=== PATIENT | female | born 1995 | race Caucasian/White ===

== ENCOUNTER 2020-03-09 14:59 | Emergency (ER) | payer OTHER, SELFPAY ==
--- NOTE | 2020-03-09 | XR_ITS ---
EXAMINATION: XR CHEST CLINICAL INFORMATION: Cough with shortness of breath COMPARISON: 12/12/2019 TECHNIQUE: 2 views of the chest were obtained. FINDINGS: No significant abnormality is noted involving the heart, lungs, mediastinum, bony thorax or soft tissues. XR/XR chest 2V IMPRESSION: Unremarkable examination.
[2020-03-09 15:58] VITALS: BP 122/64; PULSE 75; RESP 16; TEMP 37.1; O2SAT 100; BMI 57.2
--- NOTE | 2020-03-09 16:33 | ED_ITS ---
HPI - General Adult General Chief complaint: Upper Respiratory Symptoms Stated complaint: BACK PPAIN,COUGH Time Seen by Provider: 03/09/20 16:30 Source: patient Mode of arrival: ambulatory Limitations: no limitations History of Present Illness HPI narrative: Patient here with left upper back pain, cough, sore throat x2-3 days. No fevers, chills, body aches, CP or SOB. Onset (ago): day(s) Location: back Radiation: non-radiation Severity: mild Pain Consistency: intermittent Relieving factors: immobilization Exacerbating factors: movement Associated symptoms: denies other symptoms Treatments prior to arrival: none Related Data Previous Rx's Medication Instructions Recorded ferrous sulfate 325 mg (65 mg 325 mg PO DAILY #30 tab 03/01/20 iron) tablet cyclobenzaprine 10 mg PO TID PRN #10 tab 03/09/20 ibuprofen 600 mg PO TID PRN #20 tab 03/09/20 Allergies Allergy/AdvReac Type Severity Reaction Status Date / Time cat dander [CAT] Allergy Unknown UNKNOWN Unverified 02/01/20 17:28 tree and shrub pollen [TREE] Allergy Unknown UNKNOWN Unverified 02/01/20 17:28 BLUE CHEESE Allergy Unknown UNKNOWN Uncoded 02/01/20 17:28 Blue Cheese Allergy Unknown nausea and Uncoded 01/09/20 00:00 vomiting Cats Allergy Unknown shortness Uncoded 01/09/20 00:00 of breath GRASS Allergy Unknown UNKNOWN Uncoded 02/01/20 17:28 Maple Trees Allergy Unknown Excessive Uncoded 01/09/20 00:00 Sneezing Review of Systems Review of Systems: Yes all other systems are reviewed and are negative Constitutional: Constitutional: Reports no additional constitutional complaints, Denies body ache(s), Denies chills, Denies fever(s), Denies headache(s) and Denies weakness Eyes: Eyes: Reports no additional eye complaints and Denies change in vision ENT: Reports system reviewed and no additional complaints, except as documented, Denies dizziness, Denies headache(s), Denies nasal congestion, Denies nasal discharge, Denies neck pain and Reports sore throat Cardiovascular: Cardiovascular: Reports no additional cardiovascular complaints, Denies chest pain, Denies leg edema and Denies dyspnea Respiratory: Respiratory: Reports no additional respiratory complaints, Reports cough and Denies dyspnea Gastrointestinal: Gastrointestinal: Reports no additional gastrointestinal complaints, Denies abdominal pain, Denies diarrhea, Denies nausea and Denies vomiting Genitourinary: Genitourinary: Reports no additional female genitourinary complaints and Denies urinary incontinence Musculoskeletal: Musculoskeletal: Reports no additional musculoskeletal complaints, Reports back pain, Denies arthralgias, Denies joint swelling, Denies neck pain, Denies numbness and Denies tingling Integumentary/Breasts: Skin/Breast: Reports system reviewed and no additional complaints, except as docu and Denies rash Neurologic: Reports system reviewed and no additional complaints, except as documented, Denies Abnormal speech present, Denies dizziness, Denies headache(s), Denies numbness, Denies tingling and Denies weakness PMFSH Past Medical History Attestation statement: The following information was validated with the patient. Source: old records reviewed, obtained from family and nursing notes reviewed Medical History No known health problems Social History Social History Alcohol intake: never Smoked in Last 30 Days: No Use of substances other than those prescribed or required for medical reasons: No Advance Directives: No Advance Directives Information Provided: No Physical Exam Vital Signs: Vital Signs: Vital Signs Temp Pulse Resp BP Pulse Ox 03/09/20 15:58 98.7 F 75 16 122/64 100 Body Mass Index 57.2 Const: General: cooperative, healthy appearing, comfortable and no acute dist ress Orientation/consciousness: patient oriented x3 Limitations: no limitations HENMT: Head: Yes normal to inspection Ears: hearing grossly normal bilaterally General nose exam: Normal external nose present Face and sinus: Yes normal facial exam Mouth: Normal oral and palatal mucosa present Throat: Yes posterior oropharynx normal Eyes: General: appearance normal, both eyes and all related structures Pupils: Equal, round and reactive pupils present Neck: Neck: Yes normal visual inspection Chest: Chest palpation & inspection: normal inspection of the chest Resp: Effort & Inspection: normal respiratory effort Auscultation: clear to auscultation bilaterally Cardio: Rate: regular rate Rhythm: regular rhythm Peripheral pulses: Peripheral pulses 2+ throughout GI: Inspection: Yes normal to inspection Palpation (GI): Soft to palpation and nontender Auscultation: normal bowel sounds : General: Yes no CVA tenderness Back/Spine/Pelvis: Other: L upper posterior mid back pain. No midline tenderness, step-offs or deformities. Mainly soft tissue tenderness. Back: no CVA tenderness Thoracic/Lumbar Spine: thoracic and lumbar spine normal to inspection Skin: General skin exam: no rashes or lesions noted Neuro: General: patient oriented x3, no focal motor deficits and normal sensation to monofilament Cranial nerves: Yes Equal, round and reactive pupils present Cognition (Neuro): normal cognition Speech: No Abnormal speech present Gait exam (Neuro): Normal gait present Motor exam (neuro): 5/5 motor strength present throughout Extrem: General: Yes normal to inspection Course Course Course Narrative: Patient here with sore throat, cough and left upper back pain the last few days. Pain is worsened with deep breathing and movement. Perc score 0. chest x-ray negative for underlying bronchitis or pneumonia. Feels more muscular on exam. COVID testing was sent. Reviewed worrisome signs and symptoms and when to return to the emergency department. Comfortable discharge home. Medical Decision Making Imaging Data Chest x-ray: Attestation: I personally reviewed and interpreted this imaging study as follows: Radiologist's impression: EXAMINATION: XR CHEST CLINICAL INFORMATION: Cough with shortness of breath COMPARISON: 12/12/2019 TECHNIQUE: 2 views of the chest were obtained. FINDINGS: No significant abnormality is noted involving the heart, lungs, mediastinum, bony thorax or soft tissues. XR/XR chest 2V IMPRESSION: Unremarkable examination. Discharge Plan Discharge Clinical Impression: Chest wall muscle strain Qualifiers: Encounter type: initial encounter Qualified Code(s): S29.011A - Strain of muscle and tendon of front wall of thorax, initial encounter Patient Disposition: Home, Self-Care Instructions: Muscle Strain (ED) Additional Instructions: We have tested you today for COVID 19. Test results take 1-2 days and we will call you with the results negative or positive. Take tylenol or motrin if able as needed for pain or fever. Stay well hydrated with fluids like water, gatorade and/or powerade. Wash hands at home. If living with others try to self isolate if possible. If unable wear a mask around others in your home and wash hands frequently. If COVID test is positive you will need to self isolate for a total of 14 days from when your symptoms started. You may return to work sooner if testing is negative and all symptoms resolved >72 hours. You should return to the emergency department for severe shortness of breath, chest pain or fever which does not respond to both tylenol and motrin at home. Prescriptions: New ibuprofen 600 mg tablet 600 mg PO TID PRN (Reason: fever or pain) Qty: 20 RF: 0 cyclobenzaprine 10 mg tablet 10 mg PO TID PRN (Reason: muscle spasm) Qty: 10 RF: 0 No Action ferrous sulfate 325 mg (65 mg iron) tablet 325 mg PO DAILY Qty: 30 RF: 3 Stand Alone Forms: Work/School Release Interventions: ED Discharge Assessment Last Done: 03/09/20 17:25 Discharge Date/Time: 03/09/20 17:28
== END 2020-03-09 17:28 | disposition home or self-care (01) ==
PROVIDERS: Nurse Practitioner Family; Emergency Provider Emergency Medicine; PCP Family Medicine
DX: S29.012A Strain of muscle and tendon of back wall of thorax, initial encounter (principal); S21.109A Unspecified open wound of unspecified front wall of thorax without penetration into thoracic cavity, initial encounter; M54.5 Low back pain; R05 Cough; X58.XXXA Exposure to other specified factors, initial encounter; Y93.9 Activity, unspecified; Y92.9 Unspecified place or not applicable; Y99.9 Unspecified external cause status; Z20.828 Contact with and (suspected) exposure to other viral communicable diseases; Z79.899 Other long term (current) drug therapy
CPT/HCPCS: 71046; 87635; 99283; 99284

== ENCOUNTER → 2020-03-12 09:30 | Outpatient (BNVA) | payer OTHER, SELFPAY | PROVIDERS: Visit Provider Surgery | DX: E66.01 Morbid (severe) obesity due to excess calories (principal); Z68.43 Body mass index [BMI] 50.0-59.9, adult; Z71.3 Dietary counseling and surveillance | CPT/HCPCS: 99214 ==

== ENCOUNTER 2020-03-25 12:58 | Emergency (ER) | payer OTHER, SELFPAY ==
[2020-03-25 14:21] VITALS: BP 145/70; PULSE 89; RESP 18; TEMP 36.9; O2SAT 98; BMI 55.9
[2020-03-25 14:30] LABS: UPreg QC Valid YES; Urine Pregnancy NEGATIVE (NEGATIVE)
[2020-03-25 14:59] LABS: Amphetamine Screen Urine Not Detected (Not Detect); Barbiturates, Urine Not Detected (Not Detect); Benzodiazepines Screen Urine Not Detected (Not Detect); Cannabinoid Screen Urine Not Detected (Not Detect); Cocaine Screen Urine Not Detected (Not Detect); Opiate Screen Urine Not Detected (Not Detect); Phencyclidine Screen Urine Not Detected (Not Detect)
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
--- NOTE | 2020-03-25 15:46 | PC.NURSE ---
care team at bedside for eval.
[2020-03-25 15:54] VITALS: BP 115/67; PULSE 86; RESP 16; TEMP 36.8; O2SAT 99
== END 2020-03-25 16:43 | disposition home or self-care (01) ==
PROVIDERS: Nurse Practitioner Primary Care; Emergency Provider Emergency Medicine; PCP Family Medicine
DX: F33.1 Major depressive disorder, recurrent, moderate (principal); R45.851 Suicidal ideations; Z79.899 Other long term (current) drug therapy; F17.200 Nicotine dependence, unspecified, uncomplicated; Z71.6 Tobacco abuse counseling
CPT/HCPCS: 80307; 81025; 99284

== ENCOUNTER 2020-04-16 07:33 | Outpatient (REF) | payer OTHER, SELFPAY | END 2020-04-16 07:34 | disposition home or self-care (01) | LOC: HO.LAB 07:33 | PROVIDERS: PCP Family Medicine; Visit Provider Internal Medicine | DX: Z20.828 Contact with and (suspected) exposure to other viral communicable diseases (principal) | CPT/HCPCS: C9803; U0003 ==

== ENCOUNTER 2020-04-16 21:59 | Emergency (ER) | payer OTHER, SELFPAY ==
--- NOTE | 2020-04-16 | XR_ITS ---
EXAMINATION: XR CHEST CLINICAL INFORMATION: Cough, shortness of breath COMPARISON: Chest x-ray 03/09/2020 TECHNIQUE: Frontal portable view of the chest was obtained. 10:15 PM FINDINGS: No significant abnormality is noted involving the heart, lungs, mediastinum, bony thorax or soft tissues. XR/XR chest 1V IMPRESSION: Unremarkable examination.
[2020-04-16 22:10] VITALS: BP 145/89; PULSE 68; RESP 24; TEMP 36.8; O2SAT 98; BMI 55.9
--- NOTE | 2020-04-16 23:49 | ED.GENADULT ---
HPI - General Adult General Chief complaint: General Medical Stated complaint: Flu like Time Seen by Provider: 04/16/20 23:34 History of Present Illness HPI narrative: 24-year-old female who presents to the emergency department for evaluation of viral like symptoms. The patient states that she has been sick for approximately 3-4 days. She states that she feels short of breath. She has body aches, shaking chills, dizziness, diarrhea 5-6 episodes a day and loss of sense of taste and smell. She states that she is feeling very fatigued as well. The patient has an occasional cough which is nonproductive. Patient is concerned that she may have the flu or COVID-19 therefore she came to the emergency department for evaluation. She does not have any known COVID-19 exposures. Related Data Home Medications Medication Instructions Recorded Confirmed citalopram 20 mg tablet 30 mg PO DAILY 03/12/20 03/25/20 trazodone 50 mg tablet 50 mg PO BEDTIME 03/12/20 03/25/20 Allergies Allergy/AdvReac Type Severity Reaction Status Date / Time cat dander [CAT] Allergy Unknown UNKNOWN Verified 04/16/20 22:08 tree and shrub pollen [TREE] Allergy Unknown UNKNOWN Verified 04/16/20 22:08 BLUE CHEESE Allergy Unknown UNKNOWN Uncoded 04/16/20 22:08 Blue Cheese Allergy Unknown nausea and Uncoded 04/16/20 22:08 vomiting Cats Allergy Unknown shortness Uncoded 04/16/20 22:08 of breath GRASS Allergy Unknown UNKNOWN Uncoded 04/16/20 22:08 Maple Trees Allergy Unknown Excessive Uncoded 04/16/20 22:08 Sneezing Review of Systems Review of Systems: Yes all other systems are reviewed and are negative Constitutional: Constitutional: Reports as per HPI Eyes: Eyes: Reports as per HPI ENT: Reports as per HPI Cardiovascular: Cardiovascular: Reports as per HPI Respiratory: Respiratory: Reports as per HPI Gastrointestinal: Gastrointestinal: Reports as per HPI Genitourinary: Genitourinary: Reports as per HPI Musculoskeletal: Musculoskeletal: Reports as per HPI Integumentary/Breasts: Skin/Breast: Reports as per HPI Neurologic: Reports as per HPI and Reports Abnormal speech present Psychiatric: Psychiatric: Reports as per HPI Allergic/Immunologic: Allergic/Immunologic: Reports as per HPI PMF Past Medical History Medical History ADHD Anemia Anxiety Depression Migraines Morbid obesity with BMI of 50.0-59.9, adult No known health problems Prediabetes Pseudotumor cerebri Vitamin D deficiency Surgical History History of myringotomy History of tonsillectomy Hx of cholecystectomy Family History Family History Mother Fibromyalgia Depression Arthritis Father Diabetes Hypertension Brother No problems noted. Sister No problems noted. Maternal Grandmother Hypertension Social History Social History Alcohol intake: unknown Smoking Status: Current every day smoker Advance Directives: No Advance Directives Information Provided: Yes Physical Exam Vital Signs: Vital Signs: Last Vital Signs Temp 98.3 F 04/16/20 22:10 Pulse 68 04/16/20 22:10 Resp 24 H 04/16/20 22:10 BP 145/89 H 04/16/20 22:10 Pulse Ox 98 04/16/20 22:10 Body Mass Index 55.9 Const: General: cooperative, no acute distress, alert and awake Orientation/consciousness: oriented to person and oriented to place Limitations: no limitations HENMT: Head: Yes normal to inspection, Yes normocephalic and Yes atraumatic Ears: external ears normal Eyes: General: appearance normal, both eyes and all related structures Periorbital: periorbital findings normal Eyelids: Yes eyelids normal Conjunctivae: conjunctivae normal Sclerae: sclerae normal Corneas: corneas normal Pupils: Equal, round and reactive pupils present Direct Ophthalmoscopy: normal light reflex Neck: Neck: Yes normal visual inspection and Yes supple Lymphatic: no lymphadenopathy noted Chest: Chest palpation & inspection: normal inspection of the chest and normal palpation of entire chest wall Resp: Effort & Inspection: normal respiratory effort, abnormal respiratory pattern, no audible wheezes and no respiratory distress Auscultation: clear to auscultation bilaterally, no crackles, no rales, no rhonchi and no wheezes Cardio: Rate: regular rate Rhythm: regular rhythm Heart sounds: S1 normal heart sound present, S2 normal heart sound present and Murmur heart sound present GI: Inspection: No distended Palpation (GI): Soft to palpation, nontender, no guarding and No hepatosplenomegaly present Auscultation: normal bowel sounds : General: Yes no CVA tenderness Back/Spine/Pelvis: Back: no CVA tenderness Skin: General skin exam: no rashes or lesions noted Lesions: no lesions Rashes: no rashes Wounds: no wounds Neuro: General: oriented to person and oriented to place Cranial nerves: Yes CN's II-XII intact bilaterally and Yes Equal, round and reactive pupils present Cognition (Neuro): normal cognition Speech: Abnormal speech present Motor exam (neuro): 5/5 motor strength present throughout Extrem: General: Yes normal to inspection, Yes full ROM, Yes no pedal edema and Yes no calf tenderness Psych: Appearance: grossly normal Mental Status: mental status grossly normal Speech and movement: Clear speech present Affect: normal affect Thought process: Normal thought process present Course Course Course Narrative: 25-year-old female with history depression and anxiety who presents emergency department for evaluation flu-like illness times several days. The patient was afebrile with a temperature 98.3?, O2 saturation was normal at 90% on room air, the patient did have a slight elevation her blood pressure of 145/89 and elevated respiratory rate of 24. The patient does not appear septic or toxic. The patient was tested for COVID-19. The patient will be discharged to home. She was advised to quarantine at home until she gets her COVID-19 with his old in the next 2-4 days. Discharge Plan Discharge Clinical Impression: Suspected COVID-19 virus infection Instructions: COVID-19 (Coronavirus Disease 2019) (ED) Additional Instructions: Your COVID-19 test should come back in 2-4 days. You need to quarantine/stay at home until you know this result. Make sure that you wear a mask at all times and make sure that everyone around he wears a mask as well. Take ibuprofen 200 mg pills, 3 pills every 6 hours as needed for pain. Take extra-strength Tylenol 500 mg pills, 2 pills every 4-6 hours as needed for pain. Please return to the emergency department if her symptoms get worse or if you develop any new symptoms that are concerning to you. Prescriptions: No Action citalopram 20 mg tablet 30 mg PO DAILY RF: 0 trazodone 50 mg tablet 50 mg PO BEDTIME RF: 0 Referrals: Marina Hairston [Emergency Nurse] - 2 days
--- NOTE | 2020-04-17 00:08 | PC.NURSE ---
PATIENT AMBULATING WITH STEADY GAIT. PREPARING TO DISCHARGE HOME, PER PROVIDER.
== END 2020-04-17 00:15 | disposition home or self-care (01) ==
PROVIDERS: Emergency Provider Emergency Medicine Emergency Medical Services; PCP Internal Medicine
DX: R06.02 Shortness of breath (principal); Z20.828 Contact with and (suspected) exposure to other viral communicable diseases; Z79.899 Other long term (current) drug therapy; F17.200 Nicotine dependence, unspecified, uncomplicated; Z71.6 Tobacco abuse counseling
CPT/HCPCS: 71045; 99283; U0003

== ENCOUNTER → 2020-04-18 07:46 | Outpatient (BNVA) | payer OTHER, SELFPAY | PROVIDERS: PCP Family Medicine; Referring Provider Family Medicine; Visit Provider Physician Assistant | DX: Z76.89 Persons encountering health services in other specified circumstances (principal) ==

== ENCOUNTER → 2020-04-25 08:07 | Outpatient (BNVA) | payer OTHER, SELFPAY | PROVIDERS: PCP Family Medicine; Visit Provider Dietitian, Registered | DX: Z76.89 Persons encountering health services in other specified circumstances (principal) ==

== ENCOUNTER 2020-04-29 21:24 | Emergency (ER) | payer OTHER, SELFPAY ==
[2020-04-29 21:32] VITALS: PULSE 99; RESP 22; TEMP 36.7; O2SAT 100
[2020-04-29 21:35] VITALS: BP 120/88; BP 139/92; PULSE 107; PULSE 99; RESP 40; TEMP 36.7; O2SAT 100; BMI 54.8
--- NOTE | 2020-04-29 21:43 | PC.NURSE ---
at bedside for primary eval.
--- NOTE | 2020-04-29 21:46 | ECG_ITS ---
Test Reason : CHEST PAIN Blood Pressure : / mmHG Vent. Rate : 081 BPM Atrial Rate : 081 BPM P-R Int : 134 ms QRS Dur : 084 ms QT Int : 380 ms P-R-T Axes : 041 011 032 degrees QTc Int : 441 ms Normal sinus rhythm Normal ECG When compared with ECG of 12-DEC-2019 09:55, No significant change was found Referred By: Sami Ferreira Electronically Signed By:Obinna Burt
[2020-04-29] MEDS: LORazepam 2 MG/ML VIAL IM (21:55)
--- NOTE | 2020-04-29 21:56 | PC.NURSE ---
Pt medicated per JUL. altitude chamber technician and this RN at bedside for changeover.
--- NOTE | 2020-04-29 22:30 | ED.ANXIETY ---
HPI - Anxiety General Chief Complaint: Anxiety Stated Complaint: anxiety Time Seen by Provider: 04/29/20 21:46 Source: patient Mode of arrival: EMS Limitations: no limitations History of Present Illness HPI narrative: Patient has history of anxiety and panic attacks had a fight with his her fiance over talking to somebody else came here hyperventilating having weak suicidal thoughts nothing at this time also complaining of chest pain which usually happens to her when she gets panic attacks complaint: anxiety Onset (ago): minute(s) Symptoms: chest pain Severity: moderate Quality: constant Place: home History of similar episodes: Yes Related Data Home Medications Medication Instructions Recorded Confirmed citalopram 20 mg tablet 30 mg PO DAILY 03/12/20 04/18/20 trazodone 50 mg tablet 50 mg PO BEDTIME 03/12/20 04/18/20 Allergies Allergy/AdvReac Type Severity Reaction Status Date / Time cat dander [CAT] Allergy Unknown UNKNOWN Verified 04/29/20 21:35 tree and shrub pollen [TREE] Allergy Unknown UNKNOWN Verified 04/29/20 21:35 BLUE CHEESE Allergy Unknown UNKNOWN Uncoded 04/16/20 22:08 Blue Cheese Allergy Unknown nausea and Uncoded 04/16/20 22:08 vomiting Cats Allergy Unknown shortness Uncoded 04/16/20 22:08 of breath GRASS Allergy Unknown UNKNOWN Uncoded 04/16/20 22:08 Maple Trees Allergy Unknown Excessive Uncoded 04/16/20 22:08 Sneezing Review of Systems Review of Systems: Yes all other systems are reviewed and are negative PMFSH Past Medical History Medical History ADHD Anemia Anxiety Depression Migraines Morbid obesity with BMI of 50.0-59.9, adult No known health problems Prediabetes Pseudotumor cerebri Vitamin D deficiency Surgical History History of myringotomy History of tonsillectomy Hx of cholecystectomy Family History Family History Mother Fibromyalgia Depression Arthritis Father Diabetes Hypertension Brother No problems noted. Sister No problems noted. Maternal Grandmother Hypertension Social History Social History Alcohol intake: unknown Smoking Status: Current every day smoker Advance Directives: No Advance Directives Information Provided: No Physical Exam Vital Signs: Vital Signs: Last Vital Signs Temp 98.1 F 04/29/20 21:35 Pulse 99 04/29/20 21:35 Resp 40 H 04/29/20 21:35 BP 120/88 04/29/20 21:35 Pulse Ox 100 04/29/20 21:35 Body Mass Index 54.8 Const: Other: Panicked hyperventilating General: healthy appearing and anxious Nutritional Appearance: obese Orientation/consciousness: oriented to person, oriented to place, oriented to time and patient oriented x3 Limitations: no limitations HENMT: Head: Yes normal to inspection Ears: hearing grossly normal bilaterally General nose exam: Normal external nose present Eyes: Eyelids: Yes eyelids normal Conjunctivae: conjunctivae normal Sclerae: sclerae normal Neck: Neck: Yes normal visual inspection and Yes full ROM Resp: Effort & Inspection: tachypneic Auscultation: clear to auscultation bilaterally, no crackles and no rales Cardio: Rate: regular rate Rhythm: regular rhythm Heart sounds: S1 normal heart sound present and S2 normal heart sound present GI: Inspection: Yes normal to inspection Palpation (GI): Soft to palpation and nontender Neuro: General: oriented to person, oriented to place, oriented to time, patient oriented x3 and moves all extremities Psych: Appearance: grossly normal Mental Status: mental status grossly normal Speech and movement: Normal speech and movement present Affect: Anxious affect present Attitude: cooperative Thought content: Normal thought content present Insight: Good insight present (Psych) Judgement: Good judgement present (Psych) MDM - Anxiety MDM Narrative Medical decision making narrative: Came with panic attacks with similar history in the past responded to Ativan 2 mg IM at this time patient relax denied any suicidal ideation or significant depression would like to go home patient feels safe to go home ECG Data Attestation: I personally reviewed and interpreted this ECG as follows: Interpretation: Normal sinus rhythm heart rate 81 normal intervals normal axis impression normal EKG Discharge Plan Discharge Prescriptions: No Action citalopram 20 mg tablet 30 mg PO DAILY RF: 0 trazodone 50 mg tablet 50 mg PO BEDTIME RF: 0
== END 2020-04-29 23:01 | disposition home or self-care (01) ==
PROVIDERS: Emergency Provider Internal Medicine
DX: F43.0 Acute stress reaction (principal); F32.9 Major depressive disorder, single episode, unspecified
CPT/HCPCS: 93005; 96372; 99283; 99284; J2060

== ENCOUNTER 2020-05-30 | Outpatient (REF) | payer OTHER, SELFPAY | END 2020-05-30 00:01 | disposition home or self-care (01) | LOC: HO.WFDLNP | PROVIDERS: Visit Provider Family Medicine | DX: Z20.822 Contact with and (suspected) exposure to COVID-19 (principal) | CPT/HCPCS: U0003 ==

== ENCOUNTER 2020-06-04 11:50 | Outpatient (REF) | payer OTHER, SELFPAY ==
[2020-06-04 14:45] LABS: SARS COV2 IgG Positive (Negative)
== END 2020-06-04 11:51 | disposition home or self-care (01) ==
LOC: HO.WFDLDS 11:50
PROVIDERS: Visit Provider Family Medicine
DX: U07.1 COVID-19 (principal)
CPT/HCPCS: 36415; 86769

== ENCOUNTER 2020-07-04 09:54 | Outpatient (REF) | payer OTHER, SELFPAY ==
[2020-07-04 11:43] LABS: Anion Gap 14 (12-20); Blood Urea Nitrogen 10 mg/dL (9-16); Calcium 8.8 mg/dL (8.4-10.2); Carbon Dioxide 21 mmol/L (22-29); Chloride 107 mmol/L (96-108); Estimated Glomerular Filt Rate > 60; Glucose Fasting 100 mg/dL (60-99); Potassium 4.4 mmol/L (3.3-5.1); Sodium 138 mmol/L (135-145); TSH reflex Free T4 0.89 uIU/mL (0.32-4.0)
== END 2020-07-04 09:55 | disposition home or self-care (01) ==
LOC: HO.LAB 09:54
PROVIDERS: PCP Family Medicine; Visit Provider Family Medicine
DX: Z00.00 Encounter for general adult medical examination without abnormal findings (principal); R73.03 Prediabetes; R53.83 Other fatigue
CPT/HCPCS: 36415; 80048; 84443

== ENCOUNTER → 2020-07-11 09:18 | Outpatient (BNVA) | payer OTHER, SELFPAY | PROVIDERS: PCP Family Medicine; Visit Provider Surgery | DX: E66.01 Morbid (severe) obesity due to excess calories (principal); Z68.43 Body mass index [BMI] 50.0-59.9, adult | CPT/HCPCS: 99212 ==

== ENCOUNTER 2020-07-18 12:09 | Emergency (ER) | payer OTHER, SELFPAY ==
--- NOTE | ~2020-07-18 | CT_ITS ---
EXAMINATION: CT ANGIOGRAM OF THE CHEST WITH AND WITHOUT CONTRAST (CT PULMONARY ANGIOGRAM FOR PE) CLINICAL INFORMATION: Reason for Exam SOB, + COVID COMPARISON: Chest radiographs 07/18/2020, 04/16/2020 TECHNIQUE: Prior to contrast administration, noncontrast localization images were obtained. Subsequently, multidetector volumetric imaging was performed from the thoracic inlet to below the diaphragms following the administration of 71 mL Omnipaque 350 intravenous contrast. Sagittal, coronal, and MIP oblique sagittal reformatted images were obtained on the CT workstation, uploaded to PACS, and reviewed. This CT examination was performed using dose optimization techniques as appropriate, variously including the following: *Automated exposure control *Adjustment of mA and/or kV according to patient size (this includes techniques or standardized protocols for targeted exams where dose is matched to indication/reason for exam; i.e. extremities or head) *Use of iterative reconstruction technique Total exam dose-length product 590 mGy-cm FINDINGS: QUALITY OF STUDY/CONTRAST BOLUS: Satisfactory. PULMONARY ARTERIES: No central or segmental pulmonary emboli. THORACIC AORTA: No aneurysm or dissection. LUNG: The central airways are clear. There is no endobronchial lesion or bronchiectasis. No airspace consolidation or groundglass opacities. No pneumothorax. PLEURA: No pleural thickening or effusion. MEDIASTINUM: Normal heart size. No pericardial effusion. No hilar or mediastinal lymphadenopathy. No evidence of septal bowing or right heart strain. No pneumomediastinum. CHEST WALL/AXILLA: No axillary or internal mammary lymphadenopathy. OSSEOUS STRUCTURES: No acute or suspicious osseous abnormality. UPPER ABDOMEN: Unremarkable. No reflux of contrast into the hepatic veins to suggest elevated right heart pressures. CT/CT angio chest PE protocol IMPRESSION: 1. No pulmonary embolism. No thoracic aortic enlargement or dissection. 2. Lungs clear. No airspace consolidation, groundglass opacity, or effusion. VTE: negative
--- NOTE | ~2020-07-18 | XR_ITS ---
EXAMINATION: XR CHEST CLINICAL INFORMATION: Cough. COMPARISON: None TECHNIQUE: Frontal view of the chest was obtained. FINDINGS: No significant abnormality is noted involving the heart, lungs, mediastinum, bony thorax or soft tissues. XR/XR chest 1V IMPRESSION: Unremarkable chest examination.
[2020-07-18 12:12] VITALS: BP 139/76; PULSE 77; RESP 16; TEMP 36.8; O2SAT 98; BMI 54.1
--- NOTE | 2020-07-18 12:45 | ECG_ITS ---
Test Reason : DYSPNEA Blood Pressure : / mmHG Vent. Rate : 078 BPM Atrial Rate : 078 BPM P-R Int : 130 ms QRS Dur : 086 ms QT Int : 416 ms P-R-T Axes : 032 006 027 degrees QTc Int : 474 ms Normal sinus rhythm with sinus arrhythmia Nonspecific T wave abnormality Prolonged QT Abnormal ECG When compared with ECG of 29-APR-2020 21:49, No significant change was found Referred By: Kulwant De Electronically Signed By:WHIT PRESCOTT
[2020-07-18 13:27] LABS: MANUAL DIFF FLAG NO
[2020-07-18 13:28] LABS: Basophils Percent Auto 0.4 % (0-2); Eosinophils Absolute Auto 0.7 X10*3/uL (0.0-0.4); Eosinophils Percent Auto 6.4 % (0-4); Hemoglobin 11.9 g/dl (12.0-16.0); Imm Gran Abs Auto 0.03 X10*3/uL (0.00-0.03); Imm Gran Pct Auto 0.3 % (0.0-0.4); Lymphocytes Percent Auto 27.6 % (20-40); Mean Corpuscular HGB Conc 31.3 g/dl (31.0-35.0); Mean Corpuscular Hemoglobin 24.9 pg (27.0-33.0); Mean Corpuscular Volume 79.5 fL (80-98); Mean Platelet Volume 8.9 fL (9.4-12.3); Monocytes Absolute Auto 0.4 X10*3/uL (0.1-1.2); Monocytes Percent Auto 3.8 % (2-11); Neutrophils Absolute Auto 6.7 X10*3/uL (2.0-8.3); Neutrophils Percent Auto 61.5 % (45-73); Platelet Count 428 X10*3/uL (160-400); Red Blood Count 4.78 X10*6/uL (4.20-5.50); Red Cell Distribution Width 16.3 % (11.0-16.0)
[2020-07-18 13:33] LABS: Glucose Urine UA NEG (NEG); Leukocyte Esterase Urine NEG (NEG); Nitrite Urine NEG (NEG); Specific Gravity - Urine 1.025 (1.005-1.025); Urine Blood NEG (NEG); Urine Ketones NEG (NEG); Urine Protein NEG (NEG-TRACE)
[2020-07-18 13:34] LABS: Appearance Urine CLEAR; Color Urine YELLOW
[2020-07-18 13:37] LABS: UPreg QC Valid YES; Urine Pregnancy NEGATIVE (NEGATIVE)
--- NOTE | 2020-07-18 13:46 | ED_ITS ---
HPI - URI/Sore Throat General Chief Complaint: Upper Respiratory Symptoms Stated Complaint: cough Time Seen by Provider: 07/18/20 12:42 Source: patient Mode of arrival: ambulatory Limitations: no limitations History of Present Illness HPI Narrative: This is a 24-year-old female with below noted past medical history including history of morbid obesity, depression, anxiety who presents ambulatory via triage she states that she had COVID back in April she had mild symptoms for couple of weeks that resolve subsequently had a test that was negative and about 3-4 weeks ago she started having a cough and with some wheezing thus she saw her primary care doctor started on course of prednisone and Z-Maximiliano and symptoms continued a week and half or 2 later she had another course about a month ago and has not made much of a difference. She does report she feels some vague shortness of breath on exertion however this is not altogether unusual given her obesity. States most bothersome symptom is the cough that persists and during the onset was productive but now is mostly dry. There is no fever, abdominal pain, back pain, nausea. MD elicited complaint: cough Pertinent past history: other (Bronchitis) Onset (ago): month(s) Consistency: intermittent Severity: moderate Description of mucous: clear Able to tolerate fluids by mouth: Yes Exacerbating factors: nothing Relieving factors: nothing Associated symptoms: denies other symptoms Treatments prior to arrival: none Related Data Home Medications Medication Instructions Recorded Confirmed ferrous sulfate 325 mg (65 mg 325 mg PO DAILY 05/06/20 07/11/20 iron) tablet Previous Rx's Medication Instructions Recorded cholecalciferol (vitamin D3) 50 50 mcg PO DAILY 90 Days #90 cap 05/06/20 mcg (2,000 unit) capsule albuterol sulfate 90 mcg/actuation 2 puff INHALATION Q6H PRN 30 Days 06/19/20 aerosol inhaler #18 g trazodone 50 mg tablet 50 mg PO BEDTIME #30 tab 06/24/20 citalopram 20 mg tablet 30 mg PO DAILY 30 Days #45 tab 07/01/20 clonazepam 0.5 mg tablet 0.5 mg PO DAILY PRN 30 Days #30 tab 07/01/20 omeprazole magnesium [Prilosec OTC] 20 mg PO DAILY 14 Days #14 tab 07/18/20 prednisone 40 mg PO DAILY 5 Days #10 tab 07/18/20 Allergies Allergy/AdvReac Type Severity Reaction Status Date / Time house dust mite Allergy Mild allergy Verified 07/11/20 10:20 insect venom Allergy Mild allergy Verified 07/11/20 10:20 cat dander [CAT] Allergy Unknown UNKNOWN Verified 07/11/20 10:20 tree and shrub pollen [TREE] Allergy Unknown UNKNOWN Verified 07/11/20 10:20 Blue Cheese Allergy Unknown nausea and Uncoded 07/11/20 10:20 vomiting GRASS Allergy Unknown UNKNOWN Uncoded 07/11/20 10:20 Maple Trees Allergy Unknown Excessive Uncoded 07/11/20 10:20 Sneezing Review of Systems Review of Systems: Constitutional: No Weight loss, No Fever, No Chills, No Night Sweats, No Fatigue, No Malaise ENT/Mouth: No Hearing loss, No Ear Pain, No Nasal Congestion, No Sinus Pain, No Hoarseness, No sore throat, No Rhinorrhea, No Swallowing Difficulty Eyes: No Eye Pain, No Swelling, No Redness, No Foreign Body, No Discharge, No Vision Changes Cardiovascular: No Chest Pain, No Orthopnea, No Edema, No Palpitations Respiratory: + Cough, No Sputum, No Wheezing, + Dyspnea with cough Gastrointestinal: No Nausea, No Vomiting, No Diarrhea, No Constipation, No abdominal Pain, No Hematochezia, No Melena Genitourinary: No Dysuria, No Urinary Frequency, No Hematuria, No Urinary Incontinence, No Urgency, No Flank Pain, No Urinary Flow Changes, No Hesitancy Musculoskeletal: No joint pain, No Myalgias, No Joint Swelling Skin: No Skin Lesions, No rash Neuro: No Weakness, No Numbness, No Paresthesias, No Loss of Consciousness, No Dizziness, No Headache Psych: No Social Issues Heme/Lymph: No Bruising, No Bleeding,No Lymphadenopathy Endocrine: No Polyuria, No Polydipsia, No Temperature Intolerance Yes all other systems are reviewed and are negative [facility] Past Medical History Medical History ADHD Anemia Anxiety Depression Migraines Morbid obesity with BMI of 50.0-59.9, adult No known health problems Prediabetes Pseudotumor cerebri Vitamin D deficiency Surgical History History of myringotomy History of tonsillectomy Hx of cholecystectomy Family History Family History Mother Fibromyalgia Depression Arthritis Father Diabetes Hypertension Brother No problems noted. Sister No problems noted. Maternal Grandmother Hypertension Social History Social History (Updated 07/11/20 @ 10:01 by Bhumi Alvarado MD) Alcohol intake: unknown Smoking Status: Current every day smoker Packs Per Day: 0.5 Cigarettes Per Day: 10 Advance Directives: No Advance Directives Information Provided: No Physical Exam Vital Signs: Vital Signs: Last Vital Signs Temp 98.2 F 07/18/20 15:58 Pulse 72 07/18/20 15:58 Resp 22 H 07/18/20 15:58 BP 116/71 07/18/20 15:58 Pulse Ox 98 07/18/20 15:58 Body Mass Index 54.1 Reviewed Const: General: cooperative and healthy appearing; No acute distress or intoxicated appearing Nutritional Appearance: obese Orientation/consciousness: patient oriented x3 HENMT: Head: Yes normal to inspection Ears: hearing grossly normal bilaterally Eyes: General: appearance normal, both eyes and all related structures Visual López: normal visual lópez by confrontation Neck: Neck: Yes normal visual inspection, No positive Brudzinski's sign, No positive Kernig's sign and No tender Thyroid: Thyroid normal Chest: Chest palpation & inspection: normal inspection of the chest Resp: Effort & Inspection: normal respiratory effort Auscultation: clear to auscultation bilaterally Cardio: Jugular venous distension: no JVD Rhythm: regular rhythm Heart sounds: S1 normal heart sound present and S2 normal heart sound present GI: Inspection: Yes normal to inspection Palpation (GI): Soft to palpation Percussion: Yes normal to percussion Auscultation: normal bowel sounds : General: Yes no CVA tenderness Back/Spine/Pelvis: Back: no CVA tenderness Skin: General skin exam: no rashes or lesions noted Neuro: General: patient oriented x3 Extrem: General: Yes normal to inspection MDM - URI/Sore Throat MDM Narrative Medical decision making narrative: Interview 24-year-old female with above history presenting with ongoing upper respiratory symptoms mostly cough and some vague shortness of breath which she contributes partially to the fact that she has obesity and sedentary lifestyle however seems maybe more pronounced now. She is hemodynamically stable, her labs or overall reassuring though her COVID test is positive. I suspect that given that she had COVID and and subsequently had antibodies following that and there was a negative test this could be likely false negative and today is the continuation of the virus stranding face which could last for extended period time given that she is symptomatic will treat her as such. CTA of the chest done given her shortness of breath and COVID diagnosis and high risk for PE this was unremarkable for acute pulmonary embolism and no acute focal consolidation or ground-glass opacities. I do suspect given her significant obesity that there is underlying reflux that could be cause of her pain. Will start her on short course of PPI, prednisone for cough she has a inhaler at home. No indication for any anti biotics at this time. Her vitals have been stable duration of the ED stay. Ambulatory pulse ox of 100%. I will advise her to quarantine, follow up with her primary care doctor and dietary/lifestyle modifications. Differential Diagnosis Differential diagnosis: Likely upper respiratory infection (GERD induced cough), viral infection and bronchitis; Unlikely croup, otitis media, sinusitis, influenza and pharyngitis Medical Records Attestation: I reviewed the patient's medical records. Lab Data Attestation: I reviewed the patient's lab results. Result diagrams: 07/18/20 13:16 07/18/20 13:16 Labs: Lab Results 07/18/20 07/18/20 07/18/20 Range/Units 13:10 13:10 13:16 WBC 11.0 H (4.8-10.8) X10*3/uL RBC 4.78 (4.20-5.50) X10*6/uL Hgb 11.9 L (12.0-16.0) g/dl Hct 38.0 (37-47) % MCV 79.5 L (80-98) fL MCH 24.9 L (27.0-33.0) pg MCHC 31.3 (31.0-35.0) g/dl RDW 16.3 H (11.0-16.0) % Plt Count 428 H (160-400) X10*3/uL MPV 8.9 L (9.4-12.3) fL Immature Gran % (Auto) 0.3 (0.0-0.4) % Neut % (Auto) 61.5 (45-73) % Lymph % (Auto) 27.6 (20-40) % [place] % (Auto) 3.8 (2-11) % Eos % (Auto) 6.4 H (0-4) % Baso % (Auto) 0.4 (0-2) % Lymph # (Auto) 3.0 (1.2-4.9) X10*3/uL [place] # (Auto) 0.4 (0.1-1.2) X10*3/uL Eos # (Auto) 0.7 H (0.0-0.4) X10*3/uL Baso # (Auto) 0.0 (0.0-0.2) X10*3/uL Abs Immat Gran (auto) 0.03 (0.00-0.03) X10*3/uL Absolute Neuts (auto) 6.7 (2.0-8.3) X10*3/uL Absolute Nucleated RBC 0.000 (0.0-0.012) X10*3/uL Nucleated RBC % (auto) 0.0 (0.0-0.2) /100WBC Sodium (135-145) mmol/L Potassium (3.3-5.1) mmol/L Chloride (96-108) mmol/L Carbon Dioxide (22-29) mmol/L Anion Gap (12-20) BUN (9-16) mg/dL Creatinine (0.5-1.4) mg/dL Estim Creat Clear Calc Estimated GFR Random Glucose (60-115) mg/dL Calcium (8.4-10.2) mg/dL Total Bilirubin (0.0-1.0) mg/dL AST (5-31) U/L ALT (0-31) U/L Alkaline Phosphatase (39-117) U/L Troponin I High Sens (<3.5-17.0) ng/L Total Protein (6.5-8.0) g/dL Albumin (3.5-5.0) g/dL Urine Color YELLOW Urine Appearance CLEAR Urine pH 6.0 (5.0-8.0) Ur Specific [place] 1.025 (1.005-1.025) Urine Protein NEG (NEG-TRACE) MG/DL Urine Glucose (UA) NEG (NEG) MG/DL Urine Ketones NEG (NEG) MG/DL Urine Blood NEG (NEG) Urine Nitrite NEG (NEG) Ur Leukocyte Esterase NEG (NEG) Urine RBC 0-2 (0) /HPF Urine WBC 0-2 (0-4) /HPF Ur Squamous Epith Cells 1+ /LPF Urine Bacteria TRACE /LPF Urine Mucus 1+ /LPF Urine Test NEGATIVE (NEGATIVE) Coronavirus (PCR) (Negative) Influenza Type A (PCR) (Negative) Influenza Type B (PCR) (Negative) RSV RNA Qual (PCR) (Negative) 07/18/20 07/18/20 07/18/20 Range/Units 13:16 13:16 13:17 WBC (4.8-10.8) X10*3/uL RBC (4.20-5.50) X10*6/uL Hgb (12.0-16.0) g/dl Hct (37-47) % MCV (80-98) fL MCH (27.0-33.0) pg MCHC (31.0-35.0) g/dl RDW (11.0-16.0) % Plt Count (160-400) X10*3/uL MPV (9.4-12.3) fL Immature Gran % (Auto) (0.0-0.4) % Neut % (Auto) (45-73) % Lymph % (Auto) (20-40) % [place] % (Auto) (2-11) % Eos % (Auto) (0-4) % Baso % (Auto) (0-2) % Lymph # (Auto) (1.2-4.9) X10*3/uL [place] # (Auto) (0.1-1.2) X10*3/uL Eos # (Auto) (0.0-0.4) X10*3/uL Baso # (Auto) (0.0-0.2) X10*3/uL Abs Immat Gran (auto) (0.00-0.03) X10*3/uL Absolute Neuts (auto) (2.0-8.3) X10*3/uL Absolute Nucleated RBC (0.0-0.012) X10*3/uL Nucleated RBC % (auto) (0.0-0.2) /100WBC Sodium 140 (135-145) mmol/L Potassium 4.0 (3.3-5.1) mmol/L Chloride 108 (96-108) mmol/L Carbon Dioxide 23 (22-29) mmol/L Anion Gap 13 (12-20) BUN 11 (9-16) mg/dL Creatinine 0.72 (0.5-1.4) mg/dL Estim Creat Clear Calc 174.0 Estimated GFR > 60 Random Glucose 106 (60-115) mg/dL Calcium 8.6 (8.4-10.2) mg/dL Total Bilirubin 0.4 (0.0-1.0) mg/dL AST 15 (5-31) U/L ALT 15 (0-31) U/L Alkaline Phosphatase 63 (39-117) U/L Troponin I High Sens < 3.5 (<3.5-17.0) ng/L Total Protein 6.9 (6.5-8.0) g/dL Albumin 3.8 (3.5-5.0) g/dL Urine Color Urine Appearance Urine pH (5.0-8.0) Ur Specific [place] (1.005-1.025) Urine Protein (NEG-TRACE) MG/DL Urine Glucose (UA) (NEG) MG/DL Urine Ketones (NEG) MG/DL Urine Blood (NEG) Urine Nitrite (NEG) Ur Leukocyte Esterase (NEG) Urine RBC (0) /HPF Urine WBC (0-4) /HPF Ur Squamous Epith Cells /LPF Urine Bacteria /LPF Urine Mucus /LPF Urine Test (NEGATIVE) Coronavirus (PCR) POSITIVE A (Negative) Influenza Type A (PCR) NEGATIVE (Negative) Influenza Type B (PCR) NEGATIVE (Negative) RSV RNA Qual (PCR) NEGATIVE (Negative) Imaging Data Chest x-ray: Radiologist's impression: Piotr Matta 24 F [address] [id number] ReportSigned Patient: Amena MattaR#: [id number]: [id number]:[id number]/Sex: 24 / FADM Date: 07/18/20Loc: [address] Dr: Ordering Physician: Kulwant De NP Date of Service: 07/18/20 Procedure(s): XR chest 1V Accession Number(s): [id number] cc: Kulwant De LEASING SALES CONSULTANT~ EXAMINATION: XR CHEST CLINICAL INFORMATION: Cough. COMPARISON: None TECHNIQUE: Frontal view of the chest was obtained. FINDINGS: No significant abnormality is noted involving the heart, lungs, mediastinum, bony thorax or soft tissues. XR/XR chest 1V IMPRESSION: Unremarkable chest examination. Dictated By:MARCEL VALLES MDSigned By:<Electronically signed by MARCEL VALLES MD in [place]>07/18/20 1318 DD/ 1242TD/TT: Staff Forester: JAMAL CTA Chest PE : Radiologist's impression: [address] [id number] Scan ReportSigned Patient: Anand Matta#: [id number]: [id number]:[id number]/Sex: 24 / FADM Date: 07/18/20Loc: EDAttending Dr: Ordering Physician: Kulwant De NP Date of Service: 07/18/20 Procedure(s): CT angio chest PE protocol Accession Number(s): [id number] cc: Kulwant De LEASING SALES CONSULTANT~ EXAMINATION: CT ANGIOGRAM OF THE CHEST WITH AND WITHOUT CONTRAST (CT PULMONARY ANGIOGRAM FOR PE) CLINICAL INFORMATION: Reason for Exam SOB, + COVID COMPARISON: Chest radiographs 07/18/2020, 04/16/2020 TECHNIQUE: Prior to contrast administration, noncontrast localization images were obtained. Subsequently, multidetector volumetric imaging was performed from the thoracic inlet to below the diaphragms following the administration of 71 mL Omnipaque 350 intravenous contrast. Sagittal, coronal, and MIP oblique sagittal reformatted images were obtained on the CT workstation, uploaded to PACS, and reviewed. This CT examination was performed using dose optimization techniques as appropriate, variously including the following: *Automated exposure control *Adjustment of mA and/or kV according to patient size (this includes techniques or standardized protocols for targeted exams where dose is matched to indication/reason for exam; i.e. extremities or head) *Use of iterative reconstruction technique Total exam dose-length product 590 mGy-cm FINDINGS: QUALITY OF STUDY/CONTRAST BOLUS: Satisfactory. PULMONARY ARTERIES: No central or segmental pulmonary emboli. THORACIC AORTA: No aneurysm or dissection. LUNG: The central airways are clear. There is no endobronchial lesion or bronchiectasis. No airspace consolidation or groundglass opacities. No pneumothorax. PLEURA: No pleural thickening or effusion. MEDIASTINUM: Normal heart size. No pericardial effusion. No hilar or mediastinal lymphadenopathy. No evidence of septal bowing or right heart strain. No pneumomediastinum. CHEST WALL/AXILLA: No axillary or internal mammary lymphadenopathy. OSSEOUS STRUCTURES: No acute or suspicious osseous abnormality. UPPER ABDOMEN: Unremarkable. No reflux of contrast into the hepatic veins to suggest elevated right heart pressures. CT/CT angio chest PE protocol IMPRESSION: 1. No pulmonary embolism. No thoracic aortic enlargement or dissection. 2. Lungs clear. No airspace consolidation, groundglass opacity, or effusion. VTE: negative Dictated By:NEIL TYLERigned By:<Electronically signed by NEIL TYLER MD in [place]>07/18/20 1600 DD/ 1442TD/TT: Staff Forester: LILLIE ECG Data Interpretation: Normal sinus rhythm with sinus arrhythmia Rate 78 beats per minute Nonspecific T wave abnormality Prolonged QT Abnormal ECG When compared with ECG of 29-APR-2020 21:49, No significant change was found Discharge Plan Discharge Clinical Impression: COVID-19, Cough Upper respiratory infection Qualifiers: URI type: unspecified viral URI Qualified Code(s): J06.9 - Acute upper respiratory infection, unspecified Patient Disposition: Home, Self-Care Instructions: Acute Cough (ED), COVID-19 (Coronavirus Disease 2019) (ED) Additional Instructions: Today your COVID test was positive, the likely probability is that you have had COVID all along and the tests that you had in between was a false negative and you are still having some COVID symptoms. Otherwise her blood work is overall stable The x-ray and CT scan of your chest did not show any evidence of infection I do suspect that your upper respiratory symptoms can also be due to possible gastroesophageal reflux disease For this reason I will start you on a short course of a anti acid medication (Prilosec) Please follow dietary regimen as discussed Small frequent meals No eating 2 hours prior to sleep Avoiding caffeinated drinks and caffeine and fatty greasy foods Continue to use your inhaler as prescribed by her primary care doctor You do not need any further antibiotics I will give you a short course of prednisone Quarantine for at least 14 days and minimum of 3 days symptom free. Follow-up with her primary care doctor as discussed Thank you Prescriptions: New omeprazole magnesium [Prilosec OTC] 20 mg tablet,delayed release (DR/EC) 20 mg PO DAILY 14 Days Qty: 14 RF: 0 prednisone 20 mg tablet 40 mg PO DAILY 5 Days Qty: 10 RF: 0 No Action trazodone 50 mg tablet 50 mg PO BEDTIME Qty: 30 RF: 0 citalopram 20 mg tablet 30 mg PO DAILY 30 Days Qty: 45 RF: 3 clonazepam 0.5 mg tablet 0.5 mg PO DAILY PRN (Reason: anxiety) 30 Days Qty: 30 RF: 0 ferrous sulfate 325 mg (65 mg iron) tablet 325 mg PO DAILY RF: 0 cholecalciferol (vitamin D3) 50 mcg (2,000 unit) capsule 50 mcg PO DAILY 90 Days Qty: 90 RF: 1 albuterol sulfate [ProAir HFA] 90 mcg/actuation HFA aerosol inhaler 2 puff inhalation Q6H PRN (Reason: shortness of breath or wheezing) 30 Days Qty: 18 RF: 3 Referrals: Jasvir Payton MD [Primary Care Provider] - 1 week (Phone visit) Discharge Date/Time: 07/18/20 16:34
[2020-07-18 13:48] LABS: WBC Urine 0-2 /HPF (0-4)
[2020-07-18 13:49] LABS: Bacteria Urine TRACE /LPF; Mucus Urine 1+ /LPF; RBC Urine 0-2 /HPF (0); Squamous Epithelial Cell Urine 1+ /LPF
[2020-07-18 13:56] LABS: Alanine Aminotransferase 15 U/L (0-31); Albumin Level 3.8 g/dL (3.5-5.0); Alkaline Phosphatase 63 U/L (39-117); Anion Gap 13 (12-20); Aspartate Amino Transferase 15 U/L (5-31); Bilirubin Total 0.4 mg/dL (0.0-1.0); Blood Urea Nitrogen 11 mg/dL (9-16); Calcium 8.6 mg/dL (8.4-10.2); Carbon Dioxide 23 mmol/L (22-29); Chloride 108 mmol/L (96-108); Estimated Glomerular Filt Rate > 60; Glucose Random 106 mg/dL (60-115); Sodium 140 mmol/L (135-145); Total Protein 6.9 g/dL (6.5-8.0)
[2020-07-18 14:02] LABS: Troponin-I High Sensitivity < 3.5 ng/L (<3.5-17.0)
[2020-07-18 14:13] LABS: Influenza A PCR NEGATIVE (Negative); Influenza B PCR NEGATIVE (Negative); Resp Syncy Virus RNA Qual PCR NEGATIVE (Negative)
[2020-07-18 14:15] LABS: SARS COV2 PCR INHOUSE POSITIVE (Negative)
[2020-07-18 14:51] VITALS: BP 123/71; PULSE 72; RESP 20; TEMP 36.9; O2SAT 98
[2020-07-18 15:58] VITALS: BP 116/71; PULSE 72; RESP 22; TEMP 36.8; O2SAT 98
== END 2020-07-18 16:34 | disposition home or self-care (01) ==
PROVIDERS: Nurse Practitioner Primary Care; Emergency Provider Emergency Medicine; PCP Family Medicine
DX: U07.1 COVID-19 (principal); J06.9 Acute upper respiratory infection, unspecified; R73.03 Prediabetes; F17.210 Nicotine dependence, cigarettes, uncomplicated
CPT/HCPCS: 0241U; 36415; 71045; 71275; 80053; 81001; 81025; 84484; 85025; 93005; 99284

== ENCOUNTER 2020-08-28 15:09 | Emergency (ER) | payer OTHER, SELFPAY ==
--- NOTE | 2020-08-28 | ECG_ITS ---
Test Reason : OD Blood Pressure : / mmHG Vent. Rate : 095 BPM Atrial Rate : 095 BPM P-R Int : 130 ms QRS Dur : 092 ms QT Int : 368 ms P-R-T Axes : 049 011 033 degrees QTc Int : 462 ms * Pediatric ECG Analysis * Normal sinus rhythm Normal ECG When compared to the previous EKG of No significant changes seen Referred By: Kulwant De Electronically Signed By:Obinna Burt
[2020-08-28 15:21] VITALS: PULSE 90; RESP 16; TEMP 36.8; O2SAT 98; BMI 60.4
[2020-08-28 15:26] VITALS: BP 114/67
--- NOTE | 2020-08-28 15:32 | PC.NURSE ---
call placed to poison control at this time
--- NOTE | 2020-08-28 15:37 | PC.NURSE ---
nena from poison control states to complete labs and ekg and supportive measures unless becoming symptomatic
--- NOTE | 2020-08-28 16:18 | ED.OVERDOSE ---
HPI - Overdose General Chief Complaint: Psychiatric Symptoms Stated Complaint: INTENTIONAL OD ON CITALOPRAM,SI Time Seen by Provider: 08/28/20 16:17 Source: EMS Mode of arrival: EMS Limitations: no limitations History of Present Illness HPI Narrative: With history of anxiety disorder, depression, migraine headaches, morbid obesity, and anemia, ADHD, pseudotumor cerebri and surgical history of tonsillectomy, cholecystectomy who presents via EMS after she called ambulance for suicidal ideation/overdose at. States she took 4 tablets of 20 mg citalopram and she has been drinking alcohol today. States today she was upset that she got into fight with her family and her girlfriend's family and this triggered her symptoms. MD complaint: intentional overdose Intent: suicide attempt Associated symptoms: depression Treatments Prior to Arrival: none Related Data Home Medications Medication Instructions Recorded Confirmed ferrous sulfate 325 mg (65 mg 325 mg PO DAILY 05/06/20 08/28/20 iron) tablet cetirizine 10 mg PO DAILY PRN MDD 8 puffs 08/28/20 08/28/20 cyanocobalamin (vitamin B-12) 1,000 mcg PO DAILY 08/28/20 08/28/20 [Vitamin B-12] Previous Rx's Medication Instructions Recorded cholecalciferol (vitamin D3) 50 50 mcg PO DAILY 90 Days #90 cap 05/06/20 mcg (2,000 unit) capsule albuterol sulfate 90 mcg/actuation 2 puff INHALATION Q6H PRN 30 Days 06/19/20 aerosol inhaler #18 g citalopram 20 mg tablet 30 mg PO DAILY 30 Days #45 tab 07/01/20 clonazepam 0.5 mg tablet 0.5 mg PO DAILY PRN 30 Days #30 tab 07/01/20 omeprazole magnesium [Prilosec OTC] 20 mg PO DAILY 14 Days #14 tab 07/18/20 trazodone 50 mg tablet 50 mg PO BEDTIME #30 tab 07/24/20 aripiprazole 2 mg tablet 2 mg PO BEDTIME 30 Days #30 tab 08/21/20 Allergies Allergy/AdvReac Type Severity Reaction Status Date / Time house dust mite Allergy Mild allergy Verified 08/21/20 15:15 insect venom Allergy Mild allergy Verified 08/21/20 15:15 cat dander [CAT] Allergy Unknown UNKNOWN Verified 08/21/20 15:15 tree and shrub pollen [TREE] Allergy Unknown UNKNOWN Verified 08/21/20 15:15 Blue Cheese Allergy Unknown nausea and Uncoded 08/21/20 15:15 vomiting GRASS Allergy Unknown UNKNOWN Uncoded 08/21/20 15:15 Maple Trees Allergy Unknown Excessive Uncoded 08/21/20 15:15 Sneezing Review of Systems Review of Systems: Constitutional: No Weight loss, No Fever, No Chills, No Night Sweats, No Fatigue, No Malaise ENT/Mouth: No Hearing loss, No Ear Pain, No Nasal Congestion, No Sinus Pain, No Hoarseness, No sore throat, No Rhinorrhea, No Swallowing Difficulty Eyes: No Eye Pain, No Swelling, No Redness, No Foreign Body, No Discharge, No Vision Changes Cardiovascular: No Chest Pain, No SOB, No Dyspnea on Exertion, No Orthopnea, No Edema, No Palpitations Respiratory: No Cough, No Sputum, No Wheezing, No Smoke Exposure, No Dyspnea Gastrointestinal: No Nausea, No Vomiting, No Diarrhea, No Constipation, No abdominal Pain, No Hematochezia, No Melena Genitourinary: no irregular bleeding, No Dysuria, No Urinary Frequency, No Hematuria, No Urinary Incontinence, No Urgency, No Flank Pain, No Urinary Flow Changes, No Hesitancy Musculoskeletal: No joint pain, No Myalgias, No Joint Swelling Skin: No Skin Lesions, No rash Neuro: No Weakness, No Numbness, No Paresthesias, No Loss of Consciousness, No Dizziness, No Headache Psych: As noted per HPI Heme/Lymph: No Bruising, No Bleeding,No Lymphadenopathy Endocrine: No Polyuria, No Polydipsia, No Temperature Intolerance PMFSH Past Medical History Medical History ADHD Anemia Anxiety Depression Migraines Morbid obesity with BMI of 50.0-59.9, adult No known health problems Prediabetes Pseudotumor cerebri Vitamin D deficiency Surgical History History of myringotomy History of tonsillectomy Hx of cholecystectomy Family History Family History Mother Fibromyalgia Depression Arthritis Father Diabetes Hypertension Brother No problems noted. Sister No problems noted. Maternal Grandmother Hypertension Social History Social History (Updated 08/21/20 @ 15:15 by TAYLOR James Alcohol intake: current Smoking Status: Current every day smoker Packs Per Day: 0.5 Cigarettes Per Day: 10 Use of substances other than those prescribed or required for medical reasons: Yes Substance Use Type: Marijuana Advance Directives: No Advance Directives Information Provided: No Physical Exam Vital Signs: Vital Signs: Last Vital Signs Temp 98.2 F 08/28/20 15:21 Pulse 90 08/28/20 15:21 Resp 16 08/28/20 15:21 BP 114/67 08/28/20 15:26 Pulse Ox 98 08/28/20 15:21 Body Mass Index 60.4 Reviewed Const: General: cooperative; No acute distress or intoxicated appearing Nutritional Appearance: obese Orientation/consciousness: patient oriented x3 HENMT: Head: Yes normal to inspection Ears: hearing grossly normal bilaterally Eyes: General: appearance normal, both eyes and all related structures Visual López: normal visual lópez by confrontation Neck: Neck: Yes normal visual inspection, No positive Brudzinski's sign, No positive Kernig's sign and No tender Thyroid: Thyroid normal Chest: Chest palpation & inspection: normal inspection of the chest Resp: Effort & Inspection: normal respiratory effort Auscultation: clear to auscultation bilaterally Cardio: Jugular venous distension: no JVD Rhythm: regular rhythm Heart sounds: S1 normal heart sound present and S2 normal heart sound present GI: Inspection: Yes normal to inspection Palpation (GI): Soft to palpation Percussion: Yes normal to percussion Auscultation: normal bowel sounds : General: Yes no CVA tenderness Back/Spine/Pelvis: Back: no CVA tenderness Skin: General skin exam: no rashes or lesions noted Neuro: General: patient oriented x3 Extrem: General: Yes normal to inspection Course Reevaluation(s) Reevaluation #1: 1613 Patient took 4 tablets of 20 mg of citalopram in combination with alcohol she denies any other drug use or medication ingestion. Upon arrival she is nontoxic appearing does not appear to be sedated or under the influence. She is actually quite pleasant. She denies any medical complaints at this time. Her vitals are stable. Labs include chest x-ray studies ordered, EKG given the SSRI overdose will get serial EKG to monitor for prolonged QTC and torsades but given the very low overdose this is very unlikely. Patient will be medically cleared afterwards for psychiatric evaluation. Reevaluation #2: 2100 Patient repeat labs stable no evidence sec systole. EKG without significant changes. She has been calm cooperative no acute distress. At this time medically cleared Patient placed in position of the patient as she requires more time to be evaluated crisis team. Patient signed out to night team pending crisis evaluation and disposition. MDM - Overdose Medical Records Attestation: I reviewed the patient's medical records. Lab Data Attestation: I reviewed the patient's lab results. Result diagrams: 08/28/20 16:34 08/28/20 19:35 Labs: Lab Results 08/28/20 08/28/20 08/28/20 Range/Units 16:34 16:34 16:34 WBC 15.7 H (4.8-10.8) X10*3/uL RBC 4.78 (4.20-5.50) X10*6/uL Hgb 11.9 L (12.0-16.0) g/dl Hct 38.4 (37-47) % MCV 80.3 (80-98) fL MCH 24.9 L (27.0-33.0) pg MCHC 31.0 (31.0-35.0) g/dl RDW 16.1 H (11.0-16.0) % Plt Count 460 H (160-400) X10*3/uL MPV 8.8 L (9.4-12.3) fL Immature Gran % (Auto) 0.4 (0.0-0.4) % Neut % (Auto) 71.5 (45-73) % Lymph % (Auto) 22.3 (20-40) % [place] % (Auto) 4.0 (2-11) % Eos % (Auto) 1.5 (0-4) % Baso % (Auto) 0.3 (0-2) % Lymph # (Auto) 3.5 (1.2-4.9) X10*3/uL [place] # (Auto) 0.6 (0.1-1.2) X10*3/uL Eos # (Auto) 0.2 (0.0-0.4) X10*3/uL Baso # (Auto) 0.1 (0.0-0.2) X10*3/uL Abs Immat Gran (auto) 0.06 H (0.00-0.03) X10*3/uL Absolute Neuts (auto) 11.2 H (2.0-8.3) X10*3/uL Absolute Nucleated RBC 0.000 (0.0-0.012) X10*3/uL Nucleated RBC % (auto) 0.0 (0.0-0.2) /100WBC PT 14.0 H (10.8-13.0) SEC INR 1.2 H (0.9-1.1) APTT 40.3 H (24.1-38.0) SEC Sodium 140 (135-145) mmol/L Potassium 4.0 (3.3-5.1) mmol/L Chloride 107 (96-108) mmol/L Carbon Dioxide 25 (22-29) mmol/L Anion Gap 12 (12-20) BUN 10 (9-16) mg/dL Creatinine 0.66 (0.5-1.4) mg/dL Estim Creat Clear Calc 181.5 Estimated GFR > 60 Random Glucose 80 (60-115) mg/dL Calcium 9.1 (8.4-10.2) mg/dL Total Bilirubin 0.4 (0.0-1.0) mg/dL AST 14 (5-31) U/L ALT 13 (0-31) U/L Alkaline Phosphatase 70 (39-117) U/L Total Protein 7.3 (6.5-8.0) g/dL Albumin 4.0 (3.5-5.0) g/dL Urine Color Urine Appearance Urine pH (5.0-8.0) Ur Specific [place] (1.005-1.025) Urine Protein (NEG-TRACE) MG/DL Urine Glucose (UA) (NEG) MG/DL Urine Ketones (NEG) MG/DL Urine Blood (NEG) Urine Nitrite (NEG) Ur Leukocyte Esterase (NEG) Urine RBC (0) /HPF Urine WBC (0-4) /HPF Ur Squamous Epith Cells /LPF Urine Bacteria /LPF Urine Mucus /LPF Urine Test (NEGATIVE) Salicylates < 5.0 L (15-30) mg/dL Urine Opiates Screen (Not Detect) Acetaminophen < 1 (<30) mcg/mL Ur Barbiturates Screen (Not Detect) Ur Phencyclidine Scrn (Not Detect) Ur Amphetamines Screen (Not Detect) U Benzodiazepines Scrn (Not Detect) Urine Cocaine Screen (Not Detect) U Marijuana (THC) Screen (Not Detect) Ethyl Alcohol mg/dL COVID-19 ([facility]) (Negative) COVID-19 Clin Com 08/28/20 08/28/20 08/28/20 Range/Units 16:34 17:43 18:54 WBC (4.8-10.8) X10*3/uL RBC (4.20-5.50) X10*6/uL Hgb (12.0-16.0) g/dl Hct (37-47) % MCV (80-98) fL MCH (27.0-33.0) pg MCHC (31.0-35.0) g/dl RDW (11.0-16.0) % Plt Count (160-400) X10*3/uL MPV (9.4-12.3) fL Immature Gran % (Auto) (0.0-0.4) % Neut % (Auto) (45-73) % Lymph % (Auto) (20-40) % [place] % (Auto) (2-11) % Eos % (Auto) (0-4) % Baso % (Auto) (0-2) % Lymph # (Auto) (1.2-4.9) X10*3/uL [place] # (Auto) (0.1-1.2) X10*3/uL Eos # (Auto) (0.0-0.4) X10*3/uL Baso # (Auto) (0.0-0.2) X10*3/uL Abs Immat Gran (auto) (0.00-0.03) X10*3/uL Absolute Neuts (auto) (2.0-8.3) X10*3/uL Absolute Nucleated RBC (0.0-0.012) X10*3/uL Nucleated RBC % (auto) (0.0-0.2) /100WBC PT (10.8-13.0) SEC INR (0.9-1.1) APTT (24.1-38.0) SEC Sodium (135-145) mmol/L Potassium (3.3-5.1) mmol/L Chloride (96-108) mmol/L Carbon Dioxide (22-29) mmol/L Anion Gap (12-20) BUN (9-16) mg/dL Creatinine (0.5-1.4) mg/dL Estim Creat Clear Calc Estimated GFR Random Glucose (60-115) mg/dL Calcium (8.4-10.2) mg/dL Total Bilirubin (0.0-1.0) mg/dL AST (5-31) U/L ALT (0-31) U/L Alkaline Phosphatase (39-117) U/L Total Protein (6.5-8.0) g/dL Albumin (3.5-5.0) g/dL Urine Color YELLOW Urine Appearance CLEAR Urine pH 5.5 (5.0-8.0) Ur Specific [place] >= 1.030 H (1.005-1.025) Urine Protein NEG (NEG-TRACE) MG/DL Urine Glucose (UA) NEG (NEG) MG/DL Urine Ketones NEG (NEG) MG/DL Urine Blood NEG (NEG) Urine Nitrite NEG (NEG) Ur Leukocyte Esterase NEG (NEG) Urine RBC 5-9 H (0) /HPF Urine WBC 0-2 (0-4) /HPF Ur Squamous Epith Cells 1+ /LPF Urine Bacteria 1+ /LPF Urine Mucus 2+ /LPF Urine Test (NEGATIVE) Salicylates (15-30) mg/dL Urine Opiates Screen (Not Detect) Acetaminophen (<30) mcg/mL Ur Barbiturates Screen (Not Detect) Ur Phencyclidine Scrn (Not Detect) Ur Amphetamines Screen (Not Detect) U Benzodiazepines Scrn (Not Detect) Urine Cocaine Screen (Not Detect) U Marijuana (THC) Screen (Not Detect) Ethyl Alcohol < 10 mg/dL COVID-19 ([facility]) Negative (Negative) COVID-19 Clin Com See Note 08/28/20 08/28/20 08/28/20 Range/Units 18:54 18:54 19:35 WBC (4.8-10.8) X10*3/uL RBC (4.20-5.50) X10*6/uL Hgb (12.0-16.0) g/dl Hct (37-47) % MCV (80-98) fL MCH (27.0-33.0) pg MCHC (31.0-35.0) g/dl RDW (11.0-16.0) % Plt Count (160-400) X10*3/uL MPV (9.4-12.3) fL Immature Gran % (Auto) (0.0-0.4) % Neut % (Auto) (45-73) % Lymph % (Auto) (20-40) % [place] % (Auto) (2-11) % Eos % (Auto) (0-4) % Baso % (Auto) (0-2) % Lymph # (Auto) (1.2-4.9) X10*3/uL [place] # (Auto) (0.1-1.2) X10*3/uL Eos # (Auto) (0.0-0.4) X10*3/uL Baso # (Auto) (0.0-0.2) X10*3/uL Abs Immat Gran (auto) (0.00-0.03) X10*3/uL Absolute Neuts (auto) (2.0-8.3) X10*3/uL Absolute Nucleated RBC (0.0-0.012) X10*3/uL Nucleated RBC % (auto) (0.0-0.2) /100WBC PT (10.8-13.0) SEC INR (0.9-1.1) APTT (24.1-38.0) SEC Sodium 140 (135-145) mmol/L Potassium 3.9 (3.3-5.1) mmol/L Chloride 106 (96-108) mmol/L Carbon Dioxide 25 (22-29) mmol/L Anion Gap 13 (12-20) BUN 9 (9-16) mg/dL Creatinine 0.69 (0.5-1.4) mg/dL Estim Creat Clear Calc 173.6 Estimated GFR > 60 Random Glucose 96 (60-115) mg/dL Calcium 9.5 (8.4-10.2) mg/dL Total Bilirubin 0.4 (0.0-1.0) mg/dL AST 14 (5-31) U/L ALT 16 (0-31) U/L Alkaline Phosphatase 76 (39-117) U/L Total Protein 7.7 (6.5-8.0) g/dL Albumin 4.2 (3.5-5.0) g/dL Urine Color Urine Appearance Urine pH (5.0-8.0) Ur Specific [place] (1.005-1.025) Urine Protein (NEG-TRACE) MG/DL Urine Glucose (UA) (NEG) MG/DL Urine Ketones (NEG) MG/DL Urine Blood (NEG) Urine Nitrite (NEG) Ur Leukocyte Esterase (NEG) Urine RBC (0) /HPF Urine WBC (0-4) /HPF Ur Squamous Epith Cells /LPF Urine Bacteria /LPF Urine Mucus /LPF Urine Test NEGATIVE (NEGATIVE) Salicylates < 5.0 L (15-30) mg/dL Urine Opiates Screen Not Detected (Not Detect) Acetaminophen < 1 (<30) mcg/mL Ur Barbiturates Screen Not Detected (Not Detect) Ur Phencyclidine Scrn Not Detected (Not Detect) Ur Amphetamines Screen Not Detected (Not Detect) U Benzodiazepines Scrn Not Detected (Not Detect) Urine Cocaine Screen POSITIVE H (Not Detect) U Marijuana (THC) Screen POSITIVE H (Not Detect) Ethyl Alcohol mg/dL COVID-19 ([facility]) (Negative) COVID-19 Clin Com ECG Data Interpretation: Normal sinus rhythm Rate 87 IL interval 138 QRS 92 QT/QTC [address] or [address] segment changes Discharge Plan Discharge Clinical Impression: Depression, Acute anxiety, Intentional overdose of selective serotonin reuptake inhibitor (SSRI) Prescriptions: No Action citalopram 20 mg tablet 30 mg PO DAILY 30 Days Qty: 45 RF: 3 clonazepam 0.5 mg tablet 0.5 mg PO DAILY PRN (Reason: anxiety) 30 Days Qty: 30 RF: 0 trazodone 50 mg tablet 50 mg PO BEDTIME Qty: 30 RF: 0 omeprazole magnesium [Prilosec OTC] 20 mg tablet,delayed release (DR/EC) 20 mg PO DAILY 14 Days Qty: 14 RF: 0 cetirizine 10 mg Tablet 10 mg PO DAILY MDD 8 puffs PRN (Reason: Shortness Of Breath) RF: 0 cyanocobalamin (vitamin B-12) [Vitamin B-12] 1,000 mcg Tablet 1,000 mcg PO DAILY RF: 0 ferrous sulfate 325 mg (65 mg iron) tablet 325 mg PO DAILY RF: 0 cholecalciferol (vitamin D3) 50 mcg (2,000 unit) capsule 50 mcg PO DAILY 90 Days Qty: 90 RF: 1 albuterol sulfate [ProAir HFA] 90 mcg/actuation HFA aerosol inhaler 2 puff inhalation Q6H PRN (Reason: shortness of breath or wheezing) 30 Days Qty: 18 RF: 3 aripiprazole [Abilify] 2 mg tablet 2 mg PO BEDTIME 30 Days Qty: 30 RF: 0
[2020-08-28 16:39] LABS: MANUAL DIFF FLAG NO
[2020-08-28 16:43] LABS: Basophils Absolute Auto 0.1 X10*3/uL (0.0-0.2); Basophils Percent Auto 0.3 % (0-2); Eosinophils Absolute Auto 0.2 X10*3/uL (0.0-0.4); Eosinophils Percent Auto 1.5 % (0-4); Hematocrit 38.4 % (37-47); Hemoglobin 11.9 g/dl (12.0-16.0); Imm Gran Abs Auto 0.06 X10*3/uL (0.00-0.03); Imm Gran Pct Auto 0.4 % (0.0-0.4); Lymphocytes Absolute Auto 3.5 X10*3/uL (1.2-4.9); Lymphocytes Percent Auto 22.3 % (20-40); Mean Corpuscular Hemoglobin 24.9 pg (27.0-33.0); Mean Corpuscular Volume 80.3 fL (80-98); Mean Platelet Volume 8.8 fL (9.4-12.3); Monocytes Absolute Auto 0.6 X10*3/uL (0.1-1.2); Neutrophils Absolute Auto 11.2 X10*3/uL (2.0-8.3); Neutrophils Percent Auto 71.5 % (45-73); Platelet Count 460 X10*3/uL (160-400); Red Blood Count 4.78 X10*6/uL (4.20-5.50); Red Cell Distribution Width 16.1 % (11.0-16.0); White Blood Count 15.7 X10*3/uL (4.8-10.8)
[2020-08-28 16:48] LABS: INTERNATIONAL NORM RATIO 1.2 (0.9-1.1)
[2020-08-28 16:58] LABS: Partial Thromboplastin Time 40.3 SEC (24.1-38.0)
[2020-08-28 17:02] LABS: Ethanol < 10 mg/dL
[2020-08-28 17:11] LABS: Alanine Aminotransferase 13 U/L (0-31); Alkaline Phosphatase 70 U/L (39-117); Anion Gap 12 (12-20); Aspartate Amino Transferase 14 U/L (5-31); Bilirubin Total 0.4 mg/dL (0.0-1.0); Blood Urea Nitrogen 10 mg/dL (9-16); Calcium 9.1 mg/dL (8.4-10.2); Carbon Dioxide 25 mmol/L (22-29); Chloride 107 mmol/L (96-108); Creatinine Clr Calc Pharmacy 181.5; Estimated Glomerular Filt Rate > 60; Glucose Random 80 mg/dL (60-115); Sodium 140 mmol/L (135-145); Total Protein 7.3 g/dL (6.5-8.0)
[2020-08-28 17:21] LABS: Acetaminophen LAB < 1 mcg/mL (<30); Salicylate < 5.0 mg/dL (15-30)
--- NOTE | 2020-08-28 18:03 | ECG_ITS ---
Test Reason : REPEAT Blood Pressure : / mmHG Vent. Rate : 087 BPM Atrial Rate : 087 BPM P-R Int : 138 ms QRS Dur : 092 ms QT Int : 380 ms P-R-T Axes : 044 018 029 degrees QTc Int : 457 ms Normal sinus rhythm with sinus arrhythmia Normal ECG When compared with ECG of 18-JUL-2020 13:06, No significant change was found Referred By: Kulwant De Electronically Signed By:WHIT PRESCOTT
[2020-08-28 18:16] LABS: COVID-19 Test Negative (Negative); IDNOW Serial# 9DD0AD1C
--- NOTE | 2020-08-28 18:34 | PC.NURSE ---
Late entry: 08/28/20 - spoke with oDn at poison control, notified that LFTs, tylenol, and aspirin will be redrawn at 1900, EKG pending. Will call back to recheck labs. CAROL ANN Blum notified.
--- NOTE | 2020-08-28 18:37 | PC.NURSE ---
Pt providing urine sample at current. No complaints at this time.
[2020-08-28 19:09] LABS: Glucose Urine UA NEG (NEG); Leukocyte Esterase Urine NEG (NEG); Nitrite Urine NEG (NEG); PH 5.5 (5.0-8.0); Specific Gravity - Urine >= 1.030 (1.005-1.025); Urine Blood NEG (NEG); Urine Ketones NEG (NEG); Urine Protein NEG (NEG-TRACE)
[2020-08-28 19:13] LABS: Appearance Urine CLEAR; Color Urine YELLOW
[2020-08-28 19:19] LABS: UPreg QC Valid YES; Urine Pregnancy NEGATIVE (NEGATIVE)
[2020-08-28 19:35] LABS: Amphetamine Screen Urine Not Detected (Not Detect); Barbiturates, Urine Not Detected (Not Detect); Benzodiazepines Screen Urine Not Detected (Not Detect); Cannabinoid Screen Urine POSITIVE (Not Detect); Cocaine Screen Urine POSITIVE (Not Detect); Opiate Screen Urine Not Detected (Not Detect); Phencyclidine Screen Urine Not Detected (Not Detect)
[2020-08-28 19:36] LABS: Bacteria Urine 1+ /LPF; Mucus Urine 2+ /LPF; Squamous Epithelial Cell Urine 1+ /LPF; WBC Urine 0-2 /HPF (0-4)
[2020-08-28 20:36] LABS: Acetaminophen LAB < 1 mcg/mL (<30); Alanine Aminotransferase 16 U/L (0-31); Albumin Level 4.2 g/dL (3.5-5.0); Alkaline Phosphatase 76 U/L (39-117); Anion Gap 13 (12-20); Aspartate Amino Transferase 14 U/L (5-31); Bilirubin Total 0.4 mg/dL (0.0-1.0); Blood Urea Nitrogen 9 mg/dL (9-16); Calcium 9.5 mg/dL (8.4-10.2); Carbon Dioxide 25 mmol/L (22-29); Chloride 106 mmol/L (96-108); Creatinine Clr Calc Pharmacy 173.6; Estimated Glomerular Filt Rate > 60; Glucose Random 96 mg/dL (60-115); Potassium 3.9 mmol/L (3.3-5.1); Salicylate < 5.0 mg/dL (15-30); Sodium 140 mmol/L (135-145); Total Protein 7.7 g/dL (6.5-8.0)
[2020-08-28] MEDS: traZODone HCL 50 MG TABLET PO (21:26)
[2020-08-28] MEDS: ARIPiprazole 2 MG TABLET PO ×2 (21:26)
--- NOTE | 2020-08-28 21:28 | PC.NURSE ---
Patient compliant with HS PO medication. [facility] called, spoke with Lucita confirmed receipt of referral, no ETA at this time, patient on phone in milieu, no distress observed/reported, will continue to monitor.
--- NOTE | 2020-08-28 21:28 | PC.NURSE ---
Medication reconciliation was done using current pharmacy information. Nurse then spoke with patient to discuss when the last time she took each medication. EMAR was updated and PA notified.
--- NOTE | 2020-08-28 22:08 | PC.NURSE ---
Don from poison control called to check on patient, updated the labs and EKG, notified us that no further information, will continue to monitor.
[2020-08-29 06:00] VITALS: BP 120/77; PULSE 88; RESP 17; TEMP 36.8; O2SAT 96
[2020-08-29] MEDS: Omeprazole 20 MG CAPSULE.DR PO (06:21)
--- NOTE | 2020-08-29 07:32 | PC.NURSE ---
Report received from HAYLIE Bazzi. Pt resting, resp unlabored.
[2020-08-29] MEDS: Cyanocobalamin (Vitamin B-12) 1,000 MCG TABLET 1000 MCG PO (09:35)
[2020-08-29] MEDS: Cholecalciferol (Vitamin D3) 25 MCG TABLET 50 MCG PO (09:35)
[2020-08-29] MEDS: Ferrous Sulfate 324 MG TABLET.DR PO (09:35)
[2020-08-29 10:58] VITALS: BP 153/72; PULSE 89; RESP 17; TEMP 37.2
--- NOTE | 2020-08-29 11:36 | PC.NURSE ---
Late entry: pt assessed, states that she would like to be discharged, denies SI, denies any plan or thoughts to harm herself. Pt currently being evaluated by MARLINE.
[2020-08-29 14:00] VITALS: RESP 18
--- NOTE | 2020-08-29 14:20 | PC.NURSE ---
Pt resting in room, denies any concerns at this time, seen by MARLINE.
--- NOTE | 2020-08-29 16:04 | PC.NURSE ---
Pt awake, alert. Reporting some anxiety after receiving news that she will be remaining in ED awaiting inpatient bed. Pt requesting medication for anxiety and nicotine cravings. Provider aware- pt offered medication but requesting to shower first.
[2020-08-29] MEDS: LORazepam 1 MG TABLET PO (16:14)
[2020-08-29 16:44] VITALS: BP 134/77; PULSE 93; RESP 17; TEMP 36.6; O2SAT 98
--- NOTE | 2020-08-29 16:49 | PC.NURSE ---
Mother in to visit w/ pt. Pt reports good effect from medication given.
--- NOTE | 2020-08-29 18:33 | PC.NURSE ---
Pt in common area, conversing w/ other patients, affect even.
[2020-08-29] MEDS: traZODone HCL 50 MG TABLET PO (20:19)
[2020-08-29] MEDS: ARIPiprazole 2 MG TABLET PO (20:19)
--- NOTE | 2020-08-29 20:30 | PC.NURSE ---
Patient calm and quiet, no distress reported, watching TV in milieu, compliant with HS PO medication, will continue to monitor
[2020-08-30 01:08] VITALS: BP 106/50; PULSE 85; RESP 17; TEMP 36.8; O2SAT 97
[2020-08-30] MEDS: Omeprazole 20 MG CAPSULE.DR PO (05:42)
--- NOTE | 2020-08-30 07:17 | PC.NURSE ---
Report received from HAYLIE Bazzi. Pt awake, affect even, no concerns reported.
[2020-08-30] MEDS: Cyanocobalamin (Vitamin B-12) 1,000 MCG TABLET 1000 MCG PO (09:05)
[2020-08-30] MEDS: Ferrous Sulfate 324 MG TABLET.DR PO (09:05)
[2020-08-30] MEDS: Cholecalciferol (Vitamin D3) 25 MCG TABLET 50 MCG PO (09:06)
--- NOTE | 2020-08-30 10:30 | PC.NURSE ---
Pt awakened for medications- cooperative w/ care, denies SI at this time, states she was able to sleep. Pt expressing desire to go home, but is aware that she is awaiting inpatient bed. Pt aware that she may be transferred to this morning.
[2020-08-30] MEDS: Nicotine 7 MG PATCH.TD24 TRANSDERMA (11:29)
[2020-08-30] MEDS: LORazepam 1 MG TABLET 2 MG PO ×2 (11:29→19:30)
--- NOTE | 2020-08-30 11:31 | PC.NURSE ---
Pt reporting anxiety, wishing she coulod be discharged- requesting medication to help her relax, prn given as ordered.
--- NOTE | 2020-08-30 12:00 | PC.NURSE ---
Pt watching television in room.
[2020-08-30 14:00] VITALS: RESP 20
--- NOTE | 2020-08-30 14:48 | PC.NURSE ---
Mother in to visit. Pt continues to be unhappy that she is still in ED, requesting to go home. Explained crisis process to patient.
[2020-08-30 15:38] VITALS: BP 131/91; PULSE 93; RESP 20; TEMP 36.3; O2SAT 99
--- NOTE | 2020-08-30 18:42 | PC.NURSE ---
Pt conversing w/ fiancee, coloring at table in common area. Affect brighter, no concerns reported.
--- NOTE | 2020-08-30 19:36 | PC.NURSE ---
Report received. PT is using the bathroom. PT complained of anxiety, received PRN meds. Calm and cooperative. PT is inpatient bed search.
[2020-08-30] MEDS: ARIPiprazole 2 MG TABLET PO (21:43)
[2020-08-30] MEDS: traZODone HCL 50 MG TABLET PO (21:43)
[2020-08-30 23:50] VITALS: BP 135/82; PULSE 90; RESP 18; TEMP 37; O2SAT 100
--- NOTE | 2020-08-31 07:14 | PC.NURSE ---
Report recieved. PT currently resting, calm and cooperative. PT is inpatient bedsearch.
[2020-08-31 09:07] VITALS: BP 125/82; PULSE 95; RESP 16; TEMP 37; O2SAT 96
[2020-08-31] MEDS: Cyanocobalamin (Vitamin B-12) 1,000 MCG TABLET 1000 MCG PO (09:21)
[2020-08-31] MEDS: Cholecalciferol (Vitamin D3) 25 MCG TABLET 50 MCG PO (09:21)
[2020-08-31] MEDS: Ferrous Sulfate 324 MG TABLET.DR PO (09:21)
[2020-08-31] MEDS: Omeprazole 20 MG CAPSULE.DR PO (09:21)
[2020-08-31] MEDS: LORazepam 1 MG TABLET 2 MG PO (11:55)
[2020-08-31] MEDS: Nicotine 7 MG PATCH.TD24 TRANSDERMA (11:55)
--- NOTE | 2020-08-31 12:02 | PC.NURSE ---
[facility] at bedside for [facility]
--- NOTE | 2020-09-01 09:26 | MHC.CM.ED ---
Patient is involved with [facility] crisis team who will determine patient's discharge needs.
== END 2020-08-31 13:41 | disposition home or self-care (01) ==
PROVIDERS: Nurse Practitioner Primary Care; Emergency Provider Emergency Medicine; PCP Family Medicine
DX: T43.222A Poisoning by selective serotonin reuptake inhibitors, intentional self-harm, initial encounter (principal); Y92.019 Unspecified place in single-family (private) house as the place of occurrence of the external cause; F32.9 Major depressive disorder, single episode, unspecified; F41.9 Anxiety disorder, unspecified; Z20.822 Contact with and (suspected) exposure to COVID-19; E66.01 Morbid (severe) obesity due to excess calories; D64.9 Anemia, unspecified; F17.210 Nicotine dependence, cigarettes, uncomplicated; F12.90 Cannabis use, unspecified, uncomplicated; F14.90 Cocaine use, unspecified, uncomplicated
CPT/HCPCS: 36415; 80053; 80143; 80179; 80307; 80320; 81001; 81025; 85025; 85610; 85730; 87635; 93005; 99285

== ENCOUNTER → 2020-09-10 08:27 | Outpatient (BNVA) | payer OTHER, SELFPAY | PROVIDERS: PCP Family Medicine; Visit Provider Physician Assistant | DX: E66.01 Morbid (severe) obesity due to excess calories (principal); Z68.43 Body mass index [BMI] 50.0-59.9, adult; Z79.899 Other long term (current) drug therapy | CPT/HCPCS: 99212 ==

== ENCOUNTER → 2020-10-01 08:51 | Outpatient (BNVA) | payer OTHER, SELFPAY | PROVIDERS: PCP Family Medicine; Referring Provider Family Medicine; Visit Provider Nurse Practitioner Family | DX: G47.9 Sleep disorder, unspecified (principal) | CPT/HCPCS: 99202 ==

== ENCOUNTER → 2020-12-11 19:56 | Outpatient (REF) | payer OTHER, SELFPAY | LOC: HO.SL 19:56 | PROVIDERS: PCP Family Medicine; Visit Provider Nurse Practitioner Family | DX: R40.0 Somnolence (principal); R53.83 Other fatigue | CPT/HCPCS: 95810 ==

== ENCOUNTER 2021-01-16 11:11 | Outpatient (REF) | payer OTHER, SELFPAY ==
[2021-01-16 11:48] LABS: MANUAL DIFF FLAG NO
[2021-01-16 11:52] LABS: Basophils Percent Auto 0.3 % (0-2); Eosinophils Absolute Auto 0.3 X10*3/uL (0.0-0.4); Eosinophils Percent Auto 2.9 % (0-4); Hematocrit 36.9 % (37-47); Hemoglobin 11.5 g/dl (12.0-16.0); Imm Gran Abs Auto 0.04 X10*3/uL (0.00-0.03); Imm Gran Pct Auto 0.3 % (0.0-0.4); Lymphocytes Absolute Auto 3.1 X10*3/uL (1.2-4.9); Lymphocytes Percent Auto 25.9 % (20-40); Mean Corpuscular HGB Conc 31.2 g/dl (31.0-35.0); Mean Corpuscular Hemoglobin 24.6 pg (27.0-33.0); Mean Corpuscular Volume 78.8 fL (80-98); Mean Platelet Volume 8.8 fL (9.4-12.3); Monocytes Absolute Auto 0.4 X10*3/uL (0.1-1.2); Monocytes Percent Auto 3.7 % (2-11); Neutrophils Absolute Auto 7.9 X10*3/uL (2.0-8.3); Neutrophils Percent Auto 66.9 % (45-73); Platelet Count 487 X10*3/uL (160-400); Red Blood Count 4.68 X10*6/uL (4.20-5.50); Red Cell Distribution Width 15.9 % (11.0-16.0); White Blood Count 11.9 X10*3/uL (4.8-10.8)
[2021-01-16 12:19] LABS: Alanine Aminotransferase 10 U/L (0-31); Albumin Level 3.9 g/dL (3.5-5.0); Alkaline Phosphatase 62 U/L (39-117); Anion Gap 11 (12-20); Aspartate Amino Transferase 10 U/L (5-31); Bilirubin Direct < 0.2 mg/dL (0.0-0.5); Bilirubin Total 0.2 mg/dL (0.0-1.0); Blood Urea Nitrogen 9 mg/dL (9-16); Calcium 8.9 mg/dL (8.4-10.2); Carbon Dioxide 23 mmol/L (22-29); Chloride 108 mmol/L (96-108); Cholesterol 121 mg/dL; Estimated Glomerular Filt Rate > 60; Glucose Random 98 mg/dL (60-115); HDL Cholesterol 28 mg/dL; LDL Cholesterol Calculated 66 mg/dl; Potassium 4.2 mmol/L (3.3-5.1); Sodium 138 mmol/L (135-145); Total Protein 7.2 g/dL (6.5-8.0); Triglycerides 137 mg/dL
[2021-01-17 08:55] LABS: Hepatitis B Core Antibody Nonreactive (Nonreactive); Hepatitis B Surface Antigen Negative (Negative); ~HepC Num1 0.15 S/CO (0.00-0.79); ~Hepatitis C Antibody Nonreactive (Nonreactive)
[2021-01-17 09:14] LABS: HBS Num1 1.39 mIU/mL (0-7.99); ~Hepatitis B Surface Antibody NONREACTIVE (Nonreactive)
[2021-01-18 23:21] LABS: TS Negative Control Passed; TS Panel A 1; TS Panel B 0; TS Positive Control Passed; TSpotTB Negative (SeeBelow)
== END 2021-01-16 11:12 | disposition home or self-care (01) ==
LOC: HO.LAB 11:11
PROVIDERS: PCP Family Medicine; Visit Provider Physician Assistant Medical
DX: L73.2 Hidradenitis suppurativa (principal); Z79.899 Other long term (current) drug therapy
CPT/HCPCS: 36415; 80053; 80061; 82248; 85025; 86481; 86704; 86706; 86803; 87340

== ENCOUNTER 2021-02-23 20:09 | Emergency (ER) | payer OTHER, SELFPAY ==
--- NOTE | ~2021-02-23 | XR_ITS ---
EXAMINATION: XR CHEST CLINICAL INFORMATION: Shortness of breath COMPARISON: 07/18/2020 TECHNIQUE: Frontal view of the chest was obtained. FINDINGS: No significant abnormality is noted involving the heart, lungs, mediastinum, bony thorax or soft tissues. XR/XR chest 1V IMPRESSION: No acute cardiopulmonary process.
[2021-02-23 20:12] VITALS: BP 136/84; PULSE 109; RESP 22; TEMP 37.2; O2SAT 98; BMI 59.6
[2021-02-23 21:17] LABS: COVID-19 Test Negative (Negative)
--- NOTE | 2021-02-23 21:34 | ED.URI ---
HPI - URI/Sore Throat General Chief Complaint: Upper Respiratory Symptoms Stated Complaint: Cough Time Seen by Provider: 02/23/21 21:26 Source: patient Mode of arrival: ambulatory Limitations: no limitations History of Present Illness HPI Narrative: Patient comes emergency room complaining of dry cough for 3-4 months. Patient states that sometimes she feels short of breath especially when she is lying down, patient has intermittent low back pain. Patient denies chest pain, no palpitations. No history of asthma. No wheezing. Patient denies fever or chills, no urinary symptoms, no abdominal pain Related Data Home Medications Medication Instructions Recorded Confirmed cetirizine 10 mg tablet 10 mg PO DAILY PRN MDD 8 puffs 08/28/20 10/01/20 Previous Rx's Medication Instructions Recorded citalopram 20 mg tablet 30 mg PO DAILY 30 Days #45 tab 09/18/20 cyanocobalamin (vitamin B-12) 1,000 mcg PO DAILY 90 Days #90 tab 10/17/20 1,000 mcg tablet (Vitamin B-12) sulfamethoxazole 800 1 tab PO Q12H 10 Days #20 tab 11/14/20 mg-trimethoprim 160 mg tablet (Bactrim DS) albuterol sulfate 90 mcg/actuation 2 puff PO Q6H PRN #8.5 g 12/01/20 aerosol inhaler (ProAir HFA) nicotine 7 mg/24 hr daily 1 patch TRANSDERMAL Q24H 30 Days 12/14/20 transdermal patch (Nicoderm CQ) #30 ea cholecalciferol (vitamin D3) 50 50 mcg PO DAILY #30 cap 12/29/20 mcg (2,000 unit) capsule aripiprazole 5 mg tablet 5 mg PO BEDTIME #30 tab 01/27/21 ferrous sulfate 325 mg (65 mg 325 mg PO DAILY #30 tab 01/27/21 iron) tablet clonazepam 0.5 mg tablet 0.5 mg PO DAILY PRN 30 Days #30 tab 02/13/21 benzonatate 100 mg capsule 100 mg PO TID PRN #14 cap 02/23/21 (Anurag Bhandari) Allergies Allergy/AdvReac Type Severity Reaction Status Date / Time house dust mite Allergy Mild allergy Verified 02/11/21 14:43 insect venom Allergy Mild allergy Verified 02/11/21 14:43 cat dander [CAT] Allergy Unknown UNKNOWN Verified 02/11/21 14:43 tree and shrub pollen [TREE] Allergy Unknown UNKNOWN Verified 02/11/21 14:43 Blue Cheese Allergy Unknown nausea and Uncoded 09/10/20 08:38 vomiting GRASS Allergy Unknown UNKNOWN Uncoded 09/10/20 08:38 Maple Trees Allergy Unknown Excessive Uncoded 09/10/20 08:38 Sneezing Review of Systems Review of Systems: Constitutional : No Weight loss, No Fever, No Chills, No Night Sweats, No Fatigue, No Malaise ENT/Mouth : No Hearing loss, No Ear Pain, No Nasal Congestion, No Sinus Pain, No Hoarseness, No sore throat, No Rhinorrhea, No Swallowing Difficulty Eyes: No Eye Pain, No Swelling, No Redness, No Foreign Body, No Discharge, No Vision Changes Cardiovascular : No Chest Pain, No SOB, No Dyspnea on Exertion, No Orthopnea, No Edema, No Palpitations Respiratory : Complaining of chronic Cough, No Sputum, No Wheezing, No Smoke Exposure, No Dyspnea Gastrointestinal : No Nausea, No Vomiting, No Diarrhea, No Constipation, No abdominal Pain, No Hematochezia, No Melena Genitourinary : no irregular bleeding, No Dysuria, No Urinary Frequency, No Hematuria, No Urinary Incontinence, No Urgency, No Flank Pain, No Urinary Flow Changes, No Hesitancy Musculoskeletal : Complaining of lower back pain chronically, No joint pain, No Myalgias, No Joint Swelling Skin : No Skin Lesions, No rash Neuro : No Weakness, No Numbness, No Paresthesias, No Loss of Consciousness, No Dizziness, No Headache Psych : No Anxiety/Panic, No Depression, No SI/HI/AH/VH, No Social Issues, Heme/Lymph: No Bruising, No Bleeding,No Lymphadenopathy Endocrine : No Polyuria, No Polydipsia, No Temperature Intolerance PMF Past Medical History Medical History ADHD Anemia Anxiety Depression Migraines Morbid obesity with BMI of 50.0-59.9, adult No known health problems Prediabetes Pseudotumor cerebri Vitamin D deficiency Surgical History History of myringotomy History of tonsillectomy Hx of cholecystectomy Family History Family History Mother Fibromyalgia Depression Arthritis Father Diabetes Hypertension Brother No problems noted. Sister No problems noted. Maternal Grandmother Hypertension Social History Social History Housing: Other (jumping around different places, family and friends) Alcohol intake: current Patient Tobacco Use Status: Current everyday Tobacco user Cigarette Packs Per Day: 0.5 Cigarettes Per Day: 7 Substance Use Type: Marijuana Advance Directives: No Advance Directives Information Provided: No Current occupational status: unemployed Physical Exam Vital Signs: Vital Signs: Last Vital Signs Temp 99.0 F 02/23/21 20:12 Pulse 109 H 02/23/21 20:12 Resp 22 H 02/23/21 20:12 BP 136/84 02/23/21 20:12 Pulse Ox 98 02/23/21 20:12 Body Mass Index 59.6 Const: Other: Appearance: Alert. Oriented X3. No acute distress. Morbid obesity Eyes: Pupils equal, round and reactive to light. ENT: Pharynx normal. Neck: Normal inspection. Neck supple. No lymph nodes noted. No crepitus CVS: Normal heart rate and rhythm. Pulses normal. Normal S1 and S2 Respiratory: No respiratory distress. Breath sounds normal. No Wheezing. No rales Abdomen: Soft and nontender. No rigidity. No distention. good BS x4 Skin: Skin warm and dry. Normal skin color. Normal skin turgor. Extremities: No lower extremity edema. No Lacerations. No Rash Neuro: Oriented X 3. No motor deficit. No sensory deficit. Moving all extermities. No slurred speech. Course Course Course Narrative: Patient's vitals within normal limits, pulse on physical exam was 80. I discussed with the patient that he has been 3-4 months since she has had her symptoms. Patient instructed to follow-up with primary care physician. If needed, she could be referred to pulmonology. At this time, on physical exam, labs and x-rays there was no acute process. MDM - URI/Sore Throat Lab Data Labs: Lab Results 02/23/21 Range/Units 20:53 COVID-19 ([facility]) Negative (Negative) COVID-19 Clin Com See Note Imaging Data Chest x-ray: Radiologist's impression: No significant abnormality is noted involving the heart, lungs, mediastinum, bony thorax or soft tissues. XR/XR chest 1V IMPRESSION: No acute cardiopulmonary process. ? Discharge Plan Discharge Clinical Impression: Chronic cough Patient Disposition: Home, Self-Care Instructions: Chronic Cough (ED) Additional Instructions: Please follow-up with your primary care physician tomorrow. If you have any worsening or new symptoms, please return to the emergency room or call 911 Prescriptions: New benzonatate [Tessalon Perles] 100 mg capsule 100 mg PO TID PRN (Reason: cough) Qty: 14 RF: 0 No Action cyanocobalamin (vitamin B-12) [Vitamin B-12] 1,000 mcg tablet 1,000 mcg PO DAILY 90 Days Qty: 90 RF: 3 albuterol sulfate [ProAir HFA] 90 mcg/actuation HFA aerosol inhaler 2 puff PO Q6H PRN (Reason: for wheezing) Qty: 8.5 RF: 3 nicotine [Nicoderm CQ] 7 mg/24 hr patch 24 hour 1 patch transdermal Q24H 30 Days Qty: 30 RF: 1 cholecalciferol (vitamin D3) 50 mcg (2,000 unit) capsule 50 mcg PO DAILY Qty: 30 RF: 5 aripiprazole 5 mg tablet 5 mg PO BEDTIME Qty: 30 RF: 1 ferrous sulfate 325 mg (65 mg iron) tablet 325 mg PO DAILY Qty: 30 RF: 3 clonazepam 0.5 mg tablet 0.5 mg PO DAILY PRN (Reason: anxiety) 30 Days Qty: 30 RF: 0 cetirizine 10 mg Tablet 10 mg PO DAILY MDD 8 puffs PRN (Reason: Shortness Of Breath) RF: 0 citalopram 20 mg tablet 30 mg PO DAILY 30 Days Qty: 45 RF: 3 sulfamethoxazole-trimethoprim [Bactrim DS] 800-160 mg tablet 1 tab PO Q12H 10 Days Qty: 20 RF: 0
== END 2021-02-23 21:54 | disposition home or self-care (01) ==
PROVIDERS: Emergency Provider Emergency Medicine; PCP Family Medicine
DX: R05.3 Chronic cough (principal); Z20.822 Contact with and (suspected) exposure to COVID-19
CPT/HCPCS: 36415; 71045; 87635; 99283

== ENCOUNTER → 2021-02-25 08:38 | Outpatient (BNVA) | payer OTHER, SELFPAY | PROVIDERS: PCP Family Medicine; Referring Provider Family Medicine; Visit Provider Nurse Practitioner Family ==

== ENCOUNTER 2021-04-07 20:07 | Emergency (ER) | payer OTHER, SELFPAY ==
[2021-04-07 20:27] VITALS: BP 132/82; BP 137/84; PULSE 110; PULSE 118; RESP 17; TEMP 37.1; O2SAT 98; BMI 57.6
[2021-04-07 20:31] VITALS: BP 132/82; PULSE 110; RESP 17; TEMP 37.1; O2SAT 98
--- NOTE | 2021-04-07 20:31 | ECG_ITS ---
Test Reason : OD Blood Pressure : / mmHG Vent. Rate : 106 BPM Atrial Rate : 106 BPM P-R Int : 128 ms QRS Dur : 080 ms QT Int : 344 ms P-R-T Axes : 048 020 037 degrees QTc Int : 456 ms Sinus tachycardia Nonspecific T wave abnormality Abnormal ECG When compared with ECG of 28-AUG-2020 20:42, T wave amplitude has decreased in Lateral leads Referred By: Angelina Colunga Electronically Signed By:IVAN MARCUS MD
--- NOTE | 2021-04-07 20:34 | ED.OVERDOSE ---
HPI - Overdose General Chief Complaint: Overdose <Angelina Colunga NP - Last Filed: 04/07/21 23:47> Stated Complaint: od <Angelina Colunga NP - Last Filed: 04/07/21 23:47> Time Seen by Provider: 04/07/21 20:15 <Angelina Colunga NP - Last Filed: 04/07/21 23:47> Source: patient and EMS <Angelina Colunga NP - Last Filed: 04/07/21 23:47> Mode of arrival: EMS <Angelina Colunga NP - Last Filed: 04/07/21 23:47> Limitations: no limitations <Angelina Colunga NP - Last Filed: 04/07/21 23:47> History of Present Illness HPI Narrative: 25-year-old female with a history of anxiety, depression, prediabetes here with complaints of overdose. Patient tells me that at 19:00 she took 4 mg of clonazepam. she is here on a Section 12 as this was thought to be intentional suicide attempt. patient tells me she has been increasingly stressed, anxious, multiple stressors at home and she took the medication and attempt to sleep. she denies suicidal thoughts.. She denies any other ingestion. no substance use. no physical complaints <Angelina Colunga NP - Last Filed: 04/07/21 23:47> Related Data Home Medications: Home Medications Medication Instructions Recorded Confirmed cetirizine 10 mg tablet 10 mg PO DAILY PRN MDD 8 puffs 08/28/20 10/01/20 adalimumab 40 mg/0.4 mL 40 mg SUBCUT QWEEK 02/25/21 subcutaneous pen kit (Humira(CF) Pen) Previous Rx's Medication Instructions Recorded citalopram 20 mg tablet 30 mg PO DAILY 30 Days #45 tab 09/18/20 cyanocobalamin (vitamin B-12) 1,000 mcg PO DAILY 90 Days #90 tab 10/17/20 1,000 mcg tablet (Vitamin B-12) sulfamethoxazole 800 1 tab PO Q12H 10 Days #20 tab 11/14/20 mg-trimethoprim 160 mg tablet (Bactrim DS) albuterol sulfate 90 mcg/actuation 2 puff PO Q6H PRN #8.5 g 12/01/20 aerosol inhaler (ProAir HFA) nicotine 7 mg/24 hr daily 1 patch TRANSDERMAL Q24H 30 Days 12/14/20 transdermal patch (Nicoderm CQ) #30 ea cholecalciferol (vitamin D3) 50 50 mcg PO DAILY #30 cap 12/29/20 mcg (2,000 unit) capsule aripiprazole 5 mg tablet 5 mg PO BEDTIME #30 tab 01/27/21 ferrous sulfate 325 mg (65 mg 325 mg PO DAILY #30 tab 01/27/21 iron) tablet clonazepam 0.5 mg tablet 0.5 mg PO DAILY PRN 30 Days #30 tab 02/13/21 benzonatate 100 mg capsule 100 mg PO TID PRN #14 cap 02/23/21 (Anurag Bhandari) <Angelina Colunga NP - Last Filed: 04/07/21 23:47> Allergies/Adverse Reactions: Allergies Allergy/AdvReac Type Severity Reaction Status Date / Time house dust mite Allergy Mild allergy Verified 02/25/21 08:39 insect venom Allergy Mild allergy Verified 02/25/21 08:39 cat dander [CAT] Allergy Unknown UNKNOWN Verified 02/25/21 08:39 tree and shrub pollen [TREE] Allergy Unknown UNKNOWN Verified 02/25/21 08:39 Blue Cheese Allergy Unknown nausea and Uncoded 09/10/20 08:38 vomiting GRASS Allergy Unknown UNKNOWN Uncoded 09/10/20 08:38 Maple Trees Allergy Unknown Excessive Uncoded 09/10/20 08:38 Sneezing <Angelina Colunga NP - Last Filed: 04/07/21 23:47> Review of Systems Review of Systems: Yes all other systems are reviewed and are negative <Angelina Colunga NP - Last Filed: 04/07/21 23:47> Constitutional: Constitutional: Reports no additional constitutional complaints, Denies body ache(s), Denies chills, Denies fever(s), Denies headache(s) and Denies weakness <Angelina Colunga NP - Last Filed: 04/07/21 23:47> Eyes: Eyes: Reports no additional eye complaints and Denies change in vision <CAROL ANN Hernandes Last Filed: 04/07/21 23:47> ENT: Reports system reviewed and no additional complaints, except as documented, Denies dizziness, Denies headache(s), Denies nasal congestion, Denies nasal discharge and Denies neck pain <Angelina Colunga HYDRAULIC PRESS IN OPERATOR - Last Filed: 04/07/21 23:47> Cardiovascular: Cardiovascular: Reports no additional cardiovascular complaints, Denies chest pain, Denies leg edema and Denies dyspnea <Angelina Colunga HYDRAULIC PRESS IN OPERATOR - Last Filed: 04/07/21 23:47> Respiratory: Respiratory: Reports no additional respiratory complaints, Denies cough and Denies dyspnea <Angelina Colunga HYDRAULIC PRESS IN OPERATOR - Last Filed: 04/07/21 23:47> Gastrointestinal: Gastrointestinal: Reports no additional gastrointestinal complaints, Denies abdominal pain, Denies diarrhea, Denies nausea and Denies vomiting <Angelina Colunga HYDRAULIC PRESS IN OPERATOR - Last Filed: 04/07/21 23:47> Genitourinary: Genitourinary: Reports no additional female genitourinary complaints and Denies urinary incontinence <Angelina Colunga HYDRAULIC PRESS IN OPERATOR - Last Filed: 04/07/21 23:47> Musculoskeletal: Musculoskeletal: Reports no additional musculoskeletal complaints, Denies back pain, Denies arthralgias, Denies joint swelling, Denies neck pain, Denies numbness and Denies tingling <Angelina Colunga HYDRAULIC PRESS IN OPERATOR - Last Filed: 04/07/21 23:47> Integumentary/Breasts: Skin/Breast: Reports system reviewed and no additional complaints, except as docu and Denies rash <Angelina Colunga HYDRAULIC PRESS IN OPERATOR - Last Filed: 04/07/21 23:47> Neurologic: Reports system reviewed and no additional complaints, except as documented, Denies Abnormal speech present, Denies dizziness, Denies headache(s), Denies numbness, Denies tingling and Denies weakness <Angelina Colunga HYDRAULIC PRESS IN OPERATOR - Last Filed: 04/07/21 23:47> Psychiatric: Psychiatric: Reports anxiety, Reports depression, Denies homicidal ideation and Denies suicidal ideation <Angelina Colunga HYDRAULIC PRESS IN OPERATOR - Last Filed: 04/07/21 23:47> PMFSH Past Medical History Attestation statement: The following information was validated with the patient. <Angelina Colunga NP - Last Filed: 04/07/21 23:47> Source: old records reviewed and nursing notes reviewed <Angelina Colunga NP - Last Filed: 04/07/21 23:47> Medical History: Medical History ADHD Anemia Anxiety Depression Migraines Morbid obesity with BMI of 50.0-59.9, adult No known health problems Prediabetes Pseudotumor cerebri Vitamin D deficiency <Angelina Colunga NP - Last Filed: 04/07/21 23:47> Surgical History: Surgical History History of myringotomy History of tonsillectomy Hx of cholecystectomy <Angelina Colunga NP - Last Filed: 04/07/21 23:47> Family History Family History: Family History Mother Fibromyalgia Depression Arthritis Father Diabetes Hypertension Brother No problems noted. Sister No problems noted. Maternal Grandmother Hypertension <Angelina Colunga NP - Last Filed: 04/07/21 23:47> Social History Social History: Social History Housing: Other Alcohol intake: current Patient Tobacco Use Status: Current everyday Tobacco user Cigarette Packs Per Day: 0.5 Cigarettes Per Day: 7 Substance Use Type: Marijuana Advance Directives: No Current occupational status: unemployed <Angelina Colunga NP - Last Filed: 04/07/21 23:47> Physical Exam Vital Signs: Vital Signs: Last Vital Signs Temp 98.8 F 04/07/21 20:31 Pulse 99 04/07/21 22:35 Resp 20 04/07/21 22:35 BP 133/79 04/07/21 22:35 Pulse Ox 97 04/07/21 22:35 Body Mass Index 57.6 <Angelina Colunga NP - Last Filed: 04/07/21 23:47> Vital Signs: Last Vital Signs Temp 98.8 F 04/07/21 20:31 Pulse 99 04/07/21 22:35 Resp 20 04/07/21 22:35 BP 133/79 04/07/21 22:35 Pulse Ox 97 04/07/21 22:35 Body Mass Index 57.6 <HELEN Elizabeth - Last Filed: 04/08/21 01:42> Const: General: cooperative, healthy appearing, comfortable and no acute distress <Angelina Colunga NP - Last Filed: 04/07/21 23:47> Orientation/consciousness: patient oriented x3 <Angelina Colunga NP - Last Filed: 04/07/21 23:47> Limitations: no limitations <Angelina Colunga NP - Last Filed: 04/07/21 23:47> HENMT: Head: Yes normal to inspection <Angelina Colunga NP - Last Filed: 04/07/21 23:47> Ears: hearing grossly normal bilaterally <Angelina Colunga NP - Last Filed: 04/07/21 23:47> General nose exam: Normal external nose present <Angelina Colunga NP - Last Filed: 04/07/21 23:47> Face and sinus: Yes normal facial exam <Angelina Colunga NP - Last Filed: 04/07/21 23:47> Mouth: Normal oral and palatal mucosa present <Angelina Coulnga NP - Last Filed: 04/07/21 23:47> Throat: Yes posterior oropharynx normal <Angelina Colunga NP - Last Filed: 04/07/21 23:47> Eyes: General: appearance normal, both eyes and all related structures <Angelina Colunga NP - Last Filed: 04/07/21 23:47> Pupils: Equal, round and reactive pupils present <Angelina Colunga NP - Last Filed: 04/07/21 23:47> Neck: Neck: Yes normal visual inspection <Angelina Colunga NP - Last Filed: 04/07/21 23:47> Chest: Chest palpation & inspection: normal inspection of the chest <Angelina Colunga NP - Last Filed: 04/07/21 23:47> Resp: Effort & Inspection: normal respiratory effort <Angelina Colunga NP - Last Filed: 04/07/21 23:47> Auscultation: clear to auscultation bilaterally <Angelina Colunga NP - Last Filed: 04/07/21 23:47> Cardio: Rate: regular rate <Angelina Colunga NP - Last Filed: 04/07/21 23:47> Rhythm: regular rhythm <Angelina Colunga NP - Last Filed: 04/07/21 23:47> Peripheral pulses: Peripheral pulses 2+ throughout <Angelina Colunga HYDRAULIC PRESS IN OPERATOR - Last Filed: 04/07/21 23:47> GI: Inspection: Yes normal to inspection <Angelina Colunga NP - Last Filed: 04/07/21 23:47> Palpation (GI): Soft to palpation and nontender <Angelina Colunga NP - Last Filed: 04/07/21 23:47> Auscultation: normal bowel sounds <Angelina Colunga NP - Last Filed: 04/07/21 23:47> Back/Spine/Pelvis: Thoracic/Lumbar Spine: thoracic and lumbar spine normal to inspection <Angelina Colunga NP - Last Filed: 04/07/21 23:47> Skin: General skin exam: no rashes or lesions noted <Angelina Colunga NP - Last Filed: 04/07/21 23:47> Neuro: Other: eyes closed but rouses to verbal answers all questions appropriately <Angelina Colunga NP - Last Filed: 04/07/21 23:47> General: patient oriented x3, no focal motor deficits and normal sensation to monofilament <Angelina Colunga NP - Last Filed: 04/07/21 23:47> Cranial nerves: Yes CN's II-XII intact bilaterally, Yes Equal, round and reactive pupils present, Yes Bilaterally intact EOM present, Yes Nystagmus not present, Yes Normal facial strength present and Yes Midline tongue present <Angelina Colunga NP - Last Filed: 04/07/21 23:47> Cognition (Neuro): normal cognition <Angelina Colunga NP - Last Filed: 04/07/21 23:47> Speech: No Abnormal speech present <Angelina Colunga NP - Last Filed: 04/07/21 23:47> Gait exam (Neuro): Normal gait present <Angelina Colunga NP - Last Filed: 04/07/21 23:47> Motor exam (neuro): 5/5 motor strength present throughout <Angelina Colunga NP - Last Filed: 04/07/21 23:47> Sensory Exam: Normal double simultaneous stimulation for sensation <Angelina Colunga NP - Last Filed: 04/07/21 23:47> Extrem: General: Yes normal to inspection <Angelina Colunga NP - Last Filed: 04/07/21 23:47> Course Course Course Narrative: 25-year-old female on Section 12 after taking 4 mg of clonazepam at home. there is concern from the Section 12 and the patient intentionally took clonazepam to end her life. patient denies this. she denies any suicidal thoughts. She tells me she has been increasingly stressed and anxious. will check labs, EKG, drug screen. Patient will need cardiac monitoring and a care team evaluation once she is more awake 0100-Sign out to night team pending disposition. Placed in physician observation pending disposition. <Angelina Colunga NP - Last Filed: 04/07/21 23:47> MDM - Overdose Medical Records Attestation: I reviewed the patient's medical records. <Angelina Colunga NP - Last Filed: 04/07/21 23:47> Lab Data Attestation: I reviewed the patient's lab results. <Angelina Colunga NP - Last Filed: 04/07/21 23:47> Result diagrams: : 04/07/21 20:49 04/07/21 20:49 <Angelina Colunga NP - Last Filed: 04/07/21 23:47> Labs: Lab Results 04/07/21 04/07/21 04/07/21 Range/Units 20:49 20:49 20:50 WBC 14.3 H (4.8-10.8) X10*3/uL RBC 4.81 (4.20-5.50) X10*6/uL Hgb 12.2 (12.0-16.0) g/dl Hct 38.3 (37.0-47.0) % MCV 79.6 L (80.0-98.0) fL MCH 25.4 L (27.0-33.0) pg MCHC 31.9 (31.0-35.0) g/dl RDW 15.9 (11.0-16.0) % Plt Count 486 H (160-400) X10*3/uL MPV 8.7 L (9.4-12.3) fL Immature Gran % (Auto) 0.3 (0.0-0.4) % Neut % (Auto) 63.7 (45-73) % Lymph % (Auto) 29.7 (20-40) % Irwin % (Auto) 4.4 (2-11) % Eos % (Auto) 1.7 (0-4) % Baso % (Auto) 0.2 (0-2) % Lymph # (Auto) 4.3 (1.2-4.9) X10*3/uL Irwin # (Auto) 0.6 (0.1-1.2) X10*3/uL Eos # (Auto) 0.2 (0.0-0.4) X10*3/uL Baso # (Auto) 0.0 (0.0-0.2) X10*3/uL Abs Immat Gran (auto) 0.04 H (0.00-0.03) X10*3/uL Absolute Neuts (auto) 9.1 H (2.0-8.3) x10*3/uL Absolute Nucleated RBC 0.000 (0.0-0.012) X10*3/uL Nucleated RBC % (auto) 0.0 (0.0-0.2) /100WBC Smear Tech's Comments VERIFIED Sodium 140 (135-145) mmol/L Potassium 4.1 (3.3-5.1) mmol/L Chloride 110 H (96-108) mmol/L Carbon Dioxide 22 (22-29) mmol/L Anion Gap 12 (12-20) BUN 9 (9-16) mg/dL Creatinine 0.69 (0.5-1.4) mg/dL Estim Creat Clear Calc 174.5 Estimated GFR > 60 Random Glucose 92 (60-115) mg/dL Calcium 8.4 (8.4-10.2) mg/dL Total Bilirubin < 0.2 (0.0-1.0) mg/dL Direct Bilirubin < 0.2 (0.0-0.5) mg/dL AST 9 (5-31) U/L ALT 13 (0-31) U/L Alkaline Phosphatase 65 (39-117) U/L Total Protein 6.9 (6.5-8.0) g/dL Albumin 3.7 (3.5-5.0) g/dL Salicylates < 5.0 L (15-30) mg/dL Acetaminophen < 1 (<30) mcg/mL Ethyl Alcohol < 10 mg/dL COVID-19 ([facility]) (Negative) COVID-19 Clin Com 04/07/21 Range/Units 20:50 WBC (4.8-10.8) X10*3/uL RBC (4.20-5.50) X10*6/uL Hgb (12.0-16.0) g/dl Hct (37.0-47.0) % MCV (80.0-98.0) fL MCH (27.0-33.0) pg MCHC (31.0-35.0) g/dl RDW (11.0-16.0) % Plt Count (160-400) X10*3/uL MPV (9.4-12.3) fL Immature Gran % (Auto) (0.0-0.4) % Neut % (Auto) (45-73) % Lymph % (Auto) (20-40) % Irwin % (Auto) (2-11) % Eos % (Auto) (0-4) % Baso % (Auto) (0-2) % Lymph # (Auto) (1.2-4.9) X10*3/uL Irwin # (Auto) (0.1-1.2) X10*3/uL Eos # (Auto) (0.0-0.4) X10*3/uL Baso # (Auto) (0.0-0.2) X10*3/uL Abs Immat Gran (auto) (0.00-0.03) X10*3/uL Absolute Neuts (auto) (2.0-8.3) x10*3/uL Absolute Nucleated RBC (0.0-0.012) X10*3/uL Nucleated RBC % (auto) (0.0-0.2) /100WBC Smear Tech's Comments Sodium (135-145) mmol/L Potassium (3.3-5.1) mmol/L Chloride (96-108) mmol/L Carbon Dioxide (22-29) mmol/L Anion Gap (12-20) BUN (9-16) mg/dL Creatinine (0.5-1.4) mg/dL Estim Creat Clear Calc Estimated GFR Random Glucose (60-115) mg/dL Calcium (8.4-10.2) mg/dL Total Bilirubin (0.0-1.0) mg/dL Direct Bilirubin (0.0-0.5) mg/dL AST (5-31) U/L ALT (0-31) U/L Alkaline Phosphatase (39-117) U/L Total Protein (6.5-8.0) g/dL Albumin (3.5-5.0) g/dL Salicylates (15-30) mg/dL Acetaminophen (<30) mcg/mL Ethyl Alcohol mg/dL COVID-19 ([facility]) Negative (Negative) COVID-19 Clin Com See Note <Angelina Colunga, HYDRAULIC PRESS IN OPERATOR - Last Filed: 04/07/21 23:47> Lab Results 04/07/21 04/07/21 04/07/21 Range/Units 20:49 20:49 20:50 WBC 14.3 H (4.8-10.8) X10*3/uL RBC 4.81 (4.20-5.50) X10*6/uL Hgb 12.2 (12.0-16.0) g/dl Hct 38.3 (37.0-47.0) % MCV 79.6 L (80.0-98.0) fL MCH 25.4 L (27.0-33.0) pg MCHC 31.9 (31.0-35.0) g/dl RDW 15.9 (11.0-16.0) % Plt Count 486 H (160-400) X10*3/uL MPV 8.7 L (9.4-12.3) fL Immature Gran % (Auto) 0.3 (0.0-0.4) % Neut % (Auto) 63.7 (45-73) % Lymph % (Auto) 29.7 (20-40) % Irwin % (Auto) 4.4 (2-11) % Eos % (Auto) 1.7 (0-4) % Baso % (Auto) 0.2 (0-2) % Lymph # (Auto) 4.3 (1.2-4.9) X10*3/uL Irwin # (Auto) 0.6 (0.1-1.2) X10*3/uL Eos # (Auto) 0.2 (0.0-0.4) X10*3/uL Baso # (Auto) 0.0 (0.0-0.2) X10*3/uL Abs Immat Gran (auto) 0.04 H (0.00-0.03) X10*3/uL Absolute Neuts (auto) 9.1 H (2.0-8.3) x10*3/uL Absolute Nucleated RBC 0.000 (0.0-0.012) X10*3/uL Nucleated RBC % (auto) 0.0 (0.0-0.2) /100WBC Smear Tech's Comments VERIFIED Sodium 140 (135-145) mmol/L Potassium 4.1 (3.3-5.1) mmol/L Chloride 110 H (96-108) mmol/L Carbon Dioxide 22 (22-29) mmol/L Anion Gap 12 (12-20) BUN 9 (9-16) mg/dL Creatinine 0.69 (0.5-1.4) mg/dL Estim Creat Clear Calc 174.5 Estimated GFR > 60 Random Glucose 92 (60-115) mg/dL Calcium 8.4 (8.4-10.2) mg/dL Total Bilirubin < 0.2 (0.0-1.0) mg/dL Direct Bilirubin < 0.2 (0.0-0.5) mg/dL AST 9 (5-31) U/L ALT 13 (0-31) U/L Alkaline Phosphatase 65 (39-117) U/L Total Protein 6.9 (6.5-8.0) g/dL Albumin 3.7 (3.5-5.0) g/dL Salicylates < 5.0 L (15-30) mg/dL Acetaminophen < 1 (<30) mcg/mL Ethyl Alcohol < 10 mg/dL COVID-19 ([facility]) (Negative) COVID-19 Clin Com 04/07/21 Range/Units 20:50 WBC (4.8-10.8) X10*3/uL RBC (4.20-5.50) X10*6/uL Hgb (12.0-16.0) g/dl Hct (37.0-47.0) % MCV (80.0-98.0) fL MCH (27.0-33.0) pg MCHC (31.0-35.0) g/dl RDW (11.0-16.0) % Plt Count (160-400) X10*3/uL MPV (9.4-12.3) fL Immature Gran % (Auto) (0.0-0.4) % Neut % (Auto) (45-73) % Lymph % (Auto) (20-40) % Irwin % (Auto) (2-11) % Eos % (Auto) (0-4) % Baso % (Auto) (0-2) % Lymph # (Auto) (1.2-4.9) X10*3/uL Irwin # (Auto) (0.1-1.2) X10*3/uL Eos # (Auto) (0.0-0.4) X10*3/uL Baso # (Auto) (0.0-0.2) X10*3/uL Abs Immat Gran (auto) (0.00-0.03) X10*3/uL Absolute Neuts (auto) (2.0-8.3) x10*3/uL Absolute Nucleated RBC (0.0-0.012) X10*3/uL Nucleated RBC % (auto) (0.0-0.2) /100WBC Smear Tech's Comments Sodium (135-145) mmol/L Potassium (3.3-5.1) mmol/L Chloride (96-108) mmol/L Carbon Dioxide (22-29) mmol/L Anion Gap (12-20) BUN (9-16) mg/dL Creatinine (0.5-1.4) mg/dL Estim Creat Clear Calc Estimated GFR Random Glucose (60-115) mg/dL Calcium (8.4-10.2) mg/dL Total Bilirubin (0.0-1.0) mg/dL Direct Bilirubin (0.0-0.5) mg/dL AST (5-31) U/L ALT (0-31) U/L Alkaline Phosphatase (39-117) U/L Total Protein (6.5-8.0) g/dL Albumin (3.5-5.0) g/dL Salicylates (15-30) mg/dL Acetaminophen (<30) mcg/mL Ethyl Alcohol mg/dL COVID-19 ([facility]) Negative (Negative) COVID-19 Clin Com See Note <HELEN Elizabeth - Last Filed: 04/08/21 01:42> ECG Data Attestation: I personally reviewed and interpreted this ECG as follows: <Angelina Colunga NP - Last Filed: 04/07/21 23:47> ECG interpretation date: 04/07/21 <Angelina Colunga NP - Last Filed: 04/07/21 23:47> ECG interpretation time: 08:37 <Angelina Colunga NP - Last Filed: 04/07/21 23:47> Interpretation: Sinus tachycardia with a rate of 106, normal NM, normal QRS, normal QT <Angelina Colunga NP - Last Filed: 04/07/21 23:47> Discharge Plan Discharge Clinical Impression: Drug overdose <Angelina Colunga NP - Last Filed: 04/07/21 23:47> Prescriptions: No [facility] cyanocobalamin (vitamin B-12) [Vitamin B-12] 1,000 mcg tablet 1,000 mcg PO DAILY 90 Days Qty: 90 RF: 3 albuterol sulfate [ProAir HFA] 90 mcg/actuation HFA aerosol inhaler 2 puff PO Q6H PRN (Reason: for wheezing) Qty: 8.5 RF: 3 nicotine [Nicoderm CQ] 7 mg/24 hr patch 24 hour 1 patch transdermal Q24H 30 Days Qty: 30 RF: 1 cholecalciferol (vitamin D3) 50 mcg (2,000 unit) capsule 50 mcg PO DAILY Qty: 30 RF: 5 aripiprazole 5 mg tablet 5 mg PO BEDTIME Qty: 30 RF: 1 ferrous sulfate 325 mg (65 mg iron) tablet 325 mg PO DAILY Qty: 30 RF: 3 clonazepam 0.5 mg tablet 0.5 mg PO DAILY PRN (Reason: anxiety) 30 Days Qty: 30 RF: 0 cetirizine 10 mg Tablet 10 mg PO DAILY MDD 8 puffs PRN (Reason: Shortness Of Breath) RF: 0 benzonatate [Tessalon Perles] 100 mg capsule 100 mg PO TID PRN (Reason: cough) Qty: 14 RF: 0 citalopram 20 mg tablet 30 mg PO DAILY 30 Days Qty: 45 RF: 3 sulfamethoxazole-trimethoprim [Bactrim DS] 800-160 mg tablet 1 tab PO Q12H 10 Days Qty: 20 RF: 0 <Angelina Colunga HYDRAULIC PRESS IN OPERATOR - Last Filed: 04/07/21 23:47>
[2021-04-07 20:56] LABS: Basophils Percent Auto 0.2 % (0-2); Eosinophils Absolute Auto 0.2 X10*3/uL (0.0-0.4); Eosinophils Percent Auto 1.7 % (0-4); Imm Gran Pct Auto 0.3 % (0.0-0.4); MANUAL DIFF FLAG SCAN; Red Cell Distribution Width 15.9 % (11.0-16.0); SCAN SMEAR FLAG 1
[2021-04-07 21:09] LABS: Ethanol < 10 mg/dL
[2021-04-07 21:11] LABS: Hematocrit 38.3 % (37.0-47.0); Hemoglobin 12.2 g/dl (12.0-16.0); Imm Gran Abs Auto 0.04 X10*3/uL (0.00-0.03); Lymphocytes Absolute Auto 4.3 X10*3/uL (1.2-4.9); Lymphocytes Percent Auto 29.7 % (20-40); Mean Corpuscular HGB Conc 31.9 g/dl (31.0-35.0); Mean Corpuscular Hemoglobin 25.4 pg (27.0-33.0); Mean Corpuscular Volume 79.6 fL (80.0-98.0); Mean Platelet Volume 8.7 fL (9.4-12.3); Monocytes Absolute Auto 0.6 X10*3/uL (0.1-1.2); Monocytes Percent Auto 4.4 % (2-11); Neutrophils Absolute Auto 9.1 x10*3/uL (2.0-8.3); Neutrophils Percent Auto 63.7 % (45-73); Platelet Count 486 X10*3/uL (160-400); Red Blood Count 4.81 X10*6/uL (4.20-5.50); White Blood Count 14.3 X10*3/uL (4.8-10.8)
[2021-04-07 21:13] LABS: COVID-19 Test Negative (Negative)
[2021-04-07 21:14] LABS: SLIDE REVIEW VERIFIED
[2021-04-07 21:18] LABS: Alanine Aminotransferase 13 U/L (0-31); Albumin Level 3.7 g/dL (3.5-5.0); Alkaline Phosphatase 65 U/L (39-117); Anion Gap 12 (12-20); Aspartate Amino Transferase 9 U/L (5-31); Bilirubin Direct < 0.2 mg/dL (0.0-0.5); Bilirubin Total < 0.2 mg/dL (0.0-1.0); Blood Urea Nitrogen 9 mg/dL (9-16); Calcium 8.4 mg/dL (8.4-10.2); Carbon Dioxide 22 mmol/L (22-29); Chloride 110 mmol/L (96-108); Creatinine Clr Calc Pharmacy 174.5; Estimated Glomerular Filt Rate > 60; Glucose Random 92 mg/dL (60-115); Potassium 4.1 mmol/L (3.3-5.1); Salicylate < 5.0 mg/dL (15-30); Sodium 140 mmol/L (135-145); Total Protein 6.9 g/dL (6.5-8.0)
[2021-04-07 21:20] LABS: Acetaminophen LAB < 1 mcg/mL (<30)
--- NOTE | 2021-04-07 21:40 | PC.NURSE ---
Pt mother and girlfriend arrived to ER waiting asking for patient update. Per patient she stated she did not want anyone to receive updates or have visitors at this time. Pt mother noted to be upset and agitated at having to wait 30 minutes per mother for an update and was mad that security could not tell her how the patient was doing. Pt mother educated on roles of staff and HIPPA. RN apologized for the wait. RN stated to mother the patient is stable, that is all I can say . Pt mother took HAYLIE bauman down and said she will be calling in the AM to make a complaint then left ER waiting room with pt girlfriend.
[2021-04-07 22:35] VITALS: BP 133/79; PULSE 99; RESP 20; O2SAT 97
--- NOTE | 2021-04-08 02:33 | PC.NURSE ---
Pt denies suicidal ideation when asked. Pt slept while in ER with vitals WNL, O2 sat remained at 95% on room air. IV removed by ray shortly after patient arrived due to it being mal-positioned and not in use. Pt denied chest pain, lethargy, SOB, N/V. Pt did not appear in acute distress. HAYLIE Dickens and Ray Davies in the room with patient upon arrival with CAROL ANN Alfaro while CAROL ANN Alfaro conducted her assessment. Pt denies suicidal ideation to CAROL ANN Alfaro with RN and Ray present as well. Carol Ann Alfaro verbalized plan to patient, RN, and Tech stating let's keep her here overnight to monitor her oxygen level and reassess in the morning . CAROL ANN Alfaro never stated or communicated 1 to 1 sitter is needed, CAROL ANN Alfaro did not verbalize need for 1:1 sitter for patient to RN, Ray, or division chief. Multiple checks were conducted while patient was here to assess safety. RN went to break at 2350, RN returned at 0020, RN noticed patient was no longer in the room at 0115. division chief made aware, no other staff seen patient leave. Pt eloped not telling anyone, no IV was in place due to being taken out earlier when she arrived. CAROL ANN Alfaro shift ended and was no longer in ER when patient eloped, no other provider received sign out per the other providers when RN's asked about patient status. There is nothing written in the note from CAROL ANN Alfaro regarding 1:1 status. Pt was not sectioned by [facility] providers. lime slaker and Application Support Developer aware of patient status elopement. Pt called by division chief Kelly to check in on patient, pt sounded calm and cooperative on the phone and continued to deny suicidal ideation stating she felt safe at the moment. [place] [facility] called to bring patient back. Pt arrived back to facility with [facility] and [place] [facility] without issues.
== END 2021-04-08 01:15 | disposition left against medical advice (07) ==
LOC: HO.ED 20:48
PROVIDERS: Nurse Practitioner Family; Emergency Provider Emergency Medicine
DX: T42.4X1A Poisoning by benzodiazepines, accidental (unintentional), initial encounter (principal); R53.83 Other fatigue; R00.0 Tachycardia, unspecified; Y92.013 Bedroom of single-family (private) house as the place of occurrence of the external cause; Z20.822 Contact with and (suspected) exposure to COVID-19; F41.9 Anxiety disorder, unspecified; F32.A Depression, unspecified; F90.9 Attention-deficit hyperactivity disorder, unspecified type; Z79.899 Other long term (current) drug therapy
CPT/HCPCS: 36415; 80048; 80076; 80143; 80179; 82077; 85025; 87635; 93005; 99284

== ENCOUNTER 2021-04-08 02:51 | Emergency (ER) | payer OTHER, SELFPAY ==
[2021-04-08 03:03] VITALS: BP 127/79; PULSE 99; RESP 17; TEMP 36.7; O2SAT 98; BMI 60.4
[2021-04-08 03:33] LABS: Appearance Urine CLEAR; Color Urine YELLOW; Glucose Urine UA NEG (NEG); Leukocyte Esterase Urine NEG (NEG); Nitrite Urine NEG (NEG); Specific Gravity - Urine >= 1.030 (1.005-1.025); Urine Blood NEG (NEG); Urine Ketones NEG (NEG); Urine Protein NEG (NEG-TRACE)
[2021-04-08 03:37] LABS: UPreg QC Valid YES; Urine Pregnancy NEGATIVE (NEGATIVE)
[2021-04-08 03:44] LABS: Bacteria Urine 2+ /LPF; Mucus Urine 2+ /LPF; Squamous Epithelial Cell Urine 2+ /LPF
[2021-04-08 03:49] LABS: COVID-19 Test Negative (Negative); IDNOW Serial# 9DD0AD1C
[2021-04-08 04:23] LABS: Amphetamine Screen Urine Not Detected (Not Detect); Barbiturates, Urine Not Detected (Not Detect); Benzodiazepines Screen Urine Not Detected (Not Detect); Cannabinoid Screen Urine Not Detected (Not Detect); Cocaine Screen Urine Not Detected (Not Detect); Fentanyl, urine Not Detected (Not Detect); Opiate Screen Urine Not Detected (Not Detect); Phencyclidine Screen Urine Not Detected (Not Detect)
--- NOTE | 2021-04-08 04:27 | ED_ITS ---
HPI - Psych General Chief Complaint: Psychiatric Symptoms Stated Complaint: OD Time Seen by Provider: 04/08/21 04:27 Source: patient, EMS and police Mode of arrival: EMS Limitations: no limitations History of Present Illness HPI Narrative: 25-year-old female with history of anxiety, depression, borderline diabetes earlier was seen in the emergency department for overdose on clonazepam, patient took him not to hurt herself but because increases stress and anxiety and patient was trying to sleep. Patient managed to walk out of the hospital, the ED called the police to bring the patient back patient return, hemalatha william is cooperative, willing to stay in the ED for full assessment. Related Data Home Medications Medication Instructions Recorded Confirmed adalimumab 40 mg/0.4 mL 40 mg SUBCUT QWEEK 04/08/21 04/08/21 subcutaneous pen kit (Humira(CF) Pen) aripiprazole 5 mg tablet 1 tab PO DAILY 04/08/21 04/08/21 betamethasone dipropionate 0.05 % 1 applic TOPICAL BID 04/08/21 04/08/21 topical ointment citalopram 20 mg tablet 30 mg PO QAM 04/08/21 04/08/21 clonazepam 0.5 mg tablet 1 tab PO DAILY PRN 04/08/21 04/08/21 Allergies Allergy/AdvReac Type Severity Reaction Status Date / Time house dust mite Allergy Mild allergy Verified 02/25/21 08:39 insect venom Allergy Mild allergy Verified 02/25/21 08:39 cat dander [CAT] Allergy Unknown UNKNOWN Verified 02/25/21 08:39 tree and shrub pollen [TREE] Allergy Unknown UNKNOWN Verified 02/25/21 08:39 Blue Cheese Allergy Unknown nausea and Uncoded 09/10/20 08:38 vomiting GRASS Allergy Unknown UNKNOWN Uncoded 09/10/20 08:38 Maple Trees Allergy Unknown Excessive Uncoded 09/10/20 08:38 Sneezing Review of Systems Review of Systems: All other systems are reviewed and are negative Constitutional: Reports as per HPI and Reports no additional constitutional complaints Eyes: Reports as per HPI and Reports no additional eye complaints Reports system reviewed and no additional complaints, except as documented Cardiovascular: Reports as per HPI and Reports no additional cardiovascular complaints Respiratory: Reports as per HPI and Reports no additional respiratory complaints Gastrointestinal: Reports as per HPI and Reports no additional gastrointestinal complaints Genitourinary: Reports no additional female genitourinary complaints Musculoskeletal: Reports no additional musculoskeletal complaints Skin/Breast: Reports system reviewed and no additional complaints, except as docu Psychiatric: Reports no additional psychiatric complaints Endocrine: Reports no additional endocrine complaints Hematologic/Lymphatic: Reports no additional hematologic/lymphatic complaints Allergic/Immunologic: Reports no additional allergic/immunologic complaints Reports system reviewed and no additional complaints, except as documented and Reports Abnormal speech present [facility] Past Medical History Medical History ADHD Anemia Anxiety Depression Migraines Morbid obesity with BMI of 50.0-59.9, adult No known health problems Prediabetes Pseudotumor cerebri Vitamin D deficiency Surgical History History of myringotomy History of tonsillectomy Hx of cholecystectomy Family History Family History Mother Fibromyalgia Depression Arthritis Father Diabetes Hypertension Brother No problems noted. Sister No problems noted. Maternal Grandmother Hypertension Social History Social History Housing: Other Alcohol intake: current Patient Tobacco Use Status: Current everyday Tobacco user Cigarette Packs Per Day: 0.5 Cigarettes Per Day: 7 Substance Use Type: Marijuana Advance Directives: No Patient : No Current occupational status: unemployed Physical Exam Vital Signs: Vital Signs: Last Vital Signs Temp 98.1 F 04/08/21 03:03 Pulse 99 04/08/21 03:03 Resp 17 04/08/21 03:03 BP 127/79 04/08/21 03:03 Pulse Ox 98 04/08/21 03:03 Body Mass Index 60.4 vital signs have been reviewed as appeared to be correct. Blood pressure normal. Heart rate normal. Respiration rate normal. Temperature normal. Oxygen saturation normal. Appearance: Alert. Oriented X3. No acute distress. Head: Normal external exam. Normocephalic. Atraumatic. No Maria signs noted. No raccoon eyes noted Eyes: PERRLA. EOMI. Conjunctiva and sclera normal. Eyelids normal. ENT: TM's Normal. Pharynx normal. Uvula midline. Moist mucous membranes. No trismus noted. No drooling noted. No muffled voice noted. Neck: Normal inspection. Neck supple. FROM. No adenopathy. Thyroid Normal. No meningeal signs. No neck mass noted. CVS: Normal heart rate and rhythm. Heart sound normal. No murmurs noted. Pulses normal throughout. Respiratory: No respiratory distress. Painless inspiration. Breath sounds normal. No wheezes/rales/rhonchi noted. Chest nontender. No accessory muscle usage noted or decreased air movement noted. Abdomen: Soft and nontender. Bowel sounds normal in all 4 quadrants. No distention noted. No organomegaly noted. No visible injury noted. Back: No CVA tenderness. Full range of motion noted. Skin: Skin warm and dry. Normal skin color. Normal skin turgor. No rashes/lesions/lacerations noted. Extremities: No lower extremity edema. Extremities exhibit normal range of motion. Extremities nontender. Neuro: Oriented X 3. Cranial nerve exam: II-XII are grossly intact No motor deficit. No sensory deficit. Reflexes normal. Patient Appearance: Appropriate Patient Orientation: Person, Place, Time and Situation Level of Consciousness: Awake, Appropriate and Alert Patient Behavior: Talkative, Cooperative. Mood Description: Depressed. Affect Description: Flat. Patient Cognition Impaired: No Ability to Follow Directions: Good Speech Pattern: Spontaneous Speech Memory Description: Intact Hallucinations: Not present. Delusions: Not Present Thought Process: Logical. Thought Content: Unremarkable Depressive Symptoms: Increased anxiety. Judgement: Fair Course Reevaluation(s) Reevaluation #1: Physician observation started at 4:30 am . Patient placed in physician observation because the patient Needed BHN evaluation and the need for placement patient's vital sign were stable, patient is alert and oriented , neuro exam unchanged, unremarkable rest of physical exam. Time: 04:33 [facility] - Psych Lab Data Labs: Lab Results 04/08/21 04/08/21 04/08/21 Range/Units 03:22 03:24 03:24 Urine Color YELLOW Urine Appearance CLEAR Urine pH 6.0 (5.0-8.0) Ur Specific [place] >= 1.030 H (1.005-1.025) Urine Protein NEG (NEG-TRACE) MG/DL Urine Glucose (UA) NEG (NEG) MG/DL Urine Ketones NEG (NEG) MG/DL Urine Blood NEG (NEG) Urine Nitrite NEG (NEG) Ur Leukocyte Esterase NEG (NEG) Urine RBC 1-4 (0) /HPF Urine WBC 1-4 (0-4) /HPF Ur Squamous Epith Cells 2+ /LPF Urine Bacteria 2+ /LPF Urine Mucus 2+ /LPF Urine Test NEGATIVE (NEGATIVE) Urine Opiates Screen (Not Detect) Urine Fentanyl Screen (Not Detect) Ur Barbiturates Screen (Not Detect) Ur Phencyclidine Scrn (Not Detect) Ur Amphetamines Screen (Not Detect) U Benzodiazepines Scrn (Not Detect) Urine Cocaine Screen (Not Detect) U Marijuana (THC) Screen (Not Detect) COVID-19 ([facility]) Negative (Negative) COVID-19 Clin Com See Note 04/08/21 Range/Units 03:24 Urine Color Urine Appearance Urine pH (5.0-8.0) Ur Specific [place] (1.005-1.025) Urine Protein (NEG-TRACE) MG/DL Urine Glucose (UA) (NEG) MG/DL Urine Ketones (NEG) MG/DL Urine Blood (NEG) Urine Nitrite (NEG) Ur Leukocyte Esterase (NEG) Urine RBC (0) /HPF Urine WBC (0-4) /HPF Ur Squamous Epith Cells /LPF Urine Bacteria /LPF Urine Mucus /LPF Urine Test (NEGATIVE) Urine Opiates Screen Not Detected (Not Detect) Urine Fentanyl Screen Not Detected (Not Detect) Ur Barbiturates Screen Not Detected (Not Detect) Ur Phencyclidine Scrn Not Detected (Not Detect) Ur Amphetamines Screen Not Detected (Not Detect) U Benzodiazepines Scrn Not Detected (Not Detect) Urine Cocaine Screen Not Detected (Not Detect) U Marijuana (THC) Screen Not Detected (Not Detect) COVID-19 ([facility]) (Negative) COVID-19 Clin Com Discharge Plan Discharge Clinical Impression: Drug overdose Prescriptions: No Action clonazepam 0.5 mg tablet 1 tab PO DAILY PRN (Reason: Anxiety) RF: 0 citalopram 20 mg tablet 30 mg PO QAM RF: 0 betamethasone dipropionate 0.05 % ointment 1 applic topical BID RF: 0 aripiprazole 5 mg tablet 1 tab PO DAILY RF: 0 Humira(CF) Pen 40 mg/0.4 mL pen injector kit 40 mg subcut QWEEK RF: 0
--- NOTE | 2021-04-08 05:51 | PC.NURSE ---
Patient slept through the night, no distress observed/reported, BHN referral completed and confirmed, will be evaluated by BHN in the morning, patient mood is depressed and sad, VSS, Denied SI/HI/AVH, will continue to monitor.
--- NOTE | 2021-04-08 07:15 | PC.NURSE ---
patient appears ot remain at rest at present respirations are even and unlabored, patient appears in no distress.
--- NOTE | 2021-04-08 07:16 | PC.NURSE ---
patient appears at rest at present repisrations are even and unlabored, patient appears in no distress
[2021-04-08 07:55] VITALS: BP 111/64; PULSE 88; RESP 12; TEMP 36.9; O2SAT 96
--- NOTE | 2021-04-08 10:51 | PHA.MEDREC ---
Pharmacy Consult ? Medication Reconciliation Pharmacy has reviewed the medication reconciliation complete by Jluis. Patient refused to talk to me about her medications. She refused to take any of the medications her. Many medications were filled on 02/13/2021 therefore she may be not adherent. Meena Pizano, PharmD
== END 2021-04-08 14:20 | disposition home or self-care (01) ==
PROVIDERS: Emergency Provider Emergency Medicine
DX: T42.4X1A Poisoning by benzodiazepines, accidental (unintentional), initial encounter (principal); Y92.9 Unspecified place or not applicable; F12.90 Cannabis use, unspecified, uncomplicated; F33.1 Major depressive disorder, recurrent, moderate; F17.210 Nicotine dependence, cigarettes, uncomplicated; Z71.6 Tobacco abuse counseling; Z79.899 Other long term (current) drug therapy
CPT/HCPCS: 36415; 80307; 81001; 81025; 87635; 99283; 99284

== ENCOUNTER 2021-04-16 10:44 | Outpatient (REF) | payer OTHER, SELFPAY ==
[2021-04-16 11:09] LABS: Hematocrit 39.2 % (37.0-47.0); Hemoglobin 12.1 g/dl (12.0-16.0); Mean Corpuscular HGB Conc 30.9 g/dl (31.0-35.0); Mean Corpuscular Hemoglobin 24.5 pg (27.0-33.0); Mean Corpuscular Volume 79.5 fL (80.0-98.0); Mean Platelet Volume 8.9 fL (9.4-12.3); Platelet Count 511 X10*3/uL (160-400); Red Blood Count 4.93 X10*6/uL (4.20-5.50); Red Cell Distribution Width 15.9 % (11.0-16.0); White Blood Count 13.7 X10*3/uL (4.8-10.8)
[2021-04-16 12:01] LABS: SLIDE REVIEW MANUAL DIFF
[2021-04-16 12:05] LABS: Alanine Aminotransferase 15 U/L (0-31); Albumin Level 4.1 g/dL (3.5-5.0); Alkaline Phosphatase 66 U/L (39-117); Anion Gap 14 (12-20); Aspartate Amino Transferase 13 U/L (5-31); Bilirubin Total 0.3 mg/dL (0.0-1.0); Blood Urea Nitrogen 10 mg/dL (9-16); Calcium 9.5 mg/dL (8.4-10.2); Carbon Dioxide 22 mmol/L (22-29); Chloride 106 mmol/L (96-108); Estimated Glomerular Filt Rate > 60; Glucose Random 99 mg/dL (60-115); Potassium 4.3 mmol/L (3.3-5.1); Sodium 138 mmol/L (135-145); Total Protein 7.6 g/dL (6.5-8.0)
[2021-04-16 13:43] LABS: Atypical Lymphs Percent Manual 7 % (0-6); Eosinophils Absolute Manual 0.1 X10*3/uL (0.0-0.4); Eosinophils Percent Manual 1 % (0-4); Lymphocytes Absolute Manual 3.4 X10*3/uL (1.2-4.9); Lymphocytes Percent Manual 25 % (20-40); Monocytes Absolute Manual 0.4 X10*3/uL (0.1-1.2); Monocytes Percent Manual 3 % (2-11); Neutrophils Percent Manual 64 % (45-73)
[2021-04-16 13:44] LABS: Microcytosis 1+ (5-14) /OIF; Platelet Estimate INCREASED (NORMAL); Platelet Morphology Comment NORMAL; RBC Morphology NOTED
[2021-04-16 14:29] LABS: Band Neutrophils Percent 0 % (3-5); Neutrophils Absolute Manual 8.8 X10*3/uL (2.0-8.3)
== END 2021-04-16 10:45 | disposition home or self-care (01) ==
LOC: HO.LAB 10:44
PROVIDERS: PCP Family Medicine; Visit Provider Physician Assistant Medical
DX: L73.2 Hidradenitis suppurativa (principal); Z79.899 Other long term (current) drug therapy
CPT/HCPCS: 36415; 80053; 85007; 85025; 85027

== ENCOUNTER 2021-07-17 20:24 | Emergency (ER) | payer OTHER, SELFPAY ==
[2021-07-17 20:33] VITALS: BP 119/64; PULSE 104; O2SAT 100
[2021-07-17 21:05] VITALS: BP 150/78; PULSE 108; RESP 20; TEMP 37.2; O2SAT 97; BMI 58.3
[2021-07-17] MEDS: Acetaminophen 325 MG TABLET 650 MG PO (21:14)
[2021-07-17 21:24] LABS: Strep A Nucleic Acid Negative (Negative)
[2021-07-17 21:53] LABS: Influenza A PCR POSITIVE (Negative); Influenza B PCR NEGATIVE (Negative); Resp Syncy Virus RNA Qual PCR NEGATIVE (Negative); SARS COV2 PCR INHOUSE NEGATIVE (Negative)
[2021-07-17 22:39] VITALS: BP 134/79; PULSE 99; RESP 18; TEMP 37.4; O2SAT 96
--- NOTE | 2021-07-17 23:23 | ED_ITS ---
HPI - General Adult General Chief complaint: General Medical Stated complaint: SORE THROAT SINCE THIS AM PER EMS Time Seen by Provider: 07/17/21 23:19 Source: patient Mode of arrival: ambulatory History of Present Illness HPI narrative: 25-year-old female presents with onset of symptoms with sore throat, cough, headache and describes body chills and weakness, fatigue. She denies receiving flu vaccine this year. Related Data Home Medications Medication Instructions Recorded Confirmed adalimumab 40 mg/0.4 mL 40 mg SUBCUT QWEEK 04/08/21 04/08/21 subcutaneous pen kit (Humira(CF) Pen) benzonatate 100 mg capsule 100 mg PO TID PRN 04/08/21 04/08/21 betamethasone dipropionate 0.05 % 1 applic TOPICAL BID 04/08/21 04/08/21 topical ointment citalopram 20 mg tablet 30 mg PO QAM 04/08/21 04/08/21 Previous Rx's Medication Instructions Recorded clonazepam 0.5 mg tablet 0.5 mg PO DAILY PRN 30 Days #30 tab 04/22/21 aripiprazole 5 mg tablet 5 mg PO DAILY 30 Days #30 tab 05/22/21 ondansetron 4 mg disintegrating 4 mg PO Q8H PRN #10 tab 07/17/21 tablet oseltamivir 75 mg capsule (Tamiflu) 75 mg PO Q12H 5 Days #10 cap 07/17/21 Allergies Allergy/AdvReac Type Severity Reaction Status Date / Time house dust mite Allergy Mild allergy Verified 02/25/21 08:39 insect venom Allergy Mild allergy Verified 02/25/21 08:39 cat dander [CAT] Allergy Unknown UNKNOWN Verified 02/25/21 08:39 tree and shrub pollen [TREE] Allergy Unknown UNKNOWN Verified 02/25/21 08:39 Blue Cheese Allergy Unknown nausea and Uncoded 09/10/20 08:38 vomiting GRASS Allergy Unknown UNKNOWN Uncoded 09/10/20 08:38 Maple Trees Allergy Unknown Excessive Uncoded 09/10/20 08:38 Sneezing Review of Systems Review of Systems: Pertinent positives and negatives as stated in HPI 10 point review of systems is otherwise negative. PMFSH Past Medical History Source: nursing notes reviewed Medical History ADHD Anemia Anxiety Depression Fungal infection of foot History of ingrown hair Migraines Morbid obesity with BMI of 50.0-59.9, adult No known health problems Prediabetes Pseudotumor cerebri Vitamin D deficiency Surgical History History of myringotomy History of tonsillectomy Hx of cholecystectomy Family History Family History Mother Fibromyalgia Depression Arthritis Father Diabetes Hypertension Brother No problems noted. Sister No problems noted. Maternal Grandmother Hypertension Social History Social History Housing: Other Alcohol intake: current Patient Tobacco Use Status: Current everyday Tobacco user Cigarette Packs Per Day: 0.5 Cigarettes Per Day: 7 Substance Use Type: Marijuana Advance Directives: No Advance Directives Information Provided: Yes Current occupational status: unemployed Physical Exam ED Vital Signs: Vital Signs - 24 hr 07/17/21 21:05 07/17/21 22:39 Temperature 99.0 F 99.4 F Pulse Rate 108 H 99 Respiratory Rate 20 18 Blood Pressure 150/78 H 134/79 Pulse Oximetry 97 96 BMI result Body Mass Index 58.3 VITAL SIGNS: Reviewed. GENERAL: Elevated BMI, well nourished, in no acute distress. HEAD: Normocephalic/atraumatic EYES: PERRLA, EOMI EARS: Ext canals without abnormality, TMs non-bulging and non-erythematous NOSE: Nares patent bilateral OROPHARYNX: no oral lesions noted, posterior pharynx clear and non-erythematous without noted tonsillar enlargement/erythema/exudates NECK: Supple, no adenopathy LUNGS: Normal breath sounds. No adventitious sounds or accessory muscle use. SpO2<97> CARDIOVASCULAR: Regular rate and rhythm without noted murmurs ABDOMEN: Soft, non-tender, non-distended with bowel sounds. SKIN: Inspection of the skin reveals no rashes NEUROLOGIC: Alert and oriented x 4. Strength and sensation to light touch were grossly intact x 4. Course Course Course Narrative: 25-year-old female with history and clinical presentation most consistent with viral syndrome and on review of respiratory panel testing is noted be influenza positive. Patient received combination analgesics and will received initial dose of Tamiflu here in the emergency room after discussion with patient regarding risks and benefits. On re-evaluation patient is feeling much better and is otherwise stable for discharge to home. Medical Decision Making Lab Data Labs: Lab Results 07/17/21 07/17/21 Range/Units 21:07 21:07 Influenza Type A (PCR) POSITIVE A (Negative) Influenza Type B (PCR) NEGATIVE (Negative) RSV RNA Qual (PCR) NEGATIVE (Negative) SARS-CoV-2 RNA (RT-PCR) NEGATIVE (Negative) S. pyogenes GrpA WU Negative (Negative) Discharge Plan Discharge Clinical Impression: Influenza A, Viral syndrome Patient Disposition: Home, Self-Care Instructions: Influenza (ED), Viral Syndrome (ED) Additional Instructions: Recommend [id number] Tylenol/ibuprofen as needed for viral symptoms. Complete the entire course of Tamiflu as prescribed. Follow-up with your primary care provider in the next 1-2 days for re- evaluation. Return to the ER for worsening symptoms. Prescriptions: New oseltamivir [Tamiflu] 75 mg capsule 75 mg PO Q12H 5 Days Qty: 10 0RF ondansetron 4 mg tablet,disintegrating 4 mg PO Q8H PRN (Reason: nausea and vomiting) Qty: 10 0RF No Action clonazepam 0.5 mg tablet 0.5 mg PO DAILY PRN (Reason: Anxiety) 30 Days Qty: 30 0RF aripiprazole 5 mg tablet 5 mg PO DAILY 30 Days Qty: 30 2RF citalopram 20 mg tablet 30 mg PO QAM 0RF betamethasone dipropionate 0.05 % ointment 1 applic topical BID 0RF Humira(CF) Pen 40 mg/0.4 mL pen injector kit 40 mg subcut QWEEK 0RF benzonatate 100 mg capsule 100 mg PO TID PRN (Reason: Cough) 0RF
[2021-07-18] MEDS: Ibuprofen 400 MG TABLET PO (00:01)
[2021-07-18] MEDS: Oseltamivir Phosphate 75 MG CAPSULE PO (00:02)
--- NOTE | 2021-07-18 00:22 | PC.NURSE ---
Reviewed discharge instructions. Pt verbalized understanding.
== END 2021-07-18 00:23 | disposition home or self-care (01) ==
PROVIDERS: Emergency Provider Student in an Organized Health Care Education/Training Program
DX: J11.1 Influenza due to unidentified influenza virus with other respiratory manifestations (principal); B34.9 Viral infection, unspecified; Z20.822 Contact with and (suspected) exposure to COVID-19; F17.200 Nicotine dependence, unspecified, uncomplicated; F12.90 Cannabis use, unspecified, uncomplicated
CPT/HCPCS: 0241U; 87651; 99283; 99284

== ENCOUNTER 2021-09-11 08:44 | Outpatient (REF) | payer OTHER, SELFPAY ==
[2021-09-11 15:06] LABS: CT PCR NOT DETECTED (Not Detect.); NG PCR NOT DETECTED (Not Detect.)
== END 2021-09-11 08:45 | disposition home or self-care (01) ==
LOC: HO.LAB 08:44
PROVIDERS: PCP Family Medicine; Visit Provider Advanced Practice Midwife
DX: Z01.419 Encounter for gynecological examination (general) (routine) without abnormal findings (principal)
CPT/HCPCS: 87491; 87591

== ENCOUNTER 2021-10-09 12:18 | Emergency (ER) | payer OTHER, SELFPAY ==
--- NOTE | ~2021-10-09 | XR_ITS ---
EXAMINATION: XR CHEST CLINICAL INFORMATION: Shortness of breath, cough, chest pain. COMPARISON: 07/18/2020 chest radiograph. TECHNIQUE: 2 views of the chest were obtained. FINDINGS: No significant abnormality is noted involving the heart, lungs, mediastinum, bony thorax or soft tissues. XR/XR chest 2V IMPRESSION: No acute cardiopulmonary process.
[2021-10-09 14:04] VITALS: BP 123/69; PULSE 97; RESP 18; TEMP 37.1; O2SAT 100; BMI 60.3
--- NOTE | 2021-10-09 14:35 | ED.URI ---
HPI - URI/Sore Throat General Chief Complaint: Upper Respiratory Symptoms Stated Complaint: cough, dizzy, vomitting Time Seen by Provider: 10/09/21 14:27 Source: patient Mode of arrival: ambulatory Limitations: no limitations History of Present Illness HPI Narrative: 26-year-old female with a history of anxiety, depression, insomnia, morbid obesity, VIKY who presents to the ER with worsening coughing fits and pain in her lungs. Her girlfriend had a cold about a week ago and the patient's symptoms have been worsening since then. She also endorses generalized weakness, nausea, body aches and dizziness. She states the last 3 days the cough has been worsening and keeping her up at night. She has had chills but denies fevers. She denies sputum production or hemoptysis. She has back pain and right sided chest wall pain when she coughs as well. MD elicited complaint: cough Onset (ago): day(s) (3) Consistency: intermittent and progressively worsening Severity: moderate Able to tolerate fluids by mouth: Yes Exacerbating factors: supine positioning Relieving factors: nothing Context: sick contacts Associated symptoms: chills, sore throat, cough, shortness of breath and nausea Treatments prior to arrival: none Related Data Home Medications Medication Instructions Recorded Confirmed adalimumab 40 mg/0.4 mL 40 mg SUBCUT QWEEK 04/08/21 04/08/21 subcutaneous pen kit (Humira(CF) Pen) Previous Rx's Medication Instructions Recorded benzonatate 100 mg capsule 100 mg PO TID PRN #20 cap 10/09/21 hydrocodone-homatropine 5 mg-1.5 5 ml PO Q6H PRN #60 ml 10/09/21 mg/5 mL (5 mL) oral syrup (Hycodan) Allergies Allergy/AdvReac Type Severity Reaction Status Date / Time house dust mite Allergy Mild allergy Verified 10/09/21 14:04 insect venom Allergy Mild allergy Verified 10/09/21 14:04 cat dander [CAT] Allergy Unknown UNKNOWN Verified 10/09/21 14:04 tree and shrub pollen [TREE] Allergy Unknown UNKNOWN Verified 10/09/21 14:04 Blue Cheese Allergy Unknown nausea and Uncoded 09/11/21 09:18 vomiting GRASS Allergy Unknown UNKNOWN Uncoded 09/11/21 09:18 Maple Trees Allergy Unknown Excessive Uncoded 09/11/21 09:18 Sneezing Review of Systems Review of Systems: Constitutional: No Fever, + Chills ENT/Mouth: No sore throat, No Rhinorrhea, No Swallowing Difficulty Cardiovascular: + Chest Pain, No SOB, No Orthopnea, No Edema Respiratory:+Cough, No Sputum, No Wheezing, No dyspnea Gastrointestinal: + Nausea, No Vomiting, No Diarrhea, No abdominal Pain Musculoskeletal: No joint pain, No Myalgias Skin: No Skin Lesions, No rash Neuro: No Weakness, No Numbness, No Dizziness, + Headache Psych: No Anxiety/Panic, No Depression Heme/Lymph: No Lymphadenopathy [facility] Past Medical History Medical History (Updated 10/09/21 @ 15:44 by HELEN Nava) ADHD Anemia Anxiety Depression Fungal infection of foot History of ingrown hair Migraines Morbid obesity with BMI of 50.0-59.9, adult No known health problems Prediabetes Pseudotumor cerebri Vitamin D deficiency Surgical History History of myringotomy History of tonsillectomy Hx of cholecystectomy Family History Family History (Updated 09/11/21 @ 09:30 by Radha Ji) Mother Fibromyalgia Depression Arthritis Father Diabetes Hypertension Brother No problems noted. Sister No problems noted. Maternal Grandmother Hypertension Maternal Grandfather Colon cancer Family/Other Breast cancer Social History Social History (Updated 09/11/21 @ 09:36 by Radha Ji) Housing: Other Alcohol intake: current Patient Tobacco Use Status: Current everyday Tobacco user Cigarette Packs Per Day: 0.5 Cigarettes Per Day: 7 Substance Use Type: Marijuana Advance Directives: No Advance Directives Information Provided: No Current occupational status: unemployed Current occupation: seeking employment Gender identity: Female Physical Exam Vital Signs: Vital Signs: Last Vital Signs Temp 98.8 F 10/09/21 14:04 Pulse 97 10/09/21 14:04 Resp 18 10/09/21 14:04 BP 123/69 10/09/21 14:04 Pulse Ox 100 10/09/21 14:04 BMI result Body Mass Index 60.3 Appearance: Alert. Oriented X3. No acute distress. Morbidly obese. Eyes: Pupils equal, round and reactive to light. ENT: Pharynx normal. Neck: Normal inspection. Neck supple. CVS: Normal heart rate and rhythm. Pulses normal. Respiratory: No respiratory distress. Breath sounds normal. Skin: Skin warm and dry. Normal skin color. Normal skin turgor. No rashes. Extremities: No lower extremity edema. No calf tenderness. Neuro: Oriented X 3. Grossly normal, nonfocal. Steady gait. MDM - URI/Sore Throat Lab Data Result diagrams: 10/09/21 14:41 10/09/21 14:41 Labs: Lab Results 10/09/21 10/09/21 10/09/21 Range/Units 14:41 14:41 14:41 WBC 8.9 (4.8-10.8) X10*3/uL RBC 4.75 (4.20-5.50) X10*6/uL Hgb 12.1 (12.0-16.0) g/dl Hct 38.5 (37.0-47.0) % MCV 81.1 (80.0-98.0) fL MCH 25.5 L (27.0-33.0) pg MCHC 31.4 (31.0-35.0) g/dl RDW 15.5 (11.0-16.0) % Plt Count 375 D (160-400) X10*3/uL MPV 8.9 L (9.4-12.3) fL Immature Gran % (Auto) 0.6 H (0.0-0.4) % Neut % (Auto) 64.6 (45-73) % Lymph % (Auto) 25.0 (20-40) % [place] % (Auto) 9.1 (2-11) % Eos % (Auto) 0.3 (0-4) % Baso % (Auto) 0.4 (0-2) % Lymph # (Auto) 2.2 (1.2-4.9) X10*3/uL [place] # (Auto) 0.8 (0.1-1.2) X10*3/uL Eos # (Auto) 0.0 (0.0-0.4) X10*3/uL Baso # (Auto) 0.0 (0.0-0.2) X10*3/uL Abs Immat Gran (auto) 0.05 H (0.00-0.03) X10*3/uL Absolute Neuts (auto) 5.8 (2.0-8.3) x10*3/uL Absolute Nucleated RBC 0.000 (0.0-0.012) X10*3/uL Nucleated RBC % (auto) 0.0 (0.0-0.2) /100WBC Sodium 138 (135-145) mmol/L Potassium 4.1 (3.3-5.1) mmol/L Chloride 107 (96-108) mmol/L Carbon Dioxide 23 (22-29) mmol/L Anion Gap 12 (12-20) BUN 8 L (9-16) mg/dL Creatinine 0.75 (0.5-1.4) mg/dL Estim Creat Clear Calc 164.1 Estimated GFR > 60 Random Glucose 94 (60-115) mg/dL Calcium 8.7 D (8.4-10.2) mg/dL Total Bilirubin 0.3 (0.0-1.0) mg/dL AST 72 H (5-31) U/L ALT 63 H (0-31) U/L Alkaline Phosphatase 63 (39-117) U/L Total Protein 7.8 (6.5-8.0) g/dL Albumin 4.0 (3.5-5.0) g/dL COVID-19 ([facility]) (Negative) COVID-19 Clin Com Influenza Type A (WU) Negative (Negative) Influenza Type B (WU) Negative (Negative) Influenza A & B Note See Note 10/09/21 Range/Units 14:41 WBC (4.8-10.8) X10*3/uL RBC (4.20-5.50) X10*6/uL Hgb (12.0-16.0) g/dl Hct (37.0-47.0) % MCV (80.0-98.0) fL MCH (27.0-33.0) pg MCHC (31.0-35.0) g/dl RDW (11.0-16.0) % Plt Count (160-400) X10*3/uL MPV (9.4-12.3) fL Immature Gran % (Auto) (0.0-0.4) % Neut % (Auto) (45-73) % Lymph % (Auto) (20-40) % [place] % (Auto) (2-11) % Eos % (Auto) (0-4) % Baso % (Auto) (0-2) % Lymph # (Auto) (1.2-4.9) X10*3/uL [place] # (Auto) (0.1-1.2) X10*3/uL Eos # (Auto) (0.0-0.4) X10*3/uL Baso # (Auto) (0.0-0.2) X10*3/uL Abs Immat Gran (auto) (0.00-0.03) X10*3/uL Absolute Neuts (auto) (2.0-8.3) x10*3/uL Absolute Nucleated RBC (0.0-0.012) X10*3/uL Nucleated RBC % (auto) (0.0-0.2) /100WBC Sodium (135-145) mmol/L Potassium (3.3-5.1) mmol/L Chloride (96-108) mmol/L Carbon Dioxide (22-29) mmol/L Anion Gap (12-20) BUN (9-16) mg/dL Creatinine (0.5-1.4) mg/dL Estim Creat Clear Calc Estimated GFR Random Glucose (60-115) mg/dL Calcium (8.4-10.2) mg/dL Total Bilirubin (0.0-1.0) mg/dL AST (5-31) U/L ALT (0-31) U/L Alkaline Phosphatase (39-117) U/L Total Protein (6.5-8.0) g/dL Albumin (3.5-5.0) g/dL COVID-19 (CONNOR) Negative (Negative) COVID-19 Clin Com See Note Influenza Type A (WU) (Negative) Influenza Type B (WU) (Negative) Influenza A & B Note Critical Care Time Critical Care Time Critical Care Time: No Discharge Plan Discharge Clinical Impression: Viral infection Patient Disposition: Home, Self-Care Instructions: Viral Syndrome (ED), Acute Cough (ED) Additional Instructions: You are negative for COVID-19 and Influenza A & B. Your chest x-ray was normal. Your blood work was unremarkable. Take the prescribed medications as directed for cough. Recommend over the counter DayQuil and NyQuil for your symptoms. Take Motrin and/or Tylenol for muscle pains. Do your best to stop or cut back on smoking. Follow up with your doctor next week. If you develop new or worsening symptoms call 911 or come back to the ER for further evaluation. Prescriptions: New benzonatate 100 mg capsule 100 mg PO TID PRN (Reason: cough) Qty: 20 0RF hydrocodone-homatropine [Hycodan] 5-1.5 mg/5 mL (5 mL) syrup 5 ml PO Q6H PRN (Reason: cough) Qty: 60 0RF No Action Humira(CF) Pen 40 mg/0.4 mL pen injector kit 40 mg subcut QWEEK 0RF Referrals: Jasvir Payton MD [Primary Care Provider] - (cough) Stand Alone Forms: Work/School Release
[2021-10-09 14:50] LABS: Basophils Percent Auto 0.4 % (0-2); Eosinophils Percent Auto 0.3 % (0-4); Hematocrit 38.5 % (37.0-47.0); Hemoglobin 12.1 g/dl (12.0-16.0); Imm Gran Abs Auto 0.05 X10*3/uL (0.00-0.03); Imm Gran Pct Auto 0.6 % (0.0-0.4); Lymphocytes Absolute Auto 2.2 X10*3/uL (1.2-4.9); MANUAL DIFF FLAG NO; Mean Corpuscular HGB Conc 31.4 g/dl (31.0-35.0); Mean Corpuscular Hemoglobin 25.5 pg (27.0-33.0); Mean Corpuscular Volume 81.1 fL (80.0-98.0); Mean Platelet Volume 8.9 fL (9.4-12.3); Monocytes Absolute Auto 0.8 X10*3/uL (0.1-1.2); Monocytes Percent Auto 9.1 % (2-11); Neutrophils Absolute Auto 5.8 x10*3/uL (2.0-8.3); Neutrophils Percent Auto 64.6 % (45-73); Platelet Count 375 X10*3/uL (160-400); Red Blood Count 4.75 X10*6/uL (4.20-5.50); Red Cell Distribution Width 15.5 % (11.0-16.0); White Blood Count 8.9 X10*3/uL (4.8-10.8)
[2021-10-09 15:07] LABS: Alanine Aminotransferase 63 U/L (0-31); Alkaline Phosphatase 63 U/L (39-117); Anion Gap 12 (12-20); Aspartate Amino Transferase 72 U/L (5-31); Bilirubin Total 0.3 mg/dL (0.0-1.0); Blood Urea Nitrogen 8 mg/dL (9-16); Calcium 8.7 mg/dL (8.4-10.2); Carbon Dioxide 23 mmol/L (22-29); Chloride 107 mmol/L (96-108); Creatinine Clr Calc Pharmacy 164.1; Estimated Glomerular Filt Rate > 60; Glucose Random 94 mg/dL (60-115); Potassium 4.1 mmol/L (3.3-5.1); Sodium 138 mmol/L (135-145); Total Protein 7.8 g/dL (6.5-8.0)
[2021-10-09 15:08] LABS: COVID-19 Test Negative (Negative); IDNOW Serial# 55D5AD1C
[2021-10-09 15:09] LABS: Influenza A Negative (Negative); Influenza B2 Negative (Negative)
== END 2021-10-09 16:01 | disposition home or self-care (01) ==
PROVIDERS: Emergency Provider Emergency Medicine; PCP Family Medicine
DX: B34.9 Viral infection, unspecified (principal); Z20.822 Contact with and (suspected) exposure to COVID-19; R68.83 Chills (without fever); F17.200 Nicotine dependence, unspecified, uncomplicated
CPT/HCPCS: 36415; 71046; 80053; 85025; 87502; 87635; 99283

== ENCOUNTER 2021-10-14 11:15 | Outpatient (REF) | payer OTHER, SELFPAY ==
--- NOTE | ~2021-10-14 | XR_ITS ---
EXAMINATION: XR CHEST CLINICAL INFORMATION: Cough. COMPARISON: None TECHNIQUE: 2 views of the chest were obtained. FINDINGS: The lungs are well-expanded and clear of acute process. The heart size and pulmonary vascularity is within normal limits. No gross bony abnormality seen. XR/XR chest 2V IMPRESSION: Unremarkable chest exam.
[2021-10-14 15:02] LABS: Influenza A PCR NEGATIVE (Negative); Influenza B PCR NEGATIVE (Negative); Resp Syncy Virus RNA Qual PCR NEGATIVE (Negative); SARS COV2 PCR INHOUSE NEGATIVE (Negative)
== END 2021-10-14 11:16 | disposition home or self-care (01) ==
LOC: HO.XRAY 11:15
PROVIDERS: PCP Family Medicine; Visit Provider Family Medicine
DX: R05.9 Cough, unspecified (principal); Z20.822 Contact with and (suspected) exposure to COVID-19
CPT/HCPCS: 0241U; 71046

== ENCOUNTER 2022-02-04 09:45 | Emergency (ER) | payer OTHER, SELFPAY ==
--- NOTE | ~2022-02-04 | XR_ITS ---
EXAMINATION: XR CHEST CLINICAL INFORMATION: Cough. COMPARISON: Chest radiograph 10/14/2021. TECHNIQUE: Frontal view of the chest was obtained. FINDINGS: No significant abnormality is noted involving the heart, lungs, mediastinum, bony thorax or soft tissues. XR/XR chest 1V IMPRESSION: Unremarkable examination.
--- NOTE | 2022-02-04 09:51 | ECG_ITS ---
Test Reason : chest pain Blood Pressure : / mmHG Vent. Rate : 084 BPM Atrial Rate : 084 BPM P-R Int : 122 ms QRS Dur : 094 ms QT Int : 398 ms P-R-T Axes : 046 010 024 degrees QTc Int : 470 ms Normal sinus rhythm with sinus arrhythmia Normal ECG When compared with ECG of 07-APR-2021 20:37, No significant change was found Referred By: Generic ED Physician Electronically Signed By:ALVERTO LEONARD
[2022-02-04 10:04] VITALS: BP 134/74; PULSE 83; RESP 16; TEMP 36.3; O2SAT 96; BMI 58.5
[2022-02-04 10:23] LABS: COVID-19 Test Positive (Negative)
--- NOTE | 2022-02-04 11:36 | ED_ITS ---
HPI - URI/Sore Throat General Chief Complaint: Upper Respiratory Symptoms Stated Complaint: chest hurts Time Seen by Provider: 02/04/22 09:55 Source: patient Mode of arrival: ambulatory Limitations: no limitations History of Present Illness HPI Narrative: 26-year-old female with PMH of anxiety, depression, asthma, VIKY, prediabetes, morbid obesity presenting with nasal congestion, rhinorrhea, cough, and shortness of breath. Patient reports symptoms started 2-3 days ago, have been getting worse. Patient has history of asthma, and has had to use her albuterol more frequently in the past few days. Patient also reports feeling very hot at night despite using air conditioner and fan, however never took her temperature. Reported coughing to the point where she vomits, with associated rib and chest pain. Reports nausea and decreased appetite, reports diarrhea however this is her baseline. Denies any sick contacts. MD elicited complaint: cough, rhinorrhea and nasal congestion Pertinent past history: asthma and seasonal allergies Onset (ago): day(s) Consistency: progressively worsening Description of mucous: green Able to tolerate fluids by mouth: Yes Relieving factors: nothing Associated symptoms: headache, rhinorrhea, nasal congestion, cough, chest pain, shortness of breath, nausea and vomiting Treatments prior to arrival: acetaminophen Related Data Home Medications Medication Instructions Recorded Confirmed adalimumab 40 mg/0.4 mL 40 mg subcut QWEEK 04/08/21 04/08/21 subcutaneous pen kit (Humira(CF) Pen) cyanocobalamin (vitamin B-12) 1,000 mcg PO DAILY 10/14/21 1,000 mcg tablet doxycycline hyclate 100 mg tablet 100 mg PO BID 10/14/21 ibuprofen 800 mg tablet 800 mg PO TID 10/14/21 spironolactone 50 mg tablet 50 mg PO BID 10/14/21 Previous Rx's Medication Instructions Recorded benzonatate 100 mg capsule 100 mg PO TID PRN cough #20 caps 10/09/21 albuterol sulfate 90 mcg/actuation 2 puff inhalation Q4-6H PRN 10/14/21 aerosol inhaler (ProAir HFA) shortness of breath or wheezing 30 days #8.5 grams azithromycin 250 mg tablet See Rx Instructions PO .COMPLEX 5 10/14/21 (Zithromax Z-Maximiliano) days #6 tabs hydrocodone-homatropine 5 mg-1.5 5 ml PO Q6H PRN cough #60 mL 10/14/21 mg/5 mL (5 mL) oral syrup (Hycodan) cholecalciferol (vitamin D3) 50 50 mcg PO DAILY #30 caps 01/26/22 mcg (2,000 unit) capsule albuterol sulfate 0.63 mg/3 mL 0.63 mg (3 mL) inhalation QID PRN 02/04/22 solution for nebulization shortness of breath or wheezing #75 mL albuterol sulfate 90 mcg/actuation 1 inh inhalation QID PRN shortness 02/04/22 aerosol inhaler of breath or wheezing #8.5 grams codeine 10 mg-guaifenesin 100 mg/5 5 ml PO Q6H PRN cold symptoms #120 02/04/22 mL oral liquid (Guaifenesin AC) mL nebulizers (AeroEclipse II #1 ea 02/04/22 Nebulizer) prednisone 20 mg tablet 40 mg PO DAILY rash 5 days #10 tabs 02/04/22 Allergies Allergy/AdvReac Type Severity Reaction Status Date / Time house dust mite Allergy Mild allergy Verified 10/14/21 10:32 insect venom Allergy Mild allergy Verified 10/14/21 10:32 cat dander [CAT] Allergy Unknown UNKNOWN Verified 10/14/21 10:32 tree and shrub pollen [TREE] Allergy Unknown UNKNOWN Verified 10/14/21 10:32 Blue Cheese Allergy Unknown nausea and Uncoded 10/14/21 10:32 vomiting GRASS Allergy Unknown UNKNOWN Uncoded 10/14/21 10:32 Maple Trees Allergy Unknown Excessive Uncoded 10/14/21 10:32 Sneezing Review of Systems Review of Systems: Constitutional : Reports subjective fevers, chills. ENT/Mouth : No Hoarseness, + sore throat, + Rhinorrhea, + Nasal congestion, + Sinus Pressure, No Ear Pain, No stridor, Eyes: No Redness, No Discharge, No Vision Changes Cardiovascular : No Chest Pain, + SOB, + Dyspnea on Exertion, No Edema, + pleurisy, Respiratory : + Cough, + wheezing, + Sputum, no stridor, no hemoptysis, Gastrointestinal : + Nausea, + Vomiting, + Diarrhea, No abdominal Pain Genitourinary : No Dysuria, No Hematuria Musculoskeletal : No joint pain/swelling, No Myalgias Extremities: no extremity swelling /pain Skin : No rash, no itching, no swelling Neuro : No Weakness, No Numbness, No Headache, No Dizziness, No Paresthesias Yes all other systems are reviewed and are negative [facility] Past Medical History Attestation statement: The following information was validated with the patient. Source: old records reviewed and nursing notes reviewed Medical History ADHD Anemia Anxiety Depression Fungal infection of foot History of ingrown hair Migraines Morbid obesity with BMI of 50.0-59.9, adult No known health problems Prediabetes Pseudotumor cerebri Vitamin D deficiency Surgical History History of myringotomy History of tonsillectomy Hx of cholecystectomy Family History Family History Mother Fibromyalgia Depression Arthritis Father Diabetes Hypertension Brother No problems noted. Sister No problems noted. Maternal Grandmother Hypertension Maternal Grandfather Colon cancer Family/Other Breast cancer Social History Social History Housing: Other Alcohol intake: current Patient Tobacco Use Status: Current everyday Tobacco user Tobacco use type: Cigarette Cigarette Packs Per Day: 0.5 Cigarettes Per Day: 2 Substance Use Type: Marijuana Advance Directives: No Advance Directives Information Provided: No Current occupational status: unemployed Current occupation: seeking employment Gender identity: Female Cognitive needs: No Hearing needs: No Vision needs: Yes Physical Exam Vital Signs: Vital Signs: Last Vital Signs Temp 97.3 F 02/04/22 10:04 Pulse 91 02/04/22 11:46 Resp 18 02/04/22 11:46 BP 134/74 02/04/22 10:04 Pulse Ox 96 02/04/22 10:04 O2 Del Method 02/04/22 10:04 BMI result Body Mass Index 58.5 vital signs have been reviewed as normal and appeared to be correct. Blood pressure normal Heart rate normal. Respiration rate normal. Temperature normal. Oxygen saturation normal. Appearance: Alert. Oriented X3. No acute distress. Head: Normal external exam. Normocephalic. Atraumatic. Eyes: PERRLA. EOMI. Conjunctiva and sclera normal. Eyelids normal. ENT: Bilateral serous effusions of TM, no bulging or erythema. Pharynx normal, no tonsillar exudate or enlargement. Uvula midline. Moist mucous membranes. Neck: Normal inspection. Neck supple. FROM. CVS: Normal heart rate and rhythm. Respiratory: No respiratory distress. Expiratory wheezes throughout all lung fam, no rales or rhonchi noted, sating 96% on room air Skin: Skin warm and dry. Normal skin color. Normal skin turgor. No rashes/lesions/lacerations noted. Extremities: No lower extremity edema. Extremities exhibit normal range of motion. Extremities nontender. Neuro: Oriented X 3. No motor deficit. No sensory deficit. Reflexes normal. Normal steady gait. No focal neuro deficits noted. Course Course Course Narrative: 26-year-old female with PMH of anxiety, depression, asthma, VIYK, prediabetes, morbid obesity presenting with nasal congestion, rhinorrhea, cough, and shortness of breath. On exam, patient afebrile, VSS, no respiratory distress. Good air movement through of lung fam, expiratory wheezes noted throughout all lung fam, no rales or rhonchi noted. Patient positive for COVID. Given asthma history and current presentation, DuoNeb administered. Given patient's presentation and comorbidities, referred to monoclonal antibody clinic at [facility]. Nebulizer treatments and prednisone ordered for home. Patient is stable for discharge at this time. MDM - URI/Sore Throat Medical Records Attestation: I reviewed the patient's medical records. Lab Data Labs: Lab Results 02/04/22 Range/Units 10:02 COVID-19 ([facility]) Positive A (Negative) COVID-19 Clin Com See Note Imaging Data Chest x-ray: Attestation: I personally reviewed and interpreted this imaging study as follows: Radiologist's impression: FINDINGS: No significant abnormality is noted involving the heart, lungs, mediastinum, bony thorax or soft tissues. XR/XR chest 1V IMPRESSION: Unremarkable examination. Discharge Plan Discharge Clinical Impression: COVID-19, Asthma with acute exacerbation Patient Disposition: Home, Self-Care Instructions: Asthma (ED), How to Use a Nebulizer (ED) Additional Instructions: [facility] provides infusion therapy for COVID-19 including monoclonal antibody treatment (Bebtelovimab) and antiviral therapy (Remdesivir). We also offer Evusheld, a prevention therapy for certain high-risk individuals that can protect them from COVID-19 before they are exposed to the virus. If you have questions or are seeking assistance with outpatient COVID-19 treatments, please call [phone] tel:[phone] . Eligibility Requirements Eligibility requirements for antiviral and monoclonal antibody IV therapy: * A diagnosis of COVID-19 with a positive COVID-19 test (antigen or PCR) * At least one risk factor for severe COVID-19 * Presence of symptom/s consistent with COVID-19 * Within 7 days of start of COVID-19 symptoms * Do not meet criteria for hospitalization Treatment Locations Ev[facility]: Medical Office Building Infusion Suite, [facility]? [address] [place] [address] Map & Directions [email or web address] eld,+[place]+[address] Bebtelovimab and Remdesivir: [facility] Infection Control Treatment Unit [address] [place] [address] Map & Directions [email or web address],+[place]+[address]/[email or web address]![id number] [id number] [phone] tel:[phone] When You Arrive for Treatment?? Follow the signs for the Main Entrance. You will see a large metal canopy at the front of the building. Pull all the way up to the left of the metal canopy. Park in one of the spots marked with the [facility] signs. After you park, please remain in your care and call the treatment unit at? [phone] tel:[phone] . We will escort you inside. Do not enter the building or lobby without a [facility] food court team member, and do not use the hospital lobby bathroom facilities. Check-In When you arrive, we will give you a new ask and ask you to wash your hands. our team will review the medication infusion details with you.?The?FDA requires all patients to read the fact sheet about your treatment before we begin. Please read the fact sheet before your scheduled appointment if you can. Before your treatment begins, you will also need to agree to the procedure by providing Informed Consent. During Infusion To start the treatment, a provider will place an intravenous catheter (IV) for medication infusion. During and immediately after the infusion, we will monitor your blood pressure and vital signs. During the 1.5?2?hour period, you will need to stay in the infusion suite and will not have access to walk around the hospital. Every patient is escorted in, undergoes treatment, and is escorted out in order to prevent the spread of COVID-19. There will be a total of 4 patients per infusion suite. Call us at [phone] tel:[phone] if you have any questions or concerns. Prescriptions: New (DME) nebulizers [AeroEclipse II Nebulizer] Misc See Rx Instructions .ROUTE .MEDSUPPLY Qty: 1 0RF Rx Instructions: As directed albuterol sulfate 0.63 mg/3 mL solution for nebulization 0.63 mg inhalation QID PRN (Reason: shortness of breath or wheezing) Qty: 75 0RF codeine-guaifenesin [Guaifenesin AC] 10-100 mg/5 mL liquid 5 ml PO Q6H PRN (Reason: cold symptoms) Qty: 120 0RF albuterol sulfate 90 mcg/actuation HFA aerosol inhaler 1 inh inhalation QID PRN (Reason: shortness of breath or wheezing) Qty: 8.5 0RF prednisone 20 mg tablet 40 mg PO DAILY 5 Days Qty: 10 0RF No Action cholecalciferol (vitamin D3) 50 mcg (2,000 unit) capsule 50 mcg PO DAILY Qty: 30 0RF Humira(CF) Pen 40 mg/0.4 mL pen injector kit 40 mg subcut QWEEK benzonatate 100 mg capsule 100 mg PO TID PRN (Reason: cough) Qty: 20 0RF cyanocobalamin (vitamin B-12) 1,000 mcg tablet 1,000 mcg PO DAILY doxycycline hyclate 100 mg tablet 100 mg PO BID spironolactone 50 mg tablet 50 mg PO BID ibuprofen 800 mg tablet 800 mg PO TID albuterol sulfate [ProAir HFA] 90 mcg/actuation HFA aerosol inhaler 2 puff inhalation Q4-6H PRN (Reason: shortness of breath or wheezing) 30 Days Qty: 8.5 0RF azithromycin [Zithromax Z-Maximiliano] 250 mg tablet See Rx Instructions PO .COMPLEX 5 Days Qty: 6 0RF Rx Instructions: take 500 mg today (day 1), then 250 mg for 4 days (days 2-5) PO hydrocodone-homatropine [Hycodan] 5-1.5 mg/5 mL (5 mL) syrup 5 ml PO Q6H PRN (Reason: cough) Qty: 60 0RF Referrals: Jasvir Payton MD [Primary Care Provider] - 1 week Stand Alone Forms: Work/School Release Interventions: ED Discharge Assessment Last Done: 02/04/22 12:20 Discharge Date/Time: 02/04/22 12:22 Print Language: Marshallese
[2022-02-04] MEDS: predniSONE 20 MG TABLET 60 MG PO (11:42)
[2022-02-04] MEDS: Albuterol Sulfate 2.5 MG, Albuterol Sulfate (0.083%) 2.5 MG 5 MG INHALE (11:45)
[2022-02-04 11:46] VITALS: PULSE 91; RESP 18; O2SAT 96
== END 2022-02-04 12:22 | disposition home or self-care (01) ==
PROVIDERS: Emergency Provider Emergency Medicine; PCP Family Medicine
DX: U07.1 COVID-19 (principal); J45.901 Unspecified asthma with (acute) exacerbation; F17.210 Nicotine dependence, cigarettes, uncomplicated; F12.90 Cannabis use, unspecified, uncomplicated; E66.9 Obesity, unspecified; Z68.43 Body mass index [BMI] 50.0-59.9, adult; Z79.899 Other long term (current) drug therapy
CPT/HCPCS: 71045; 87635; 93005; 94640; 99284

== ENCOUNTER 2022-03-12 11:10 | Outpatient (REF) | payer OTHER, SELFPAY ==
[2022-03-12 11:33] LABS: MANUAL DIFF FLAG NO
[2022-03-12 12:39] LABS: Basophils Percent Auto 0.3 % (0-2); Eosinophils Absolute Auto 0.3 X10*3/uL (0.0-0.4); Eosinophils Percent Auto 2.3 % (0-4); Hematocrit 38.4 % (37.0-47.0); Imm Gran Abs Auto 0.06 X10*3/uL (0.00-0.03); Imm Gran Pct Auto 0.4 % (0.0-0.4); Lymphocytes Absolute Auto 3.4 X10*3/uL (1.2-4.9); Mean Corpuscular HGB Conc 31.3 g/dl (31.0-35.0); Mean Corpuscular Hemoglobin 25.5 pg (27.0-33.0); Mean Corpuscular Volume 81.5 fL (80.0-98.0); Monocytes Absolute Auto 0.6 X10*3/uL (0.1-1.2); Monocytes Percent Auto 4.3 % (2-11); Neutrophils Absolute Auto 9.2 x10*3/uL (2.0-8.3); Neutrophils Percent Auto 67.7 % (45-73); Platelet Count 555 X10*3/uL (160-400); Red Blood Count 4.71 X10*6/uL (4.20-5.50); Red Cell Distribution Width 15.4 % (11.0-16.0); White Blood Count 13.6 X10*3/uL (4.8-10.8)
[2022-03-12 13:14] LABS: Alanine Aminotransferase 13 U/L (0-31); Albumin Level 4.2 g/dL (3.5-5.0); Alkaline Phosphatase 62 U/L (39-117); Anion Gap 15 (12-20); Aspartate Amino Transferase 15 U/L (5-31); Bilirubin Direct 0.2 mg/dL (0.0-0.5); Bilirubin Total 0.3 mg/dL (0.0-1.0); Blood Urea Nitrogen 9 mg/dL (9-16); Calcium 9.2 mg/dL (8.4-10.2); Carbon Dioxide 26 mmol/L (22-29); Chloride 102 mmol/L (96-108); Cholesterol 144 mg/dL; Estimated Glomerular Filt Rate > 60; Glucose Random 84 mg/dL (60-115); HDL Cholesterol 27 mg/dL; LDL Cholesterol Calculated 81 mg/dl; Potassium 4.8 mmol/L (3.3-5.1); Sodium 138 mmol/L (135-145); Total Protein 7.8 g/dL (6.5-8.0); Triglycerides 180 mg/dL
[2022-03-15 01:27] LABS: TS Negative Control Passed; TS Panel A 0; TS Panel B 0; TS Positive Control Passed; TSpotTB Negative (Negative)
== END 2022-03-12 11:11 | disposition home or self-care (01) ==
LOC: HO.LAB 11:10
PROVIDERS: Visit Provider Physician Assistant Medical
DX: L73.2 Hidradenitis suppurativa (principal); B35.1 Tinea unguium; Z79.899 Other long term (current) drug therapy
CPT/HCPCS: 36415; 80048; 80061; 80076; 85025; 86481

== ENCOUNTER 2022-03-23 15:05 | Outpatient (REF) | payer OTHER, SELFPAY ==
--- NOTE | ~2022-03-23 | XR_ITS ---
EXAMINATION: XR CHEST CLINICAL INFORMATION: Cough COMPARISON: None TECHNIQUE: 2 views of the chest were obtained. FINDINGS: Lungs clear. No pleural effusions. Heart and pulmonary vessels normal. XR/XR chest 2V IMPRESSION: No active disease.
== END 2022-03-23 15:06 | disposition home or self-care (01) ==
LOC: HO.HMGCX 15:05
PROVIDERS: PCP Internal Medicine; Visit Provider Internal Medicine
DX: R05.9 Cough, unspecified (principal)
CPT/HCPCS: 71046

== ENCOUNTER 2022-05-04 17:26 | Emergency (ER) | payer OTHER, SELFPAY ==
--- NOTE | ~2022-05-04 | XR_ITS ---
EXAMINATION: XR HAND, RIGHT CLINICAL INFORMATION: Dog bite, pain. COMPARISON: None TECHNIQUE: PA, lateral, and oblique views of the right hand. FINDINGS: The bones and soft tissues are normal. No fracture. Alignment is anatomic. Joint spaces are maintained. No erosions or soft tissue calcifications. XR/XR hand RT 2V IMPRESSION: Unremarkable right hand exam
[2022-05-04 19:06] VITALS: BP 128/61; PULSE 78; RESP 18; TEMP 35.9; O2SAT 99; BMI 57.0
--- NOTE | 2022-05-04 19:06 | ED_ITS ---
HPI - Animal Bite General Chief Complaint: Animal Bite <Lita Johnson CNP - Last Filed: 05/04/22 19:09> Stated Complaint: bit by dog on R thumb <Lita Johnson CNP - Last Filed: 05/04/22 19:09> Time Seen by Provider: 05/04/22 19:20 <Lita Johnson CNP - Last Filed: 05/04/22 19:09> Source: patient <Noni Wiggins MD - Last Filed: 05/04/22 20:22> Mode of arrival: ambulatory <Noni Wiggins MD - Last Filed: 05/04/22 20:22> Limitations: no limitations <Noni Wiggins MD - Last Filed: 05/04/22 20:22> History of Present Illness HPI narrative: Patient comes to the emergency room complaining of a bite to the right hand. Patient states that it was her dog, it is fully immunized. Patient states that he has 2 dogs, they were fighting, while she was trying to separate them, 1 of the dogs accidentally bit her. States that she does not remember when she had her last tetanus shot. <Noni Wiggins MD - Last Filed: 05/04/22 20:22> Related Data Home Medications: Home Medications Medication Instructions Recorded Confirmed adalimumab 40 mg/0.4 mL 40 mg subcut QWEEK 04/08/21 04/08/21 subcutaneous pen kit (Humira(CF) Pen) doxycycline hyclate 100 mg tablet 100 mg PO BID 10/14/21 ibuprofen 800 mg tablet 800 mg PO TID 10/14/21 spironolactone 50 mg tablet 50 mg PO BID 10/14/21 Previous Rx's Medication Instructions Recorded benzonatate 100 mg capsule 100 mg PO TID PRN cough #20 caps 10/09/21 hydrocodone-homatropine 5 mg-1.5 5 ml PO Q6H PRN cough #60 mL 10/14/21 mg/5 mL (5 mL) oral syrup (Hycodan) cholecalciferol (vitamin D3) 50 50 mcg PO DAILY #30 caps 01/26/22 mcg (2,000 unit) capsule albuterol sulfate 0.63 mg/3 mL 0.63 mg (3 mL) inhalation QID PRN 02/04/22 solution for nebulization shortness of breath or wheezing #75 mL albuterol sulfate 90 mcg/actuation 1 inh inhalation QID PRN shortness 02/04/22 aerosol inhaler of breath or wheezing #8.5 grams codeine 10 mg-guaifenesin 100 mg/5 5 ml PO Q6H PRN cold symptoms #120 02/04/22 mL oral liquid (Guaifenesin AC) mL nebulizers (AeroEclipse II #1 ea 02/04/22 Nebulizer) prednisone 20 mg tablet 40 mg PO DAILY rash 5 days #10 tabs 02/04/22 albuterol sulfate 90 mcg/actuation 2 puff PO Q4-6H PRN shortness of 03/23/22 aerosol inhaler (ProAir HFA) breath or wheezing #8.5 ea azithromycin 250 mg tablet See Rx Instructions PO .COMPLEX 5 03/23/22 (Zithromax Z-Maximiliano) days #6 tabs cyanocobalamin (vitamin B-12) 1,000 mcg PO DAILY #30 tabs 03/23/22 1,000 mcg tablet amoxicillin 500 mg-potassium 1 tab PO BID #14 tabs 05/04/22 clavulanate 125 mg tablet (Augmentin) ibuprofen 600 mg tablet 600 mg PO Q8H PRN fever or pain 05/04/22 #20 tabs <Lita Johnson CNP - Last Filed: 05/04/22 19:09> Allergies/Adverse Reactions: Allergies Allergy/AdvReac Type Severity Reaction Status Date / Time house dust mite Allergy Mild allergy Verified 10/14/21 10:32 insect venom Allergy Mild allergy Verified 10/14/21 10:32 cat dander [CAT] Allergy Unknown UNKNOWN Verified 10/14/21 10:32 tree and shrub pollen [TREE] Allergy Unknown UNKNOWN Verified 10/14/21 10:32 Blue Cheese Allergy Unknown nausea and Uncoded 10/14/21 10:32 vomiting GRASS Allergy Unknown UNKNOWN Uncoded 10/14/21 10:32 Maple Trees Allergy Unknown Excessive Uncoded 10/14/21 10:32 Sneezing <Lita Johnson CNP - Last Filed: 05/04/22 19:09> Review of Systems Review of Systems: Constitutional : No Weight loss, No Fever, No Chills, No Night Sweats, No Fatigue, No Malaise ENT/Mouth : No Hearing loss, No Ear Pain, No Nasal Congestion, No Sinus Pain, No Hoarseness, No sore throat, No Rhinorrhea, No Swallowing Difficulty Eyes: No Eye Pain, No Swelling, No Redness, No Foreign Body, No Discharge, No Vision Changes Cardiovascular : No Chest Pain, No SOB, No Dyspnea on Exertion, No Orthopnea, No Edema, No Palpitations Respiratory : No Cough, No Sputum, No Wheezing, No Smoke Exposure, No Dyspnea Gastrointestinal : No Nausea, No Vomiting, No Diarrhea, No Constipation, No abdominal Pain, No Hematochezia, No Melena Genitourinary : no irregular bleeding, No Dysuria, No Urinary Frequency, No Hematuria, No Urinary Incontinence, No Urgency, No Flank Pain, No Urinary Flow Changes, No Hesitancy Musculoskeletal : No joint pain, No Myalgias, No Joint Swelling Skin : Puncture/bite wound to the palm of the right Neuro : No Weakness, No Numbness, No Paresthesias, No Loss of Consciousness, No Dizziness, No Headache Psych : No Anxiety/Panic, No Depression, No SI/HI/AH/VH, No Social Issues, Heme/Lymph: No Bruising, No Bleeding,No Lymphadenopathy Endocrine : No Polyuria, No Polydipsia, No Temperature Intolerance <Noni Wiggins MD - Last Filed: 05/04/22 20:22> [facility] Past Medical History Medical History: Medical History ADHD Anemia Anxiety Depression Fungal infection of foot History of ingrown hair Migraines Morbid obesity with BMI of 50.0-59.9, adult No known health problems Prediabetes Pseudotumor cerebri Vitamin D deficiency <Lita Johnson CNP - Last Filed: 05/04/22 19:09> Surgical History: Surgical History History of myringotomy History of tonsillectomy Hx of cholecystectomy <Lita Johnson CNP - Last Filed: 05/04/22 19:09> Family History Family History: Family History Mother Fibromyalgia Depression Arthritis Father Diabetes Hypertension Brother No problems noted. Sister No problems noted. Maternal Grandmother Hypertension Maternal Grandfather Colon cancer Family/Other Breast cancer <Lita Johnson CNP - Last Filed: 05/04/22 19:09> Social History Social History: Social History Housing: Other Alcohol intake: current Patient Tobacco Use Status: Current everyday Tobacco user Tobacco use type: Cigarette Cigarette Packs Per Day: 0.5 Cigarettes Per Day: 2 Substance Use Type: Marijuana Advance Directives: No Advance Directives Information Provided: No Current occupational status: unemployed Current occupation: seeking employment Gender identity: Female Cognitive needs: No Hearing needs: No Vision needs: Yes <Lita Johnson CNP - Last Filed: 05/04/22 19:09> Physical Exam ED Vital Signs: Vital Signs - 24 hr 05/04/22 19:06 Temperature 96.7 F L Pulse Rate 78 Respiratory Rate 18 Blood Pressure 128/61 Pulse Oximetry 99 Oxygen Delivery Method Room Air BMI result Body Mass Index 57.0 <Lita Johnson CNP - Last Filed: 05/04/22 19:09> Vital Signs - 24 hr 05/04/22 19:06 Temperature 96.7 F L Pulse Rate 78 Respiratory Rate 18 Blood Pressure 128/61 Pulse Oximetry 99 Oxygen Delivery Method Room Air BMI result Body Mass Index 57.0 <Noni Wiggins MD - Last Filed: 05/04/22 20:22> Const Other: Appearance: Alert. Oriented X3. No acute distress. Eyes: Pupils equal, round and reactive to light. ENT: Pharynx normal. Neck: Normal inspection. Neck supple. No lymph nodes noted. No crepitus CVS: Normal heart rate and rhythm. Pulses normal. Normal S1 and S2 Respiratory: No respiratory distress. Breath sounds normal. No Wheezing. No rales Abdomen: Soft and nontender. No rigidity. No distention. Skin: Skin warm and dry. Normal skin color. Normal skin turgor. Patient has a puncture wound to the palm of the right hand, bleeding controlled Extremities: No lower extremity edema. No Lacerations. No Rash Neuro: Oriented X 3. No motor deficit. No sensory deficit. Moving all extremities. No slurred speech. CN 2 through 12 grossly intact Psych: calm, cooperative, normal affect <Noni Wiggins MD - Last Filed: 05/04/22 20:22> Course Course Course Narrative: RME: Patient is a 26 old female who presents to the emergency department for evaluation of a dog bite. reports dog bite just prior to arrival to left hand. This is her personal dog, who is vaccinated. The hand is very painful, and radiating to fingers. She is able to range the fingers, but it is decreased due to pain. Laceration to the palmar aspect of the hand, bleeding controlled. Last tetanus vaccine on known. Plan: XR to exclude foreign body/fracture, Tdap, oral antibiotics <Lita Johnson CNP - Last Filed: 05/04/22 19:09> RME: Patient is a 26 old female who presents to the emergency department for evaluation of a dog bite. reports dog bite just prior to arrival to left hand. This is her personal dog, who is vaccinated. The hand is very painful, and radiating to fingers. She is able to range the fingers, but it is decreased due to pain. Laceration to the palmar aspect of the hand, bleeding controlled. Last tetanus vaccine on known. Plan: XR to exclude foreign body/fracture, Tdap, oral antibiotics Patient's hand was soaked in normal saline with Betadine. Patient given Augmentin and Tdap. Hand x-ray reviewed by me: No foreign body <Noni Wiggins MD - Last Filed: 05/04/22 20:22> Medications Administered Discontinued Medications Generic Name Dose Route Start Last Admin Trade Name Freq PRN Reason Stop Dose Admin Amoxicillin/Clavulanate Potassium 875 mg 05/04/22 19:38 05/04/22 19:52 Amoxicillin/Potassium Clav 875 Mg Tablet PO 05/04/22 19:39 875 mg ONCE ONE Administration Diphtheria/Tetanus/Acell Pertussis 0.5 ml 05/04/22 19:09 05/04/22 19:52 Diphth,Pertus(Acell),Tet Adult 0.5 Ml Syringe IM 05/04/22 19:10 0.5 ml .ONCE ONE Administration <Lita Johnson CNP - Last Filed: 05/04/22 19:09> Medications Administered Discontinued Medications Generic Name Dose Route Start Last Admin Trade Name Freq PRN Reason Stop Dose Admin Amoxicillin/Clavulanate Potassium 875 mg 05/04/22 19:38 05/04/22 19:52 Amoxicillin/Potassium Clav 875 Mg Tablet PO 05/04/22 19:39 875 mg ONCE ONE Administration Diphtheria/Tetanus/Acell Pertussis 0.5 ml 05/04/22 19:09 05/04/22 19:52 Diphth,Pertus(Acell),Tet Adult 0.5 Ml Syringe IM 05/04/22 19:10 0.5 ml .ONCE ONE Administration <Noni Wiggins MD - Last Filed: 05/04/22 20:22> Medical Decision Making Independent Interpretation I performed an independent interpretation of an: Plain X-Ray (Hand x-ray: Interpretation is no foreign body) <Noni Wiggins MD - Last Filed: 05/04/22 20:22> Radiology Impression Discussion of test interpretation with radiology: I have reviewed the radiologist's reading. <Noni Wiggins MD - Last Filed: 05/04/22 20:22> Radiologist Impression: The bones and soft tissues are normal. No fracture. Alignment is anatomic. Joint spaces are maintained. No erosions or soft tissue calcifications.? XR/XR hand RT 2V IMPRESSION: Unremarkable right hand exam <Noni Wiggins MD - Last Filed: 05/04/22 20:22> Discharge Plan Discharge Clinical Impression: Dog bite of hand <Lita Johnson CNP - Last Filed: 05/04/22 19:09> Patient Disposition: Home, Self-Care <Lita Johnson CNP - Last Filed: 05/04/22 19:09> Instructions: Animal Bite (ED) <Lita Johnson CNP - Last Filed: 05/04/22 19:09> Additional Instructions: Please follow-up with your primary care physician tomorrow. If you have any worsening or new symptoms, please return to the emergency room or call 911 <Lita Johnson CNP - Last Filed: 05/04/22 19:09> Prescriptions: New amoxicillin-pot clavulanate [Augmentin] 500-125 mg tablet 1 tab PO BID Qty: 14 0RF ibuprofen 600 mg tablet 600 mg PO Q8H PRN (Reason: fever or pain) Qty: 20 0RF No Action cholecalciferol (vitamin D3) 50 mcg (2,000 unit) capsule 50 mcg PO DAILY Qty: 30 0RF albuterol sulfate [ProAir HFA] 90 mcg/actuation HFA aerosol inhaler 2 puff PO Q4-6H PRN (Reason: shortness of breath or wheezing) Qty: 8.5 0RF cyanocobalamin (vitamin B-12) 1,000 mcg tablet 1,000 mcg PO DAILY Qty: 30 11RF azithromycin [Zithromax Z-Maximiliano] 250 mg tablet See Rx Instructions PO .COMPLEX 5 Days Qty: 6 0RF Rx Instructions: take 500 mg today (day 1), then 250 mg for 4 days (days 2-5) PO Humira(CF) Pen 40 mg/0.4 mL pen injector kit 40 mg subcut QWEEK (DME) nebulizers [AeroEclipse II Nebulizer] [facility] [place] [place] See Rx Instructions .ROUTE .MEDSUPPLY Qty: 1 0RF Rx Instructions: As directed albuterol sulfate 0.63 mg/3 mL solution for nebulization 0.63 mg inhalation QID PRN (Reason: shortness of breath or wheezing) Qty: 75 0RF codeine-guaifenesin [Guaifenesin AC] 10-100 mg/5 mL liquid 5 ml PO Q6H PRN (Reason: cold symptoms) Qty: 120 0RF albuterol sulfate 90 mcg/actuation HFA aerosol inhaler 1 inh inhalation QID PRN (Reason: shortness of breath or wheezing) Qty: 8.5 0RF prednisone 20 mg tablet 40 mg PO DAILY 5 Days Qty: 10 0RF benzonatate 100 mg capsule 100 mg PO TID PRN (Reason: cough) Qty: 20 0RF doxycycline hyclate 100 mg tablet 100 mg PO BID spironolactone 50 mg tablet 50 mg PO BID ibuprofen 800 mg tablet 800 mg PO TID hydrocodone-homatropine [Hycodan] 5-1.5 mg/5 mL (5 mL) syrup 5 ml PO Q6H PRN (Reason: cough) Qty: 60 0RF <Lita Johnson CNP - Last Filed: 05/04/22 19:09>
--- OUTSIDE RECORDS SUMMARY | 2022-05-04 19:31 | XMS_ITS | Continuity of Care Document ---
:1995 Author Organization [facility] Address [address] [place] [id number]- Care Team Providers Name Role Phone Fito OLSON, Jasvir Lerma Primary Care Physician [place] [facility] [place]/15/21 - 11/14/[address] [address] Attending Physician: Lisa Esparza Admitting Physician: Lisa Esparza Referring Physician: AdmtrLisa Allergies, Adverse Reactions, Alerts No Known Medication Allergies Substance Reaction Severity Status Cats Active Grass1 Active Other Food Allergy2 Active 1maple [id number] cheese Medications ergocalciferol 22710 iu oral capsule 50,000 International_Units, 1, capsule, By Mouth, Every week, # 12 capsule, Refills 0, Tot. Refills 0, Maintenance, 10/28/21 12:50:00 EDT, Route to Pharmacy Electronically, [facility]/pharmacy #[id number], Partial fill upon patient request if the prescription is f... Start Date: 10/28/21 Stop Date: 01/20/22 Status: OrderedGlucophage XR 500 mg oral tablet, extended release 2 tablet = 1,000 mg, By Mouth, Daily, Take 1 tab with dinner on week 1. Increase to 2 tabs with dinner on week 2., # 60 tablet, 11 Refills, Maintenance, 01/30/16 12:37:55, ER Tablet Start Date: 01/30/16 Status: OrderedHumira 10 mg/0.1 mL subcutaneous kit 0 Refills, Maintenance, 06/24/21 11:27:00 EST, Partial fill upon patient request if the prescriptionis for a schedule II opioid drug. Start Date: 06/24/21 Status: OrderedVitamin D3 2000 intl units oral capsule 1 capsule = 2,000 International_Units, By Mouth, Daily, # 30 capsule, 2 Refills, Maintenance, 01/30/16 12:37:09 Start Date: 01/30/16 Status: Ordered Problem List Condition Effective Dates Status Health Status Informant Morbid obesity with BMI of 60.0-69.9, Active adult(Confirmed) Cataplexy(Confirmed) Active Heartburn(Confirmed) Active Anxiety and depression(Confirmed) Active Obstructive sleep apnea (adult) Active (pediatric)(Confirmed) PCOS (polycystic ovarian Active syndrome)(Confirmed) RLS (restless legs Active syndrome)(Confirmed) Severe obesity(Confirmed) Active Premature ventricular contractions Active (PVCs) (VPCs)(Confirmed) Social History Social History Type Response Smoking Status 10 or more cigarettes (1/2 p ack or more)/day in last 30 days; Interested in cessation: Yes entered on: 06/24/21 Sex
--- OUTSIDE RECORDS SUMMARY | 2022-05-04 19:31 | XMS_ITS | Continuity of Care Document ---
:1995 Author Organization [facility] Address [address] [place] [address] [address] [place] [address]- Care Team Providers Name Role Phone Megan OLSON, Christian Lerma Primary Care Physician Encounter [facility] [place] [facility] R [id number] Date(s): 02/20/22 - 05/03/[address] [place] [address]- Attending Physician: Knee RD, Audrey Allergies, Adverse Reactions, Alerts No Known Medication Allergies Substance Reaction Severity Status Cats Active Grass1 Active Other Food Allergy2 Active 1maple [id number] cheese Medications armodafinil 150 mg oral tablet 1 tablet = 150 mg, By Mouth, Daily in AM, # 30 tablet, 0 Refills, Maintenance, 03/23/22 17:25:00 EST, Tablet, [facility]/pharmacy #[id number], Partial fill upon patient request if the prescription is for a scheduleII opioid drug., 158.1, cm, 02/10/22 12:13:00 EDT... Start Date: 03/23/22 Status: Orderedergocalciferol 85206 iu oral capsule 50,000 International_Units, 1, capsule, By Mouth, Every week, # 12 capsule, Refills 0, Tot. Refills 0, Maintenance, 10/28/21 12:50:00 EDT, Route to Pharmacy Electronically, [facility]/pharmacy #[id number], Partial fill upon patient request if the prescription is f... Start Date: 10/28/21 Stop Date: 01/20/22 Status: OrderedHumira 10 mg/0.1 mL subcutaneous kit 0 Refills, Maintenance, 06/24/21 11:27:00 EST, Partial fill upon patient request if the prescriptionis for a schedule II opioid drug. Start Date: 06/24/21 Status: Orderedsertraline 25 mg oral tablet 1 tablet = 25 mg, By Mouth, Daily, 0 Refills, Maintenance, 12/15/21 13:03:00 EDT, Partial fill upon patient request if the prescription is for a schedule II opioid drug. Start Date: 12/15/21 Status: OrderedVitamin D3 2000 intl units oral capsule 1 capsule = 2,000 International_Units, By Mouth, Daily, # 30 capsule, 2 Refills, Maintenance, 01/30/16 12:37:09 Start Date: 01/30/16 Status: Ordered Problem List Condition Confirmation Course Effective Dates Status Health Stat us Informant Morbid obesity with Confirmed Active BMI of 60.0-69.9, adult Cataplexy Confirmed Active Heartburn Confirmed Active Anxiety and Confirmed Active depression Obstructive sleep Confirmed Active apnea (adult) (pediatric) PCOS (polycystic Confirmed Active ovarian syndrome) RLS (restless legs Confirmed Active syndrome) Severe obesity Confirmed Active Premature Confirmed Active ventricular contractions (PVCs) (VPCs) Social History Social History Type Response Tobacco Use: 4 or less cigarettes(le ss than 1/4 pack)/day in last 30 days. Other: smoking for 2-3 yrs. Patient is trying to quit on her own.. Sex Patient Care team information Care Team PersonnelName: Zofia STALLINGS, Narcisa Position: S RN Member Role: Primary Care Nurse Name: Christian Guzman MD Position: Reference Physician Member Role: PCP Address: Address: [address] [place] [id number]- Care Team Related PersonsName: LUCIA YOUSIFEDO Address: home [address] [place] [address] Name: VIVEK HERNANDEZ Address: home [address] [address] Name: ELIER MURPHY Address: home [address] [place] [address]
--- OUTSIDE RECORDS SUMMARY | 2022-05-04 19:31 | XMS_ITS | Continuity of Care Document ---
:1995 Author Organization [facility] Address Unavailable , Care Team Providers Name Role Phone Jasvir Payton MD Primary Care Physician Encounter [facility] [place] Date(s): 01/30/21 - 03/01/21 [facility] Attending Physician: Lisa Esparza Admitting Physician: Lisa Esparza Referring Physician: Lisa Esparza Allergies, Adverse Reactions, Alerts No Known Medication Allergies Substance Reaction Severity Status Cats Active Grass1 Active Other Food Allergy2 Active 1maple [id number] cheese Medications Glucophage XR 500 mg oral tablet, extended release 2 tablet = 1,000 mg, By Mouth, Daily, Take 1 tab with dinner on week 1. Increase to 2 tabs with dinner on week 2., # 60 tablet, 11 Refills, Maintenance, 01/30/16 12:37:55, ER Tablet Start Date: 01/30/16 Status: OrderedVitamin D3 2000 intl units oral capsule 1 capsule = 2,000 International_Units, By Mouth, Daily, # 30 capsule, 2 Refills, Maintenance, 01/30/16 12:37:09 Start Date: 01/30/16 Status: Ordered Problem List Condition Effective Dates Status Health Status Informant Morbid obesity(Confirmed) Active Obstructive sleep apnea (adult) Active (pediatric)(Confirmed) Premature ventricular contractions Active (PVCs) (VPCs)(Confirmed) Social History Social History Type Response Smoking Status Never smoker; Tobacco user i n household: No entered on: 10/02/14 Sex
--- OUTSIDE RECORDS SUMMARY | 2022-05-04 19:31 | XMS_ITS | Continuity of Care Document ---
:1995 Author Organization [facility] Address Unavailable , Care Team Providers Name Role Phone Fito OLSON, Jasvir Lerma Primary Care Physician [place] [facility] [place] 08[place]12[place] - 10/15/21 [facility] Attending Physician: Tani Irizarry MD Referring Physician: Jasvir Payton MD Allergies, Adverse Reactions, Alerts No Known Medication Allergies Substance Reaction Severity Status Cats Active Grass1 Active Other Food Allergy2 Active 1maple [id number] cheese Medications Glucophage XR 500 mg oral [...]
--- OUTSIDE RECORDS SUMMARY | 2022-05-04 19:31 | XMS_ITS | Continuity of Care Document ---
:1995 Author Organization [facility] Address [address] [place] [address]- Care Team Providers Name Role Phone Jasvir Payton MD Primary Care Physician Encounter [facility] [place] Date(s): 09/08/21 - 01/03/22 [facility] [address] [address]- Attending Physician: Annika Reyes MD Admitting Physician: Annika Reyes MD Referring Physician: Jasvir Payton MD Allergies, Adverse Reactions, Alerts No Known Medication Allergies Substance Reaction Severity Status Cats Active Grass1 Active Other Food Allergy2 Active 1maple onywj6mxqv cheese Medications ergocalciferol 97140 iu oral capsule 50,000 International_Units, 1, capsule, By Mouth, Every week, # 12 capsule, Refills 0, Tot. Refills 0, Maintenance, 10/28/21 12:50:00 EDT, Route to Pharmacy Electronically, [facility]/pharmacy #[id number], Partial fill upon patient request if the [...] II opioid drug. Start Date: 06/24/21 Status: OrderedHydrOXYzine 0 Refills, Maintenance, 12/15/21 13:02:00 EDT, Partial fill upon patient request if the prescriptionis for a schedule II opioid drug. Start Date: 12/15/21 Status: Orderedsertraline 25 mg oral tablet 1 [...] History Social History Type Response Smoking Status Use: 4 or less cigarettes(le ss than 1/4 pack)/day in last 30 days; 5-9 cigarettes (between 1/4 to 1/2 pack)/day in last 30 days; Other: about 4-5/day, pt is in the process of quitting 12/2021; entered on: 12/15/21 Sex
--- OUTSIDE RECORDS SUMMARY | 2022-05-04 19:31 | XMS_ITS | Continuity of Care Document ---
:1995 Author Organization [facility] Address Unavailable , Care Team Providers Name Role Phone Fito OLSON, Jasvir Lerma Primary Care Physician Encounter [facility] Date(s): 08/12/21 - 08/19/21 [facility] Attending Physician: Griselda PALMA,RD,LDN, Hafsa Laura Allergies, Adverse Reactions, Alerts No Known Medication Allergies Substance Reaction Severity Status Cats Active Grass1 Active Other Food Allergy2 Active 1maple jetzh4zfsm cheese Medications Glucophage XR 500 mg oral [...] obesity with BMI of 60.0-69.9, Active adult(Confirmed) Heartburn(Confirmed) Active Anxiety and depression(Confirmed) Active Obstructive sleep apnea (adult) Active (pediatric)(Confirmed) PCOS (polycystic ovarian Active syndrome)(Confirmed) Severe obesity(Confirmed) Active Premature ventricular contractions Active (PVCs) (VPCs)(Confirmed) Social History Social History Type Response Smoking Status 10 or more cigarettes (1/2 p ack or more)/day in last 30 days; Interested in cessation: Yes entered on: 06/24/21 Sex
--- OUTSIDE RECORDS SUMMARY | 2022-05-04 19:31 | XMS_ITS | Continuity of Care Document ---
:1995 Author Organization [facility] Address Unavailable , Care Team Providers Name Role Phone Jasvir Payton MD Primary Care Physician [place] [facility] [place] Date(s): 11/11/21 - 12/11/21 [facility] Attending Physician: Lisa Esparza Admitting Physician: Lisa Esparza Referring Physician: Lisa Esparza Allergies, Adverse Reactions, Alerts No Known Medication Allergies Substance Reaction Severity Status Cats Active Grass1 Active Other Food Allergy2 Active 1maple [id number] cheese Medications ergocalciferol 74223 iu oral capsule 50,000 International_Units, 1, capsule, By Mouth, Every week, # 12 capsule, Refills 0, Tot. Refills 0, Maintenance, 10/28/21 12:50:00 EDT, Route to Pharmacy Electronically, [facility]/pharmacy #[id number], Partial fill upon patient request if the [...]
--- OUTSIDE RECORDS SUMMARY | 2022-05-04 19:31 | XMS_ITS | Continuity of Care Document ---
:1995 Author Organization [facility] Address Unavailable , Care Team Providers Name Role Phone Jasvir Payton MD Primary Care Physician [facility] Date(s): 12/10/21 - 12/17/21 [facility] Attending Physician: Griselda PALMA,RD,LDN, Hafsa Laura Referring Physician: Jasvir Payton MD Allergies, Adverse Reactions, Alerts No Known Medication Allergies Substance Reaction Severity Status Cats Active Grass1 Active Other Food Allergy2 Active 1maple byibf9vucs cheese Medications ergocalciferol 70059 iu oral capsule 50,000 International_Units, 1, capsule, By Mouth, Every week, # 12 capsule, Refills 0, Tot. Refills 0, Maintenance, 10/28/21 12:50:00 EDT, Route to Pharmacy Electronically, [facility]/pharmacy #[id number], Partial fill upon patient request if the [...]
--- OUTSIDE RECORDS SUMMARY | 2022-05-04 19:31 | XMS_ITS | Continuity of Care Document ---
:1995 Author Organization [facility] Address [address] [place] [address]- Care Team Providers Name Role Phone Jasvir Payton MD Primary Care Physician [place] [facility] [place] 08[place]13/21 - 10/08/21 [facility] [address] [address]- Attending Physician: Annika Reyes MD Admitting Physician: Annika Reyes MD Referring Physician: Jasvir Payton MD Allergies, Adverse Reactions, Alerts No Known Medication Allergies Substance Reaction Severity Status Cats Active Grass1 Active Other Food Allergy2 Active 1maple rxdcx6rzvk cheese Medications Glucophage XR 500 mg oral [...]
--- OUTSIDE RECORDS SUMMARY | 2022-05-04 19:31 | XMS_ITS | Continuity of Care Document ---
:1995 Author Organization [facility] Address Unavailable , Care Team Providers Name Role Phone Fito OLSON, Jasvir Lerma Primary Care Physician Encounter [facility] Date(s): 09/24/21 - 10/01/21 [facility] Attending Physician: Griselda PALMA,RD,LDN, Hafsa Laura Allergies, Adverse Reactions, Alerts No Known Medication Allergies Substance Reaction Severity Status Cats Active Grass1 Active Other Food Allergy2 Active 1maple gqoua0ogvx cheese Medications Glucophage XR 500 mg oral [...]
--- OUTSIDE RECORDS SUMMARY | 2022-05-04 19:31 | XMS_ITS | Continuity of Care Document ---
:1995 Author Organization [facility] Address Unavailable , Care Team Providers Name Role Phone Jasvir Payton MD Primary Care Physician [place] [facility] [place](s): 06/24/21 - 07/01/21 [facility] Encounter Diagnosis Morbid obesity with BMI of 60.0-69.9, adult (Discharge Diagnosis) - 06/24/21 Attending Physician: Ramesh Pham Referring Physician: Jasvir Payton MD Allergies, Adverse Reactions, Alerts No Known Medication Allergies Substance Reaction Severity Status Cats Active Grass1 Active Other Food Allergy2 Active 1maple yrtwx2phbc cheese Medications Glucophage XR 500 mg oral [...] Active Premature ventricular contractions Active (PVCs) (VPCs)(Confirmed) Diagnosis Diagnosis Type Effective Dates Health Status Clinical In formant Service Morbid obesity Discharge 06/24/21 with BMI of Diagnosis 60.0-69.9, adult Procedures Procedure Date Related Diagnosis Body Site Status Laparoscopic cholecystectomy 2016 Completed Vital Signs Most recent to oldest [Reference Range]: 1 Height 158.2 cm (06/24/21 11:23 AM) Weight 152.7 kg (06/24/21 11:23 AM) Pulse Rate [55-90 bpm] 89 bpm (06/24/21 11:23 AM) Body Mass Index [18.5-24.99] 61.01 *>HHI* (06/24/21 11:23 AM) Blood Pressure [90-138/55-84 mm Hg] 159/91 mm Hg *H* (06/24/21 11:23 AM) Temperature [96.8-100.4 DegF] 97.3 DegF (06/24/21 11:23 AM) Blood pressure sites Arm, left (06/24/21 11:23 AM) Temperature Route Temporal (06/24/21 11:23 AM) Weight Obtained Via Standing scale (06/24/21 11:23 AM) Social History Social History Type Response Smoking Status 10 or more cigarettes (1/2 p ack or more)/day in last 30 days; Interested in cessation: Yes entered on: 06/24/21 Sex
--- OUTSIDE RECORDS SUMMARY | 2022-05-04 19:31 | XMS_ITS | Continuity of Care Document ---
:1995 Author Organization [facility] Address [address] [place] [address]- Care Team Providers Name Role Phone Fito OLSON, Jasvir Lerma Primary Care Physician Encounter [facility] Date(s): 02/10/22 - 03/12/22 [facility] [address] [place] [address] Attending Physician: Lisa Esparza Admitting Physician: AdmtrLisa Referring Physician: Admtr, Ar8 Allergies, Adverse Reactions, Alerts No Known Medication Allergies Substance Reaction Severity Status Cats Active Grass1 Active Other Food Allergy2 Active 1maple ehaqw0xitf cheese Medications armodafinil 150 mg oral tablet 1 tablet = 150 mg, By Mouth, Daily in AM, # 30 tablet, 0 Refills, Maintenance, 01/21/22 16:17:00 EDT, Tablet, [facility]/pharmacy #[id number], Partial fill upon patient request if the prescription is for a scheduleII opioid drug., 158.2, cm, 12/15/21 12:59:00 EDT... Start Date: 01/21/22 Status: Orderedergocalciferol 30126 iu oral capsule 50,000 International_Units, 1, capsule, By Mouth, Every week, # 12 capsule, Refills 0, Tot. Refills 0, Maintenance, 10/28/21 12:50:00 EDT, Route to Pharmacy Electronically, [facility]/pharmacy #[id number], Partial fill upon patient request if the [...] her own.. Sex Patient Care team information PersonnelName: Fito OLSON , Jasvir Lerma Address: Address: [address] [place] [address]-
--- OUTSIDE RECORDS SUMMARY | 2022-05-04 19:31 | XMS_ITS | Continuity of Care Document ---
:1995 Author Organization [facility] Address Unavailable , Care Team Providers Name Role Phone Jasvir Payton MD Primary Care Physician Encounter [facility] Date(s): 06/27/21 - 07/04/21 [facility] Attending Physician: Griselda PALMA,RD,LDN, Hafsa Laura Referring Physician: Jasvir Payton MD Allergies, Adverse Reactions, Alerts No Known Medication Allergies Substance Reaction Severity Status Cats Active Grass1 Active Other Food Allergy2 Active 1maple olndy3xzlk cheese Medications Glucophage XR 500 mg oral [...]
--- OUTSIDE RECORDS SUMMARY | 2022-05-04 19:31 | XMS_ITS | Continuity of Care Document ---
:1995 Author Organization [facility] Address Unavailable , Care Team Providers Name Role Phone Fito OLSON, Jasvir Lerma Primary Care Physician [place] [facility] [place] Date(s): 09/24/21 - 12/05/21 [facility] Attending Physician: Griselda MS,RD,LDN, Hafsa Laura Allergies, Adverse Reactions, Alerts No Known Medication Allergies Substance Reaction Severity Status Cats Active Grass1 Active Other Food Allergy2 Active 1maple laszy0wbyc cheese Medications ergocalciferol 45390 iu oral capsule 50,000 International_Units, 1, capsule, By Mouth, Every week, # 12 capsule, Refills 0, Tot. Refills 0, Maintenance, 10/28/21 12:50:00 EDT, Route to Pharmacy Electronically, [facility]/pharmacy #[id number], Partial fill upon patient request if the [...]
--- OUTSIDE RECORDS SUMMARY | 2022-05-04 19:31 | XMS_ITS | Continuity of Care Document ---
:1995 Author Organization [facility] Address Unavailable , Care Team Providers Name Role Phone Fito OLSON, Jasvir Lerma Primary Care Physician Encounter [facility] Date(s): 09/24/21 - 10/24/21 [facility] Allergies, Adverse Reactions, Alerts No Known Medication Allergies Substance Reaction Severity Status Cats Active Grass1 Active Other Food Allergy2 Active 1maple ibbdy2sjxz cheese Medications Glucophage XR 500 mg oral [...]
--- OUTSIDE RECORDS SUMMARY | 2022-05-04 19:31 | XMS_ITS | Continuity of Care Document ---
:1995 Author Organization [facility] Address Unavailable , Care Team Providers Name Role Phone Fito OLSON, Jasvir Lerma Primary Care Physician Encounter [facility] Date(s): 11/11/21 - 12/11/21 [facility] Allergies, Adverse Reactions, Alerts No Known Medication Allergies Substance Reaction Severity Status Cats Active Grass1 Active Other Food Allergy2 Active 1maple vaslm7odvi cheese Medications ergocalciferol 60352 iu oral capsule 50,000 International_Units, 1, capsule, By Mouth, Every week, # 12 capsule, Refills 0, Tot. Refills 0, Maintenance, 10/28/21 12:50:00 EDT, Route to Pharmacy Electronically, [facility]/pharmacy #[id number], Partial fill upon patient request if the [...]
--- OUTSIDE RECORDS SUMMARY | 2022-05-04 19:31 | XMS_ITS | Continuity of Care Document ---
:1995 Author Organization [facility] Address [address] [place] [address]- Care Team Providers Name Role Phone Megan OLSON, Christian Lerma Primary Care Physician [place] [facility] [place] - 04/19/22 [facility] [address] [address]- Allergies, Adverse Reactions, Alerts No Known Medication Allergies Substance Reaction Severity Status Cats Active Grass1 Active Other Food Allergy2 Active 1maple qkjsx7frhm cheese Medications armodafinil 150 mg oral tablet 1 tablet = 150 mg, By Mouth, Daily in AM, # 30 tablet, 0 Refills, Maintenance, 03/23/22 17:25:00 EST, Tablet, [facility]/pharmacy #[id number], Partial fill upon patient request if the prescription is for a scheduleII opioid drug., 158.1, cm, 02/10/22 12:13:00 EDT... Start Date: 03/23/22 Status: Orderedergocalciferol 42246 iu oral capsule 50,000 International_Units, 1, capsule, By Mouth, Every week, # 12 capsule, Refills 0, Tot. Refills 0, Maintenance, 10/28/21 12:50:00 EDT, Route to Pharmacy Electronically, [facility]/pharmacy #[id number], Partial fill upon patient request if the [...] RN Member Role: Primary Care Nurse Name: Megan OLSON, Christian Lerma Position: Reference Physician Member Role: PCP Address: Address: [address] [place] [address]- Care Team Related PersonsName: BENJA COLLETTE Address: home [address] [place] [address] Name: VIVEK HERNANDEZ Address: home [address] [address] Name: ELIER MURPHY Address: home [address] [place] [address]
--- OUTSIDE RECORDS SUMMARY | 2022-05-04 19:31 | XMS_ITS | Continuity of Care Document ---
:1995 Author Organization [facility] Address [address] [place] [address] Drive [address] [place] [address]- Care Team Providers Name Role Phone Fito OLSON, Jasvir Lerma Primary Care Physician [place] [facility] [place]/10[place] - 02/21/[address] [place] [address]- Attending Physician: Griselda MS,RD,LDN, Hafsa Laura Allergies, Adverse Reactions, Alerts No Known Medication Allergies Substance Reaction Severity Status Cats Active Grass1 Active Other Food Allergy2 Active 1maple xtcai0bspk cheese Medications armodafinil 150 mg oral tablet 1 tablet = 150 mg, By Mouth, Daily in AM, # 30 tablet, 0 Refills, Maintenance, 01/21/22 16:17:00 EDT, Tablet, [facility]/pharmacy #[id number], Partial fill upon patient request if the prescription is for a scheduleII opioid drug., 158.2, cm, 12/15/21 12:59:00 EDT... Start Date: 01/21/22 Status: Orderedergocalciferol 41370 iu oral capsule 50,000 International_Units, 1, capsule, By Mouth, Every week, # 12 capsule, Refills 0, Tot. Refills 0, Maintenance, 10/28/21 12:50:00 EDT, Route to Pharmacy Electronically, [facility]/pharmacy #[id number], Partial fill upon patient request if the [...] OLSON , Jasvir Lerma Address: Address: [address] [place] [address]-
--- OUTSIDE RECORDS SUMMARY | 2022-05-04 19:31 | XMS_ITS | Continuity of Care Document ---
:1995 Author Organization [facility] Address [address] [place] [address]- Care Team Providers Name Role Phone Megan OLSON, Christian Lerma Primary Care Physician [place] [facility] [id number] Date(s): 04/28/22 - 04/28/[address] [address] Discharge Disposition: A-D/C Home Attending Physician: Pop Lantigua MD Admitting Physician: Pop Lantigua MD Referring Physician: Neris George NP Allergies, Adverse Reactions, Alerts No Known Medication Allergies Substance Reaction Severity Status Cats Active Grass1 Active Other Food Allergy2 Active 1maple opcnv9gebk cheese Medications armodafinil 150 mg oral tablet 1 tablet = 150 mg, By Mouth, Daily in AM, # 30 tablet, 0 Refills, Maintenance, 03/23/22 17:25:00 EST, Tablet, [facility]/pharmacy #[id number], Partial fill upon patient request if the prescription is for a scheduleII opioid drug., 158.1, cm, 02/10/22 12:13:00 EDT... Start Date: 03/23/22 Status: Orderedergocalciferol 25469 iu oral capsule 50,000 International_Units, 1, capsule, By Mouth, Every week, # 12 capsule, Refills 0, Tot. 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 A timeout was performed prior to the procedure according to protocol. Sterile technique used used throughout the procedure. 1% lidocaine was used for skin analgesia. A 22 gauge, 6 inch needle was advanced towards the centralspinal canal in the lower lumbar spine directed at the L2-L3 level using a posterior approach. Clearspinal fluid returned. Approximately 5 cc fluid was drained. Specimens were sent for requested laboratory studies. The stylet was replaced and the needle was removed. There were no immediate complications. Impression: Fluoroscopic guided lumbar puncture performed without complication. The attending radiologist was present for the procedure and supervised the resident during this portion of the procedure. I have personally reviewed the images and I agree with this report. WSN: [id number] Ordering Physician: Neris George Dictated By: Belle Gonsalez MD Dictated Date/Time: 04/28/22 7:44 pm Reviewed By: Gwen Dominguez MD Signed By: Gwen Dominguez MD Signed Date/Time: 04/28/22 7:49 pm Transcribed By: NICOLE Transcribed Date/Time: 04/28/22 5:41 pm Vital Signs Most recent to oldest [Reference Range]: 1 Height 158.1 cm (04/28/22 11:48 AM) Weight 145 kg (04/28/22 11:48 AM) Oxygen Saturation [94-100 %] 98 % (04/28/22 11:48 AM) Pulse Rate [55-90 bpm] 84 bpm (04/28/22 11:48 AM) Blood Pressure [90-138/55-84 mm Hg] 140/53 mm Hg *H* (04/28/22 11:48 AM) Respiratory Rate [16-30 br/min] 18 br/min (04/28/22 11:48 AM) Temperature [96.8-100.4 DegF] 98.1 DegF (04/28/22 11:48 AM) Mode of Delivery (Oxygen) Room air (04/28/22 11:48 AM) Temperature Route Oral (04/28/22 11:48 AM) Dry Weight 145 kg (04/28/22 11:48 AM) Social History Social History Type Response Tobacco Use: 4 or less cigarettes(le ss than 1/4 pack)/day in last 30 days. Other: smoking for 2-3 yrs. Patient is trying to quit on her own.. Sex Hospital Progress note Franko Rausch RN: PERFORM, SIGN, VERIFY, SIGN, MODIFY Event Display: Progress Note Hospital Authored Date: [id number] Patient: VIVEK HERNANDEZ Age: 26 years Sex: Female : 1995 Associated Diagnoses: None Author: Franko Rausch RN Findings Evaluation Returned from procedure. VSS. Bandaid to lower back CDI. No signs or symptoms of bleeding or hematoma. Will continue to monitor. .Franko Rausch RN: PERFORM Event Display: Progress Note Hospital Authored Date: No change to bandaid, still CDI. No signs or symptoms of bleeding or hematoma. VSS. Discharge instructions reviewed and signed. Questions asked and answered. Discharged from unit via wheelchair.Joselyn Dobbs RN: PERFORM, SIGN, VERIFY Event Display: Progress Note Hospital Authored Date: Patient: VIVEK HERNANDEZ Age: 26 years Sex: Female : 1995 Associated Diagnoses: None Author: Joselyn Dobbs RN Findings Narrative/Incidental pt here for LP, ambulatory, alert and oriented, denied pain at admission time, VSS. pt comfortable in bed waiting for procedure. Call mendenhall within reach. Note Franko Rausch RN: PERFORM Event Display: Discharge/Transfer Note Hospital Authored Date: Nursing Discharge Note Entered On: 04/28/2022 16:34 EST Performed On: 04/28/2022 16:34 EST by Franko Rausch RN Nursing Discharge Note 2 Discharge Time : 04/28/2022 16:34 EST Discharge Level of Care at Discharge : Home/[facility] Patient Left Unit Via : Wheelchair Patient Accompanied Off Unit with : Responsible adult DC Instructions Provided & Signed by Pt : Yes Patient Understands D/C Instructions : Yes Patient Instructions Discharge Signed : Yes Did Pt have Specialty Bed or Wound Vac : No Franko Rausch RN - 04/28/2022 16:34 ESTBHSPowerscribe , CIS S: TRANSCGwen Corcoran MD M: Belle Desai MD: SIGN Event Display: Result: Authored Date: Procedure: XR Lumbar Puncture Diagnostic Indication: Reason: Spinal Fluid; 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 A timeout was performed prior to the procedure according to protocol. Sterile technique used used throughout the procedure. 1% lidocaine was used for skin analgesia. A 22 gauge, 6 inch needle was advanced towards the centralspinal canal in the lower lumbar spine directed at the L2-L3 level using a posterior approach. Clearspinal fluid returned. Approximately 5 cc fluid was drained. Specimens were sent for requested laboratory studies. The stylet was replaced and the needle was removed. There were no immediate complications. Impression: Fluoroscopic guided lumbar puncture performed without complication. The attending radiologist was present for the procedure and supervised the resident during this portion of the procedure. I have personally reviewed the images and I agree with this report. WSN: [id number] Ordering Physician: Neris George Dictated By: Belle Gonsalez MD Dictated Date/Time: 04/28/22 7:44 pm Reviewed By: Gwen Dominguez MD Signed By: Gwen Dominguez MD Signed Date/Time: 04/28/22 7:49 pm Transcribed By: NICOLE Transcribed Date/Time: 04/28/22 5:41 pm Patient Care team information Care Team PersonnelName: Zofia STALLINGS, Narcisa Position: S RN Member Role: Primary Care Nurse Name: Christian Guzman MD Position: Reference Physician Member Role: PCP Address: Address: [address] [place] [address]- Care Team Related PersonsName: COLLETTE YOUSIF Address: home [address] [place] [address] Name: VIVEK HERNANDEZ Address: home [address] [address] Name: ELIER MURPHY Address: [address] [place] [address]
--- OUTSIDE RECORDS SUMMARY | 2022-05-04 19:32 | XMS_ITS | Continuity of Care Document ---
:1995 Author Organization [facility] Address [address] [place] [address] Drive [address] [place] [address]- Care Team Providers Name Role Phone Fito OLSON, Jasvir Lerma Primary Care Physician En[place] [facility] [place] [id number] Date(s): 02/20/22 - 02/27/[address] [place] [address]- Attending Physician: Griselda MS,RD,LDN, Hafsa Laura Allergies, Adverse Reactions, Alerts No Known Medication Allergies Substance Reaction Severity Status Cats Active Grass1 Active Other Food Allergy2 Active 1maple hikab4dgvh cheese Medications armodafinil 150 mg oral tablet 1 tablet = 150 mg, By Mouth, Daily in AM, # 30 tablet, 0 Refills, Maintenance, 01/21/22 16:17:00 EDT, Tablet, [facility]/pharmacy #[id number], Partial fill upon patient request if the prescription is for a scheduleII opioid drug., 158.2, cm, 12/15/21 12:59:00 EDT... Start Date: 01/21/22 Status: Orderedergocalciferol 83076 iu oral capsule 50,000 International_Units, 1, capsule, By Mouth, Every week, # 12 capsule, Refills 0, Tot. Refills 0, Maintenance, 10/28/21 12:50:00 EDT, Route to Pharmacy Electronically, [facility]/pharmacy #[id number], Partial fill upon patient request if the [...] Fito OLSON , Jasvir Lerma Address: Address: [address] [place] [address]-
--- OUTSIDE RECORDS SUMMARY | 2022-05-04 19:32 | XMS_ITS | Continuity of Care Document ---
:1995 Author Organization [facility] Address [address] [place] [address]- Care Team Providers Name Role Phone Fito OLSON, Jasvir Lerma Primary Care Physician En[place] [facility] [place] [place] [id number] Date(s): 10/16/21 - 11/21/[address] [address] Attending Physician: Neris George NP Admitting Physician: Neris George NP Referring Physician: Neris George NP Allergies, Adverse Reactions, Alerts No Known Medication Allergies Substance Reaction Severity Status Cats Active Grass1 Active Other Food Allergy2 Active 1maple rlwzs7jeqv cheese Medications ergocalciferol 53216 iu oral capsule 50,000 International_Units, 1, capsule, By Mouth, Every week, # 12 capsule, Refills 0, Tot. Refills 0, Maintenance, 10/28/21 12:50:00 EDT, Route to Pharmacy Electronically, [facility]/pharmacy #[id number], Partial fill upon patient request if the [...]
--- OUTSIDE RECORDS SUMMARY | 2022-05-04 19:32 | XMS_ITS | Continuity of Care Document ---
:1995 Author Organization [address] [place] [address]- Care Team Providers Name Role Phone Megan OLSON, Christian Lerma Primary Care Physician En[place] [facility] [place]s): 03/25/22 - 04/01/[address] [place], [place] [address] Attending Physician: Griselda MS,RD,LDN, Hafsa Laura Referring Physician: Christian Guzman MD Allergies, Adverse Reactions, Alerts No Known Medication Allergies Substance Reaction Severity Status Cats Active Grass1 Active Other Food Allergy2 Active 1maple ohaec7lico cheese Medications armodafinil 150 mg oral tablet 1 tablet = 150 mg, By Mouth, Daily in AM, # 30 tablet, 0 Refills, Maintenance, 03/23/22 17:25:00 EST, Tablet, [facility]/pharmacy #[id number], Partial fill upon patient request if the prescription is for a scheduleII opioid drug., 158.1, cm, 02/10/22 12:13:00 EDT... Start Date: 03/23/22 Status: Orderedergocalciferol 11963 iu oral capsule 50,000 International_Units, 1, capsule, By Mouth, Every week, # 12 capsule, Refills 0, Tot. Refills 0, Maintenance, 10/28/21 12:50:00 EDT, Route to Pharmacy Electronically, [facility]/pharmacy #[id number], Partial fill upon patient request if the [...] Patient Care team information Care Team PersonnelName: Narcisa Armijo RN Position: Colin RN Member Role: Primary Care Nurse Name: Christian Guzman MD Position: Reference Physician Member Role: PCP Address: Address: [address] [place] [address]- Care Team Related PersonsName: COLLETTE YOUSIF Address: [address] [place] [address] Name: VIVEK HERNANDEZ Address: [address] [address] Name: ELIER MURPHY Address: [address] [place] [address]
--- OUTSIDE RECORDS SUMMARY | 2022-05-04 19:32 | XMS_ITS | Continuity of Care Document ---
:1995 Author Organization [facility] Address Unavailable , Care Team Providers Name Role Phone Jasvir Payton MD Primary Care Physician Encounter [facility] [place] Date(s): 12/15/21 - 12/22/21 [facility] Encounter Diagnosis Morbid obesity (Discharge Diagnosis) - 12/15/21 Hidradenitis (Discharge Diagnosis) - 12/15/21 Smoking (Discharge Diagnosis) - 12/15/21 Attending Physician: Tani Irizarry MD Referring Physician: Jasvir Payton MD Allergies, Adverse Reactions, Alerts No Known Medication Allergies Substance Reaction Severity Status Cats Active Grass1 Active Other Food Allergy2 Active 1maple [id number] cheese Medications ergocalciferol 22867 iu oral capsule 50,000 International_Units, 1, capsule, By Mouth, Every week, # 12 capsule, Refills 0, Tot. Refills 0, Maintenance, 10/28/21 12:50:00 EDT, Route to Pharmacy Electronically, [facility]/pharmacy #[id number], Partial fill upon patient request if the [...] Clinical In formant Service Morbid obesity Discharge 12/15/21 Diagnosis Hidradenitis Discharge 12/15/21 Diagnosis Smoking Discharge 12/15/21 Diagnosis Vital Signs Most recent to oldest [Reference Range]: 1 Height 158.2 cm (12/15/21 12:59 PM) Weight 146.7 kg (12/15/21 12:59 PM) Pulse Rate [55-90 bpm] 90 bpm (12/15/21 12:59 PM) Body Mass Index [18.5-24.99] 58.62 *>HHI* (12/15/21 12:59 PM) Blood Pressure [90-138/55-84 mm Hg] 141/85 mm Hg *H* (12/15/21 12:59 PM) Respiratory Rate [16-30 br/min] 16 br/min (12/15/21 12:59 PM) Temperature [96.8-100.4 DegF] 97.0 DegF (12/15/21 12:59 PM) Blood pressure sites Arm, right (12/15/21 12:59 PM) Temperature Route Temporal (12/15/21 12:59 PM) Weight Obtained Via Standing scale (12/15/21 12:59 PM) Social History Social History Type Response Smoking Status Use: 4 or less cigarettes(le ss than 1/4 pack)/day in last 30 days; 5-9 cigarettes (between 1/4 to 1/2 pack)/day in last 30 days; Other: about 4-5/day, pt is in the process of quitting 12/2021; entered on: 12/15/21 Sex
--- OUTSIDE RECORDS SUMMARY | 2022-05-04 19:32 | XMS_ITS | Continuity of Care Document ---
:1995 Author Organization [facility] Address Unavailable , Care Team Providers Name Role Phone Fito OLSON, Jasvir Lerma Primary Care Physician Encounter [facility] [place] Date(s): 11/01/20 - 03/01/21 [facility] Attending Physician: Dony Hayward Admitting Physician: Dony Hayward Referring Physician: iMcha Mcneill MD Allergies, Adverse Reactions, Alerts No Known Medication Allergies Substance Reaction Severity Status Cats Active Grass1 Active Other Food Allergy2 Active 1maple [id number] cheese Medications Glucophage XR 500 mg oral [...]
[2022-05-04] MEDS: Diphth,Pertus(ACell),Tet Adult 0.5 ML SYRINGE IM (19:52)
[2022-05-04] MEDS: Amoxicillin/Potassium Clav 875 MG TABLET PO (19:52)
== END 2022-05-04 20:46 | disposition home or self-care (01) ==
PROVIDERS: Emergency Provider Emergency Medicine; PCP Internal Medicine
DX: S61.051A Open bite of right thumb without damage to nail, initial encounter (principal); S60.512A Abrasion of left hand, initial encounter; S60.511A Abrasion of right hand, initial encounter; W54.0XXA Bitten by dog, initial encounter; Y93.9 Activity, unspecified; Y92.9 Unspecified place or not applicable; Y99.9 Unspecified external cause status; F17.210 Nicotine dependence, cigarettes, uncomplicated; Z71.6 Tobacco abuse counseling; Z79.899 Other long term (current) drug therapy; Z23 Encounter for immunization
CPT/HCPCS: 73120; 90471; 90715; 99282; 99284

== ENCOUNTER 2022-09-27 12:10 | Emergency (ER) | payer OTHER, SELFPAY ==
--- NOTE | ~2022-09-27 | XR_ITS ---
EXAMINATION: XR SHOULDER, RIGHT CLINICAL INFORMATION: Pain. Fall. COMPARISON: None available. TECHNIQUE: AP external rotation, Grashey, scapular Y, and axillary views of the right shoulder. FINDINGS: The bones and soft tissues are normal. No fracture. Glenohumeral and acromioclavicular alignment is anatomic with normal joint space. No abnormal soft tissue calcifications. XR/XR shoulder RT min 2V IMPRESSION: Normal right shoulder.
--- NOTE | 2022-09-27 12:12 | ED_ITS ---
HPI - General Adult General Chief complaint: Extremity Injury, Upper Stated complaint: R shoulder/ arm pain Time Seen by Provider: 09/27/22 12:22 Source: patient Mode of arrival: ambulatory Limitations: no limitations History of Present Illness HPI narrative: 27 yo female presenting to the ER for evaluation of acute on chronic right shoulder pain along with numbness and tingling down her arm into her fingers. She is right-hand dominant. She states she has had these symptoms for several months, saw her PCP about a month ago and was also get referred to physical therapy but never got the phone call. She has tried anti-inflammatories and Tylenol with minimal relief. She states when she wakes up she has numbness and tingling down into her digits 2 through 5 for half an hour to 45 minutes. She reports pain starts the back of the neck and radiates down the arm. She did have a recent fall. She has never had imaging of for shoulder or neck. She denies any headaches. MD complaint: Rate sided neck pain, shoulder pain, arm pain along with numbness Onset (ago): month(s) Location: neck, right and upper extremity Radiation: distal Severity: moderate Quality: burning and stabbing Pain Consistency: intermittent Relieving factors: none Exacerbating factors: none Associated symptoms: denies other symptoms Treatments prior to arrival: none Related Data Home Medications Medication Instructions Recorded Confirmed adalimumab 40 mg/0.4 mL 40 mg subcut QWEEK 04/08/21 08/25/22 subcutaneous pen kit (Humira(CF) Pen) doxycycline hyclate 100 mg tablet 100 mg PO BID 10/14/21 08/25/22 spironolactone 50 mg tablet 50 mg PO BID 10/14/21 08/25/22 Previous Rx's Medication Instructions Recorded albuterol sulfate 0.63 mg/3 mL 0.63 mg (3 mL) inhalation QID PRN 02/04/22 solution for nebulization shortness of breath or wheezing #75 mL albuterol sulfate 90 mcg/actuation 1 inh inhalation QID PRN shortness 02/04/22 aerosol inhaler of breath or wheezing #8.5 grams nebulizers (AeroEclipse II #1 ea 02/04/22 Nebulizer) albuterol sulfate 90 mcg/actuation 2 puff PO Q4-6H PRN shortness of 03/23/22 aerosol inhaler (ProAir HFA) breath or wheezing #8.5 ea naproxen 500 mg tablet 500 mg PO BID PRN pain 30 days #60 08/25/22 tabs varenicline 0.5 mg (11)-1 mg (42) See Rx Instructions PO PER PKG DIR 08/25/22 tablets in a dose pack #53 ea cyclobenzaprine 10 mg tablet 10 mg PO TID PRN muscle spasm #14 09/27/22 tabs prednisone 50 mg tablet 50 mg PO DAILY #5 tabs 09/27/22 Allergies Allergy/AdvReac Type Severity Reaction Status Date / Time house dust mite Allergy Mild allergy Verified 08/25/22 14:11 insect venom Allergy Mild allergy Verified 08/25/22 14:11 cat dander [CAT] Allergy Unknown UNKNOWN Verified 08/25/22 14:11 tree and shrub pollen [TREE] Allergy Unknown UNKNOWN Verified 08/25/22 14:11 Blue Cheese Allergy Unknown nausea and Uncoded 08/25/22 14:11 vomiting GRASS Allergy Unknown UNKNOWN Uncoded 08/25/22 14:11 Maple Trees Allergy Unknown Excessive Uncoded 08/25/22 14:11 Sneezing Review of Systems Review of Systems: Yes all other systems are reviewed and are negative PMFSH Past Medical History Medical History ADHD Anemia Anxiety Depression Fungal infection of foot History of ingrown hair Migraines Morbid obesity with BMI of 50.0-59.9, adult No known health problems Prediabetes Pseudotumor cerebri Vitamin D deficiency Surgical History History of myringotomy History of tonsillectomy Hx of cholecystectomy Family History Family History Mother Fibromyalgia Depression Arthritis Father Diabetes Hypertension Brother No problems noted. Sister No problems noted. Maternal Grandmother Hypertension Maternal Grandfather Colon cancer Family/Other Breast cancer Social History Social History Housing: Other Alcohol intake: current Patient Tobacco Use Status: Current everyday Tobacco user Tobacco use type: Cigarette Cigarette Packs Per Day: 1 e-Cigarette/Vaping Use: Never Used Substance Use Type: Marijuana Advance Directives: No Advance Directives Information Provided: Yes service: No Current occupational status: unemployed and student Current occupation: seeking employment Gender identity: Female Cognitive needs: No Hearing needs: No Vision needs: Yes Physical Exam ED Vital Signs: Vital Signs - 24 hr 09/27/22 12:15 Temperature 97.5 F Pulse Rate 98 Respiratory Rate 16 Blood Pressure 143/87 H Pulse Oximetry 99 Oxygen Delivery Method Room Air BMI result Body Mass Index 59.5 Appearance: Alert. Oriented X3. No acute distress. HEENT: normal inspection neck: Normal inspection, normal range of motion, no midline tenderness. CVS: Normal heart rate and rhythm. Pulses normal. Respiratory: No respiratory distress. Skin: Skin warm and dry. Normal skin color. Normal skin turgor. No rashes. Extremities: Normal inspection of the bilateral upper extremities. There is full range of motion of the right shoulder with pain upon full abduction to 180 degrees. There is soft tissue tenderness proximally along the upper trapezius and into right lateral cervical muscles. Negative empty can test. 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 No motor deficit. No sensory deficit. Course Course Course Narrative: RME performed by Soni Saravia PA-C. Patient is a 27 year old assigned female at presenting to the emergency department with right shoulder pain. Patient states that she has had right shoulder pain for months that has gotten worse since a recent fall. Patient states that the pain goes up from her right shoulder into her neck and runs down into her arm causing numbness/tingling in the right hand/wrist. Imaging ordered. Patient placed back in the waiting room pending room availability and results. Medical Decision Making Medical Decision Making MDM Narrative: 27-year-old [id number] female presents to the ER for evaluation of right-sided neck pain, shoulder pain in radiating down into the hands intermittent numbness and tingling. Examined clinical presentation most consistent with cervical radiculopathy. She has a PCP and is also go to physical therapy but never got the referral. She reports her numbness has been worsening lately. Will start a short course of steroids along with a muscle relaxer for this. She will call her PCP this week and get the referral for physical therapy. She was also occurs follow back up for additional imaging of her spine and head. All questions were answered patient stable for discharge home Differential Diagnosis Differential Diagnoses: The differential diagnosis associated with the presentation includes cervical radiculopathy, carpal tunnel syndrome, muscle strain and spasm, bursitis, multiple sclerosis, fibromyalgia Independent Interpretation I performed an independent interpretation of an: Plain X-Ray Interpretation: normal appearing shoulder, agrees radiologist read Radiology Impression Discussion of test interpretation with radiology: I have reviewed the radiologist's reading. Radiologist Impression: EXAMINATION: XR SHOULDER, RIGHT CLINICAL INFORMATION: Pain. Fall.? COMPARISON: None available.? TECHNIQUE: AP external rotation, Grashey, scapular Y, and axillary views of the right shoulder. FINDINGS: The bones and soft tissues are normal. No fracture. Glenohumeral and acromioclavicular alignment is anatomic with normal joint space. No abnormal soft tissue calcifications.? XR/XR shoulder RT min 2V IMPRESSION: Normal right shoulder. External Record Review External record reviewed: Office record and Outpatient record Tests considered The following testing was considered but not selected: CT of the cervical spine Prescription Management I considered prescription management with: Pain Medication Chronic Conditions Patient?s care impacted by: Other ( morbid obesity) Critical Care Time Critical Care Time Critical Care Time: No Discharge Plan Discharge Clinical Impression: Cervical radiculopathy Patient Disposition: Home, Self-Care Instructions: Cervical Radiculopathy (ED) Additional Instructions: Your x-rays today were normal. Start the prescribed muscle relaxers and steroid medication as directed. Follow back up with your primary care doctor and make sure to get that referral for physical therapy. If you develop new or worsening symptoms call 911 or come back to the ER for further evaluation. Prescriptions: New cyclobenzaprine 10 mg tablet 10 mg PO TID PRN (Reason: muscle spasm) Qty: 14 0RF prednisone 50 mg tablet 50 mg PO DAILY Qty: 5 0RF No Action albuterol sulfate [ProAir HFA] 90 mcg/actuation HFA aerosol inhaler 2 puff PO Q4-6H PRN (Reason: shortness of breath or wheezing) Qty: 8.5 0RF Humira(CF) Pen 40 mg/0.4 mL pen injector kit 40 mg subcut QWEEK (DME) nebulizers [AeroEclipse II Nebulizer] Misc See Rx Instructions .ROUTE .MEDSUPPLY Qty: 1 0RF Rx Instructions: As directed albuterol sulfate 0.63 mg/3 mL solution for nebulization 0.63 mg inhalation QID PRN (Reason: shortness of breath or wheezing) Qty: 75 0RF albuterol sulfate 90 mcg/actuation HFA aerosol inhaler 1 inh inhalation QID PRN (Reason: shortness of breath or wheezing) Qty: 8.5 0RF doxycycline hyclate 100 mg tablet 100 mg PO BID spironolactone 50 mg tablet 50 mg PO BID naproxen 500 mg tablet 500 mg PO BID PRN (Reason: pain) 30 Days Qty: 60 2RF varenicline 0.5 mg (11)- 1 mg (42) tablets,dose pack See Rx Instructions PO PER PKG DIR Qty: 53 0RF Rx Instructions: PO PER PKG DIR
[2022-09-27 12:15] VITALS: BP 143/87; PULSE 98; RESP 16; TEMP 36.4; O2SAT 99; BMI 59.5
[2022-09-27 14:50] VITALS: BP 128/73; PULSE 81; RESP 18; O2SAT 98
--- NOTE | 2022-09-27 14:53 | PC.NURSE ---
Patient presents for pain in her right shoulder area that goes up to the right side of her neck. Patient is alert and oriented, able to move all extremities.
== END 2022-09-27 14:55 | disposition home or self-care (01) ==
PROVIDERS: Emergency Provider Emergency Medicine
DX: M54.12 Radiculopathy, cervical region (principal); M25.511 Pain in right shoulder; F17.200 Nicotine dependence, unspecified, uncomplicated; Z71.6 Tobacco abuse counseling; Z79.899 Other long term (current) drug therapy
CPT/HCPCS: 73030; 99283; 99284

== ENCOUNTER 2022-10-27 13:55 | Outpatient (RCR) | payer OTHER, SELFPAY | END 2022-11-11 13:31 | disposition home or self-care (01) | LOC: HO.PT 13:55 | PROVIDERS: Visit Provider Nurse Practitioner Family | DX: M25.511 Pain in right shoulder (principal) | CPT/HCPCS: 97140; 97162; 97530 ==

== ENCOUNTER 2022-10-28 10:24 | Outpatient (REF) | payer OTHER, SELFPAY ==
[2022-10-28 10:34] LABS: MANUAL DIFF FLAG NO
[2022-10-28 10:50] LABS: Basophils Percent Auto 0.2 % (0-2); Eosinophils Absolute Auto 0.4 X10*3/uL (0.0-0.4); Eosinophils Percent Auto 2.8 % (0-4); Hematocrit 40.4 % (37.0-47.0); Hemoglobin 12.4 g/dl (12.0-16.0); Imm Gran Abs Auto 0.04 X10*3/uL (0.00-0.03); Imm Gran Pct Auto 0.3 % (0.0-0.4); Lymphocytes Absolute Auto 3.2 X10*3/uL (1.2-4.9); Lymphocytes Percent Auto 26.1 % (20-40); Mean Corpuscular HGB Conc 30.7 g/dl (31.0-35.0); Mean Corpuscular Volume 81.5 fL (80.0-98.0); Mean Platelet Volume 8.7 fL (9.4-12.3); Monocytes Absolute Auto 0.5 X10*3/uL (0.1-1.2); Monocytes Percent Auto 3.9 % (2-11); Neutrophils Absolute Auto 8.2 x10*3/uL (2.0-8.3); Neutrophils Percent Auto 66.7 % (45-73); Platelet Count 539 X10*3/uL (160-400); Red Blood Count 4.96 X10*6/uL (4.20-5.50); White Blood Count 12.3 X10*3/uL (4.8-10.8)
[2022-10-28 11:50] LABS: Alanine Aminotransferase 13 U/L (0-31); Albumin Level 3.9 g/dL (3.5-5.0); Alkaline Phosphatase 61 U/L (39-117); Anion Gap 11 (12-20); Aspartate Amino Transferase 15 U/L (5-31); Bilirubin Direct 0.2 mg/dL (0.0-0.5); Bilirubin Total 0.5 mg/dL (0.0-1.0); Blood Urea Nitrogen 9 mg/dL (9-16); Carbon Dioxide 26 mmol/L (22-29); Chloride 106 mmol/L (96-108); Cholesterol 141 mg/dL; Estimated Glomerular Filt Rate > 60; Glucose Random 98 mg/dL (60-115); HDL Cholesterol 25 mg/dL; LDL Cholesterol Calculated 82 mg/dl; Potassium 4.2 mmol/L (3.3-5.1); Sodium 139 mmol/L (135-145); Total Protein 8.2 g/dL (6.5-8.0); Triglycerides 174 mg/dL
[2022-10-30 23:37] LABS: TS Negative Control Passed; TS Panel A 0; TS Panel B 1; TS Positive Control Passed; TSpotTB Negative (Negative)
== END 2022-10-28 10:25 | disposition home or self-care (01) ==
LOC: HO.LAB 10:24
PROVIDERS: Visit Provider Physician Assistant Medical
DX: L73.2 Hidradenitis suppurativa (principal); Z79.899 Other long term (current) drug therapy
CPT/HCPCS: 36415; 80048; 80061; 80076; 85025; 86481

== ENCOUNTER 2022-11-07 04:34 | Emergency (ER) | payer OTHER, SELFPAY ==
[2022-11-07 04:55] VITALS: BP 119/65; PULSE 90; RESP 16; TEMP 36.9; O2SAT 98; BMI 61.5
[2022-11-07 05:14] VITALS: BP 137/79; PULSE 80; RESP 16; TEMP 37; O2SAT 97
--- NOTE | 2022-11-07 05:46 | ED_ITS ---
HPI - Ear Problem General Chief complaint: Ear Problems Stated complaint: Right ear pain Time Seen by Provider: 11/07/22 05:35 History of Present Illness HPI Narrative: Patient is 7 years old presents today with having right ear pain. No fever no chills. No chest pain or shortness of breath. No systemic complaints. Patient from home. Symptoms been ongoing about 3 days. No neck pain. Related Data Home Medications Medication Instructions Recorded Confirmed adalimumab 40 mg/0.4 mL 40 mg subcut QWEEK 04/08/21 10/01/22 subcutaneous pen kit (Humira(CF) Pen) doxycycline hyclate 100 mg tablet 100 mg PO BID 10/14/21 10/01/22 spironolactone 50 mg tablet 50 mg PO BID 10/14/21 10/01/22 Previous Rx's Medication Instructions Recorded albuterol sulfate 0.63 mg/3 mL 0.63 mg (3 mL) inhalation QID PRN 02/04/22 solution for nebulization shortness of breath or wheezing #75 mL albuterol sulfate 90 mcg/actuation 1 inh inhalation QID PRN shortness 02/04/22 aerosol inhaler of breath or wheezing #8.5 grams nebulizers (AeroEclipse II #1 ea 02/04/22 Nebulizer) albuterol sulfate 90 mcg/actuation 2 puff PO Q4-6H PRN shortness of 03/23/22 aerosol inhaler (ProAir HFA) breath or wheezing #8.5 ea naproxen 500 mg tablet 500 mg PO BID PRN pain 30 days #60 08/25/22 tabs prednisone 50 mg tablet 50 mg PO DAILY #5 tabs 09/27/22 varenicline 0.5 mg (11)-1 mg (42) See Rx Instructions PO PER PKG DIR 09/29/22 tablets in a dose pack #53 ea cyclobenzaprine 10 mg tablet 10 mg PO TID PRN muscle spasm 30 10/01/22 days #90 tabs azithromycin 250 mg tablet See Rx Instructions PO .COMPLEX 11/07/22 upper resp infection #6 tabs ibuprofen 400 mg tablet 400 mg PO Q6H PRN pain #20 tabs 11/07/22 Allergies Allergy/AdvReac Type Severity Reaction Status Date / Time house dust mite Allergy Mild allergy Verified 10/01/22 13:41 insect venom Allergy Mild allergy Verified 10/01/22 13:41 cat dander [CAT] Allergy Unknown UNKNOWN Verified 10/01/22 13:41 tree and shrub pollen [TREE] Allergy Unknown UNKNOWN Verified 10/01/22 13:41 Blue Cheese Allergy Unknown nausea and Uncoded 10/01/22 13:41 vomiting GRASS Allergy Unknown UNKNOWN Uncoded 10/01/22 13:41 Maple Trees Allergy Unknown Excessive Uncoded 10/01/22 13:41 Sneezing Review of Systems Review of Systems: Positive pain to the right ear Yes all other systems are reviewed and are negative PMFSH Past Medical History Attestation statement: The following information was validated with the patient. Medical History ADHD Anemia Anxiety Depression Fungal infection of foot History of ingrown hair Migraines Morbid obesity with BMI of 50.0-59.9, adult No known health problems Prediabetes Pseudotumor cerebri Vitamin D deficiency Surgical History History of myringotomy History of tonsillectomy Hx of cholecystectomy Family History Family History Mother Fibromyalgia Depression Arthritis Father Diabetes Hypertension Brother No problems noted. Sister No problems noted. Maternal Grandmother Hypertension Maternal Grandfather Colon cancer Family/Other Breast cancer Social History Social History Housing: Other Alcohol intake: current Alcohol intake frequency: does not drink Patient Tobacco Use Status: Current everyday Tobacco user Tobacco use type: Cigarette Cigarette Packs Per Day: 1 Smoked in Last 30 Days: Yes e-Cigarette/Vaping Use: Never Used Use of substances other than those prescribed or required for medical reasons: No Substance Use Type: Marijuana Any prior treatment program specific to substance use: No Advance Directives: No Advance Directives Information Provided: No Patient : No service: No Current occupational status: unemployed and student Current occupation: seeking employment Gender identity: Female Cognitive needs: No Hearing needs: No Vision needs: Yes Physical Exam Vital Signs: Vital Signs: Last Vital Signs Temp 98.6 F 11/07/22 05:14 Pulse 80 11/07/22 05:14 Resp 16 11/07/22 05:14 BP 137/79 11/07/22 05:14 Pulse Ox 97 11/07/22 05:14 O2 Del Method Room Air 11/07/22 05:14 BMI result Body Mass Index 61.5 Appearance: Alert. Oriented X3. No acute distress. Eyes: Pupils equal, round and reactive to light. ENT: Pharynx normal. Patient's right ear showed bulging eardrum. Decrease in light reflex. Left ear was normal. There is no ear impaction noted Neck: Normal inspection. Neck supple. No lymph nodes noted. No crepitus CVS: Normal heart rate and rhythm. Pulses normal. Normal S1 and S2 Respiratory: No respiratory distress. Breath sounds normal. No Wheezing. No rales Abdomen: Soft and nontender. No rigidity. No distention. good BS x4 Skin: Skin warm and dry. Normal skin color. Normal skin turgor. Extremities: No lower extremity edema. Neurovascular intact to all extremities. No Lacerations. No Rash Neuro: Oriented X 3. No motor deficit. No sensory deficit. Moving all extermities. No slurred speech Medical Decision Making Medical Decision Making [facility] Narrative: Question otitis media. Will start patient on antibiotics. Follow-up on an outpatient basis. In stable condition. No evidence of perforation of the eardrum. No evidence for malignant otitis as patient has no mastoid tenderness. Patient's forces normal. She is well. She has stable condition. No foreign object noted in the external ear and a Lab Data [facility] Lab Attestation statement: I reviewed the patient's lab results. Discharge Plan Discharge Clinical Impression: Otitis media Patient Disposition: Home, Self-Care Instructions: Ear Infection (ED) Prescriptions: New azithromycin 250 mg tablet See Rx Instructions .ROUTE .COMPLEX Qty: 6 0RF Rx Instructions: take 500 mg today (day 1), then 250 mg for 4 days (days 2-5) ibuprofen 400 mg tablet 400 mg PO Q6H PRN (Reason: pain) Qty: 20 0RF No Action albuterol sulfate [ProAir HFA] 90 mcg/actuation HFA aerosol inhaler 2 puff PO Q4-6H PRN (Reason: shortness of breath or wheezing) Qty: 8.5 0RF varenicline 0.5 mg (11)- 1 mg (42) tablets,dose pack See Rx Instructions PO PER PKG DIR Qty: 53 1RF Rx Instructions: PO PER PKG DIR Humira(CF) Pen 40 mg/0.4 mL pen injector kit 40 mg subcut QWEEK (DME) nebulizers [AeroEclipse II Nebulizer] Misc See Rx Instructions .ROUTE .MEDSUPPLY Qty: 1 0RF Rx Instructions: As directed albuterol sulfate 0.63 mg/3 mL solution for nebulization 0.63 mg inhalation QID PRN (Reason: shortness of breath or wheezing) Qty: 75 0RF albuterol sulfate 90 mcg/actuation HFA aerosol inhaler 1 inh inhalation QID PRN (Reason: shortness of breath or wheezing) Qty: 8.5 0RF prednisone 50 mg tablet 50 mg PO DAILY Qty: 5 0RF doxycycline hyclate 100 mg tablet 100 mg PO BID spironolactone 50 mg tablet 50 mg PO BID naproxen 500 mg tablet 500 mg PO BID PRN (Reason: pain) 30 Days Qty: 60 2RF cyclobenzaprine 10 mg tablet 10 mg PO TID PRN (Reason: muscle spasm) 30 Days Qty: 90 1RF Referrals: Alissa Carrizales NP [Primary Care Provider] - 11/10/22
== END 2022-11-07 05:59 | disposition home or self-care (01) ==
PROVIDERS: Emergency Provider Emergency Medicine Emergency Medical Services; PCP Hospitalist
DX: H66.91 Otitis media, unspecified, right ear (principal); F17.210 Nicotine dependence, cigarettes, uncomplicated
CPT/HCPCS: 99283; 99284

== ENCOUNTER 2022-12-03 11:29 | Outpatient (AMB) | payer OTHER, SELFPAY ==
--- NOTE | 2022-12-03 11:33 | MHC.PC.OV ---
Vital Signs 12/03/22 11:34 Height 5 ft Weight 320 lb BMI 62.5 BP 124/68 Blood Pressure Location Lt brachial Position Sitting Respiration 20 Pulse 89 Pulse Source Pulse Oximeter Temp 98.9 F Temp Source Oral Pulse Oximetry (%) 98 Oxygen Delivery Method Room Air Intake Visit Reasons: f/u neck & r shoulder pain Intake Note: Patient is here for follow up on neck and right shoulder pain, still hurting, tried PT, but car broke down. Allergies house dust mite Allergy (Mild, Verified 12/03/22 12:02) allergy insect venom Allergy (Mild, Verified 12/03/22 12:02) allergy cat dander [CAT] Allergy (Unknown, Verified 12/03/22 12:02) UNKNOWN tree and shrub pollen [TREE] Allergy (Unknown, Verified 12/03/22 12:02) UNKNOWN Blue Cheese Allergy (Unknown, Uncoded 12/03/22 12:02) nausea and vomiting GRASS Allergy (Unknown, Uncoded 12/03/22 12:02) UNKNOWN Maple Trees Allergy (Unknown, Uncoded 12/03/22 12:02) Excessive Sneezing Medication List - Last Reconciled 12/03/22 by Calvin Sharpe CNP adalimumab (Humira(CF) Pen) 40 mg subcut QWEEK albuterol sulfate 0.63 mg (3 mL) inhalation QID PRN albuterol sulfate 90 mcg/actuation 1 inh inhalation QID PRN albuterol sulfate 90 mcg/actuation (ProAir HFA) 2 puffs PO Q4-6H PRN azithromycin take 500 mg today (day 1), then 250 mg for 4 days (days 2-5) cyclobenzaprine 10 mg PO TID PRN 30 days doxycycline hyclate 100 mg PO BID ibuprofen 400 mg PO Q6H PRN naproxen 500 mg PO BID PRN 30 days nebulizers (AeroEclipse II Nebulizer) As directed prednisone 50 mg PO DAILY spironolactone 50 mg PO BID varenicline PO PER PKG DIR Tobacco use date assessed: 12/03/22 Dental Screening Dental Screen Date: 12/03/22 Did you have a dental visit in the last 12 months?: Yes Did you have a dental problem in the last 6 months where you did not have access to dental care?: No Was dental information given to patient?: No HPI HPI Comments History of Present Illness Details 27-year-old female presents for right-sided neck pain and right shoulder pain follow-up She is on naproxen as cyclobenzaprine She was evaluated 2 months ago with instructions to continue current pain med regimen and follow-up with PT She reports continued right sided neck pain; she describes the pain as ache and tug; denies pain to the right shoulder. She notes that she started PT at [facility] in [place] and had 2 sessions. She was discharged due to missed appointments. She requests to do PT at [facility]. She continues to take naproxen and cyclobenzaprine with minimal relief. She reports anxiety and depression. She was on medications on Sertraline 100mg daily and Hydroxyzine 25mg daily as needed for anxiety. She stopped taking 3-4 months ago because she has not heard back from her psychiatrist to schedule an appointment. She stopped going to her therapist 5 months ago because it was not helpful. She states she is currently on wait lists for a therapist and requests assistances with connecting to a new therapist. She has a positive response to the PHQ-9 question regarding thoughts that you would better off be or hurting yourself in some way. She notes that sometimes i feel like i'm a failure or a waste of space to everyone around me, so i think it's better if i'm . She denies SI/HI, denies of committing suicide, and contracts for safety. [facility] Medical History ADHD Anemia Anxiety Depression Fungal infection of foot History of ingrown hair Migraines Morbid obesity with BMI of 50.0-59.9, adult No known health problems Prediabetes Pseudotumor cerebri Vitamin D deficiency Surgical History History of myringotomy History of tonsillectomy Hx of cholecystectomy Family History Mother Fibromyalgia Depression Arthritis Father Diabetes Hypertension Brother No problems noted. Sister No problems noted. Maternal Grandmother Hypertension Maternal Grandfather Colon cancer Family/Other Breast cancer Social History Housing: Other Alcohol intake: current Alcohol intake frequency: does not drink Patient Tobacco Use Status: Current everyday Tobacco user Tobacco use type: Cigarette Cigarette Packs Per Day: 1 e-Cigarette/Vaping Use: Never Used Substance Use Type: Marijuana service: No Current occupational status: unemployed and student Current occupation: seeking employment Gender identity: Female Cognitive needs: No Hearing needs: No Vision needs: Yes Female Reproductive History Menstrual Age of Menarche: 14 Questionnaire PHQ-9 Over the last 2 weeks, how often have you been bothered by any of the following problems? 1. Little interest or pleasure in doing things: nearly every day 2. Feeling down, depressed, or hopeless: nearly every day 3. Trouble falling or staying asleep, or sleeping too much: nearly every day 4. Feeling tired or having little energy: nearly every day 5. Poor appetite or overeating: nearly every day 6. Feeling bad about yourself - or that you are a failure or have let yourself or your family down: nearly every day 7. Trouble concentrating on things, such as reading the newspaper or watching television: several days 8. Moving or speaking so slowly that other people could have noticed. Or the opposite - being so fidgety or restless that you have been moving around a lot more than usual: not at all 9. Thoughts that you would be better off or of hurting yourself in some way: several days Total score: 20 Source: Developed by Drs. Mateo Pittman, Natalia Gonsalez, Hero Baltazar and colleagues, with an educational ester from [employer]. Thrive Questionnaire Date Thrive assessed: 11/14/20 ARIANA-7 AMB Questionnaire ARIANA-7 Feeling nervous, anxious, or on edge: 3 = Nearly every day Not being able to stop or control worryin = More than half the days Worrying too much about different things: 3 = Nearly every day Trouble relaxin = Nearly every day Being so restless that it is hard to sit still: 1 = Several days Becoming easily annoyed or irritable: 3 = Nearly every day Feeling afraid as if something awful might happen: 1 = Several days Total ARIANA-7 score (0-4 normal; 5-9 mild; 10-14 moderate; 15-21 severe): 16 Source: Developed by Natalia Prescott. Wallace, Hero Baltazar and colleagues, with an educational ester from [employer]. Review of Systems Const Details: Const Denies chills, Denies fatigue, Denies fever(s), Denies headache(s) and Denies weakness ENT Denies dizziness and Denies headache(s) Card Denies chest pain, Denies lightheadedness, Denies dyspnea and Denies other (Palpitations) Resp Denies cough, Denies dyspnea, Denies wheezing and Denies other ( shortness of breath) GI Denies abdominal pain, Denies melena, Denies hematochezia, Denies change in bowel habits, Denies dyspepsia and Denies nausea Denies hematuria and Denies dysuria Musc Reports right sided neck pain, Denies abnormal gait, Denies numbness and Denies tingling Skin/Breast Denies rash, Denies unusual bruising and Denies wounds Neuro Denies abnormal gait, Denies dizziness, Denies headache(s), Denies memory loss, Denies numbness, Denies Sensory deficit (Neuro), Denies tingling and Denies weakness Psych Reports anxiety and Reports depression, Denies memory loss Endo Denies fatigue Aller/Immun Denies wheezing Physical exam (Primary Care) Vital Signs: Last Vital Signs Temp 98.9 F 12/03/22 11:34 Pulse 89 12/03/22 11:34 Resp 20 12/03/22 11:34 BP 124/68 12/03/22 11:34 Pulse Ox 98 12/03/22 11:34 Oxygen Delivery Method Room Air 12/03/22 11:34 BMI result Body Mass Index 62.5 Tobacco/Smoking Status: Tobacco use Status Tobacco use date assessed 12/03/22 12/03/22 11:45 Patient Tobacco Use Status Current everyday Tobacco 12/03/22 11:45 Tobacco use type Cigarette 12/03/22 11:45 e-Cigarette/Vaping Use Never Used 12/03/22 11:45 PHQ-9: PHQ-9 Score PHQ-9: Total score 12/03/22 11:45 Thrive Assessment: Date of Thrive Assessment Date Thrive assessed 11/14/20 12/03/22 11:45 Const Other: General: no acute distress and well developed Nutritional Appearance: well nourished Orientation/consciousness: patient oriented x3 HENMT Head: Yes normocephalic and Yes atraumatic Eyes General: appearance normal, both eyes and all related structures Pupils: Equal, round and reactive pupils present EOM: EOMs intact bilaterally Resp Effort & Inspection: normal respiratory effort Auscultation: clear to auscultation bilaterally Cardio Rate: regular rate Rhythm: regular rhythm Heart sounds: S1 normal heart sound present, S2 normal heart sound present, no gallops, no murmurs and no rubs GI Palpation (GI): No Abdominal aortic bruit present, Soft to palpation, nontender, No hepatosplenomegaly present and No Rebound tenderness present Auscultation: normal bowel sounds General: Yes no CVA tenderness Neck/Back/Spine/Pelvis Neck: Tenderness with palpation of right side of neck, no edema, erythema, or overt injury or trauma Back: no CVA tenderness Cervical Spine: cervical ROM normal and No Cervical spine tenderness Thoracic/Lumbar Spine: thoraco-lumbar ROM normal, No pain with thoraco-lumbar ROM, No thoracic spinal tenderness and No lumbar spinal tenderness Extrem General: Yes normal to inspection, No edema and No calf tenderness Right-sided neck pain with ROM of the right shoulder; ROM is limited Skin General: warm and dry. Normal skin color. Normal skin turgor Lesions: no lesions Rashes: no rashes Trauma: no lacerations or abrasions Wounds: no wounds Nails: normal Neuro General: patient oriented x3, gait normal and no focal neuro deficit Cranial nerves: Yes Equal, round and reactive pupils present Cognition (Neuro): normal cognition Gait exam (Neuro): Normal gait present Sensory Exam: No Sensory deficit (Neuro) Psych Appearance: grossly normal Affect: normal affect Attitude: cooperative Thought process: Normal thought process present Assessment and Plan Assessment & Plan (1) Cervicalgia: Code(s): M54.2 - Cervicalgia Plan: She reports continued right sided neck pain; she describes the pain as ache and tug; denies pain to the right shoulder. She notes that she started PT at [facility] in [place] and had 2 sessions. She was discharged due to missed appointments. She requests to do PT at [facility]. She continues to take naproxen and cyclobenzaprine with minimal relief. Tenderness with palpation of right side of neck, no edema, erythema, or overt injury or trauma Right-sided neck pain with ROM of the right shoulder; ROM is limited Continue to take cyclobenzaprine and naproxen as prescribed Warm/cold compresses encouraged PT referral made. Encouraged to bring referral to a location closer to her residence Follow-up with worsening or new symptoms Verbalized understanding and agreed with the treatment plan. (2) Anxiety and depression: Code(s): F41.9 - Anxiety disorder, unspecified; F32.9 - Major depressive disorder, single episode, unspecified Plan: PHQ-9 and GED-9 scores revealed severe depression and anxiety Sertraline and hydroxyzine ordered. Take as prescribed Routine exercise encouraged Contact the crisis help line with SI/HI She met with the community navigator who will provide resources to help her connect to a therapist Follow-up in 1 month or return sooner with worsening or new symptoms Verbalized understanding and agreed with treatment plan. Orders: Orders PT Evaluation and Treatment Today M54.2 - Cervicalgia Medications: New sertraline 100 mg PO DAILY 30 tabs 3RF 30 days hydroxyzine HCl 25 mg PO BID PRN 60 tabs 3RF anxiety Discontinued azithromycin Discontinued Reason: Patient no longer taking take 500 mg today (day 1), then 250 mg for 4 days (days 2-5) 6 tabs 0RF upper resp infection Coding Level of Care Code Est Pt Level 4 (64347) Diagnoses Cervicalgia M54.2 Anxiety and depression F41.9; F32.9 Time Spent (min) 35
[2022-12-03 11:34] VITALS: BP 124/68; PULSE 89; RESP 20; TEMP 37.2; O2SAT 98; BMI 62.5
== END 2022-12-03 12:47 | disposition home or self-care (01) ==
PROVIDERS: PCP Hospitalist; Visit Provider Nurse Practitioner Family
DX: M54.2 Cervicalgia (principal); F41.9 Anxiety disorder, unspecified; F32.9 Major depressive disorder, single episode, unspecified
CPT/HCPCS: 99214

== ENCOUNTER 2022-12-30 08:55 | Outpatient (AMB) | payer OTHER, SELFPAY ==
--- NOTE | 2022-12-30 08:56 | MHC.OFFVIS ---
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 Scribed for VÍCTOR Lund by Nancy Bowen, adjunct faculty for medical terminology, on 12/30/2022 at 9:17 am EST. Boiler Cleaner Required: No Information Interpreted: non-clinical & clinical Bushing And Broach Operator: Bushing And Broach Operator Present (Cherrie) Allergies house dust mite Allergy (Mild, Verified 12/30/22 09:01) allergy insect venom Allergy (Mild, Verified 12/30/22 09:01) allergy cat dander [CAT] Allergy (Unknown, Verified 12/30/22 09:01) UNKNOWN tree and shrub pollen [TREE] Allergy (Unknown, Verified 12/30/22 09:01) UNKNOWN Blue Cheese Allergy (Unknown, Uncoded 12/30/22 09:01) nausea and vomiting GRASS Allergy (Unknown, Uncoded 12/30/22 09:01) UNKNOWN Maple Trees Allergy (Unknown, Uncoded 12/30/22 09:01) Excessive Sneezing Is last menstrual period known: Yes Last menstrual period: 12/25/22 Post menopausal: No Patient : No HPI HPI Comments History of Present Illness Details She is a premenopausal woman presenting for annual exam. She admits to not eating healthy and does not stay active with exercise. Reports she is interested and starting weight management again. Smokes a pack of cigarettes a day. Currently sexually active with female partner. Regular monthly periods with pelvic pain. Admits vaginal itching. Denies internal washing with soap. STD screening offered; she accepts. Denies family hx of ovarian cancer. Last pap smear 12/07/19. [facility] Medical History (Updated 12/30/22 @ 09:34 by Nancy Bowen) ADHD Anemia Anxiety BMI 60.0-69.9, adult Cigarette smoker Depression Dysmenorrhea Fungal infection of foot Hidradenitis suppurativa History of ingrown hair Migraines No known health problems Pelvic pain Prediabetes Pseudotumor cerebri Vaginal itching Vitamin D deficiency Surgical History History of myringotomy History of tonsillectomy Hx of cholecystectomy Family History Mother Fibromyalgia Depression Arthritis Father Diabetes Hypertension Brother No problems noted. Sister No problems noted. Maternal Grandmother Hypertension Maternal Grandfather Colon cancer Family/Other Breast cancer Social History Housing: Other Alcohol intake: current Alcohol intake frequency: does not drink Patient Tobacco Use Status: Current everyday Tobacco user Tobacco use type: Cigarette Cigarette Packs Per Day: 1 e-Cigarette/Vaping Use: Never Used Substance Use Type: Marijuana service: No Current occupational status: unemployed and student Current occupation: seeking employment Gender identity: Female Cognitive needs: No Hearing needs: No Vision needs: Yes Female Reproductive History Menstrual Age of Menarche: 14 Duration of menses: 6-7 days Date of last menstrual period: 12/25/22 control method: none Total pregnancies: 0 Date of last pap smear: 12/07/19 (neg) Physical Exam Vital Signs: Last Vital Signs BP 120/72 12/30/22 08:57 BMI result Body Mass Index 62.9 Const General: cooperative, healthy appearing, no acute distress, well developed and alert Orientation/consciousness: patient oriented x3 HEENT Head: Yes normal to inspection Eyes General: appearance normal, both eyes and all related structures Neck Neck: Yes normal visual inspection Thyroid: Thyroid normal Chest Chest palpation & inspection: normal inspection of the chest Breast/axilla inspection: normal inspection of the breasts (no puckering, dimpling, peau de orange, retraction, discharge, masses) Breast/axilla palpation: normal palpation of the breasts Resp Effort & Inspection: normal respiratory effort GI Other: large protruding rounded abdomen Inspection: Yes normal to inspection, Yes Abdominal panniculus present and Yes obesity Palpation (GI): Soft to palpation (to palpation) Rectal Exam - Female: deferred Other: body habitus limited exam; deep cervix General: Yes bladder normal to inspection External Female Exam: normal external appearance and normal appearance of the urethra Speculum Exam - Vagina: normal appearance of the vagina, normal palpation and normal vaginal discharge Speculum Exam - Cervix: normal appearance of the cervix, normal palpation and Other cervical findings present (bled slightly with pap) Bimanual exam- vagina & uterus: normal palpation and normal palpation Bimanual Exam- Adnexa, other: normal adnexae and no masses Skin General skin exam: no rashes or lesions noted Neuro General: patient oriented x3 Cognition (Neuro): normal cognition Extrem General: Yes normal to inspection Psych Attitude: cooperative Thought process: Normal thought process present Assessment & Plan Assessment & Plan (1) Encounter for well woman exam: Code(s): Z01.419 - Encounter for gynecological examination (general) (routine) without abnormal findings Plan: Discussed: Current recommendations for pap smears per ASCCP guidelines Breast awareness and periodic self breast exams. Maintaining a healthy lifestyle including a well balanced diet and routine exercise. Monitor periods, report any unscheduled bleeding, bleeding episodes less than 21 days apart or heavy prolonged menstrual bleeding. If abnormal bleeding pattern occurs, contact the office All of her questions and concerns were addressed to the best of my ability. RTO in one year for AG. (2) Vaginal itching: Code(s): N89.8 - Other specified noninflammatory disorders of vagina Plan: BV testing and GC/CT panel done today. Await results and treat accordingly. (3) Dysmenorrhea: Code(s): N94.6 - Dysmenorrhea, unspecified Plan: Pelvic US ordered. Follow up via tele-visit. (4) Cigarette smoker: Code(s): F17.210 - Nicotine dependence, cigarettes, uncomplicated Plan: Encourage to lower tobacco intake then quit. (5) Pelvic pain: Code(s): R10.2 - Pelvic and perineal pain (6) Hidradenitis suppurativa: Code(s): L73.2 - Hidradenitis suppurativa (7) Morbid obesity with BMI of 50.0-59.9, adult: Comment: In weight management program at [facility] Code(s): E66.01 - Morbid (severe) obesity due to excess calories; Z68.43 - Body mass index [BMI] 50.0-59.9, adult Orders: Orders US pelvic and transvaginal Today N94.6 - Dysmenorrhea, unspecified, R10.2 - Pelvic and perineal pain Bacterial Vaginosis Panel Today N89.8 - Other specified noninflammatory disorders of vagina, N94.6 - Dysmenorrhea, unspecified, R10.2 - Pelvic and perineal pain CT NG by PCR Today N89.8 - Other specified noninflammatory disorders of vagina, N94.6 - Dysmenorrhea, unspecified, R10.2 - Pelvic and perineal pain Pap Smear Today Z01.419 - Encounter for gynecological examination (general) (routine) without abnormal findings Coding Level of Care Code Est Pt Prev Care [id number]([id number]) Diagnoses Encounter for well woman exam Z01.419 Vaginal itching N89.8 Dysmenorrhea N94.6 Cigarette smoker F17.210 Pelvic pain R10.2 Hidradenitis suppurativa L73.2 Morbid obesity with BMI of 50.0-59.9, adult E66.01; Z68.43
[2022-12-30 08:57] VITALS: BP 120/72; BMI 62.9
== END 2022-12-30 09:35 | disposition home or self-care (01) ==
LOC: HO.HWS 08:56
PROVIDERS: PCP Hospitalist; Visit Provider Advanced Practice Midwife
DX: Z01.419 Encounter for gynecological examination (general) (routine) without abnormal findings (principal); N89.8 Other specified noninflammatory disorders of vagina; N94.6 Dysmenorrhea, unspecified; F17.210 Nicotine dependence, cigarettes, uncomplicated; R10.2 Pelvic and perineal pain; L73.2 Hidradenitis suppurativa; E66.01 Morbid (severe) obesity due to excess calories; Z68.43 Body mass index [BMI] 50.0-59.9, adult
CPT/HCPCS: 99395

== ENCOUNTER 2022-12-30 08:55 | Outpatient (REF) | payer OTHER, SELFPAY | END 2022-12-30 08:56 | disposition home or self-care (01) | LOC: HO.LNP 08:55 | PROVIDERS: PCP Hospitalist; Visit Provider Advanced Practice Midwife | DX: Z01.419 Encounter for gynecological examination (general) (routine) without abnormal findings (principal); R10.2 Pelvic and perineal pain; N94.6 Dysmenorrhea, unspecified; N89.8 Other specified noninflammatory disorders of vagina | CPT/HCPCS: 88142 ==

== ENCOUNTER 2022-12-30 09:30 | Outpatient (REF) | payer OTHER, SELFPAY ==
[2022-12-31 09:14] LABS: CT PCR NOT DETECTED (Not Detect.); NG PCR NOT DETECTED (Not Detect.)
[2022-12-31 10:41] LABS: BV Int Neg Control Negative (Negative); BV Int Pos Control Positive (Positive)
== END 2022-12-30 09:31 | disposition home or self-care (01) ==
LOC: HO.LAB 09:30
PROVIDERS: Visit Provider Advanced Practice Midwife
DX: N89.8 Other specified noninflammatory disorders of vagina (principal); R10.2 Pelvic and perineal pain; N94.6 Dysmenorrhea, unspecified
CPT/HCPCS: 0353U; 87480; 87510; 87660

== ENCOUNTER 2023-01-05 12:53 | Outpatient (REF) | payer OTHER, SELFPAY ==
--- NOTE | ~2023-01-05 | US_ITS ---
EXAMINATION: US PELVIS CLINICAL INFORMATION: Pelvic and perineal pain COMPARISON: Pelvic ultrasound 12/14/2019. TECHNIQUE: Ultrasound of the pelvis is performed using both transabdominal and transvaginal transducers along with Doppler. Transvaginal imaging is performed due to inadequate visualization transabdominally. FINDINGS: Uterus: The uterus is anteverted and measures 8.8 x 3.2 x 5.2 cm. Nabothian cysts in the cervix. The double wall endometrial thickness is 10 mm. The uterus is smooth in contour and has normal myometrial echogenicity. No visible fibroid. Adnexa: Both ovaries are visualized. There is normal color flow to the adnexa. There is no pelvic ascites or fluid collection. Right ovary measures 4.3 x 3.0 x 3.8 cm. Volume 26 mL. There is a 2.8 cm simple appearing dominant follicle, normal finding. No follow-up imaging is recommended. Left ovary measures 3.3 x 2.2 x 2.3 cm. Volume 9 mL. The left ovary appears normal. US/US pelvic and transvaginal IMPRESSION: Normal pelvic ultrasound.
== END 2023-01-05 12:54 | disposition home or self-care (01) ==
LOC: HO.US 12:53
PROVIDERS: PCP Hospitalist; Visit Provider Advanced Practice Midwife
DX: N94.6 Dysmenorrhea, unspecified (principal); R10.2 Pelvic and perineal pain
CPT/HCPCS: 76830; 76856

== ENCOUNTER 2023-01-26 12:52 | Outpatient (AMB) | payer OTHER, SELFPAY ==
--- NOTE | 2023-01-26 12:52 | MHC.OFFVIS ---
Intake Intake Visit Reasons: TV Ultrasound results/TV ok per provider Intake Note: cell # [phone] The patient agreed to use of a pesticide use medical coordinator during this encounter. Scribed for VÍCTOR Lund by Nancy Bowen, pesticide use medical coordinator, on 01/26/2023 at 1:03 pm EST. Allergies house dust mite Allergy (Mild, Verified 01/26/23 12:52) allergy insect venom Allergy (Mild, Verified 01/26/23 12:52) allergy cat dander [CAT] Allergy (Unknown, Verified 01/26/23 12:52) UNKNOWN tree and shrub pollen [TREE] Allergy (Unknown, Verified 01/26/23 12:52) UNKNOWN Blue Cheese Allergy (Unknown, Uncoded 12/30/22 09:01) nausea and vomiting GRASS Allergy (Unknown, Uncoded 12/30/22 09:01) UNKNOWN Maple Trees Allergy (Unknown, Uncoded 12/30/22 09:01) Excessive Sneezing Is last menstrual period known: Yes Last menstrual period: 01/21/23 HPI HPI Comments History of Present Illness Details Doximity live video 1:03 pm - 1:08 pm. Phone Call due to Covid-19 Pandemic. Video was utilized. She presents via phone/live video to discuss US results regarding pelvic pain and dysmenorrhea. Reports OTC Midol which occasionally helps pain. She does not have any questions or concerns. [facility] Medical History BMI 60.0-69.9, adult Dysmenorrhea Pelvic pain Cigarette smoker Vaginal itching History of ingrown hair Fungal infection of foot Hidradenitis suppurativa Migraines Anemia ADHD Pseudotumor cerebri Depression Anxiety Prediabetes Vitamin D deficiency No known health problems Surgical History History of myringotomy History of tonsillectomy Hx of cholecystectomy Family History Mother Fibromyalgia Depression Arthritis Father Diabetes Hypertension Brother No problems noted. Sister No problems noted. Maternal Grandmother Hypertension Maternal Grandfather Colon cancer Family/Other Breast cancer Social History Housing: Other Alcohol intake: current Alcohol intake frequency: does not drink Patient Tobacco Use Status: Current everyday Tobacco user Tobacco use type: Cigarette Cigarette Packs Per Day: 1 e-Cigarette/Vaping Use: Never Used Substance Use Type: Marijuana service: No Current occupational status: unemployed and student Current occupation: seeking employment Gender identity: Female Cognitive needs: No Hearing needs: No Vision needs: Yes Female Reproductive History Menstrual Age of Menarche: 14 Date of last menstrual period: 01/21/23 Physical Exam Const General: cooperative, healthy appearing, comfortable, no acute distress, well developed, alert and awake Results Reviewed Results Reviewed: EXAMINATION: US PELVIS CLINICAL INFORMATION: Pelvic and perineal pain COMPARISON: Pelvic ultrasound 12/14/2019. TECHNIQUE: Ultrasound of the pelvis is performed using both transabdominal and transvaginal transducers along with Doppler. Transvaginal imaging is performed due to inadequate visualization transabdominally. FINDINGS: Uterus: The uterus is anteverted and measures 8.8 x 3.2 x 5.2 cm. Nabothian cysts in the cervix. The double wall endometrial thickness is 10 mm. The uterus is smooth in contour and has normal myometrial echogenicity. No visible fibroid. Adnexa: Both ovaries are visualized. There is normal color flow to the adnexa. There is no pelvic ascites or fluid collection. Right ovary measures 4.3 x 3.0 x 3.8 cm. Volume 26 mL. There is a 2.8 cm simple appearing dominant follicle, normal finding. No follow-up imaging is recommended. Left ovary measures 3.3 x 2.2 x 2.3 cm. Volume 9 mL. The left ovary appears normal. US/US pelvic and transvaginal IMPRESSION: Normal pelvic ultrasound. Assessment & Plan Assessment & Plan (1) Encounter to discuss test results: Code(s): Z71.2 - Person consulting for explanation of examination or test findings Plan: Discussed: US findings:normal. All of her questions and concerns were addressed to the best of my ability and shared decision making. She is agreeable to plan of care. RTO for scheduled AG December 2023. (2) Pelvic pain: Code(s): R10.2 - Pelvic and perineal pain Plan: Advised to use 3 Advil 200 mg (600 milligrams) with food every 6 hrs for pain management. (3) Dysmenorrhea: Code(s): N94.6 - Dysmenorrhea, unspecified Telehealth Telehealth Location of provider rendering services: practice address Location of patient: address on file Patient Identification confirmed using: Name, : Yes Telehealth method: voice only Patient verbally consented to treatment: Yes Patient verbally consented to billing insurance company: Yes Patient informed of any privacy concerns related to visit: Yes Coding Level of Care Code Tele Est Pt Level 3 (80573) Diagnoses Encounter to discuss test results Z71.2 Pelvic pain R10.2 Dysmenorrhea N94.6
== END 2023-01-26 13:37 | disposition home or self-care (01) ==
LOC: HO.HWS 12:52
PROVIDERS: PCP Hospitalist; Visit Provider Advanced Practice Midwife
DX: Z71.2 Person consulting for explanation of examination or test findings (principal); R10.2 Pelvic and perineal pain; N94.6 Dysmenorrhea, unspecified
CPT/HCPCS: 99213

== ENCOUNTER → 2023-01-26 12:52 | Outpatient (BNVA) | payer OTHER, SELFPAY | PROVIDERS: PCP Hospitalist; Visit Provider Advanced Practice Midwife ==

== ENCOUNTER 2023-05-25 20:30 | Emergency (ER) | payer OTHER, SELFPAY ==
[2023-05-25 20:38] VITALS: BP 124/64; PULSE 92; RESP 18; TEMP 36.8; O2SAT 98; BMI 60.5
--- NOTE | 2023-05-25 20:39 | ED_ITS ---
HPI - General Adult General Chief complaint: Upper Respiratory Symptoms Stated complaint: cough,rt ear pain, breathing dif Time Seen by Provider: 05/26/23 01:33 Source: patient Mode of arrival: ambulatory Limitations: no limitations History of Present Illness HPI narrative: Patient comes to the emergency room complaining of 4-5 days of cough. Patient denies fever chills. Patient states that she has been using her inhaler more than often. Related Data Home Medications Medication Instructions Recorded Confirmed adalimumab 40 mg/0.4 mL 40 mg subcut QWEEK 04/08/21 12/03/22 subcutaneous pen kit (Humira(CF) Pen) spironolactone 50 mg tablet 50 mg PO BID 10/14/21 12/03/22 Previous Rx's Medication Instructions Recorded albuterol sulfate 90 mcg/actuation 1 inh inhalation QID PRN shortness 02/04/22 aerosol inhaler of breath or wheezing #8.5 grams nebulizers (AeroEclipse II #1 ea 02/04/22 Nebulizer) albuterol sulfate 90 mcg/actuation 2 puff PO Q4-6H PRN shortness of 03/23/22 aerosol inhaler (ProAir HFA) breath or wheezing #8.5 ea naproxen 500 mg tablet 500 mg PO BID PRN pain 30 days #60 08/25/22 tabs ibuprofen 400 mg tablet 400 mg PO Q6H PRN pain #20 tabs 11/07/22 hydroxyzine HCl 25 mg tablet 25 mg PO BID PRN anxiety #60 tabs 12/03/22 sertraline 100 mg tablet 100 mg PO DAILY 30 days #30 tabs 12/03/22 cyclobenzaprine 10 mg tablet 10 mg PO TID PRN muscle spasm 30 12/11/22 days #90 tabs albuterol sulfate 0.63 mg/3 mL 0.63 mg (3 mL) inhalation QID PRN 12/30/22 solution for nebulization shortness of breath or wheezing #75 mL benzonatate 100 mg capsule 100 mg PO TID PRN cough #10 caps 05/26/23 ibuprofen 600 mg tablet 600 mg PO Q8H PRN fever or pain 05/26/23 #14 tabs prednisone 50 mg tablet 50 mg PO DAILY #4 tabs 05/26/23 Allergies Allergy/AdvReac Type Severity Reaction Status Date / Time house dust mite Allergy Mild allergy Verified 05/25/23 20:40 insect venom Allergy Mild allergy Verified 05/25/23 20:40 cat dander [CAT] Allergy Unknown UNKNOWN Verified 05/25/23 20:40 tree and shrub pollen [TREE] Allergy Unknown UNKNOWN Verified 05/25/23 20:40 Blue Cheese Allergy Unknown nausea and Uncoded 12/30/22 09:01 vomiting GRASS Allergy Unknown UNKNOWN Uncoded 12/30/22 09:01 Maple Trees Allergy Unknown Excessive Uncoded 12/30/22 09:01 Sneezing Review of Systems Review of Systems: Constitutional : No Weight loss, No Fever, No Chills, No Night Sweats, No Fatigue, No Malaise ENT/Mouth : No Hearing loss, No Ear Pain, No Nasal Congestion, No Sinus Pain, No Hoarseness, No sore throat, No Rhinorrhea, No Swallowing Difficulty Eyes: No Eye Pain, No Swelling, No Redness, No Foreign Body, No Discharge, No Vision Changes Cardiovascular : No Chest Pain, No SOB, No Dyspnea on Exertion, No Orthopnea, No Edema, No Palpitations Respiratory : Complaining of dry cough, wheezing Gastrointestinal : No Nausea, No Vomiting, No Diarrhea, No Constipation, No abdominal Pain, No Hematochezia, No Melena Genitourinary : no irregular bleeding, No Dysuria, No Urinary Frequency, No Hematuria, No Urinary Incontinence, No Urgency, No Flank Pain, No Urinary Flow Changes, No Hesitancy Musculoskeletal : No joint pain, No Myalgias, No Joint Swelling Skin : No Skin Lesions, No rash Neuro : No Weakness, No Numbness, No Paresthesias, No Loss of Consciousness, No Dizziness, No Headache Psych : No Anxiety/Panic, No Depression, No SI/HI/AH/VH, No Social Issues, Heme/Lymph: No Bruising, No Bleeding,No Lymphadenopathy Endocrine : No Polyuria, No Polydipsia, No Temperature Intolerance PMFSH Past Medical History Onset Date is defined in the Problem List Problems that require an onset date and time if occurred within 24 hrs of arrival to the ED Aortic Dissection and Rupture; Neurologic impairment; Cardiopulmonary Arrest; Endotracheal Intubation; Insertion or Replacement of Mechanical Circulatory Assist Device Medical History BMI 60.0-69.9, adult Dysmenorrhea Pelvic pain Cigarette smoker Vaginal itching History of ingrown hair Fungal infection of foot Hidradenitis suppurativa Migraines Anemia ADHD Pseudotumor cerebri Depression Anxiety Prediabetes Vitamin D deficiency No known health problems Surgical History History of myringotomy History of tonsillectomy Hx of cholecystectomy Family History Family History Mother Fibromyalgia Depression Arthritis Father Diabetes Hypertension Brother No problems noted. Sister No problems noted. Maternal Grandmother Hypertension Maternal Grandfather Colon cancer Family/Other Breast cancer Social History Social History Housing: Other Alcohol intake: current Alcohol intake frequency: does not drink Patient Tobacco Use Status: Current everyday Tobacco user Tobacco use type: Cigarette Cigarette Packs Per Day: 1 e-Cigarette/Vaping Use: Never Used Substance Use Type: Marijuana Advance Directives: No Advance Directives Information Provided: No service: No Current occupational status: unemployed and student Current occupation: seeking employment Gender identity: Female Cognitive needs: No Hearing needs: No Vision needs: Yes Physical Exam ED Vital Signs: Vital Signs - 24 hr 05/25/23 20:38 05/26/23 01:19 05/26/23 01:19 Temperature 98.2 F 98.9 F Pulse Rate 92 104 H Respiratory Rate 18 22 H Blood Pressure 124/64 122/70 Pulse Oximetry 98 95 95 Oxygen Delivery Method Room Air Room Air Room Air BMI result Body Mass Index 60.5 Const Other: Appearance: Alert. Oriented X3. No acute distress. Eyes: Pupils equal, round and reactive to light. ENT: Pharynx normal. Neck: Normal inspection. Neck supple. No lymph nodes noted. No crepitus CVS: Normal heart rate and rhythm. Pulses normal. Normal S1 and S2 Respiratory: No respiratory distress. Breath sounds normal. No Wheezing. No rales Abdomen: Soft and nontender. No rigidity. No distention. Skin: Skin warm and dry. Normal skin color. Normal skin turgor. Extremities: No lower extremity edema. No Lacerations. No Rash Neuro: Oriented X 3. No motor deficit. No sensory deficit. Moving all extremities. No slurred speech. CN 2 through 12 grossly intact Psych: calm, cooperative, normal affect Course Course Course Narrative: RME: 27 yold female presents to the ED for coughing, ear pain, and sore throat. patietn denies any chest pain, or SOB. SARS and strep ordered. Medications Administered Discontinued Medications Generic Name Dose Route Start Last Admin Trade Name Freq PRN Reason Stop Dose Admin Benzonatate 200 mg 05/26/23 01:46 05/26/23 02:10 Benzonatate 100 Mg Capsule PO 05/26/23 01:47 200 mg ONCE ONE Administration Prednisone 50 mg 05/26/23 01:46 05/26/23 02:10 Prednisone 10 Mg Tablet PO 05/26/23 01:47 50 mg ONCE ONE Administration Medical Decision Making Medical Decision Making [facility] Narrative: -my interpretation of labs: Patient tested positive for RSV -on physical exam, patient is not wheezing, airway completely open, good air mov ement -patient given a dose of Tessalon Perles and prednisone, patient states that she has enough albuterol at home Differential Diagnosis Differential Diagnoses: The differential diagnosis associated with the presentation includes (RSV, COVID, URI) Lab Data [facility] Lab Attestation statement: I reviewed the patient's lab results. Labs: Lab Results 05/25/23 Range/Units 21:54 Influenza Type A (PCR) NEGATIVE (Negative) Influenza Type B (PCR) NEGATIVE (Negative) RSV RNA Qual (PCR) POSITIVE A (Negative) SARS-CoV-2 RNA (RT-PCR) NEGATIVE (Negative) S. pyogenes GrpA WU Negative (Negative) Discharge Plan Discharge Clinical Impression: RSV bronchiolitis, Asthma Patient Disposition: Home, Self-Care Instructions: Bronchiolitis (ED), Asthma (ED) Additional Instructions: Please follow-up with your primary care physician tomorrow. If you have any worsening or new symptoms, please return to the emergency room or call 911 Prescriptions: New prednisone 50 mg tablet 50 mg PO DAILY Qty: 4 0RF benzonatate 100 mg capsule 100 mg PO TID PRN (Reason: cough) Qty: 10 0RF ibuprofen 600 mg tablet 600 mg PO Q8H PRN (Reason: fever or pain) Qty: 14 0RF No Action albuterol sulfate [ProAir HFA] 90 mcg/actuation HFA aerosol inhaler 2 puff PO Q4-6H PRN (Reason: shortness of breath or wheezing) Qty: 8.5 0RF cyclobenzaprine 10 mg tablet 10 mg PO TID PRN (Reason: muscle spasm) 30 Days Qty: 90 0RF albuterol sulfate 0.63 mg/3 mL solution for nebulization 0.63 mg inhalation QID PRN (Reason: shortness of breath or wheezing) Qty: 75 3RF Humira(CF) Pen 40 mg/0.4 mL pen injector kit 40 mg subcut QWEEK (DME) nebulizers [AeroEclipse II Nebulizer] Misc See Rx Instructions .ROUTE .MEDSUPPLY Qty: 1 0RF Rx Instructions: As directed albuterol sulfate 90 mcg/actuation HFA aerosol inhaler 1 inh inhalation QID PRN (Reason: shortness of breath or wheezing) Qty: 8.5 0RF ibuprofen 400 mg tablet 400 mg PO Q6H PRN (Reason: pain) Qty: 20 0RF spironolactone 50 mg tablet 50 mg PO BID naproxen 500 mg tablet 500 mg PO BID PRN (Reason: pain) 30 Days Qty: 60 2RF sertraline 100 mg tablet 100 mg PO DAILY 30 Days Qty: 30 3RF hydroxyzine HCl 25 mg tablet 25 mg PO BID PRN (Reason: anxiety) Qty: 60 3RF Interventions: ED Discharge Assessment Last Done: 05/26/23 02:08 Discharge Date/Time: 05/26/23 02:15
[2023-05-25 22:09] LABS: IDNOW Serial# 08D9AD1C
[2023-05-25 22:10] LABS: Strep A Nucleic Acid Negative (Negative)
[2023-05-25 22:38] LABS: Influenza A PCR NEGATIVE (Negative); Influenza B PCR NEGATIVE (Negative); Resp Syncy Virus RNA Qual PCR POSITIVE (Negative); SARS COV2 PCR INHOUSE NEGATIVE (Negative)
[2023-05-26 01:19] VITALS: BP 122/70; PULSE 104; RESP 22; TEMP 37.2; O2SAT 95
--- NOTE | 2023-05-26 01:19 | PC.NURSE ---
SLIGHT EXP WHEEZING ON AUSC. HX ASTHMA. AIRWAY PATENT. SLIGHTLY TACHYPNEIC 22 BREATHS/MIN. AWAITING PRIMARY EVAL BY ED PROVIDER. SPOUSE AT BEDSIDE. NAD. VSS. CALL [facility] WITHIN REACH.
[2023-05-26] MEDS: predniSONE 10 MG TABLET 50 MG PO (02:10)
[2023-05-26] MEDS: Benzonatate 100 MG CAPSULE 200 MG PO (02:10)
== END 2023-05-26 02:15 | disposition home or self-care (01) ==
PROVIDERS: Physician Assistant; Emergency Provider Emergency Medicine; PCP Hospitalist
DX: J21.0 Acute bronchiolitis due to respiratory syncytial virus (principal); F17.210 Nicotine dependence, cigarettes, uncomplicated; F12.90 Cannabis use, unspecified, uncomplicated; E66.9 Obesity, unspecified; Z68.44 Body mass index [BMI] 60.0-69.9, adult; J45.909 Unspecified asthma, uncomplicated; Z20.822 Contact with and (suspected) exposure to COVID-19; Z20.828 Contact with and (suspected) exposure to other viral communicable diseases
CPT/HCPCS: 0241U; 87651; 99283; 99284

== ENCOUNTER 2023-08-13 12:42 | Outpatient (AMB) | payer OTHER, SELFPAY ==
[2023-08-13 12:44] VITALS: BP 110/80; PULSE 94; TEMP 36.4; O2SAT 99; BMI 60.3
--- NOTE | 2023-08-13 12:44 | AM.OFFWIN_ITS ---
Intake Vital Signs 08/13/23 12:44 Height 5 ft 1 in Weight 319 lb BMI 60.3 BP 110/80 Blood Pressure Location Lt brachial Position Sitting Pulse 94 Pulse Source Pulse Oximeter Temp 97.6 F Temp Source Temporal Artery Scan Pulse Oximetry (%) 99 Oxygen Delivery Method Room Air Intake Visit Reasons: EP Migraine, DM, not well Intake Note: pt is here today for migraines started 4 days ago Patient Tobacco Use Status: Current everyday Tobacco user Allergies house dust mite Allergy (Mild, Verified 08/13/23 12:49) allergy insect venom Allergy (Mild, Verified 08/13/23 12:49) allergy cat dander [CAT] Allergy (Unknown, Verified 08/13/23 12:49) UNKNOWN tree and shrub pollen [TREE] Allergy (Unknown, Verified 08/13/23 12:49) UNKNOWN Blue Cheese Allergy (Unknown, Uncoded 12/30/22 09:01) nausea and vomiting GRASS Allergy (Unknown, Uncoded 12/30/22 09:01) UNKNOWN Maple Trees Allergy (Unknown, Uncoded 12/30/22 09:01) Excessive Sneezing Do you need a note to return to daycare/school/sports/work: Yes HPI HPI Comments History of Present Illness Details 27 y/o female patient who presents to [facility] in clinic with c/o persitetnt headaches associated with sound and light sensitivity x 3 days. Denies nausea or vomiting. She does report Blurry vision at times - she does wear eye glasses. [facility] Medical History BMI 60.0-69.9, adult Dysmenorrhea Pelvic pain Cigarette smoker Vaginal itching History of ingrown hair Fungal infection of foot Hidradenitis suppurativa Migraines Anemia ADHD Pseudotumor cerebri Depression Anxiety Prediabetes Vitamin D deficiency No known health problems Surgical History History of myringotomy History of tonsillectomy Hx of cholecystectomy Family History Mother Fibromyalgia Depression Arthritis Father Diabetes Hypertension Brother No problems noted. Sister No problems noted. Maternal Grandmother Hypertension Maternal Grandfather Colon cancer Family/Other Breast cancer Social History Housing: Other Alcohol intake: current Alcohol intake frequency: does not drink Patient Tobacco Use Status: Current everyday Tobacco user Tobacco use type: Cigarette Cigarette Packs Per Day: 1 e-Cigarette/Vaping Use: Never Used Substance Use Type: Marijuana service: No Current occupational status: unemployed and student Current occupation: seeking employment Gender identity: Female Cognitive needs: No Hearing needs: No Vision needs: Yes Female Reproductive History Menstrual Age of Menarche: 14 Review of Systems Const All systems reviewed & are unremarkable except as noted in HPI and below Physical Exam Vital Signs: Last Vital Signs Temp 97.6 F 08/13/23 12:44 Pulse 94 08/13/23 12:44 BP 110/80 08/13/23 12:44 Pulse Ox 99 08/13/23 12:44 Oxygen Delivery Method Room Air 08/13/23 12:44 BMI result Body Mass Index 60.3 Const General: No comfortable Nutritional Appearance: obese morbidly obese Orientation/consciousness: patient oriented x3 HEENT Head: Yes normocephalic Eyes Pupils: Equal, round and reactive pupils present EOM: EOMs intact bilaterally Neuro General: patient oriented x3, gait normal and moves all extremities Cranial nerves: Yes Equal, round and reactive pupils present Psych Speech and movement: Normal speech and movement present Attitude: cooperative Assessment & Plan Assessment & Plan (1) Generalized headaches: Code(s): R51.9 - Headache, unspecified Plan: - Rest in the quite and dark room - Hydrate well with water - F/U with eye doctor as scheduled. - F/U with PCP if not better. - Take medications as prescribed. Medications: New mnlyygi-aiazkfadfhzcv-xcnkeinf 250-250-65 mg (Excedrin Migraine) 2 tabs PO Q6H 20 tabs 0RF R51.9 - Headache, unspecified sumatriptan succinate take 1 tab at onset of headache; if no relief may repeat 1 tab after at least 2 hrs; max = 4 tabs/24 hr PO 20 tabs 0RF R51.9 - Headache, unspecified Coding Level of Care Code Est Pt Level 3 (38455) Diagnoses Generalized headaches R51.9 Time Spent (min) 15
== END 2023-08-13 13:31 | disposition home or self-care (01) ==
PROVIDERS: PCP Nurse Practitioner Family; Visit Provider Nurse Practitioner Family
DX: R51.9 Headache, unspecified (principal)
CPT/HCPCS: 99213

== ENCOUNTER 2023-09-06 11:35 | Outpatient (AMB) | payer OTHER, SELFPAY ==
--- NOTE | 2023-09-06 11:44 | MHC.PC.OV ---
Vital Signs 09/06/23 11:46 Height 5 ft 1 in Weight 318 lb BMI 60.1 BP 118/60 Blood Pressure Location Rt brachial Position Sitting Pulse 100 Pulse Source Pulse Oximeter Pulse Oximetry (%) 99 Oxygen Delivery Method Room Air Intake Visit Reasons: CHRISTIANO SV/Annual PE Allergies house dust mite Allergy (Mild, Verified 09/06/23 11:48) allergy insect venom Allergy (Mild, Verified 09/06/23 11:48) allergy cat dander [CAT] Allergy (Unknown, Verified 09/06/23 11:48) UNKNOWN tree and shrub pollen [TREE] Allergy (Unknown, Verified 09/06/23 11:48) UNKNOWN Blue Cheese Allergy (Unknown, Uncoded 12/30/22 09:01) nausea and vomiting GRASS Allergy (Unknown, Uncoded 12/30/22 09:01) UNKNOWN Maple Trees Allergy (Unknown, Uncoded 12/30/22 09:01) Excessive Sneezing Medication List - Last Reconciled 09/06/23 by Patricia Agee, BANKRUPTCY ATTORNEY- albuterol sulfate 0.63 mg (3 mL) inhalation QID PRN albuterol sulfate 90 mcg/actuation (ProAir HFA) 2 puffs PO Q4-6H PRN wozqbop-[id number]-[id number] 250-250-65 mg (Excedrin Migraine) 2 tabs PO Q6H bupropion HCl XL 150 mg PO QAM cyclobenzaprine 10 mg PO TID PRN 30 days hydroxyzine HCl 25 mg PO BID PRN ibuprofen 400 mg PO Q6H PRN nebulizers (AeroEclipse II Nebulizer) As directed secukinumab (Cosentyx Pen 300 mg/2 Pens () mg subcut Q4W sertraline 100 mg PO DAILY 30 days spironolactone 50 mg PO BID sumatriptan succinate take 1 tab at onset of headache; if no relief may repeat 1 tab after at least 2 hrs; max = 4 tabs/24 hr PO Tobacco use date assessed: 12/03/22 Dental Screening Dental Screen Date: 12/03/22 Did you have a dental visit in the last 12 months?: Yes Did you have a dental problem in the last 6 months where you did not have access to dental care?: No Was dental information given to patient?: Patient has dentist HPI HPI Comments History of Present Illness Details 27-year-old female with hidradenitis suppurativa, migraines, anemia, ADHD, pseudotumor cerebri, depression with suicide attempt in 2020, anxiety, prediabetes, vitamin-D deficiency, obesity, obstructive sleep apnea on APAP 5-20 cm H2O, current cigarette smoker, mild intermittent asthma, chronic joint pain Status post myringotomy, tonsillectomy, cholecystectomy Specialists Sleep medicine 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 Does have migraines with abortive treatment. Up to date on vaccines Eyes - wears glasses; will est care w/ [facility], first appt October 2023. [facility] Medical History (Updated 09/06/23 @ 12:36 by Patricia Agee, [facility]) BMI 60.0-69.9, adult Dysmenorrhea Pelvic pain Cigarette smoker Vaginal itching History of ingrown hair Fungal infection of foot Hidradenitis suppurativa Migraines Anemia ADHD Pseudotumor cerebri Depression Anxiety Prediabetes Vitamin D deficiency No known health problems Surgical History History of myringotomy History of tonsillectomy Hx of cholecystectomy Family History Mother Fibromyalgia Depression Arthritis Father Diabetes Hypertension Brother No problems noted. Sister No problems noted. Maternal Grandmother Hypertension Maternal Grandfather Colon cancer Family/Other Breast cancer Social History Housing: Other Alcohol intake: current Alcohol intake frequency: does not drink Patient Tobacco Use Status: Current everyday Tobacco user Tobacco use type: Cigarette Cigarette Packs Per Day: 1 Years Smoked: 3 e-Cigarette/Vaping Use: Never Used Second Hand Smoke Exposure: No Substance Use Type: Marijuana service: No Current occupational status: unemployed and student Current occupation: seeking employment Gender identity: Female Cognitive needs: No Hearing needs: No Vision needs: Yes Female Reproductive History Menstrual Age of Menarche: 14 Questionnaire PHQ-9 Over the last 2 weeks, how often have you been bothered by any of the following problems? 1. Little interest or pleasure in doing things: nearly every day 2. Feeling down, depressed, or hopeless: more than half the days 3. Trouble falling or staying asleep, or sleeping too much: more than half the days 4. Feeling tired or having little energy: nearly every day 5. Poor appetite or overeating: nearly every day 6. Feeling bad about yourself - or that you are a failure or have let yourself or your family down: more than half the days 7. Trouble concentrating on things, such as reading the newspaper or watching television: nearly every day 8. Moving or speaking so slowly that other people could have noticed. Or the opposite - being so fidgety or restless that you have been moving around a lot more than usual: not at all 9. Thoughts that you would be better off or of hurting yourself in some way: more than half the days Total score: 20 Depression Screening Interpretation: Positive Depression Screening Follow-up: Existing condition and In treatment Depression Screening Done: Yes 04456 - PHQ-9 Billing: Yes Source: Developed by Drs. Mateo Pittman, Natalia Gonsalez, Hero Baltazar and colleagues, with an educational ester from [employer]. Thrive Questionnaire Date Thrive assessed: 11/14/20 I am a: Patient What is your living situation today?: I have a steady place to live Within the past 12 months, did the food you bought not last and you didn't have the money to get more?: Never true Within the past 12 months, did you worry whether your food would run out before you got money to buy more?: Never true Do you have trouble paying for medicines?: No Do you have trouble getting transportation to medical appointments?: No Do you have trouble paying your heating and electricity bill?: No Do you have trouble taking care of your child, family member or friend?: No Do you have trouble with day-to-day activities such as bathing, preparing meals, shopping, managing finances, etc.?: No Are you interested in more education?: No Please select the resources that you would like help with: None Currently or been in a relationship where the following occur: no concerns reported THRIVE Score: 0 AUDIT C Alcohol Use Questionnaire (AUDIT-C) 1. How often do you have a drink containing alcohol?: Never Total Score: 0 Score Reviewed/Action Taken: Yes ARIANA-7 AMB Questionnaire ARIANA-7 Date ARIANA - 7 assessed: 09/06/23 Feeling nervous, anxious, or on edge: 3 = Nearly every day Not being able to stop or control worryin = Nearly every day Worrying too much about different things: 3 = Nearly every day Trouble relaxin = Nearly every day Being so restless that it is hard to sit still: 3 = Nearly every day Becoming easily annoyed or irritable: 3 = Nearly every day Feeling afraid as if something awful might happen: 3 = Nearly every day Total ARIANA-7 score (0-4 normal; 5-9 mild; 10-14 moderate; 15-21 severe): 21 Source: Developed by Drs. Mateo Pittman, Natalia Gonsalez, Hero Baltazar and colleagues, with an educational ester from [employer]. ARIANA-7 Assessment Billing ARIANA-7 Assessment Tool: ARIANA-7 Assessment 47882 ACT Questionnaire In the past 4 weeks, how much of the time did your asthma keep you from getting as much done at work, school or at home?: None of the time During the past 4 weeks, how often have you had shortness of breath?: Not at all During the past 4 weeks, how often did your asthma symptoms wake you up at night or earlier than usual in the morning?: Not at all During the past 4 weeks, how often have you had to use your rescue inhaler or nebulizer medication?: Not at all How would you rate your asthma control during the past 4 weeks?: Completely controlled ACT Interpretation: Negative Score: 25 Review of Systems Const Details: Constitutional: Denies fever. Skin: Denies rash. Eye: Denies eye pain. ENMT: Denies sore throat and nasal congestion. Respiratory: Denies shortness of breath and cough. Gastrointestinal: Denies nausea, vomiting or abdominal pain. Cardiovascular: Denies chest pain and syncope. Genitourinary: Denies dysuria. Musculoskeletal: Chronic generalized joint pain Neurologic: Denies headaches, confusion, and weakness. Psychiatric: Denies suicidal thoughts and substance abuse. Passive suicidality. Active with a counselor. Contracts for safety. Allergy/ Immunologic: Denies impaired immunity. Physical exam (Primary Care) BMI Assessment/Plan discussion: High BMI High, discussed plan: lifestyle Tobacco/Smoking Status: Tobacco use Status Tobacco use date assessed 12/03/22 08/13/23 12:40 Patient Tobacco Use Status Current everyday Tobacco 08/13/23 12:49 Tobacco use type Cigarette 08/13/23 12:40 e-Cigarette/Vaping Use Never Used 08/13/23 12:40 Are you ready to quit: No Tobacco cessation counseling provided: Yes Items discussed: Other Relapse Prevention: discussed the importance of a supportive environment, discussed extending NRT, discussed negative mood or depression after quitting, weight gain after smoking is common and discussed dietary, exercise and/or lifestyle changes Number of minutes spent counselin CPT code: 74134 - 4-10 Minutes Depression Screening Interpretation: Positive Depression Screening Follow-up: Existing condition and In treatment Thrive Assessment: Date of Thrive Assessment Date Thrive assessed 11/14/20 08/13/23 12:40 Currently or been in a relationship where the following occur: no concerns reported Advance Care Planning discussion: Exists, not on file Date of discussion: 09/06/23 Who was present: Self Forms completed: Health Care Proxy and MOLST Time spent: 1-15 minutes, not on file Actual minutes spent: 3 Const Other: General: Well developed, well nourished, in no acute distress. Appears stated age. Head: Normocephalic, atraumatic. Eyes: Pupils are equal, round and reactive to light and accommodation. Conjunctivae are clear. Vision grossly normal. Ears: TMs clear AU, EACS dry and flaky bilat right worse than left Nose: Patent, without discharge. Mouth: There are no ulcers or lesions noted. No inflammation, no post nasal drip, no plaques nor exudates. Neck: Supple, no adenopathy or thyromegaly. Lungs: Clear to auscultation bilaterally. Diminished throughout Heart: Regular rate and rhythm. No murmurs, click, rubs or gallops are noted. Abdomen: Bowel sounds present in all quadrants. The abdomen is soft, nontender, with no masses or organomegaly noted. No hernias are noted. Technically difficult exam given body habitus Musculoskeletal: Joints are nontender, without swelling, redness, or effusions. Range of motion is observed to be normal. Pulses: Peripheral pulses are equal and palpable bilaterally. Extremities: No clubbing, cyanosis nor edema is noted. Neurologic: Gait and station normal. Cranial Nerves 2-12 intact. Motor strength grossly symmetrical and intact. No sensory loss. Balance normal. Skin: No rashes, ulcers, or lesions noted. Turgor is good. Skin color is good. Hair and nails are without abnormalities. Hirsutism, acanthosis nigricans Psych: Normal eye contact, affect and mood appropriate, and normal interactions. Patient is alert and appropriate to context. Assessment and Plan Assessment & Plan (1) Encounter for general adult medical examination without abnormal findings: Code(s): Z00.00 - Encounter for general adult medical examination without abnormal findings (2) ARIANA (generalized anxiety disorder): Comment: Managed by outside prescriber. Referral placed for counselor. Continue sertraline and Wellbutrin. Code(s): F41.1 - Generalized anxiety disorder (3) Polymyalgia: Comment: Would like labs checked. Rheumatoid factor and BAMBI ordered. I did not order inflammatory markers given her current tobacco use and obesity. I did not find that would be clinically useful. Code(s): M35.3 - Polymyalgia rheumatica (4) BMI 60.0-69.9, adult: Comment: Lifestyle modifications encouraged. Code(s): Z68.44 - Body mass index [BMI] 60.0-69.9, adult (5) Hidradenitis suppurativa: Comment: Active with Dermatology. On Cosentyx. Code(s): L73.2 - Hidradenitis suppurativa (6) Cigarette smoker: Comment: No interested in quitting. Education provided. Code(s): F17.210 - Nicotine dependence, cigarettes, uncomplicated (7) Obstructive sleep apnea: Comment: In-lab PSG (12/11/20 at [facility] ) revealed: AHI: 12/hr; REM AHI: 47/hr; O2 rolanda; Periodic limb movement of sleep (PLMS) index: 9.7/hr; PLMS arousal index: 2.8/hr. Followed by sleep medicine on CPAP. Continue Code(s): G47.33 - Obstructive sleep apnea (adult) (pediatric) (8) Prediabetes: Comment: We will update A1c today. Code(s): R73.03 - Prediabetes (9) MDD (major depressive disorder), recurrent episode: Comment: Current active managed by psychiatrist. Needs referral for counseling which was placed today. Continue sertraline and Wellbutrin. Code(s): F33.9 - Major depressive disorder, recurrent, unspecified Qualifiers: Major depression episode severity: severe Psychotic features: without psychotic features Qualified Code(s): F33.2 - Major depressive disorder, recurrent severe without psychotic features (10) Migraine with aura: Comment: Was managed by Neurology but reports that she no longer follows with them. Has abortive medications of sumatriptan and Excedrin migraine which she uses with success. She can continue. Code(s): G43.109 - Migraine with aura, not intractable, without status migrainosus Qualifiers: Status migrainosus presence: without status migrainosus Intractability: not intractable Qualified Code(s): G43.109 - Migraine with aura, not intractable, without status migrainosus (11) Hirsutism: Comment: Noted on exam followed by rn gynecology. Code(s): L68.0 - Hirsutism (12) Mild intermittent asthma: Comment: Well controlled on p.r.n. Paulina only. Continue. Code(s): J45.20 - Mild intermittent asthma, uncomplicated Qualifiers: Asthma complication type: uncomplicated Qualified Code(s): J45.20 - Mild intermittent asthma, uncomplicated Orders: Orders Hemoglobin A1c Today Z00.00 - Encounter for general adult medical examination without abnormal findings Comprehensive Met. Panel Today Z00.00 - Encounter for general adult medical examination without abnormal findings Microalbumin, Random (w Creat) Today Z00.00 - Encounter for general adult medical examination without abnormal findings TSH reflex Free T4 Today Z00.00 - Encounter for general adult medical examination without abnormal findings Vitamin B12 and Folate Today Z00.00 - Encounter for general adult medical examination without abnormal findings Complete Blood Count no Diff Today Z00.00 - Encounter for general adult medical examination without abnormal findings IRON PROFILE Today Z00.00 - Encounter for general adult medical examination without abnormal findings Rheumatoid Factor Today M35.3 - Polymyalgia rheumatica BAMBI Reflex Titer and Pattern Today M35.3 - Polymyalgia rheumatica LDL Cholesterol Direct Today Z00.00 - Encounter for general adult medical examination without abnormal findings Vitamin D 1,25 dihydroxy Today Z00.00 - Encounter for general adult medical examination without abnormal findings Referrals Counseling Referral F41.1 - Generalized anxiety disorder Medications: New desonide 0.05% apply to ears sparingly as needed 1 appl topical BID PRN 15 grams 0RF itching Patient Instructions: Return to office in 1 year for complete physical exam, sooner if needed. Health screenings for women ages 18 to 39 You should visit your health care provider from time to time, even if you are healthy. The purpose of these visits is to: Screen for medical issues Assess your risk for future medical problems Encourage a healthy lifestyle Update vaccinations and other preventive care services Help you get to know your provider in case of an illness Information Even if you feel fine, you should still see your provider for regular checkups. These visits can help you avoid problems in the future. For example, the only way to find out if you have high blood pressure is to have it checked regularly. High blood sugar and high cholesterol levels also may not have any symptoms in the early stages. A simple blood test can check for these conditions. There are specific times when you should see your provider or receive specific health screenings. The [place] Preventive Services Task Force publishes a list of recommended screenings. Below are screening guidelines for women ages 18 to 39. BLOOD PRESSURE SCREENING Your blood pressure should be checked at least once every 3 to 5 years if: Your blood pressure is in the normal range (top number less than 120 mm Hg and bottom number less than 80 mm Hg) You don't have risk factors for high blood pressure Ask your provider if you need your blood pressure checked more often if: The top number is 120 to 129 mm Hg or the bottom number is 70 to 79 mm Hg You have diabetes, heart disease, kidney problems, are overweight, or have certain other health conditions You have a first-degree relative with high blood pressure You are Black You had high blood pressure during a If the top number is 130 mm Hg or greater or the bottom number is 80 mm Hg or greater, this is considered stage 1 hypertension. Schedule an appointment with your provider to learn how you can reduce your blood pressure. Watch for blood pressure screenings in your area. Ask your provider if you can stop in to have your blood pressure checked. BREAST CANCER SCREENING Experts do not agree about the benefits of breast self-exams in finding breast cancer or saving lives. Talk to your provider about what is best for you. A screening mammogram is not recommended for most women under age 40. Your provider may discuss and recommend mammograms, MRI scans, or ultrasounds if you have an increased risk for breast cancer, such as: A mother or sister who had breast cancer at a young age (most often starting screening earlier than the age the close relative was diagnosed) You carry a high-risk genetic marker CERVICAL CANCER SCREENING Cervical cancer screening should start at age 21 years unless your provider advises otherwise. After the first test: Women ages 21 through 29 should have a Pap test every 3 years. Exoprts do not agree on whether HPV testing is recommended for this age group. Women ages 30 through 65 should be screened with either a Pap test every 3 years or the HPV test every 5 years or both tests every 5 years (called cotesting ). Women who have been treated for precancer (cervical dysplasia) should continue to have Pap tests for 20 years after treatment or until age 65, whichever is longer. If you have had your uterus and cervix removed (total hysterectomy), and you have not been diagnosed with cervical cancer or precancer (high grade cervical neoplasia), you do not need cervical cancer screening. CHOLESTEROL SCREENING Cholesterol screening should begin at: Age 45 for women with no known risk factors for coronary heart disease Age 20 for women with known risk factors for coronary heart disease Repeat cholesterol screening should take place: Every 5 years for women with normal cholesterol levels More often if changes occur in lifestyle (including weight gain and diet) More often if you have diabetes, heart disease, kidney problems, or certain other conditions DIABETES SCREENING You should be screened for diabetes starting at age 35 and then repeated every 3 years if you have no risk factors for diabetes. Screening may need to start earlier and be repeated more often if you have other risk factors for diabetes, such as: You have a first degree relative with diabetes. You are overweight or have obesity. You have high blood pressure, prediabetes, or a history of heart disease. Screening for diabetes should be done if you are planning to become and you are overweight and have other risk factors such as high blood pressure. DENTAL EXAM Go to the dentist once or twice every year for an exam and cleaning. Your dentist will evaluate if you need more frequent visits. EYE EXAM Have an eye exam every 5 to 10 years before age 40. If you have vision problems, have an eye exam every 2 years or more often if recommended by your provider. You should have an eye exam that includes an examination of your retina (back of your eye) at least every year if you have diabetes. IMMUNIZATIONS Commonly needed vaccines include: Flu shot: get one every year. COVID-19 vaccine: ask your provider what is best for you. Tetanus-diphtheria and acellular pertussis (Tdap) vaccine: have one at or after age 19 as one of your tetanus-diphtheria vaccines if you did not receive it as an adolescent. Tetanus-diphtheria: have a booster (or Tdap) every 10 years. Varicella vaccine: receive 2 doses if you never had chickenpox or the varicella vaccine. Hepatitis B vaccine: receive 2, 3, or 4 doses, depending on your exact circumstances. Measles, mumps, and rubella (MMR) vaccine: receive 1 to 2 doses if you are not already immune to MMR. Your provider can tell you if you are immune. Ask your provider about the human papillomavirus (HPV) vaccine if: You have not received the HPV vaccine in the past You have not completed the full vaccine series (you should catch up on this shot) Ask your provider if you should receive other immunizations if you have certain health problems that increase your risk for some diseases such as pneumonia. INFECTIOUS DISEASE SCREENING Women who are sexually active should be screened for chlamydia and gonorrhea up until age 25. Women 25 years and older should be screened for chlamydia and gonorrhea if at high risk. Screening for hepatitis C: All adults ages 18 to 79 should get a one-time test for hepatitis C. people should be screened at every . Screening for human immunodeficiency virus (HIV): All people ages 15 to 65 should get a one-time test for HIV. Depending on your lifestyle and medical history, you may also need to be screened for infections such as syphilis and HIV, as well as other infections. PHYSICAL EXAM All adults should visit their provider from time to time, even if they are healthy. The purpose of these visits is to: Screen for disease Assess your risk of future medical problems Encourage a healthy lifestyle Update your vaccinations and other preventive care services Maintain a relationship with a provider in case of an illness Your height, weight, and BMI should be checked at every exam. During your exam, your provider may ask you about: Depression and anxiety Diet and exercise Alcohol and tobacco use Safety issues, such as using seat belts, smoke detectors, and intimate partner violence Your medicines and risk for interactions SKIN SELF-EXAM Your provider may check your skin for signs of skin cancer, especially if you're at high risk, such as if you: Have had skin cancer before Have close relatives with skin cancer Have a weakened immune system OTHER SCREENING Talk with your provider about colon cancer screening if you have a strong family history of colon cancer or polyps, or if you have had inflammatory bowel disease or polyps yourself. Routine bone density screening of women under 40 is not recommended. Crisis Hotlines Suicide prevention, domestic violence, and other crisis hotlines for youth, young adults, and their friends and families. [facility] The [facility] Safeline helps youth who have run away, are thinking about running away, or who already ran away but are ready to come home. Parents and guardians can also contact the hotline if they are worried about their child running away or if their child has already left home. The hotline is available 24 hours a day, seven days a week. Youth, parents, and guardians can also use the online chat feature on the [facility]'s website to ask for help and get support, or can send a text to [employer]. [facility] National Suicide Prevention Lifeline: The [place] Suicide Prevention Lifeline is a network of local crisis centers that are available 07/12 to provide support for youth and adults who are in any kind of emotional crisis. In addition to the main hotline number listed above, there are several other numbers to call depending on your needs: Thai Language: Deaf and Hard of [phone] Veterans: Disaster Distress: Anyone can also use their online chat feature on their website. [place] [facility] Hel[facility]: The [facility] Helpline is available to anyone in [place] who is need of emotional support. Anyone can call or text the helpline to receive help from specially trained volunteers. [place] high school and college students can also get online support through the IMHear_ program. For high school students, volunteers ages 15-18 are available Wednesday- from 6-9PM. For college students, IM[employer]_ is available Wednesday-Wednesday from 5-9PM. The [employer]ang Project - The [employer] is a 24/7 crisis intervention and suicide prevention hotline for LGBTQ youth. Youth can also text Hoang to for support, or use the online chat feature on the Hoang Project's website. [employer] is available Wednesday-Wednesday between 3-10PM. [employer] is available seven days a week between 3-10PM. SafeLink: SafeLink is for anyone who is being affected by domestic violence or dating violence. Volunteers at [employer] speak Luxembourgish and Thai, and [employer] also has a service that can provide translation in more than 130 languages. TTY: Smoking Cessation How to Quit There are a lot of ways to quit smoking and many resources to help you. Family members, friends, and co-workers may be supportive or encouraging, but to be successful the desire and commitment to quit must be your own. Most people who have been able to successfully quit smoking made at least one unsuccessful attempt in the past. Try not to view past attempts to quit as failures, but rather as learning experiences. Stopping smoking or using smokeless tobacco is difficult, but anyone can do it. Know the symptoms to expect when you stop. Common symptoms include: ? An intense craving for nicotine ? Anxiety, tension, restlessness, frustration, or impatience ? Difficulty concentrating ? Drowsiness or trouble sleeping, as well as bad dreams and nightmares ? Drowsiness and trouble sleeping ? Headaches ? Increased appetite and weight gain ? Irritability or depression How severe your symptoms are depends on how long you smoked and how many cigarettes you smoked each day. Feel ready to quit? ? First and foremost, set a quit date and quit completely on that day. Before your quit date, you may begin reducing your cigarette use. But remember, there is no safe level of cigarette smoking. ? List the reasons why you want to quit. Include both short- and long-term benefits. ? Identify the times you are most likely to smoke. For example, do you tend to smoke when feeling stressed or down? When out at night with friends? While drinking coffee or alcohol? When bored? While driving? Right after a meal or sex? During a work break? While watching TV or playing cards? When you are with other smokers? ? Let all of your friends, family, and co-workers know of your plan to stop smoking and your quit date. Just being aware that they know what you're going through can be helpful, especially when you are grumpy. ? Get rid of all your cigarettes just before the quit date, and clean out anything that smells like smoke, such as clothes and furniture. Make a plan about what you will do instead of smoking at those times when you are most likely to smoke. ? Be as specific as possible. For example, drink tea instead of coffee -- tea may not trigger the desire for a cigarette. Or, take a walk when you feel stressed. ? Remove ashtrays and cigarettes from the car. Place pretzels or hard candies there instead. Pretend-smoke with a straw. ? Find activities that focus your hands and mind but are not taxing or fattening. Computer games, solitaire, knitting, sewing, and crossword puzzles may help. ? If you normally smoke after eating, find other ways to end a meal. Play a tape or CD, eat a piece of fruit, get up and make a phone call, or take a walk (a good distraction that also servin calories). Make other changes in your lifestyle. ? Change your daily schedule and habits. Eat at different times or eat several small meals instead of three large ones. Sit in a different chair or even a different room. ? Satisfy your oral habits by eating celery or other low-calorie snack, chewing sugarless gum, or sucking on a cinnamon stick. ? Go to public places and restaurants where smoking is prohibited or restricted. ? Eat regular meals and don't eat too much candy or sweet things. ? Get more exercise. Take walks or ride a bike. Exercise helps relieve the urge to smoke. Set short-term quitting goals and reward yourself when you meet them. ? Every day, put the money you normally spend on cigarettes in a jar. Then buy something pleasurable after a period of time. ? Try not to think about all the days ahead you will need to avoid smoking. Take it one day at a time. ? Even one puff or one cigarette will make your desire for more cigarettes even stronger. However, it is normal to make mistakes. So even if you have one cigarette, you don't need to take the next one. Other tips to help you quit smoking and stick to it: ? Enroll in a smoking cessation program (hospitals, health departments, community centers, and work sites often offer programs). Learn about self-hypnosis or other techniques. ? Ask your health care provider about prescription medications that are safe and appropriate for you. ? Find out about nicotine patches, gum, and sprays. The [place] [employer]'s web site -- www.cancer.org -- is an excellent resource for smokers who are trying to quit, and the [place] [employer] can help some smokers kick the habit. Above all, don't get discouraged if you aren't able to quit smoking the first time. Nicotine addiction is a hard habit to break. Try something different next time. Develop new strategies, and try again. Many people take several attempts to finally kick the habit. Review Flu Vaccine not done: patient reason Coding Level of Care Code Est Pt Prev Care 18-39y(33258) Diagnoses Encounter for general adult medical examination without abnormal findings Z00.00 ARIANA (generalized anxiety disorder) F41.1 Polymyalgia M35.3 BMI 60.0-69.9, adult Z68.44 Hidradenitis suppurativa L73.2 Cigarette smoker F17.210 Obstructive sleep apnea G47.33 Prediabetes R73.03 Severe episode of recurrent major depressive disorder, without psychotic features F33.2 Major depression episode severity: severe Psychotic features: without psychotic features Migraine with aura and without status migrainosus, not intractable G43.109 Status migrainosus presence: without status migrainosus Intractability: not intractable Hirsutism L68.0 Mild intermittent asthma without complication J45.20 Asthma complication type: uncomplicated Additional Codes ARIANA-7 Assessment Billing - ARIANA-7 Assessment Tool: ARIANA-7 Assessment 02301 ([id number]) Vital Signs *Quality* - CPT code: 20717 - 4-10 Minutes ([id number]) Vital Signs *Quality* - Advance Care Planning discussion: Exists, not on file ([id number]) Vital Signs *Quality* - Time spent: 1-15 minutes, not on file ([id number])
[2023-09-06 11:46] VITALS: BP 118/60; PULSE 100; O2SAT 99; BMI 60.1
== END 2023-09-06 12:24 | disposition home or self-care (01) ==
LOC: HO.HMGFM 11:36
PROVIDERS: PCP Nurse Practitioner Family; Visit Provider Nurse Practitioner Family
DX: Z00.00 Encounter for general adult medical examination without abnormal findings (principal); M35.3 Polymyalgia rheumatica; Z68.44 Body mass index [BMI] 60.0-69.9, adult; E66.01 Morbid (severe) obesity due to excess calories; F33.2 Major depressive disorder, recurrent severe without psychotic features; F41.1 Generalized anxiety disorder; L73.2 Hidradenitis suppurativa; F17.210 Nicotine dependence, cigarettes, uncomplicated; G47.33 Obstructive sleep apnea (adult) (pediatric); R73.03 Prediabetes; G43.109 Migraine with aura, not intractable, without status migrainosus; L68.0 Hirsutism
CPT/HCPCS: 1124F; 99395

== ENCOUNTER 2023-09-06 12:11 | Outpatient (REF) | payer OTHER, SELFPAY ==
[2023-09-06 14:55] LABS: Hematocrit 39.9 % (37.0-47.0); Hemoglobin 12.6 g/dl (12.0-16.0); Mean Corpuscular HGB Conc 31.6 g/dl (31.0-35.0); Mean Corpuscular Hemoglobin 25.6 pg (27.0-33.0); Mean Corpuscular Volume 80.9 fL (80.0-98.0); Mean Platelet Volume 8.9 fL (9.4-12.3); Platelet Count 517 X10*3/uL (160-400); Red Blood Count 4.93 X10*6/uL (4.20-5.50); Red Cell Distribution Width 16.2 % (11.0-16.0); White Blood Count 11.8 X10*3/uL (4.8-10.8)
[2023-09-06 15:04] LABS: Estimated Average Glucose 117 mg/dL; Hemoglobin A1c % 5.7 % (<6.0)
[2023-09-06 15:14] LABS: Creatinine Urine 177.89 mg/dL
[2023-09-06 15:22] LABS: Alanine Aminotransferase 12 U/L (0-31); Albumin Level 3.8 g/dL (3.5-5.0); Alkaline Phosphatase 58 U/L (39-117); Anion Gap 11 (12-20); Aspartate Amino Transferase 11 U/L (5-31); Bilirubin Total 0.3 mg/dL (0.0-1.0); Blood Urea Nitrogen 9 mg/dL (9-16); Carbon Dioxide 24 mmol/L (22-29); Chloride 107 mmol/L (96-108); Estimated Glomerular Filt Rate > 60; Glucose Random 82 mg/dL (60-115); Iron 34 mcg/dL (30-160); Percent Iron Saturation 12 % (15-50); Rheumatoid Factor < 13.0 IU/mL (<15.0); Sodium 138 mmol/L (135-145); Total Iron Binding Capacity 293 mcg/dL (228-428); Total Protein 7.8 g/dL (6.5-8.0); Unsaturated Iron Binding 259 ug/dL
[2023-09-06 15:39] LABS: TSH reflex Free T4 1.15 uIU/mL (0.32-4.0)
[2023-09-06 15:52] LABS: Folate 4.2 ng/mL (> or = 4.0); Vitamin B12 222 pg/mL (200-900)
[2023-09-09 10:49] LABS: ANA Pattern 2 Nuclear, Homogeneous; Anti Nuclear Antibody Pattern Nuclear, Speckled; Anti Nuclear Antibody Screen POSITIVE (NEGATIVE)
[2023-09-10 12:24] LABS: LDL Cholesterol Direct 102 mg/dL (<100); VITAMIN D (1,25 OH) D3 44 pg/mL; Vit D (1,25-Dihydroxy) Total 44 pg/mL (18-72); Vitamin D (1,25 OH) D2 <8 pg/mL
== END 2023-09-06 12:12 | disposition home or self-care (01) ==
LOC: HO.WFDLDS 12:11
PROVIDERS: Visit Provider Nurse Practitioner Family
DX: Z00.00 Encounter for general adult medical examination without abnormal findings (principal); M35.3 Polymyalgia rheumatica
CPT/HCPCS: 36415; 80053; 82043; 82570; 82607; 82652; 82746; 83036; 83540; 83721; 84443; 85027; 86038; 86039; 86431

== ENCOUNTER 2023-09-15 15:40 | Outpatient (AMB) | payer OTHER, SELFPAY ==
--- NOTE | 2023-09-15 15:38 | A.OFFPC_ITS ---
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63 mg (3 mL) inhalation QID PRN albuterol sulfate 90 mcg/actuation (ProAir HFA) 2 puffs PO Q4-6H PRN [id number] 250-250-65 mg (Excedrin Migraine) 2 tabs PO Q6H bupropion HCl XL 150 mg PO QAM cyclobenzaprine 10 mg PO TID PRN 30 days desonide 0.05% 1 appl topical BID PRN hydroxyzine HCl 25 mg PO BID PRN ibuprofen 400 mg PO Q6H PRN nebulizers (AeroEclipse II Nebulizer) As directed secukinumab (Cosentyx Pen 300 mg/2 Pens () mg subcut Q4W sertraline 100 mg PO DAILY 30 days spironolactone 50 mg PO BID sumatriptan succinate take 1 tab at onset of headache; if no relief may repeat 1 tab after at least 2 hrs; max = 4 tabs/24 hr PO Tobacco use date assessed: 09/15/23 Dental Screening Dental Screen Date: 12/03/22 HPI HPI Comments History of Present Illness Details 28-year-old female with hidradenitis sup purativa, migraines, anemia, ADHD, pseudotumor cerebri, depression with suicide attempt in 2020, anxiety, prediabetes, vitamin-D deficiency, obesity, obstructive sleep apnea on APAP 5-20 cm H2O, current cigarette smoker, mild intermittent asthma, chronic joint pain Status post myringotomy, tonsillectomy, cholecystectomy Specialists Sleep medicine 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 surgery 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 Neurology Psychiatry Dermatology HEALTH MAINTENANCE PAP SMEAR DECEMBER 2022 Labs from 09/06/2023 show mild elevation WBC 11.8, low MCH 25.6, high RDW 16.2, platelets 517, low MPV 8.9, normal lytes, normal renal function hemoglobin A1c 5.7, low% iron saturation of 12 otherwise normal iron profile, normal LFTs, low normal B12 at 222, normal TSH, normal urine microalbumin creatinine ratio, negative Rheum Factor, BAMBI antibody positive, BAMBI antibody 1: 80, BAMBI antibody titer 2 1:160, nuclear speckled, nuclear homogeneous, LDL and Vit D WNL Telehealth visit today w/ her and Mom to review labs Above results reviewed w/ her today. Ok w/ referral to Rheum & to Start Iron and b12. [facility] Medical History (Updated 09/15/23 @ 16:40 by Patricia Agee, [facility]) BMI 60.0-69.9, adult Dysmenorrhea Pelvic pain Cigarette smoker Vaginal itching History of ingrown hair Fungal infection of foot Hidradenitis suppurativa Migraines Anemia ADHD Pseudotumor cerebri Depression Anxiety Prediabetes Vitamin D deficiency No known health problems Surgical History History of myringotomy History of tonsillectomy Hx of cholecystectomy Family History Mother Fibromyalgia Depression Arthritis Father Diabetes Hypertension Brother No problems noted. Sister No problems noted. Maternal Grandmother Hypertension Maternal Grandfather Colon cancer Family/Other Breast cancer Social History Housing: Other Alcohol intake: current Alcohol intake frequency: does not drink Patient Tobacco Use Status: Current everyday Tobacco user Tobacco use type: Cigarette Cigarette Packs Per Day: 1 Years Smoked: 3 e-Cigarette/Vaping Use: Never Used Second Hand Smoke Exposure: No Substance Use Type: Marijuana service: No Current occupational status: unemployed and student Current occupation: seeking employment Gender identity: Female Cognitive needs: No Hearing needs: No Vision needs: Yes Female Reproductive History Menstrual Age of Menarche: 14 Questionnaire Thrive Questionnaire Date Thrive assessed: 11/14/20 ARIANA-7 AMB Questionnaire ARIANA-7 Date ARIANA - 7 assessed: 09/06/23 Source: Developed by DrsPaddy Pittman, Natalia Gonsalez, Hero Baltazar and colleagues, with an educational ester from [employer]. Physical exam (Primary Care) Tobacco/Smoking Status: Tobacco use Status Tobacco use date assessed 09/15/23 09/15/23 15:39 Patient Tobacco Use Status Current everyday Tobacco 09/15/23 15:39 Tobacco use type Cigarette 09/15/23 15:39 e-Cigarette/Vaping Use Never Used 09/15/23 15:39 Thrive Assessment: Date of Thrive Assessment Date Thrive assessed 11/14/20 09/15/23 15:39 Telehealth Telehealth Telehealth Platform: Telephone Location of provider rendering services: practice address Location of patient: address on file Patient Identification confirmed using: Name, : Yes Telehealth method: voice only Patient verbally consented to treatment: Yes Patient verbally consented to billing insurance company: Yes Patient informed of any privacy concerns related to visit: Yes Minutes spent on Phone/Video with Pt.: 12 Assessment and Plan Assessment & Plan (1) Positive BAMBI (antinuclear antibody): Comment: REFER TO [facility] RHEUM FOR FURTHER EVAL AND TX Code(s): R76.8 - Other specified abnormal immunological findings in serum (2) Polymyalgia: Comment: + BAMBI, REFER TO [facility] RHEUM FOR EVAL AND TX . I did not order inflammatory markers given her current tobacco use and obesity. I did not find that would be clinically useful. Code(s): M35.3 - Polymyalgia rheumatica (3) B12 deficiency: Comment: b12 low end of normal start b12 1000 mcg QD Code(s): E53.8 - Deficiency of other specified B group vitamins (4) Iron deficiency anemia: Comment: start ferrous sulfate 134 mg, titrate to daily, contingent on GI side effects. Code(s): D50.9 - Iron deficiency anemia, unspecified Qualifiers: Iron deficiency anemia type: other iron deficiency Qualified Code(s): D50.8 - Other iron deficiency anemias Orders: Referrals Rheumatology Referral R76.8 - Other specified abnormal immunological findings in serum Medications: New ferrous sulfate TAKE DIRECTED, HOLD IF STOMACH UPSET 134 mg PO DAILY 90 tabs 0RF mecobalamin (vitamin B12) 1,000 mcg PO DAILY 90 tabs 0RF Coding Level of Care Code Tele Est Pt Level 2 (74929) Diagnoses Positive BAMBI (antinuclear antibody) R76.8 Polymyalgia M35.3 B12 deficiency E53.8 Other iron deficiency anemia D50.8 Iron deficiency anemia type: other iron deficiency
== END 2023-09-15 16:41 | disposition home or self-care (01) ==
LOC: HO.HMGFM 15:40
PROVIDERS: PCP Nurse Practitioner Family; Visit Provider Nurse Practitioner Family
DX: R76.8 Other specified abnormal immunological findings in serum (principal); M35.3 Polymyalgia rheumatica; E53.8 Deficiency of other specified B group vitamins; D50.8 Other iron deficiency anemias
CPT/HCPCS: 99212

== ENCOUNTER 2023-12-02 10:51 | Outpatient (AMB) | payer OTHER, SELFPAY ==
--- NOTE | 2023-12-02 11:04 | A.OFFVIS_ITS ---
Vital Signs 12/02/23 11:07 Height 5 ft 1 in Weight 317 lb 14.505 oz BMI 60.1 BP 118/70 Blood Pressure Location Rt brachial Position Sitting Pulse 82 Pulse Source Pulse Oximeter Pulse Oximetry (%) 99 Oxygen Delivery Method Room Air Intake Visit Reasons: abnormal lab ? lupus/cm Intake Note: Patient presents for abnormal lab ? lupus. Allergies house dust mite Allergy (Mild, Verified 12/02/23 11:06) allergy insect venom Allergy (Mild, Verified 12/02/23 11:06) allergy cat dander [CAT] Allergy (Unknown, Verified 12/02/23 11:06) UNKNOWN tree and shrub pollen [TREE] Allergy (Unknown, Verified 12/02/23 11:06) UNKNOWN Blue Cheese Allergy (Unknown, Uncoded 09/15/23 15:38) nausea and vomiting GRASS Allergy (Unknown, Uncoded 09/15/23 15:38) UNKNOWN Maple Trees Allergy (Unknown, Uncoded 09/15/23 15:38) Excessive Sneezing Medication List - Last Reconciled 12/02/23 by Calvin Henderson MD albuterol sulfate 0.63 mg (3 mL) inhalation QID PRN albuterol sulfate 90 mcg/actuation (ProAir HFA) 2 puffs PO Q4-6H PRN [id number] 250-250-65 mg (Excedrin Migraine) 2 tabs PO Q6H bupropion HCl XL 150 mg PO QAM cyclobenzaprine 10 mg PO TID PRN 30 days desonide 0.05% 1 appl topical BID PRN ferrous sulfate 325 mg PO DAILY hydroxyzine HCl 25 mg PO BID PRN ibuprofen 400 mg PO Q6H PRN mecobalamin (vitamin B12) 1,000 mcg PO DAILY nebulizers (AeroEclipse II Nebulizer) As directed secukinumab (Cosentyx Pen 300 mg/2 Pens () mg subcut Q4W sertraline 100 mg PO DAILY 30 days spironolactone 50 mg PO BID sumatriptan succinate take 1 tab at onset of headache; if no relief may repeat 1 tab after at least 2 hrs; max = 4 tabs/24 hr PO HPI Comments Details: This is a 28-year-old female who presents for evaluation of positive BAMBI. She states that for years she has had diffuse body aches, generalized weakness. She denies any unintentional weight loss, fevers, DVT/PE,. She states that her aunt has lupus and her mother has fibromyalgia. Patient has hidradenitis suppurativa and she was on Humira for about a year and a half. She was switched to Cosentyx 05/2023 due to loss of Humira effectiveness. Stated that while on Humira and Cosentyx she did not feel any improvement in her symptoms. Patient has VIKY and uses her CPAP regularly. She used to follow-up with a therapist regularly before but she has not been following up recently. She follows up with her psychiatrist regularly [facility] Medical History BMI 60.0-69.9, adult Dysmenorrhea Pelvic pain Cigarette smoker Vaginal itching History of ingrown hair Fungal infection of foot Hidradenitis suppurativa Migraines Anemia ADHD Pseudotumor cerebri Depression Anxiety Prediabetes Vitamin D deficiency No known health problems Surgical History History of myringotomy History of tonsillectomy Hx of cholecystectomy Family History Mother Fibromyalgia Depression Arthritis Father Diabetes Hypertension Brother No problems noted. Sister No problems noted. Maternal Grandmother Hypertension Maternal Grandfather Colon cancer Family/Other Breast cancer Social History Housing: Other Alcohol intake: current Alcohol intake frequency: does not drink Patient Tobacco Use Status: Current everyday Tobacco user Tobacco use type: Cigarette Cigarette Packs Per Day: 1 Years Smoked: 3 e-Cigarette/Vaping Use: Never Used Second Hand Smoke Exposure: No Substance Use Type: Marijuana service: No Current occupational status: unemployed and student Current occupation: seeking employment Gender identity: Female Cognitive needs: No Hearing needs: No Vision needs: Yes Female Reproductive History Menstrual Age of Menarche: 14 Total pregnancies: 2 Full term: 0 Ab spontaneous: 2 Review of Systems Const Reports fatigue, Reports headache(s) and Reports weakness Eyes Reports blurry vision, Reports diplopia, Reports dry eyes and Reports eye pain ENT Reports dry mouth, Reports headache(s) and Reports tinnitus Card Reports chest pain, Reports irregular heart rhythm and Reports dyspnea Resp Reports dyspnea GI Reports heartburn, Reports diarrhea and Reports nausea Musc Reports arthralgias, Reports muscle weakness and Reports stiffness Skin/Breast Reports alopecia, Reports photosensitivity, Reports rash and Reports unusual bruising Neuro Reports headache(s) and Reports weakness Psych Reports abnormal sleep pattern, Reports anxiety and Reports depression Endo Reports fatigue and Reports polydipsia Physical Exam Vital Signs: Last Vital Signs Pulse 82 12/02/23 11:07 BP 118/70 12/02/23 11:07 Pulse Ox 99 12/02/23 11:07 Oxygen Delivery Method Room Air 12/02/23 11:07 BMI result Body Mass Index 60.1 Const General: cooperative, healthy appearing and comfortable Nutritional Appearance: obese morbidly obese Orientation/consciousness: patient oriented x3 Limitations: no limitations HEENT Head: Yes normocephalic and Yes atraumatic Mouth: moist mucous membranes Resp Effort & Inspection: normal respiratory effort and able to speak in complete sentences Auscultation: clear to auscultation bilaterally Neuro General: patient oriented x3 Extrem Other: No active synovitis Normal nailfold capillaroscopy Numerous fibromyalgia tender points Assessment & Plan Assessment & Plan (1) Positive BAMBI (antinuclear antibody): Code(s): R76.8 - Other specified abnormal immunological findings in serum Category: Medical Plan: This is a 28-year-old female presents for evaluation of positive BAMBI in the context of diffuse pain, weakness. I do not see any evidence of an autoimmune rheumatic disease upon my evaluation. Clinical picture consistent with fibromyalgia. Patient was on Humira year and a half for her hidradenitis suppurativa without much relief of her symptoms, she has also been on Cosentyx for 6-7 months without relief of her symptoms. Discussed management of fibromyalgia with patient. Is a noninflammatory, non- autoimmune central afferent processing disorder leading to a diffuse pain syndrome. Advised patient to reestablish care with psychotherapist. Try to follow sleep hygiene practices. Discuss CBT for sleep with psychotherapist. Patient would benefit from increased physical activity, either through formal physical therapy or by joining a gym. Advised patient that she should start activity slowly and increase as tolerated. Consider low-impact exercises such as walking, swimming, aqua therapy stretching, yoga. Follow-up with PCP Plan I spent 25 minutes reviewing patient's chart, evaluating patient, counseling patient and documenting in the chart Coding Level of Care Code New Pt Level 3 (13295) Diagnoses Positive BAMBI (antinuclear antibody) R76.8
[2023-12-02 11:07] VITALS: BP 118/70; PULSE 82; O2SAT 99; BMI 60.1
== END 2023-12-02 11:51 | disposition home or self-care (01) ==
PROVIDERS: PCP Nurse Practitioner Family; Visit Provider Student in an Organized Health Care Education/Training Program
DX: R76.8 Other specified abnormal immunological findings in serum (principal)
CPT/HCPCS: 99203

== ENCOUNTER → 2023-12-02 10:51 | Outpatient (BNVA) | payer OTHER, SELFPAY | PROVIDERS: PCP Nurse Practitioner Family; Visit Provider Student in an Organized Health Care Education/Training Program | DX: R76.8 Other specified abnormal immunological findings in serum (principal) | CPT/HCPCS: 99202 ==

== ENCOUNTER 2023-12-08 11:47 | Outpatient (AMB) | payer OTHER, SELFPAY ==
--- NOTE | 2023-12-08 11:42 | A.OFFPC_ITS ---
Intake Visit Reasons: [place] F/U Intake Note: patient here for follow up. 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: No Is last menstrual period known: Yes Last menstrual period: 11/23/23 Post menopausal: No Patient : No Allergies house dust mite Allergy (Mild, Verified 12/08/23 11:58) allergy insect venom Allergy (Mild, Verified 12/08/23 11:58) allergy cat dander [CAT] Allergy (Unknown, Verified 12/08/23 11:58) UNKNOWN tree and shrub pollen [TREE] Allergy (Unknown, Verified 12/08/23 11:58) UNKNOWN Blue Cheese Allergy (Unknown, Uncoded 09/15/23 15:38) nausea and vomiting GRASS Allergy (Unknown, Uncoded 09/15/23 15:38) UNKNOWN Maple Trees Allergy (Unknown, Uncoded 09/15/23 15:38) Excessive Sneezing Medication List - Last Reconciled 12/08/23 by Patricia Agee, DIRECTOR [employer]IGITAL [employer]NALY[employer]- albuterol sulfate 0.63 mg (3 mL) inhalation QID PRN albuterol sulfate 90 mcg/actuation (ProAir HFA) 2 puffs PO Q4-6H PRN wztbqeh-bgkhycrrmhjul-qeujeisc 250-250-65 mg (Excedrin Migraine) 2 tabs PO Q6H bupropion HCl XL 150 mg PO QAM cyclobenzaprine 10 mg PO TID PRN 30 days desonide 0.05% 1 appl topical BID PRN ferrous sulfate 325 mg PO DAILY hydroxyzine HCl 25 mg PO BID PRN ibuprofen 400 mg PO Q6H PRN mecobalamin (vitamin B12) 1,000 mcg PO DAILY nebulizers (AeroEclipse II Nebulizer) As directed secukinumab (Cosentyx Pen 300 mg/2 Pens () mg subcut Q4W sertraline 100 mg PO DAILY 30 days spironolactone 50 mg PO BID sumatriptan succinate take 1 tab at onset of headache; if no relief may repeat 1 tab after at least 2 hrs; max = 4 tabs/24 hr PO Tobacco use date assessed: 12/08/23 Dental Screening Dental Screen Date: 12/03/22 HPI HPI Comments History of Present Illness Details 28-year-old female with hidradenitis sup purativa, migraines, anemia, ADHD, pseudotumor cerebri, depression with suicide attempt in 2020, anxiety, prediabetes, vitamin-D deficiency, obesity, obstructive sleep apnea on APAP 5-20 cm H2O, current cigarette smoker, mild intermittent asthma, chronic joint pain Status post myringotomy, tonsillectomy, cholecystectomy Specialists Sleep medicine 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 consult note reviewed, suggested fibromyalgia dx. would like to be referred to alternative Rheum in other regards, she cont to take her iron and b12 supplements and is tolereting them Labs from 09/06/2023 show mild elevation WBC 11.8, low MCH 25.6, high RDW 16.2, platelets 517, low MPV 8.9, normal lytes, normal renal function hemoglobin A1c 5.7, low% iron saturation of 12 otherwise normal iron profile, normal LFTs, low normal B12 at 222, normal TSH, normal urine microalbumin creatinine ratio, negative Rheum Factor, BAMBI antibody positive, BAMBI antibody 1: 80, BAMBI antibody titer 2 1:160, nuclear speckled, nuclear homogeneous, LDL and Vit D WNL Plan: Referred to [facility] in [place], [place]. she was given the office info and advised to schedule her own appt. if she has any problems w/ this to call [facility] referrals for asst. otherwise cont all meds and f/u as scheduled, sooner as needed. [facility] Medical History BMI 60.0-69.9, adult Dysmenorrhea Pelvic pain Cigarette smoker Vaginal itching History of ingrown hair Fungal infection of foot Hidradenitis suppurativa Migraines Anemia ADHD Pseudotumor cerebri Depression Anxiety Prediabetes Vitamin D deficiency No known health problems Surgical History History of myringotomy History of tonsillectomy Hx of cholecystectomy Family History Mother Fibromyalgia Depression Arthritis Father Diabetes Hypertension Brother No problems noted. Sister No problems noted. Maternal Grandmother Hypertension Maternal Grandfather Colon cancer Family/Other Breast cancer Social History Housing: Other Alcohol intake: current Alcohol intake frequency: does not drink Patient Tobacco Use Status: Current everyday Tobacco user Tobacco use type: Cigarette Cigarette Packs Per Day: 1 Years Smoked: 3 e-Cigarette/Vaping Use: Never Used Second Hand Smoke Exposure: No Substance Use Type: Marijuana service: No Current occupational status: unemployed and student Current occupation: seeking employment Gender identity: Female Cognitive needs: No Hearing needs: No Vision needs: Yes Female Reproductive History Menstrual Age of Menarche: 14 Date of last menstrual period: 11/23/23 Questionnaire Thrive Questionnaire Date Thrive assessed: 11/14/20 ARIANA-7 AMB Questionnaire ARIANA-7 Date ARIANA - 7 assessed: 09/06/23 Source: Developed by Drs. Mateo Pittman, Natalia Gonsalez, Hero Baltazar and colleagues, with an educational ester from [employer]. Physical exam (Primary Care) Tobacco/Smoking Status: Tobacco use Status Tobacco use date assessed 12/08/23 12/08/23 11:47 Patient Tobacco Use Status Current everyday Tobacco 12/08/23 11:47 Tobacco use type Cigarette 12/08/23 11:47 e-Cigarette/Vaping Use Never Used 12/08/23 11:47 Thrive Assessment: Date of Thrive Assessment Date Thrive assessed 11/14/20 12/08/23 11:47 Telehealth Telehealth Telehealth Platform: Telephone Location of provider rendering services: practice address Location of patient: address on file Patient Identification confirmed using: Name, : Yes Telehealth method: voice only Patient verbally consented to treatment: Yes Patient verbally consented to billing insurance company: Yes Patient informed of any privacy concerns related to visit: Yes Minutes spent on Phone/Video with Pt.: 6 Assessment and Plan Assessment & Plan (1) Polymyalgia: Comment: + BAMBI, REFER TO RHEUM FOR EVAL AND TX . I did not order inflammatory markers given her current tobacco use and obesity. I did not find that would be clinically useful. Code(s): M35.3 - Polymyalgia rheumatica (2) Positive BAMBI (antinuclear antibody): Code(s): R76.8 - Other specified abnormal immunological findings in serum Orders: Referrals Rheumatology Referral M35.3 - Polymyalgia rheumatica, R76.8 - Other specified abnormal immunological findings in serum Coding Level of Care Code Tele Est Pt Level 1 (85259) Diagnoses Polymyalgia M35.3 Positive BAMBI (antinuclear antibody) R76.8
--- OUTSIDE RECORDS SUMMARY | 2023-12-08 11:49 | XMS_ITS | Continuity of Care Document ---
Author Organization [facility] Address [address] [place] [id number]- Care Team Providers Care Seconds Handler Name Role Phone Megan OLSON, Christian Lerma Primary Care Physician [phone] Encounter [facility] ACCT [facility] [id number] Date(s): 10/29/23 - 11/28/[address] [address] Attending Physician: Lisa Esparza Admitting Physician: AdmtrLisa Referring Physician: Admtr, Ar8 Allergies, Adverse Reactions, Alerts No Known Medication Allergies Substance Reaction Severity Status Cats Active Grass 1 Active Other Food Allergy 2 Active 1maple trees 2blue cheese Medications armodafinil 150 mg oral tablet 1 tablet = 150 mg, By Mouth, Daily in AM, # 30 tablet, 5 Refills, Maintenance, 10/29/23 8:20:00 EDT, Tablet, [facility]/pharmacy #[id number], Partial fill upon patient request if the prescription is for a schedule II opioid drug., 158.1, cm, 05/05/22 10:40:00 EST,... Start Date: 10/29/23 Status: Ordered Cosentyx Sensoready Pen 2-pack 150 mg/mL subcutaneous solution = 300 mg, 0 Refills, Maintenance, 10/29/23 8:13:00 EDT, Partial fill upon patient request if the prescription is for a schedule II opioid drug. Start Date: 10/29/23 Status: Ordered ergocalciferol 83448 iu oral capsule 50,000 International_Units, 1, capsule, By Mouth, Every week, # 12 capsule, Refills 0, Tot. Refills0, Maintenance, 10/28/21 12:50:00 EDT, Route to Pharmacy Electronically, [facility]/pharmacy #[id number], Partial fill upon patient request if the prescription is f... Start Date: 10/28/21 Stop Date: 01/20/22 Status: Ordered sertraline 100 mg oral tablet 0 Refills, Maintenance, 07/14/22 8:53:00 EST, Partial fill upon patient request if the prescriptionis for a schedule II opioid drug. Start Date: 07/14/22 Status: Ordered Vitamin D3 2000 intl units oral capsule 1 capsule = 2,000 International_Units, By Mouth, Daily, # 30 capsule, 2 Refills, Maintenance, 01/30/16 12:37:09 Start Date: 01/30/16 Status: Ordered Problem List Condition Confirmation Course Effective Dates Status Health St atus Informant Morbid obesity with BMI of 60.0-69.9, adult Confirmed Active Cataplexy Confirmed Active Heartburn Confirmed Active Anxiety and depression Confirmed Active Obstructive sleep apnea (adult) (pediatric) Confirmed Active PCOS (polycystic ovarian syndrome) Confirmed Active R/O Post traumatic stress disorder (PTSD) Confirmed Active Primary insomnia Confirmed Active RLS (restless legs syndrome) Confirmed Active Severe obesity Confirmed Active Premature ventricular contractions (PVCs) (VPCs) Confirmed Active Social History Social History Type Response Tobacco Use: 4 or less cigar ettes(less than 1/4 pack)/day in last 30 days. Other: smoking for 2-3 yrs. Patient is trying to quit on her own.. Sex Patient Care team information Care Team Personnel Name: Narcisa Armijo RN Position: S ED RN W/OE and Tasks Member Role: Primary Care Nurse Name: Christian Guzmna MD Position: Reference Physician Member Role: PCP Address: Address: [address] [place] [id number]- Care Team Related Persons Name: COLLETTE YOUSIF Address: home [address] [place] [address] Name: VIVEK HERNANDEZ Address: home [address] [address] Name: ELIER MURPHY Address: home [address] [place] [address]
== END 2023-12-08 12:04 | disposition home or self-care (01) ==
LOC: HO.HMGFM 11:47
PROVIDERS: PCP Nurse Practitioner Family; Visit Provider Nurse Practitioner Family
DX: M35.3 Polymyalgia rheumatica (principal); R76.8 Other specified abnormal immunological findings in serum
CPT/HCPCS: 99212

== ENCOUNTER 2023-12-11 22:34 | Emergency (ER) | payer OTHER, SELFPAY ==
[2023-12-11 22:40] VITALS: BP 138/82; PULSE 107; RESP 16; TEMP 36.9; O2SAT 98; BMI 60.0
--- NOTE | 2023-12-12 01:37 | ED.SKABFB ---
HPI - Skin/Abscess/Foreign Bdy General Chief complaint: Skin/Abscess/Foreign Body Stated complaint: doesn't feel well/rash on stomach Time Seen by Provider: 12/12/23 01:22 Source: patient and family Mode of arrival: ambulatory Limitations: no limitations History of Present Illness ED Provider: Dr. Noni Wiggins HPI narrative: Patient comes to the emergency room accompanied by her mother. For the last 4-5 days, patient has had itchy scabs in her abdomen and aware else in her body. Patient denies fever or chills. Related Data Home Medications ?Medication ?Instructions ?Recorded ?Confirmed spironolactone 50 mg tablet 50 mg PO BID 10/14/21 12/08/23 bupropion HCl 150 mg 24 hr tablet, 150 mg PO QAM 08/13/23 12/08/23 extended release secukinumab 150 mg/mL subcutaneous mg subcut Q4W 08/13/23 12/08/23 pen injector (Cosentyx Pen 300 mg/2 Pens () Previous Rx's ?Medication ?Instructions ?Recorded nebulizers (AeroEclipse II #1 ea 02/04/22 Nebulizer) albuterol sulfate 90 mcg/actuation 2 puff PO Q4-6H PRN shortness of 03/23/22 aerosol inhaler (ProAir HFA) breath or wheezing #8.5 ea ibuprofen 400 mg tablet 400 mg PO Q6H PRN pain #20 tabs 11/07/22 hydroxyzine HCl 25 mg tablet 25 mg PO BID PRN anxiety #60 tabs 12/03/22 sertraline 100 mg tablet 100 mg PO DAILY 30 days #30 tabs 12/03/22 cyclobenzaprine 10 mg tablet 10 mg PO TID PRN muscle spasm 30 12/11/22 days #90 tabs albuterol sulfate 0.63 mg/3 mL 0.63 mg (3 mL) inhalation QID PRN 12/30/22 solution for nebulization shortness of breath or wheezing #75 mL ranchqx-ddyftdejhkecd-uwqodyqk 250 2 tab PO Q6H #20 tabs 08/13/23 mg-250 mg-65 mg tablet (Excedrin Migraine) sumatriptan succinate 50 mg tablet See Rx Instructions PO .COMPLEX 08/13/23 #20 tabs desonide 0.05 % topical ointment 1 appl topical BID PRN itching #15 09/06/23 grams mecobalamin (vitamin B12) 1,000 1,000 mcg PO DAILY #90 tabs 09/15/23 mcg chewable tablet ferrous sulfate 325 mg (65 mg 325 mg PO DAILY #90 tabs 10/27/23 iron) tablet diphenhydramine HCl 2 % topical 1 appl topical TID PRN itching 12/12/23 gel (Benadryl) #103 mL hydrocortisone 2.5 % topical cream 1 appl topical TID #30 grams 12/12/23 hydroxyzine HCl 25 mg tablet 25 mg PO QID PRN itching #20 tabs 12/12/23 Allergies Allergy/AdvReac Type Severity Reaction Status Date / Time grass pollen Allergy Mild Nasal Verified 12/11/23 22:54 congestion house dust mite Allergy Mild allergy Verified 12/11/23 22:41 insect venom Allergy Mild allergy Verified 12/11/23 22:41 cat dander [CAT] Allergy Unknown UNKNOWN Verified 12/11/23 22:41 tree and shrub pollen [TREE] Allergy Unknown UNKNOWN Verified 12/11/23 22:41 Blue Cheese Allergy Unknown nausea and Uncoded 12/11/23 22:41 vomiting Maple Trees Allergy Unknown Excessive Uncoded 12/11/23 22:41 Sneezing Review of Systems Review of Systems: Constitutional : No Weight loss, No Fever, No Chills, No Night Sweats, No Fatigue, No Malaise ENT/Mouth : No Hearing loss, No Ear Pain, No Nasal Congestion, No Sinus Pain, No Hoarseness, No sore throat, No Rhinorrhea, No Swallowing Difficulty Eyes: No Eye Pain, No Swelling, No Redness, No Foreign Body, No Discharge, No Vision Changes Cardiovascular : No Chest Pain, No SOB, No Dyspnea on Exertion, No Orthopnea, No Edema, No Palpitations Respiratory : No Cough, No Sputum, No Wheezing, No Smoke Exposure, No Dyspnea Gastrointestinal : No Nausea, No Vomiting, No Diarrhea, No Constipation, No abdominal Pain, No Hematochezia, No Melena Genitourinary : no irregular bleeding, No Dysuria, No Urinary Frequency, No Hematuria, No Urinary Incontinence, No Urgency, No Flank Pain, No Urinary Flow Changes, No Hesitancy Musculoskeletal : No joint pain, No Myalgias, No Joint Swelling Skin : Complaining of itching rash in the abdomen, scabs Neuro : No Weakness, No Numbness, No Paresthesias, No Loss of Consciousness, No Dizziness, No Headache Psych : No Anxiety/Panic, No Depression, No SI/HI/AH/VH, No Social Issues, Heme/Lymph: No Bruising, No Bleeding,No Lymphadenopathy Endocrine : No Polyuria, No Polydipsia, No Temperature Intolerance PMF Past Medical History Medical History BMI 60.0-69.9, adult Dysmenorrhea Pelvic pain Cigarette smoker Vaginal itching History of ingrown hair Fungal infection of foot Hidradenitis suppurativa Migraines Anemia ADHD Pseudotumor cerebri Depression Anxiety Prediabetes Vitamin D deficiency No known health problems Surgical History History of myringotomy History of tonsillectomy Hx of cholecystectomy Family History Family History Mother Fibromyalgia Depression Arthritis Father Diabetes Hypertension Brother No problems noted. Sister No problems noted. Maternal Grandmother Hypertension Maternal Grandfather Colon cancer Family/Other Breast cancer Social History Social History Housing: Other Alcohol intake: current Alcohol intake frequency: does not drink Patient Tobacco Use Status: Current everyday Tobacco user Tobacco use type: Cigarette Cigarette Packs Per Day: 1 Years Smoked: 3 e-Cigarette/Vaping Use: Never Used Second Hand Smoke Exposure: No Substance Use Type: Marijuana Advance Directives: No Advance Directives Information Provided: No Do you have a plan to hurt others: No Plan service: No Current occupational status: unemployed and student Current occupation: seeking employment Gender identity: Female Cognitive needs: No Hearing needs: No Vision needs: Yes Physical Exam Vital Signs: Vital Signs: Last Vital Signs Temp 98.4 F 12/11/23 22:40 Pulse 107 H 12/11/23 22:40 Resp 16 12/11/23 22:40 BP 138/82 12/11/23 22:40 Pulse Ox 98 12/11/23 22:40 O2 Del Method Room Air 12/11/23 22:40 BMI result Body Mass Index 60.0 Const: Other: Appearance: Alert. Oriented X3. No acute distress. Eyes: Pupils equal, round and reactive to light. ENT: Pharynx normal. Neck: Normal inspection. Neck supple. No lymph nodes noted. No crepitus CVS: Normal heart rate and rhythm. Pulses normal. Normal S1 and S2 Respiratory: No respiratory distress. Breath sounds normal. No Wheezing. No rales Abdomen: Soft and nontender. No rigidity. No distention. Skin: Skin warm and dry. In the abdomen, patient's seems to have some kind of contact dermatitis. Patient has a lot of scabs and scratches from itching and scratching. Extremities: No lower extremity edema. No Lacerations. No Rash Neuro: Oriented X 3. No motor deficit. No sensory deficit. Moving all extremities. No slurred speech. CN 2 through 12 grossly intact Psych: calm, cooperative, normal affect Medical Decision Making Medical Decision Making MDM Narrative: I discussed the physical exam with the patient, patient likely has dermatitis, has been itching and scratching. -patient was concerned that this was side-effect of appendicitis -on physical exam, patient has no right upper quadrant pain, has no current pain at this time, no rebound, no guarding. Discussed with the patient that the rash is not secondary to appendicitis, and patient does not have any signs or symptoms that would indicate appendicitis. -patient has rash only in the abdomen, no rash present in any other area of the body Differential Diagnosis Differential Diagnoses: The differential diagnosis associated with the presentation includes (Dermatitis, bedbugs, scabies) Discharge Plan Discharge Clinical Impression: Dermatitis Patient Disposition: Home, Self-Care Instructions: Dermatitis (ED), Cold Compress or Soak (ED) Additional Instructions: Please follow-up with your primary care physician tomorrow. If you have any worsening or new symptoms, please return to the emergency room or call 911 Prescriptions: New hydrocortisone 2.5 % cream 1 appl topical TID Qty: 30 0RF Benadryl 2 % gel 1 appl topical TID PRN (Reason: itching) Qty: 103 0RF hydroxyzine HCl 25 mg tablet 25 mg PO QID PRN (Reason: itching) Qty: 20 0RF No Action albuterol sulfate [ProAir HFA] 90 mcg/actuation HFA aerosol inhaler 2 puff PO Q4-6H PRN (Reason: shortness of breath or wheezing) Qty: 8.5 0RF cyclobenzaprine 10 mg tablet 10 mg PO TID PRN (Reason: muscle spasm) 30 Days Qty: 90 0RF albuterol sulfate 0.63 mg/3 mL solution for nebulization 0.63 mg inhalation QID PRN (Reason: shortness of breath or wheezing) Qty: 75 3RF ferrous sulfate 325 mg (65 mg iron) tablet 325 mg PO DAILY Qty: 90 0RF (DME) nebulizers [AeroEclipse II Nebulizer] Misc See Rx Instructions .ROUTE .MEDSUPPLY Qty: 1 0RF Rx Instructions: As directed ibuprofen 400 mg tablet 400 mg PO Q6H PRN (Reason: pain) Qty: 20 0RF spironolactone 50 mg tablet 50 mg PO BID mecobalamin (vitamin B12) 1,000 mcg tablet,chewable 1,000 mcg PO DAILY Qty: 90 0RF sertraline 100 mg tablet 100 mg PO DAILY 30 Days Qty: 30 3RF hydroxyzine HCl 25 mg tablet 25 mg PO BID PRN (Reason: anxiety) Qty: 60 3RF desonide 0.05 % ointment 1 appl topical BID PRN (Reason: itching) Qty: 15 0RF Rx Instructions: apply to ears sparingly as needed Cosentyx Pen (2 Pens) 150 mg/mL pen injector subcut Q4W bupropion HCl 150 mg tablet extended release 24 hr 150 mg PO QAM sumatriptan succinate 50 mg tablet See Rx Instructions PO .COMPLEX Qty: 20 0RF Rx Instructions: take 1 tab at onset of headache; if no relief may repeat 1 tab after at least 2 hrs; max = 4 tabs/24 hr PO Excedrin Migraine 250-250-65 mg tablet 2 tab PO Q6H Qty: 20 0RF Print Language: Mauritian
[2023-12-12 01:46] VITALS: BP 130/80; PULSE 91; RESP 18; TEMP 36.8; O2SAT 98
== END 2023-12-12 01:48 | disposition home or self-care (01) ==
PROVIDERS: Emergency Provider Emergency Medicine; PCP Nurse Practitioner Family
DX: L30.9 Dermatitis, unspecified (principal); R21 Rash and other nonspecific skin eruption; F17.210 Nicotine dependence, cigarettes, uncomplicated; F12.90 Cannabis use, unspecified, uncomplicated; Z79.899 Other long term (current) drug therapy
CPT/HCPCS: 99283; 99284

== ENCOUNTER 2024-02-08 14:37 | Outpatient (AMB) | payer OTHER, SELFPAY ==
--- NOTE | 2024-02-08 14:21 | MHC.PC.OV ---
Intake Visit Reasons: anxiety Allergies grass pollen Allergy (Mild, Verified 02/08/24 14:24) Nasal congestion house dust mite Allergy (Mild, Verified 02/08/24 14:24) allergy insect venom Allergy (Mild, Verified 02/08/24 14:24) allergy cat dander [CAT] Allergy (Unknown, Verified 02/08/24 14:24) UNKNOWN tree and shrub pollen [TREE] Allergy (Unknown, Verified 02/08/24 14:24) UNKNOWN Blue Cheese Allergy (Unknown, Uncoded 12/11/23 22:41) nausea and vomiting Maple Trees Allergy (Unknown, Uncoded 12/11/23 22:41) Excessive Sneezing Medication List - Last Reconciled 02/08/24 by Patricia Agee, [facility]- albuterol sulfate 0.63 mg (3 mL) inhalation QID PRN albuterol sulfate 90 mcg/actuation (ProAir HFA) 2 puffs PO Q4-6H PRN iogtdcn-wftdtolhsdoqf-ksprgbwp 250-250-65 mg (Excedrin Migraine) 2 tabs PO Q6H bupropion HCl XL 150 mg PO QAM cyclobenzaprine 10 mg PO TID PRN 30 days desonide 0.05% 1 appl topical BID PRN diphenhydramine HCl 2% (Benadryl) 1 appl topical TID PRN ferrous sulfate 325 mg PO DAILY hydrocortisone 2.5% 1 appl topical TID hydroxyzine HCl 25 mg PO QID PRN ibuprofen 400 mg PO Q6H PRN mecobalamin (vitamin B12) 1,000 mcg PO DAILY nebulizers (AeroEclipse II Nebulizer) As directed secukinumab (Cosentyx Pen 300 mg/2 Pens () mg subcut Q4W sertraline 100 mg PO DAILY 30 days spironolactone 50 mg PO BID sumatriptan succinate take 1 tab at onset of headache; if no relief may repeat 1 tab after at least 2 hrs; max = 4 tabs/24 hr PO Tobacco use date assessed: 12/08/23 Dental Screening Dental Screen Date: 12/03/22 HPI HPI Comments History of Present Illness Details 27-year-old female with hidradenitis suppurativa, migraines, anemia, ADHD, pseudotumor cerebri, depression with suicide attempt in 2020, anxiety, prediabetes, vitamin-D deficiency, obesity, obstructive sleep apnea on APAP 5-20 cm H2O, current cigarette smoker, mild intermittent asthma, chronic joint pain, ocular HTN bilat Telehealth visit for anxiety Has known ARIANA and MDD, which was previously managed by a counselor and a prescriber. She is unsure why, but a few months ago she fell out of care with both the prescriber and counselor. She was prescribed Wellbutrin XL 150 mg daily, sertraline 100 mg daily and hydroxyzine 25 mg 4 times a day as needed for anxiety. She has been without these medications for a few months. She now feels that she is unable to calm down, she is having trouble sleeping, feels generally overwhelmed. When asked about suicide ideation she reports that she does have suicidal thoughts. She even had a plan. She wrote a note however did not go through with her plan. She reports that this happened a few days ago. She states that she did not call crisis, however she called a friend who is a good support to her and helped her off the ledge. She reports that the current time she is just looking for help and she does not have suicidal plans. She does feel down depressed and hopeless. When asked what I can do to help her, she reports get her a counselor and a prescriber. At this time, she contracts for safety. A stat referral to the [facility] navigation team has been placed a request a prescriber and a counselor. I sent her the crisis information via the portal while you are on the phone. She confirmed receipt. Advised for her to put the crisis phone number in her phone so that she could use it if she were to need it. Reminded that she can also use a local emergency room or the local police department if she felt like she was going to harm herself, or others. In regards to medications, I will restart her on sertraline 50 mg 1 tablet once per day. I have only sent a 2 week prescription as I do not want her to overdose, this is only half the dose that she was on before, however we will titrate slowly. We will also give her hydroxyzine 4 times a day as needed for anxiety as this has been helpful for her in the past. I would like to follow up with her in 1 week, sooner as needed. Crisis Hotlines Suicide prevention, domestic violence, and other crisis hotlines for youth, young adults, and their friends and families. [facility] Saf[facility]: [facility] helps youth who have run away, are thinking about running away, or who already ran away but are ready to come home. Parents and guardians can also contact the hotline if they are worried about their child running away or if their child has already left home. The hotline is available 24 hours a day, seven days a week. Youth, parents, and guardians can also use the online chat feature on the [facility]'s website to ask for help and get support, [place] [address]. [facility] National Suicide Prevention Lifeline: The National Suicide Prevention Lifeline is a network of local crisis centers that are available 07/12 to provide support for youth and adults who are in any kind of emotional crisis. In addition to the main hotline number listed above, there are several other numbers to call depending on your needs: Armenian Language: Deaf and Hard of Hearin1-698.622.5398 Veterans: Disaster Distress: Anyone can also use their online chat feature on their website. [place] Suicide Prevention Lifeline [facility] Helpline: The [facility] Helpline is available to anyone in [place] who is need of emotional support. Anyone can call or text the helpline to receive help from specially trained volunteers. [place] high school and college students can also get online support through the IMHear_ program. For high school students, volunteers ages 15-18 are available Wednesday- from 6-9PM. For college students, IMHear_ is available Wednesday-Wednesday from 5-9PM. The Hoang Project - The Hoang Project is a 07/12 crisis intervention and suicide prevention hotline for LGBTQ youth. Youth can also text Hoang to for support, or use the online chat feature on the Hoang Project's website. [employer] is available Wednesday-Wednesday between 3-10PM. [employer] is available seven days a week between 3-10PM. SafeLink: SafeLink is for anyone who is being affected by domestic violence or dating violence. Volunteers at [employer] speak Chinese and Armenian, and [employer] also has a service that can provide translation in more than 130 languages. TTY: This note is constructed using voice recognition software. While every effort has been made to ensure accuracy in print shop helper, still errors may have been included Sometimes, these errors may affect the content or meaning of the given sentence . Total time spent caring for the patient today was 25 minutes. This includes time spent before the visit reviewing the chart, time spent during the visit, and time spent after the visit on documentation [facility] Medical History BMI 60.0-69.9, adult Dysmenorrhea Pelvic pain Cigarette smoker Vaginal itching History of ingrown hair Fungal infection of foot Hidradenitis suppurativa Migraines Anemia ADHD Pseudotumor cerebri Depression Anxiety Prediabetes Vitamin D deficiency No known health problems Surgical History History of myringotomy History of tonsillectomy Hx of cholecystectomy Family History Mother Fibromyalgia Depression Arthritis Father Diabetes Hypertension Brother No problems noted. Sister No problems noted. Maternal Grandmother Hypertension Maternal Grandfather Colon cancer Family/Other Breast cancer Social History Housing: Other Alcohol intake: current Alcohol intake frequency: does not drink Patient Tobacco Use Status: Current everyday Tobacco user Tobacco use type: Cigarette Cigarette Packs Per Day: 1 Years Smoked: 3 e-Cigarette/Vaping Use: Never Used Second Hand Smoke Exposure: No Substance Use Type: Marijuana service: No Current occupational status: unemployed and student Current occupation: seeking employment Gender identity: Female Cognitive needs: No Hearing needs: No Vision needs: Yes Female Reproductive History Menstrual Age of Menarche: 14 Questionnaire Thrive Questionnaire Date Thrive assessed: 11/14/20 ARIANA-7 AMB Questionnaire ARIANA-7 Date ARIANA - 7 assessed: 09/06/23 Source: Developed by Drs. Mateo Pittman, Natalia Gonsalez, Hero Baltazar and colleagues, with an educational ester from [employer]. Physical exam (Primary Care) Tobacco/Smoking Status: Tobacco use Status Tobacco use date assessed 12/08/23 12/08/23 11:47 Patient Tobacco Use Status Current everyday Tobacco 12/08/23 11:47 Tobacco use type Cigarette 12/08/23 11:47 e-Cigarette/Vaping Use Never Used 12/08/23 11:47 Thrive Assessment: Date of Thrive Assessment Date Thrive assessed 11/14/20 12/08/23 11:47 Telehealth Telehealth Telehealth Platform: Telephone Location of provider rendering services: practice address Location of patient: address on file Patient Identification confirmed using: Name, : Yes Telehealth method: voice only Patient verbally consented to treatment: Yes Patient verbally consented to billing insurance company: Yes Patient informed of any privacy concerns related to visit: Yes Minutes spent on Phone/Video with Pt.: 15 Assessment and Plan Assessment & Plan (1) ARIANA (generalized anxiety disorder): Comment: Managed by outside prescriber. Referral placed for counselor. Continue sertraline and Wellbutrin. Code(s): F41.1 - Generalized anxiety disorder (2) MDD (major depressive disorder), recurrent episode: Comment: Current active managed by psychiatrist. Needs referral for counseling which was placed today. Continue sertraline and Wellbutrin. Code(s): F33.9 - Major depressive disorder, recurrent, unspecified Qualifiers: Major depression episode severity: severe Psychotic features: without psychotic features Qualified Code(s): F33.2 - Major depressive disorder, recurrent severe without psychotic features (3) Suicide ideation: Code(s): R45.851 - Suicidal ideations Orders: Referrals Nurse Navigator Referral F33.2 - Major depressive disorder, recurrent severe without psychotic features, F41.1 - Generalized anxiety disorder, R45.851 - Suicidal ideations Medications: Changed From sertraline 100 mg PO DAILY 30 days 30 tabs 3RF To sertraline 50 mg PO DAILY 14 days 14 tabs 0RF Refilled hydroxyzine HCl 25 mg PO QID PRN 20 tabs 0RF anxiety Coding Level of Care Code Tele Est Pt Level 2 (18942) Complex EM visit Add On G2211 Diagnoses ARIANA (generalized anxiety disorder) F41.1 Severe episode of recurrent major depressive disorder, without psychotic features F33.2 Major depression episode severity: severe Psychotic features: without psychotic features Suicide ideation R45.858
== END 2024-02-08 14:39 | disposition home or self-care (01) ==
LOC: HO.HMCFM 14:37
PROVIDERS: PCP Nurse Practitioner Family; Visit Provider Nurse Practitioner Family
DX: F41.1 Generalized anxiety disorder (principal); F33.2 Major depressive disorder, recurrent severe without psychotic features; R45.851 Suicidal ideations

== ENCOUNTER → 2024-02-08 14:37 | Outpatient (BNVA) | payer OTHER, SELFPAY | PROVIDERS: PCP Nurse Practitioner Family; Visit Provider Nurse Practitioner Family | DX: F33.2 Major depressive disorder, recurrent severe without psychotic features (principal); F41.1 Generalized anxiety disorder; R45.851 Suicidal ideations ==

== ENCOUNTER 2024-02-16 14:18 | Outpatient (REF) | payer OTHER, SELFPAY ==
[2024-02-16 19:08] LABS: Influenza A PCR NEGATIVE (Negative); Influenza B PCR NEGATIVE (Negative); Resp Syncy Virus RNA Qual PCR NEGATIVE (Negative); SARS COV2 PCR INHOUSE NEGATIVE (Negative)
== END 2024-02-16 14:19 | disposition home or self-care (01) ==
LOC: HO.LAB 14:18
PROVIDERS: PCP Nurse Practitioner Family; Visit Provider Nurse Practitioner Family
DX: J06.9 Acute upper respiratory infection, unspecified (principal)
CPT/HCPCS: 0241U; 99212

== ENCOUNTER 2024-02-16 14:18 | Outpatient (AMB) | payer OTHER, SELFPAY ==
--- NOTE | 2024-02-16 14:22 | MHC.PC.OV ---
Vital Signs 02/16/24 14:28 Height 5 ft 11 in Weight 315 lb BMI 43.9 BP 138/72 Blood Pressure Location Rt brachial Position Sitting Respiration 16 Pulse 77 Pulse Source Pulse Oximeter Temp 97.9 F Temp Source Oral Pulse Oximetry (%) 97 Oxygen Delivery Method Room Air Intake Visit Reasons: cough, lungs hurt and stuffy nose Intake Note: patient here c/o pain in lungs, coughing and stuffy nose Third Rigger Required: No Is last menstrual period known: Yes Last menstrual period: 02/06/24 Post menopausal: No Patient : No Allergies grass pollen Allergy (Mild, Verified 02/16/24 14:46) Nasal congestion house dust mite Allergy (Mild, Verified 02/16/24 14:46) allergy insect venom Allergy (Mild, Verified 02/16/24 14:46) allergy cat dander [CAT] Allergy (Unknown, Verified 02/16/24 14:46) UNKNOWN tree and shrub pollen [TREE] Allergy (Unknown, Verified 02/16/24 14:46) UNKNOWN Blue Cheese Allergy (Unknown, Uncoded 02/16/24 14:46) nausea and vomiting Maple Trees Allergy (Unknown, Uncoded 02/16/24 14:46) Excessive Sneezing Medication List - Last Reconciled 02/16/24 by Calvin Sharpe CNP albuterol sulfate 0.63 mg (3 mL) inhalation QID PRN albuterol sulfate 90 mcg/actuation (ProAir HFA) 2 puffs PO Q4-6H PRN [id number]-lxdjltqdwwfty-phrvzgmd 250-250-65 mg (Excedrin Migraine) 2 tabs PO Q6H cyclobenzaprine 10 mg PO TID PRN 30 days desonide 0.05% 1 appl topical BID PRN diphenhydramine HCl 2% (Benadryl) 1 appl topical TID PRN ferrous sulfate 325 mg PO DAILY hydrocortisone 2.5% 1 appl topical TID hydroxyzine HCl 25 mg PO QID PRN ibuprofen 400 mg PO Q6H PRN mecobalamin (vitamin B12) 1,000 mcg PO DAILY nebulizers (AeroEclipse II Nebulizer) As directed secukinumab (Cosentyx Pen 300 mg/2 Pens () mg subcut Q4W sertraline 50 mg PO DAILY 14 days spironolactone 50 mg PO BID sumatriptan succinate take 1 tab at onset of headache; if no relief may repeat 1 tab after at least 2 hrs; max = 4 tabs/24 hr PO Tobacco use date assessed: 02/16/24 Dental Screening Dental Screen Date: 12/03/22 HPI HPI Comments History of Present Illness Details 28-year-old female presents with complaints of productive cough and stuffy nose. She notes that her phlegm is yellow-greenish. She notes that her symptoms have been ongoing for the past 3-4 days and has progressively worsened. She noes associated sore throat, chills, and vomiting which is provoked by coughing. No fever, body aches, fatigue, or weakness. No chest pain. She has been taking Tylenol and home remedies. She reports positive sick contacts. She denies URI viral testing. She smokes a pack pack of cigarettes daily but has not been able to smoke for the past 2 days. [facility] Medical History BMI 60.0-69.9, adult Dysmenorrhea Pelvic pain Cigarette smoker Vaginal itching History of ingrown hair Fungal infection of foot Hidradenitis suppurativa Migraines Anemia ADHD Pseudotumor cerebri Depression Anxiety Prediabetes Vitamin D deficiency No known health problems Surgical History History of myringotomy History of tonsillectomy Hx of cholecystectomy Family History Mother Fibromyalgia Depression Arthritis Father Diabetes Hypertension Brother No problems noted. Sister No problems noted. Maternal Grandmother Hypertension Maternal Grandfather Colon cancer Family/Other Breast cancer Social History Housing: Other Alcohol intake: current Alcohol intake frequency: does not drink Patient Tobacco Use Status: Current everyday Tobacco user Tobacco use type: Cigarette Cigarette Packs Per Day: 1 Years Smoked: 3 e-Cigarette/Vaping Use: Never Used Second Hand Smoke Exposure: No Substance Use Type: Marijuana service: No Current occupational status: unemployed and student Current occupation: seeking employment Gender identity: Female Cognitive needs: No Hearing needs: No Vision needs: Yes Female Reproductive History Menstrual Age of Menarche: 14 Date of last menstrual period: 02/06/24 Questionnaire Thrive Questionnaire Date Thrive assessed: 11/14/20 ARIANA-7 AMB Questionnaire ARIANA-7 Date ARIANA - 7 assessed: 09/06/23 Source: Developed by Drs. Mateo Pittman, Natalia Gonsalez, Hero Baltazar and colleagues, with an educational ester from [employer]. Review of Systems Const Details: Const Reports chills, Denies fatigue, Denies fever(s), Denies headache(s) and Denies weakness ENT Reports as per HPI Card Denies chest pain, Denies lightheadedness, Denies dyspnea and Denies other (Palpitations) Resp Reports cough, Denies dyspnea, Denies wheezing and Denies other ( shortness of breath) GI Denies abdominal pain, Denies melena, Denies hematochezia, Denies change in bowel habits, Denies dyspepsia and Denies nausea Denies hematuria and Denies dysuria Musc Denies abnormal gait, Denies myalgias, Denies arthralgias, Denies numbness and Denies tingling Skin/Breast Denies rash, Denies unusual bruising and Denies wounds Neuro Denies abnormal gait, Denies dizziness, Denies headache(s), Denies memory loss, Denies numbness, Denies Sensory deficit (Neuro), Denies tingling and Denies weakness Endo Denies cold intolerance, Denies fatigue, Denies heat intolerance, Denies polydipsia and Denies polyuria Aller/Immun Denies wheezing Physical exam (Primary Care) Vital Signs: Last Vital Signs Temp 97.9 F 02/16/24 14:28 Pulse 77 02/16/24 14:28 Resp 16 02/16/24 14:28 BP 138/72 02/16/24 14:28 Pulse Ox 97 02/16/24 14:28 Oxygen Delivery Method Room Air 02/16/24 14:28 BMI result Body Mass Index 43.9 Tobacco/Smoking Status: Tobacco use Status Tobacco use date assessed 02/16/24 02/16/24 14:31 Patient Tobacco Use Status Current everyday Tobacco 02/16/24 14:25 Tobacco use type Cigarette 02/16/24 14:25 e-Cigarette/Vaping Use Never Used 10/02/24 14:25 Thrive Assessment: Date of Thrive Assessment Date Thrive assessed 11/14/20 02/16/24 14:25 Const Other: General: no acute distress and well developed Nutritional Appearance: well nourished Orientation/consciousness: patient oriented x3 HENKS Head is normocephalic Bilateral ear canal and TM are normal Nasal turbinates and oropharynx are pink and moist Sinuses are nontender with palpation No auricular or cervical lymphadenopathy Eyes General: appearance normal, both eyes and all related structures Pupils: Equal, round and reactive pupils present EOM: EOMs intact bilaterally Resp Effort & Inspection: normal respiratory effort Auscultation: clear to auscultation bilaterally Cardio Rate: regular rate Rhythm: regular rhythm Heart sounds: S1 normal heart sound present, S2 normal heart sound present, no gallops, no murmurs and no rubs GI Palpation (GI): No Abdominal aortic bruit present, Soft to palpation, nontender, No hepatosplenomegaly present and No Rebound tenderness present Auscultation: normal bowel sounds General: Yes no CVA tenderness Back/Spine/Pelvis Back: no CVA tenderness Cervical Spine: cervical ROM normal and No Cervical spine tenderness Thoracic/Lumbar Spine: thoraco-lumbar ROM normal, No pain with thoraco-lumbar ROM, No thoracic spinal tenderness and No lumbar spinal tenderness Extrem General: Yes normal to inspection, No edema and No calf tenderness Skin General: warm and dry. Normal skin color. Normal skin turgor Neuro General: patient oriented x3, gait normal and no focal neuro deficit Cranial nerves: Yes Equal, round and reactive pupils present Cognition (Neuro): normal cognition Gait exam (Neuro): Normal gait present Sensory Exam: No Sensory deficit (Neuro) Psych Appearance: grossly normal Affect: normal affect Attitude: cooperative Thought process: Normal thought process present Coding Level of Care Code Est Pt Level 3 (53823) Diagnoses Viral upper respiratory illness J06.9 Assessment & Plan Assessment & Plan (1) Viral upper respiratory illness: Code(s): J06.9 - Acute upper respiratory infection, unspecified Category: Medical Plan: Likely viral illness though possibly allergies. No exam evidence of bacterial infection Viral illness There is no antibiotic medication for viruses.? They must run their course.? Most average 5-7 days but 7-10 days is not uncommon and up to 14 days is still possible.? A cough is often the last symptom to resolve and this can last for weeks in some cases. Rest Hydrate well -? Drink plenty of fluids.? Especially water. Tylenol or ibuprofen for muscle aches, headache, fever/discomfort Cannot rule out COVID-19/RSV/Flu infection Nasal swab acquired and will be sent to the lab Benzonatate and Zyrtec as prescribed Return for new or worsening symptoms Verbalized understanding and agreed with treatment plan. Orders: Orders SARS-CoV2/FLU/RSV Today J06.9 - Acute upper respiratory infection, unspecified Medications: New benzonatate 100 mg PO BID PRN 20 caps 0RF cough cetirizine (Zyrtec) 10 mg PO DAILY 14 days 14 tabs 0RF
[2024-02-16 14:28] VITALS: BP 138/72; PULSE 77; RESP 16; TEMP 36.6; O2SAT 97; BMI 43.9
== END 2024-02-16 15:10 | disposition home or self-care (01) ==
PROVIDERS: PCP Nurse Practitioner Family; Visit Provider Nurse Practitioner Family
DX: J06.9 Acute upper respiratory infection, unspecified (principal)

== ENCOUNTER 2024-04-19 13:41 | Outpatient (REF) | payer OTHER, SELFPAY ==
[2024-04-19 18:07] LABS: Bacterial Vaginosis PCR NEGATIVE (Negative); Candida Group PCR NOT DETECTED (Not Detect); Candida glab krusei PCR NOT DETECTED (Not Detect); Trichomonas vaginalis PCR NOT DETECTED (Not Detect)
== END 2024-04-19 13:42 | disposition home or self-care (01) ==
LOC: HO.LAB 13:41
PROVIDERS: PCP Nurse Practitioner Family; Visit Provider Advanced Practice Midwife
DX: Z20.2 Contact with and (suspected) exposure to infections with a predominantly sexual mode of transmission (principal)
CPT/HCPCS: 0352U; 99395

== ENCOUNTER 2024-04-19 13:41 | Outpatient (AMB) | payer OTHER, SELFPAY ==
--- NOTE | 2024-04-19 13:56 | MHC.OFFVIS ---
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 Intake Note: wants STD testing Door Closer Mechanic: Door Closer Mechanic Present (Cherrie) Allergies grass pollen Allergy (Mild, Verified 04/19/24 13:56) Nasal congestion house dust mite Allergy (Mild, Verified 04/19/24 13:56) allergy insect venom Allergy (Mild, Verified 04/19/24 13:56) allergy cat dander [CAT] Allergy (Unknown, Verified 04/19/24 13:56) UNKNOWN tree and shrub pollen [TREE] Allergy (Unknown, Verified 04/19/24 13:56) UNKNOWN Blue Cheese Allergy (Unknown, Uncoded 02/16/24 14:46) nausea and vomiting Maple Trees Allergy (Unknown, Uncoded 02/16/24 14:46) Excessive Sneezing Is last menstrual period known: Yes Last menstrual period: 03/28/24 HPI Comments Details: She is a premenopausal woman presenting for annual examination. Doing well with concerns. Requests std testing. Irregular monthly menses. Desires a future . Currently is sexually active. She denies vaginal itching and irritation. She tries to eat healthy and stays active with exercise. Denies family history of breast, ovarian or colon cancer. Last pap smear 2022, negative. [facility] Medical History BMI 60.0-69.9, adult Dysmenorrhea Pelvic pain Cigarette smoker Vaginal itching History of ingrown hair Fungal infection of foot Hidradenitis suppurativa Migraines Anemia ADHD Pseudotumor cerebri Depression Anxiety Prediabetes Vitamin D deficiency No known health problems Surgical History History of myringotomy History of tonsillectomy Hx of cholecystectomy Family History Mother Fibromyalgia Depression Arthritis Father Diabetes Hypertension Brother No problems noted. Sister No problems noted. Maternal Grandmother Hypertension Maternal Grandfather Colon cancer Family/Other Breast cancer Social History Housing: Other Alcohol intake: current Alcohol intake frequency: does not drink Patient Tobacco Use Status: Current everyday Tobacco user Tobacco use type: Cigarette Cigarette Packs Per Day: 1 Years Smoked: 3 e-Cigarette/Vaping Use: Never Used Second Hand Smoke Exposure: No Substance Use Type: Marijuana service: No Current occupational status: unemployed and student Current occupation: seeking employment Gender identity: Female Cognitive needs: No Hearing needs: No Vision needs: Yes Female Reproductive History Menstrual Age of Menarche: 14 Date of last menstrual period: 03/28/24 control method: none Total pregnancies: 0 Date of last pap smear: 12/30/22 (neg) Review of Systems Const All systems reviewed & are unremarkable except as noted in HPI and below Reports as per HPI Eyes Reports no additional complaints ENT Reports no additional complaints Card Reports no additional complaints Resp Reports no additional complaints GI Reports as per HPI and Reports no additional complaints Reports as per HPI Musc Reports no additional complaints Skin/Breast Reports as per HPI Neuro Reports no additional complaints Psych Reports no additional complaints Endo Reports no additional complaints Kj/Lymph Reports no additional complaints Aller/Immun Reports no additional complaints Physical Exam Vital Signs: Last Vital Signs BP 104/62 04/19/24 13:57 BMI result Body Mass Index 57.6 Const General: cooperative, healthy appearing, no acute distress, well developed and alert Orientation/consciousness: patient oriented x3 HEENT Head: Yes normal to inspection Eyes General: appearance normal, both eyes and all related structures Neck Neck: Yes normal visual inspection Thyroid: Thyroid normal Chest Chest palpation & inspection: normal inspection of the chest and other (no puckering, dimpling, peau de orange, retraction, discharge, masses) Breast/axilla inspection: normal inspection of the breasts Breast/axilla palpation: normal palpation of the breasts Resp Effort & Inspection: normal respiratory effort GI Inspection: Yes normal to inspection and Yes obesity Palpation (GI): Soft to palpation Rectal Exam - Female: deferred General: Yes bladder normal to palpation External Female Exam: normal external appearance and normal appearance of the urethra Speculum Exam - Vagina: normal appearance of the vagina, normal palpation and normal vaginal discharge Speculum Exam - Cervix: normal appearance of the cervix and normal palpation Bimanual exam- vagina & uterus: normal bimanual exam, normal palpation, uterine size normal, bladder normal to palpation, normal palpation and non-tender Bimanual Exam- Adnexa, other: no masses Skin Other: HS in folds area of skin General skin exam: no rashes or lesions noted Rashes: no rashes Neuro General: patient oriented x3 Cognition (Neuro): normal cognition Extrem General: Yes normal to inspection Psych Attitude: cooperative Thought process: Normal thought process present Assessment & Plan Assessment & Plan (1) Encounter for well woman exam with routine gynecological exam: Code(s): Z01.419 - Encounter for gynecological examination (general) (routine) without abnormal findings Category: Medical (2) Hirsutism: Comment: Noted on exam followed by early childhood teacher assistant. Code(s): L68.0 - Hirsutism Category: Medical Plan Discussed: Current recommendations for pap smears per ASCCP guidelines. Breast awareness and periodic breast exams. Maintain a healthy lifestyle including a well balanced diet and routine exercise. Use condoms for STI and prevention. Follow up in person for test results. Patient verbalizes understanding and agrees to the plan of care. She was given opportunity to ask questions and all questions were answered to the best of my ability. RTO in one year for annual early childhood teacher assistant examination. This note is constructed using voice recognition software. While every effort has been made to ensure accuracy, talent solutions manager errors may have been included. Orders: Orders 17 Hydroxyprogesterone Today L68.0 - Hirsutism, N92.6 - Irregular menstruation, unspecified DHEA Sulfate Today L68.0 - Hirsutism, N92.6 - Irregular menstruation, unspecified Bacterial Vaginosis Panel Today Z20.2 - Contact with and (suspected) exposure to infections with a predominantly sexual mode of transmission CT NG by PCR Today Z20.2 - Contact with and (suspected) exposure to infections with a predominantly sexual mode of transmission HIV Ab/Ag Today Z20.2 - Contact with and (suspected) exposure to infections with a predominantly sexual mode of transmission Hepatitis C Antibody Reflex Today Z20.2 - Contact with and (suspected) exposure to infections with a predominantly sexual mode of transmission Hepatitis B Core Antibody Today Z20.2 - Contact with and (suspected) exposure to infections with a predominantly sexual mode of transmission Syphilis Screen Today Z20.2 - Contact with and (suspected) exposure to infections with a predominantly sexual mode of transmission US pelvic and transvaginal Today R10.2 - Pelvic and perineal pain Testosterone, Free/Total Today L68.0 - Hirsutism, N92.6 - Irregular menstruation, unspecified Thyroid Stimulating Hormone Today L68.0 - Hirsutism, N92.6 - Irregular menstruation, unspecified HCG Quantitative Today L68.0 - Hirsutism, N92.6 - Irregular menstruation, unspecified Prolactin Today L68.0 - Hirsutism Coding Level of Care Code Est Pt Prev Care 18-39y(35729) Diagnoses Encounter for well woman exam with routine gynecological exam Z01.419 Hirsutism L68.0
[2024-04-19 13:57] VITALS: BP 104/62; BMI 57.6
== END 2024-04-19 15:29 | disposition home or self-care (01) ==
PROVIDERS: PCP Nurse Practitioner Family; Visit Provider Advanced Practice Midwife
DX: Z01.419 Encounter for gynecological examination (general) (routine) without abnormal findings (principal); L68.0 Hirsutism
CPT/HCPCS: 99395

== ENCOUNTER 2024-04-19 14:43 | Outpatient (REF) | payer OTHER, SELFPAY | END 2024-04-19 14:44 | disposition home or self-care (01) | LOC: HO.LNP 14:43 | PROVIDERS: Visit Provider Advanced Practice Midwife | DX: Z13.89 Encounter for screening for other disorder (principal) ==

== ENCOUNTER 2024-04-19 14:52 | Outpatient (REF) | payer OTHER, SELFPAY ==
[2024-04-19 16:25] LABS: HCG Quantitative < 2 mIU/mL; Thyroid Stimulating Hormone 1.21 uIU/mL (0.32-4.0)
[2024-04-20 04:36] LABS: Syphilis Screen Nonreactive (Nonreactive)
[2024-04-20 04:57] LABS: HBc Num1 0.17 S/CO (0.00-0.79); HIV AB/AG Nonreactive (Nonreactive); Hepatitis B Core Antibody Nonreactive (Nonreactive); ~HepC Num1 0.14 S/CO (0.00-0.79); ~Hepatitis C Antibody Nonreactive (Nonreactive)
[2024-04-20 11:21] LABS: CT PCR NOT DETECTED (Not Detect.); NG PCR NOT DETECTED (Not Detect.)
[2024-04-20 19:29] LABS: DHEA Sulfate 149 mcg/dL (14-349)
[2024-04-23 18:40] LABS: Testosterone, Free 2.8 pg/mL (0.1-6.4); Testosterone, Total 18 ng/dL (2-45)
== END 2024-04-19 14:53 | disposition home or self-care (01) ==
LOC: HO.LAB 14:52
PROVIDERS: PCP Nurse Practitioner Family; Visit Provider Advanced Practice Midwife
DX: Z20.2 Contact with and (suspected) exposure to infections with a predominantly sexual mode of transmission (principal); L68.0 Hirsutism; N92.6 Irregular menstruation, unspecified
CPT/HCPCS: 82627; 83498; 84402; 84403; 84443; 84702; 86704; 86780; 86803; 87389; 87491; 87591

== ENCOUNTER 2024-05-31 14:10 | Outpatient (REF) | payer OTHER, SELFPAY ==
[2024-06-03 15:49] LABS: TS Negative Control Passed; TS Panel A 0; TS Panel B 0; TS Positive Control Passed; TSpotTB Negative (Negative)
== END 2024-05-31 14:11 | disposition home or self-care (01) ==
LOC: HO.LAB 14:10
PROVIDERS: PCP Nurse Practitioner Family; Visit Provider Physician Assistant Medical
DX: L73.2 Hidradenitis suppurativa (principal); Z79.899 Other long term (current) drug therapy; E66.9 Obesity, unspecified
CPT/HCPCS: 36415; 86481

== ENCOUNTER 2024-06-02 09:15 | Outpatient (AMB) | payer OTHER, SELFPAY ==
[2024-06-02 09:41] VITALS: BP 110/78; PULSE 102; TEMP 36.9; O2SAT 98; BMI 58.6
--- NOTE | 2024-06-02 09:41 | AM.OFFWIN_ITS ---
Intake Vital Signs 06/02/24 09:41 Height 5 ft 1 in Weight 310 lb BMI 58.6 BP 110/78 Blood Pressure Location Rt brachial Position Sitting Pulse 102 H Pulse Source Pulse Oximeter Temp 98.4 F Temp Source Oral Pulse Oximetry (%) 98 Oxygen Delivery Method Room Air Intake Visit Reasons: EP-rt ear pain Intake Note: Pt is here today for a walk in visit. Pt c/o R ear pain for 4 days now. Patient Tobacco Use Status: Current everyday Tobacco user Allergies grass pollen Allergy (Mild, Verified 06/02/24 09:55) Nasal congestion house dust mite Allergy (Mild, Verified 06/02/24 09:55) allergy insect venom Allergy (Mild, Verified 06/02/24 09:55) allergy cat dander [CAT] Allergy (Unknown, Verified 06/02/24 09:55) UNKNOWN tree and shrub pollen [TREE] Allergy (Unknown, Verified 06/02/24 09:55) UNKNOWN Blue Cheese Allergy (Unknown, Uncoded 06/02/24 09:55) nausea and vomiting Maple Trees Allergy (Unknown, Uncoded 06/02/24 09:55) Excessive Sneezing Do you need a note to return to daycare/school/sports/work: No HPI EP-rt ear pain HPI Details This is a 28 year old female patient who presents to the [place] clinic today with right ear pain for 4 days. Reports intense pain/throbbing in right ear. Has tried hydrogen peroxide flush at home without relief. States she is unable to sleep due to ear pain. Denies any fevers or other upper respiratory symptoms. [facility] Medical History BMI 60.0-69.9, adult Dysmenorrhea Pelvic pain Cigarette smoker Vaginal itching History of ingrown hair Fungal infection of foot Hidradenitis suppurativa Migraines Anemia ADHD Pseudotumor cerebri Depression Anxiety Prediabetes Vitamin D deficiency No known health problems Surgical History History of myringotomy History of tonsillectomy Hx of cholecystectomy Family History Mother Fibromyalgia Depression Arthritis Father Diabetes Hypertension Brother No problems noted. Sister No problems noted. Maternal Grandmother Hypertension Maternal Grandfather Colon cancer Family/Other Breast cancer Social History Housing: Other Alcohol intake: current Alcohol intake frequency: does not drink Patient Tobacco Use Status: Current everyday Tobacco user Tobacco use type: Cigarette Cigarette Packs Per Day: 1 Years Smoked: 3 e-Cigarette/Vaping Use: Never Used Second Hand Smoke Exposure: No Substance Use Type: Marijuana service: No Current occupational status: unemployed and student Current occupation: seeking employment Gender identity: Female Cognitive needs: No Hearing needs: No Vision needs: Yes Female Reproductive History Menstrual Age of Menarche: 14 Review of Systems Const All systems reviewed & are unremarkable except as noted in HPI and below Physical Exam Vital Signs: Last Vital Signs Temp 98.4 F 06/02/24 09:41 Pulse 102 H 06/02/24 09:41 BP 110/78 06/02/24 09:41 Pulse Ox 98 06/02/24 09:41 Oxygen Delivery Method Room Air 06/02/24 09:41 BMI result Body Mass Index 58.6 Const General: cooperative and no acute distress HEENT Head: Yes normal to inspection Ears: hearing grossly normal bilaterally, external ears normal, TM normal on the left and TM abnormal (right TM erythematous, purulent effusion) General nose exam: Normal external nose present Face and sinus: Yes normal facial exam Mouth: Normal oral and palatal mucosa present Throat: Yes posterior oropharynx normal Neck Neck: Yes no lymphadenopathy Resp Effort & Inspection: normal respiratory effort Auscultation: clear to auscultation bilaterally Cardio Rate: regular rate Rhythm: regular rhythm Skin General skin exam: no rashes or lesions noted Extrem General: Yes no clubbing, cyanosis or edema Psych Appearance: grossly normal Mental Status: mental status grossly normal Speech and movement: Normal speech and movement present Assessment & Plan Assessment & Plan (1) Right otitis media: Code(s): H66.91 - Otitis media, unspecified, right ear Qualifiers: Otitis media type: suppurative Chronicity: acute Recurrence: non- recurrent Spontaneous tympanic membrane rupture: without spontaneous rupture Qualified Code(s): H66.001 - Acute suppurative otitis media without spontaneous rupture of ear drum, right ear Plan: Will start on Augmentin for right OM. Advised Tylenol/Motrin as needed for pain. We reviewed indications, use, possible side effects of medication. If she does not improve with treatment, she can return to the clinic for further evaluation. Patient verbalizes understanding and agrees to plan. Medications: New amoxicillin-pot clavulanate 875-125 mg Take one tablet twice a day for 7 days. 1 tab PO BID 7 days 14 tabs 0RF H66.91 - Otitis media, unspecified, right ear Coding Level of Care Code Est Pt Level 4 (99919) Diagnoses Non-recurrent acute suppurative otitis media of right ear without spontaneous rupture of tympanic membrane H66.001 Otitis media type: suppurative Chronicity: acute Recurrence: non-recurrent Spontaneous tympanic membrane rupture: without spontaneous rupture
== END 2024-06-02 10:31 | disposition home or self-care (01) ==
PROVIDERS: PCP Nurse Practitioner Family; Visit Provider Nurse Practitioner Family
DX: H66.001 Acute suppurative otitis media without spontaneous rupture of ear drum, right ear (principal)

== ENCOUNTER → 2024-06-02 09:15 | Outpatient (BNVA) | payer OTHER, SELFPAY | PROVIDERS: PCP Nurse Practitioner Family | DX: H66.001 Acute suppurative otitis media without spontaneous rupture of ear drum, right ear (principal) | CPT/HCPCS: 99212 ==

== ENCOUNTER 2024-06-07 15:39 | Outpatient (REF) | payer OTHER, SELFPAY ==
--- NOTE | ~2024-06-07 | US_ITS ---
CLINICAL HISTORY: R10.2 - Pelvic and perineal pain US pelvis transabdominal and transvaginal Comparison: None Findings: Transabdominal scanning performed for overall anatomy. Transvaginal scanning performed for additional detail. Anteverted uterus is 8.3 cm length. Normal myometrium. Endometrium 10.0 mm thickness. No lesions. Right ovary 3.0 x 2.6 x 1.9 cm. Left ovary 3.0 x 2.3 x 2.1 cm. Normal color Doppler of both ovaries. Trace free fluid. IMPRESSION: 1. Trace simple ascites. Otherwise unremarkable exam This document has been electronically signed by: Topher Gonzalez MD on 06/09/2024 08:06:23
--- OUTSIDE RECORDS SUMMARY | 2024-06-07 17:58 | XMS_ITS | Clinical Summary ---
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 Name Role Phone Unavailable Primary Care Provider Unavailabl e Social History Tobacco Use Types Packs/Day Years Used Date Smoking Tobacco: Never Assessed Comments Unknown Sex and Gender Information Value Date Recorded Sex Assigned at Female 10/21/2023 3:22 PM EDT Legal Sex Female 3:22 PM EDT Gender Identity Female 10/21/2023 3:22 PM EDT Sexual Orientation Straight 10/21/2023 3: 22 PM EDT Plan of Treatment Health Maintenance Due Date Last Done Comments Depression Screening 1997 HIV Screening 1997 Lipid Panel 1997 SDOH Screening 1997 Alcohol/Substance Use Screening 2009 Tobacco Screening 2009 HPV Vaccines (1 - 3-dose series) 2012 Hepatitis C Screening 08/28/2015 DTaP/Tdap/Td Vaccines (1 - Tdap) 2016 Hepatitis B Vaccines (1 of 3 - 19+ 3-dose series) 2016 Pap Smear 2018 COVID-19 Vaccine (1 - 2023-2 5 season) 2024 Influenza Vaccine (#1) 2024 Zoster Vaccines (1 of 2) 08/28/2047 RSV Patients and Pa tients Aged 60 years or older (1 - 1-dose 75+ series) 2072 HIB Vaccines Aged Out No longer eligi ble based on patient's age to complete this topic Hepatitis A Vaccines Aged Out No long er eligible based on patient's age to complete this topic IPV Vaccines Aged Out No longer eligi ble based on patient's age to complete this topic Meningococcal Vaccine Aged Out No kandi tyler eligible based on patient's age to complete this topic Pneumococcal Vaccine: Pediat rics (0 to 5 Years) and At-Risk Patients (6 to 64 Years) Aged Out No longer eligible b ased on patient's age to complete this topic RSV under 20 months Aged Out No longe r eligible based on patient's age to complete this topic Rotavirus Vaccines Aged Out No longer eligible based on patient's age to complete this topic [place] [place] [address] STANDARD
== END 2024-06-07 15:40 | disposition home or self-care (01) ==
LOC: HO.US 15:39
PROVIDERS: PCP Nurse Practitioner Family; Visit Provider Advanced Practice Midwife
DX: R10.2 Pelvic and perineal pain (principal)
CPT/HCPCS: 76830; 76856

== ENCOUNTER → 2024-06-07 15:42 | Outpatient (BNV) | payer OTHER, SELFPAY | PROVIDERS: PCP Nurse Practitioner Family; Visit Provider Specialist | DX: R10.2 Pelvic and perineal pain (principal) | CPT/HCPCS: 76830; 76856 ==

== ENCOUNTER 2024-07-21 19:09 | Emergency (ER) | payer OTHER, SELFPAY ==
--- NOTE | ~2024-07-21 | XR_ITS ---
CLINICAL HISTORY: SOB Chest X-ray, 2 Views COMPARISON: CR/SR - XR CHEST 2V - 03/23/22 15:17 EST FINDINGS: No consolidation. No pleural effusion. No pneumothorax. No cardiomegaly. No acute fracture. IMPRESSION: No acute findings. This document has been electronically signed by: Britton Tian MD on 07/21/2024 21:34:24
[2024-07-21 19:21] VITALS: BP 117/60; PULSE 86; RESP 20; TEMP 37.1; O2SAT 97; BMI 59.5
--- NOTE | 2024-07-21 19:21 | ED.GENADULT ---
HPI - General Adult General Chief complaint: Upper Respiratory Symptoms Stated complaint: SOB / pain on right side Time Seen by Provider: 07/21/24 21:32 Source: patient Limitations: no limitations History of Present Illness ED Provider: Farzana Jara PA-C HPI narrative: 28-year-old female with a history of morbid obesity and asthma presents with ongoing cough and cold symptoms times 5-6 days. Patient states she is having a dry, repetitive cough. Her home inhaler and nebulized treatments have not been effective. Denies fever. Denies sick contacts with same symptoms. Related Data Home Medications ?Medication ?Instructions ?Recorded ?Confirmed secukinumab 150 mg/mL subcutaneous mg subcut Q4W 08/13/23 02/16/24 pen injector (Cosentyx Pen 300 mg/2 Pens () Previous Rx's ?Medication ?Instructions ?Recorded nebulizers (AeroEclipse II #1 ea 02/04/22 Nebulizer) albuterol sulfate 90 mcg/actuation 2 puff PO Q4-6H PRN shortness of 03/23/22 aerosol inhaler (ProAir HFA) breath or wheezing #8.5 ea ibuprofen 400 mg tablet 400 mg PO Q6H PRN pain #20 tabs 11/07/22 cyclobenzaprine 10 mg tablet 10 mg PO TID PRN muscle spasm 30 12/11/22 days #90 tabs albuterol sulfate 0.63 mg/3 mL 0.63 mg (3 mL) inhalation QID PRN 12/30/22 solution for nebulization shortness of breath or wheezing #75 mL hejqfvb-jyrtwkbzemkfx-tudehdqd 250 2 tab PO Q6H #20 tabs 08/13/23 mg-250 mg-65 mg tablet (Excedrin Migraine) sumatriptan succinate 50 mg tablet See Rx Instructions PO .COMPLEX 08/13/23 #20 tabs mecobalamin (vitamin B12) 1,000 1,000 mcg PO DAILY #90 tabs 09/15/23 mcg chewable tablet ferrous sulfate 325 mg (65 mg 325 mg PO DAILY #90 tabs 10/27/23 iron) tablet diphenhydramine HCl 2 % topical 1 appl topical TID PRN itching 12/12/23 gel (Benadryl) #103 mL hydrocortisone 2.5 % topical cream 1 appl topical TID #30 grams 12/12/23 desonide 0.05 % topical ointment 1 appl topical BID PRN for itch 01/24/24 #15 grams hydroxyzine HCl 25 mg tablet 25 mg PO QID PRN anxiety #20 tabs 02/08/24 sertraline 50 mg tablet 50 mg PO DAILY 14 days #14 tabs 02/08/24 cetirizine 10 mg tablet (Zyrtec) 10 mg PO DAILY 14 days #14 tabs 02/16/24 amoxicillin 875 mg-potassium 1 tab PO BID 7 days #14 tabs 06/02/24 clavulanate 125 mg tablet albuterol sulfate 2.5 mg/3 mL 2.5 mg (3 mL) inhalation Q4-6H PRN 07/21/24 (0.083 %) solution for nebulization shortness of breath or wheezing #75 mL benzonatate 200 mg capsule 200 mg PO TID PRN cough #10 caps 07/21/24 prednisone 20 mg tablet 40 mg (2 x 20 mg) PO DAILY #8 tabs 07/21/24 Allergies Allergy/AdvReac Type Severity Reaction Status Date / Time grass pollen Allergy Mild Nasal Verified 07/21/24 19:22 congestion house dust mite Allergy Mild allergy Verified 07/21/24 19:22 insect venom Allergy Mild allergy Verified 07/21/24 19:22 cat dander [CAT] Allergy Unknown UNKNOWN Verified 07/21/24 19:22 tree and shrub pollen [TREE] Allergy Unknown UNKNOWN Verified 07/21/24 19:22 Blue Cheese Allergy Unknown nausea and Uncoded 06/02/24 09:55 vomiting Maple Trees Allergy Unknown Excessive Uncoded 06/02/24 09:55 Sneezing Review of Systems Review of Systems: Yes all other systems are reviewed and are negative Constitutional: Constitutional: Denies fatigue and Denies fever(s) Cardiovascular: Cardiovascular: Denies chest pain and Reports dyspnea Respiratory: Respiratory: Denies chest congestion, Reports cough, Reports dyspnea and Reports wheezing Gastrointestinal: Gastrointestinal: Denies abdominal pain, Denies diarrhea, Denies nausea and Denies vomiting Endocrine: Endocrine: Denies fatigue Allergic/Immunologic: Allergic/Immunologic: Reports wheezing PMFSH Past Medical History Attestation statement: The following information was validated with the patient. Medical History BMI 60.0-69.9, adult Dysmenorrhea Pelvic pain Cigarette smoker Vaginal itching History of ingrown hair Fungal infection of foot Hidradenitis suppurativa Migraines Anemia ADHD Pseudotumor cerebri Depression Anxiety Prediabetes Vitamin D deficiency No known health problems Surgical History History of myringotomy History of tonsillectomy Hx of cholecystectomy Family History Family History Mother Fibromyalgia Depression Arthritis Father Diabetes Hypertension Brother No problems noted. Sister No problems noted. Maternal Grandmother Hypertension Maternal Grandfather Colon cancer Family/Other Breast cancer Social History Social History Housing: Other Alcohol intake: current Alcohol intake frequency: does not drink Patient Tobacco Use Status: Current everyday Tobacco user Tobacco use type: Cigarette Cigarette Packs Per Day: 1 Years Smoked: 3 e-Cigarette/Vaping Use: Never Used Second Hand Smoke Exposure: No Substance Use Type: Marijuana Advance Directives: No Advance Directives Information Provided: No Do you have a plan to hurt others: No Plan service: No Current occupational status: unemployed and student Current occupation: seeking employment Gender identity: Female Cognitive needs: No Hearing needs: No Vision needs: Yes Physical Exam ED Vital Signs: Vital Signs - 24 hr 07/21/24 19:21 07/21/24 19:39 07/21/24 23:45 Temperature 98.8 F 98.2 F Pulse Rate 86 73 77 Respiratory Rate 20 18 18 Blood Pressure 117/60 128/82 Pulse Oximetry 97 97 Oxygen Delivery Method Room Air Room Air 07/22/24 00:03 Temperature 98.2 F Pulse Rate 77 Respiratory Rate 18 Blood Pressure 128/82 Pulse Oximetry 97 Oxygen Delivery Method Room Air BMI result Body Mass Index 59.5 Const Other: Alert Orientation/consciousness: patient oriented x3 Resp Other: Nonlabored respirations, lungs clear to auscultation no wheezing, active bronchospasm cough at times Cardio Other: Normal peripheral perfusion Skin Other: Warm dry no rash Neuro General: patient oriented x3, gait normal, no focal motor deficits and CN's II-XI intact bilaterally Psych Other: Cooperative Course Course Course Narrative: RME performed by Soni Saravia PA-C. Patient is a 28 year old assigned female at presenting to the emergency department with a cough and difficulty breathing. Patient states she has a history of asthma. Patient states that over the last 2 days she has been having a cough and shortness of breath. Detailed physical exam and review of systems are deferred to the forest management teacher. EKG, labs, imaging, and swabs ordered. Patient placed back in the waiting room pending room availability and results. Medications Administered Discontinued Medications Generic Name Dose Route Start Last Admin Trade Name Fredomo PRN Reason Stop Dose Admin Albuterol/Ipratropium 3 ml 07/21/24 19:35 07/21/24 19:37 Albuterol/Iprat 2.5/0.5mg 3 Ml Ampul.Neb INHALE 07/21/24 19:36 3 ml ONCE ONE Administration Prednisone 40 mg 07/21/24 22:30 07/21/24 23:36 Prednisone 20 Mg Tablet PO 07/21/24 22:31 40 mg ONCE ONE Administration Medical Decision Making Medical Decision Making MDM Narrative: 28-year-old female with a history of morbid obesity and asthma presents with ongoing cough and cold symptoms times 5-6 days. Patient states she is having a dry, repetitive cough. Her home inhaler and nebulized treatments have not been effective. Denies fever. Denies sick contacts with same symptoms. Problem: Asthma History: Per patient I have considered the following differential diagnoses: Asthma exacerbation, pneumonia, viral syndrome, bronchitis Plan: Patient's asthma is refractory to her home treatments, she needs steroid. Screening labs including a viral panel and a chest x-ray were ordered from triage I have independently reviewed the following tests: Labs: Slight leukocytosis, not anemic, no electrolyte abnormality, viral panel negative Chest x-ray:IMPRESSION: No acute findings. Lab Data 07/21/24 19:36 07/21/24 19:36 Labs: Lab Results 07/21/24 Range/Units 19:36 WBC 11.7 H (4.8-10.8) X10*3/uL RBC 4.16 L (4.20-5.50) X10*6/uL Hgb 11.0 L (12.0-16.0) g/dl Hct 33.2 L (37.0-47.0) % MCV 79.8 L (80.0-98.0) fL MCH 26.4 L (27.0-33.0) pg MCHC 33.1 (31.0-35.0) g/dl RDW 15.8 (11.0-16.0) % Plt Count 404 H (160-400) X10*3/uL MPV 8.7 L (9.4-12.3) fL Immature Gran % (Auto) 0.3 (0.0-0.4) % Neut % (Auto) 62.8 (45-73) % Lymph % (Auto) 25.9 (20-40) % [place] % (Auto) 7.1 (2-11) % Eos % (Auto) 3.4 (0-4) % Baso % (Auto) 0.5 (0-2) % Lymph # (Auto) 3.0 (1.2-4.9) X10*3/uL [place] # (Auto) 0.8 (0.1-1.2) X10*3/uL Eos # (Auto) 0.4 (0.0-0.4) X10*3/uL Baso # (Auto) 0.1 (0.0-0.2) X10*3/uL Abs Immat Gran (auto) 0.03 (0.00-0.03) X10*3/uL Absolute Neuts (auto) 7.3 (2.0-8.3) x10*3/uL Absolute Nucleated RBC 0.000 (0.0-0.012) X10*3/uL Nucleated RBC % (auto) 0.0 (0.0-0.2) /100WBC Sodium 139 (135-145) mmol/L Potassium 3.9 (3.3-5.1) mmol/L Chloride 110 H (96-108) mmol/L Carbon Dioxide 21 L (22-29) mmol/L Anion Gap 12 (12-20) BUN 12 (9-16) mg/dL Creatinine 0.65 (0.5-1.4) mg/dL Estim Creat Clear Calc 177.7 Estimated GFR > 60 Random Glucose 88 (60-115) mg/dL Calcium 8.6 (8.4-10.2) mg/dL Magnesium 1.7 (1.6-2.6) mg/dL Total Bilirubin 0.2 (0.0-1.0) mg/dL AST 26 (5-31) U/L ALT 15 (0-31) U/L Alkaline Phosphatase 61 (39-117) U/L Troponin I High Sens < 2.7 (<3.5-17.0) ng/L Total Protein 7.6 (6.5-8.0) g/dL Albumin 3.6 (3.5-5.0) g/dL Beta HCG, Quant < 2 mIU/mL Influenza Type A (PCR) NEGATIVE (Negative) Influenza Type B (PCR) NEGATIVE (Negative) RSV RNA Qual (PCR) NEGATIVE (Negative) SARS-CoV-2 RNA (RT-PCR) NEGATIVE (Negative) Discharge Plan Discharge Clinical Impression: Asthma exacerbation Patient Disposition: Home, Self-Care Instructions: Asthma (ED) Additional Instructions: You are being treated for an asthma exacerbation. See home care instructions. Use your home nebulizer as directed, take the steroid as directed. All of your screening labs including a viral panel were normal, you were screened for influenza RSV and COVID. The chest x-ray is clear. Follow up with your primary care provider as needed. Prescriptions: New prednisone 20 mg tablet 40 mg PO DAILY Qty: 8 0RF albuterol sulfate 2.5 mg /3 mL (0.083 %) solution for nebulization 2.5 mg inhalation Q4-6H PRN (Reason: shortness of breath or wheezing) Qty: 75 0RF benzonatate 200 mg capsule 200 mg PO TID PRN (Reason: cough) Qty: 10 0RF No Action albuterol sulfate [ProAir HFA] 90 mcg/actuation HFA aerosol inhaler 2 puff PO Q4-6H PRN (Reason: shortness of breath or wheezing) Qty: 8.5 0RF cyclobenzaprine 10 mg tablet 10 mg PO TID PRN (Reason: muscle spasm) 30 Days Qty: 90 0RF albuterol sulfate 0.63 mg/3 mL solution for nebulization 0.63 mg inhalation QID PRN (Reason: shortness of breath or wheezing) Qty: 75 3RF ferrous sulfate 325 mg (65 mg iron) tablet 325 mg PO DAILY Qty: 90 0RF desonide 0.05 % ointment 1 appl topical BID PRN (Reason: for itch) Qty: 15 2RF (DME) nebulizers [AeroEclipse II Nebulizer] [facility] [place] See Rx Instructions .ROUTE .MEDSUPPLY Qty: 1 0RF Rx Instructions: As directed hydrocortisone 2.5 % cream 1 appl topical TID Qty: 30 0RF Benadryl 2 % gel 1 appl topical TID PRN (Reason: itching) Qty: 103 0RF ibuprofen 400 mg tablet 400 mg PO Q6H PRN (Reason: pain) Qty: 20 0RF mecobalamin (vitamin B12) 1,000 mcg tablet,chewable 1,000 mcg PO DAILY Qty: 90 0RF Cosentyx Pen (2 Pens) 150 mg/mL pen injector subcut Q4W sumatriptan succinate 50 mg tablet See Rx Instructions PO .COMPLEX Qty: 20 0RF Rx Instructions: take 1 tab at onset of headache; if no relief may repeat 1 tab after at least 2 hrs; max = 4 tabs/24 hr PO Excedrin Migraine 250-250-65 mg tablet 2 tab PO Q6H Qty: 20 0RF hydroxyzine HCl 25 mg tablet 25 mg PO QID PRN (Reason: anxiety) Qty: 20 0RF sertraline 50 mg tablet 50 mg PO DAILY 14 Days Qty: 14 0RF cetirizine [Zyrtec] 10 mg tablet 10 mg PO DAILY 14 Days Qty: 14 0RF amoxicillin-pot clavulanate 875-125 mg tablet 1 tab PO BID 7 Days Qty: 14 0RF Rx Instructions: Take one tablet twice a day for 7 days. Interventions: ED Discharge Assessment Last Done: 07/22/24 00:03 Print Language: Maltese
--- NOTE | 2024-07-21 19:22 | ECG_ITS ---
Test Reason : SOB Blood Pressure : */* mmHG Vent. Rate : 79 BPM Atrial Rate : 79 BPM P-R Int : 122 ms QRS Dur : 84 ms QT Int : 382 ms P-R-T Axes : 44 10 39 degrees QTcB Int : 438 ms Normal sinus rhythm with sinus arrhythmia Normal ECG When compared with ECG of 04-Feb-2022 09:53, No significant change was found Referred By: Soni Saravia Electronically Signed By: LEYDA OLIVARES MD
[2024-07-21] MEDS: Albuterol/Iprat 2.5/0.5MG 3 ML AMPUL.NEB INHALE (19:37)
[2024-07-21 19:39] VITALS: PULSE 73; RESP 18; O2SAT 98
[2024-07-21 19:44] LABS: MANUAL DIFF FLAG NO
[2024-07-21 19:47] LABS: Basophils Absolute Auto 0.1 X10*3/uL (0.0-0.2); Basophils Percent Auto 0.5 % (0-2); Eosinophils Absolute Auto 0.4 X10*3/uL (0.0-0.4); Eosinophils Percent Auto 3.4 % (0-4); Hematocrit 33.2 % (37.0-47.0); Imm Gran Abs Auto 0.03 X10*3/uL (0.00-0.03); Imm Gran Pct Auto 0.3 % (0.0-0.4); Lymphocytes Percent Auto 25.9 % (20-40); Mean Corpuscular HGB Conc 33.1 g/dl (31.0-35.0); Mean Corpuscular Hemoglobin 26.4 pg (27.0-33.0); Mean Corpuscular Volume 79.8 fL (80.0-98.0); Mean Platelet Volume 8.7 fL (9.4-12.3); Monocytes Absolute Auto 0.8 X10*3/uL (0.1-1.2); Monocytes Percent Auto 7.1 % (2-11); Neutrophils Absolute Auto 7.3 x10*3/uL (2.0-8.3); Neutrophils Percent Auto 62.8 % (45-73); Platelet Count 404 X10*3/uL (160-400); Red Blood Count 4.16 X10*6/uL (4.20-5.50); Red Cell Distribution Width 15.8 % (11.0-16.0); White Blood Count 11.7 X10*3/uL (4.8-10.8)
[2024-07-21 20:05] LABS: Alanine Aminotransferase 15 U/L (0-31); Albumin Level 3.6 g/dL (3.5-5.0); Alkaline Phosphatase 61 U/L (39-117); Anion Gap 12 (12-20); Aspartate Amino Transferase 26 U/L (5-31); Bilirubin Total 0.2 mg/dL (0.0-1.0); Blood Urea Nitrogen 12 mg/dL (9-16); Calcium 8.6 mg/dL (8.4-10.2); Carbon Dioxide 21 mmol/L (22-29); Chloride 110 mmol/L (96-108); Creatinine Clr Calc Pharmacy 177.7; Estimated Glomerular Filt Rate > 60; Glucose Random 88 mg/dL (60-115); Magnesium 1.7 mg/dL (1.6-2.6); Potassium 3.9 mmol/L (3.3-5.1); Sodium 139 mmol/L (135-145); Total Protein 7.6 g/dL (6.5-8.0)
[2024-07-21 20:10] LABS: HCG Quantitative < 2 mIU/mL; Troponin-I High Sensitivity < 2.7 ng/L (<3.5-17.0)
[2024-07-21 20:36] LABS: Influenza A PCR NEGATIVE (Negative); Influenza B PCR NEGATIVE (Negative); Resp Syncy Virus RNA Qual PCR NEGATIVE (Negative); SARS COV2 PCR INHOUSE NEGATIVE (Negative)
--- OUTSIDE RECORDS SUMMARY | 2024-07-21 21:30 | XMS_ITS | Clinical Summary ---
Author Organization [employer] Address [address] [place] [address] Care Team Providers Care Hosiery Pairer Name Role Phone Unavailable Primary Care Provider [...] Alcohol/Substance Use Screening 2009 Tobacco Screening 2009 Family Planning (PISQ) 2012 HPV Vaccines (1 - 3-dose series) 2012 [...] 5 Years) and At-Risk Patients (6 to 49) Years) Aged Out No longer eligible b ased on patient's age to complete this topic RSV under 20 months Aged Out No longe r eligible based on patient's age to complete this topic Rotavirus Vaccines Aged Out No longer eligible based on patient's age to complete this topic [place] [address] STANDARD
[2024-07-21] MEDS: predniSONE 20 MG TABLET 40 MG PO (23:36)
[2024-07-21 23:45] VITALS: BP 128/82; PULSE 77; RESP 18; TEMP 36.8; O2SAT 97
[2024-07-22 00:03] VITALS: BP 128/82; PULSE 77; RESP 18; TEMP 36.8; O2SAT 97
== END 2024-07-22 00:03 | disposition home or self-care (01) ==
PROVIDERS: Physician Assistant Medical; Emergency Provider Internal Medicine; PCP Chiropractor
DX: J45.901 Unspecified asthma with (acute) exacerbation (principal); E66.01 Morbid (severe) obesity due to excess calories; Z68.43 Body mass index [BMI] 50.0-59.9, adult
CPT/HCPCS: 0241U; 71046; 80053; 83735; 84484; 84702; 85025; 93005; 94640; 99284

== ENCOUNTER → 2024-07-21 19:22 | Outpatient (BNV) | payer OTHER, SELFPAY | PROVIDERS: Emergency Provider Internal Medicine; PCP Chiropractor; Visit Provider Internal Medicine Cardiovascular Disease | DX: R06.02 Shortness of breath (principal) | CPT/HCPCS: 93010 ==

== ENCOUNTER → 2024-07-21 19:22 | Outpatient (BNV) | payer OTHER, SELFPAY | PROVIDERS: Emergency Provider Internal Medicine; PCP Chiropractor; Visit Provider Radiology Diagnostic Radiology | DX: R06.02 Shortness of breath (principal) | CPT/HCPCS: 71046 ==

== ENCOUNTER 2024-07-27 15:18 | Outpatient (AMB) | payer OTHER, SELFPAY ==
[2024-07-27 15:26] VITALS: BP 110/68; BMI 59.9
--- NOTE | 2024-07-27 15:26 | MHC.OFFVIS ---
Vital Signs 07/27/24 15:26 Height 5 ft 1 in Weight 317 lb BMI 59.9 BP 110/68 Intake Visit Reasons: Us follow up Intake Note: Ultrasound and lab follow up Caseworker: Caseworker Present Allergies grass pollen Allergy (Mild, Verified 07/21/24 19:22) Nasal congestion house dust mite Allergy (Mild, Verified 07/21/24 19:22) allergy insect venom Allergy (Mild, Verified 07/21/24 19:22) allergy cat dander [CAT] Allergy (Unknown, Verified 07/21/24 19:22) UNKNOWN tree and shrub pollen [TREE] Allergy (Unknown, Verified 07/21/24 19:22) UNKNOWN Blue Cheese Allergy (Unknown, Uncoded 06/02/24 09:55) nausea and vomiting Maple Trees Allergy (Unknown, Uncoded 06/02/24 09:55) Excessive Sneezing Is last menstrual period known: Yes Last menstrual period: 07/09/24 HPI Comments Details: Patient is here today for a follow up ultrasound and lab work. She had a history of irregular periods and unable to conceive. She reports lately her cycles have been regular except for this month which she is late a week. Also experiencing nausea. She is open to a future . [facility] Medical History BMI 60.0-69.9, adult Dysmenorrhea Pelvic pain Cigarette smoker Vaginal itching History of ingrown hair Fungal infection of foot Hidradenitis suppurativa Migraines Anemia ADHD Pseudotumor cerebri Depression Anxiety Prediabetes Vitamin D deficiency No known health problems Surgical History History of myringotomy History of tonsillectomy Hx of cholecystectomy Family History Mother Fibromyalgia Depression Arthritis Father Diabetes Hypertension Brother No problems noted. Sister No problems noted. Maternal Grandmother Hypertension Maternal Grandfather Colon cancer Family/Other Breast cancer Social History Housing: Other Alcohol intake: current Alcohol intake frequency: does not drink Patient Tobacco Use Status: Current everyday Tobacco user Tobacco use type: Cigarette Cigarette Packs Per Day: 1 Years Smoked: 3 e-Cigarette/Vaping Use: Never Used Second Hand Smoke Exposure: No Substance Use Type: Marijuana service: No Current occupational status: unemployed and student Current occupation: seeking employment Gender identity: Female Cognitive needs: No Hearing needs: No Vision needs: Yes Female Reproductive History Menstrual Age of Menarche: 14 Date of last menstrual period: 07/09/24 Review of Systems Const All systems reviewed & are unremarkable except as noted in HPI and below Endo Reports no additional complaints Physical Exam Vital Signs: Last Vital Signs BP 110/68 07/27/24 15:26 BMI result Body Mass Index 59.9 Const General: cooperative, healthy appearing and no acute distress Psych Appearance: well kempt Attitude: cooperative Thought process: Normal thought process present Results AMB Test Urine AMB Test Urine Negative Last Edit by JOSHUA Rubio on 07/27/24 16:00 Results Reviewed Results Reviewed: [address] [address] Ultrasound Report Signed Patient: Piotr Matta MR#: [id number] : 1995 Acct:[id number] Age/Sex: 28 / F ADM Date: 06/07/24 Loc: HO.US Attending Dr: Carmen Flores CNM Ordering Physician: Carmen Flores CNM Date of Service: 06/07/24 Procedure(s): US pelvic and transvaginal Accession Number(s): [id number] cc: Carmen Flores CNM; Patricia Agee [facility]-~ CLINICAL HISTORY: R10.2 - Pelvic and perineal pain US pelvis transabdominal and transvaginal Comparison: None Findings: Transabdominal scanning performed for overall anatomy. Transvaginal scanning performed for additional detail. Anteverted uterus is 8.3 cm length. Normal myometrium. Endometrium 10.0 mm thickness. No lesions. Right ovary 3.0 x 2.6 x 1.9 cm. Left ovary 3.0 x 2.3 x 2.1 cm. Normal color Doppler of both ovaries. Trace free fluid. IMPRESSION: 1. Trace simple ascites. Otherwise unremarkable exam This document has been electronically signed by: Topher Gonzalez MD on 06/09/2024 08:06:23 Dictated By: Topher Gonzalez MD Signed By: <Electronically signed by Topher Gonzalez MD in OV> 06/09/24806 DD/ 5 TD/TT: 06/09/24805 Asset Recovery Specialist: Assessment & Plan Assessment & Plan (1) Encounter to discuss test results: Code(s): Z71.2 - Person consulting for explanation of examination or test findings Plan: Reviewed lab results-all negative, ultrasound findings-normal. (2) Late menses: Code(s): N92.6 - Irregular menstruation, unspecified Plan: UPT is negative, if menses does not return within a week to repeat the test, follow up in office if indicated. Plan Advised to continue healthy eating, weight management, regular exercise, initiation of vitamins, Rx sent in. Encouraged tobacco cessation. Look into insurance coverage for infertility benefits, if desires to have a referral placed call back the office if insurance is covering services for referral. She does not want a referral at this time. Next visit is her annual scheduled for 05/05/2025. Follow up p.r.n.. The patient expressed understanding and agreement with the plan of care. All of her questions and concerns were addressed to the best of my ability. This note is constructed using voice recognition software. While every effort has been made to ensure accuracy, aircraft mechanic errors may have been included. Orders: Orders AMB HCG Urine Test Today Z32.02 - Encounter for test, result negative Medications: New PNV,calcium 05-snzf-bgtth acid 27 mg iron- 1 mg ( Vitamins Plus Low Iron) 1 tab PO DAILY 90 tabs 4RF Coding Level of Care Code Est Pt Level 3 (48750) Diagnoses Encounter to discuss test results Z71.2 Late menses N92.6
--- OUTSIDE RECORDS SUMMARY | 2024-07-27 18:57 | XMS_ITS | Clinical Summary ---
Author Organization [facility] ity Address [address] [place] [address] Care Team Providers Care Machine Maintenance Mechanic Name Role Phone Priscilla Gaffney MD Primary Care Provider [phone] Allergies No known active allergies Medications cholecalciferol (VITAMIN D-3) 1,250 mcg (50,000 unit) capsule TAKE 1 CAPSULE BY MOUTH ONE TIME PER WEEK 02/16/2024 Active cyanocobalamin, vitamin B-12, 1,000 mcg tablet, sublingual Place 1 Tablet under the tongue daily. 11/08/2023 Active Active Problems Problem Noted Date Diagnosed Date Class 3 severe obesity with body mass index (BMI) of 50.0 to 59.9 in adult 07/12/2024 Social History Tobacco Use Types Packs/Day Years Used Date Smoking Tobacco: Every Day Smokeless Tobacco: Never Alcohol Use Standard Drinks/Week Comments No 0 (1 standard drink = 0.6 oz pur e alcohol) Comments Unknown Sex and Gender Information Value Date Recorded Sex Assigned at Not on file Legal Sex Female 7:33 PM EST Gender Identity Not on file Sexual Orientation Not on file Obstetrics History Last Filed Vital Signs Vital Sign Reading Time Taken Comments Blood Pressure 114/76 09/09/2023 10:23 AM EDT Si tting R Arm Pulse 89 09/09/2023 10:23 AM EDT Temperature - - Respiratory Rate - - Oxygen Saturation - - Inhaled Oxygen Concentration - - Weight 145 kg (319 lb) 12/01/2023 1:50 PM EDT Height 157.5 cm (5' 2 ) 09/09/2023 10:23 AM EDT Body Mass Index 58.35 09/09/2023 10:23 AM EDT Plan of Treatment Upcoming Encounters Date Type Department Care Team ([facility] st Contact Info) Description 08/29/2024 8:15 AM EDT Office Visit Bariatric Surgery - [place] [address] [place] [id number] Tere Everett MD [address] [place] [address] Health Maintenance Due Date Last Done Comments HPV Vaccines (1 - 3-dose series) 2012 DTaP,Tdap,and Td Vaccines (1 - Tdap) 2016 Hepatitis A Vaccines (1 of 2 - Risk 2-dose series) 2016 Hepatitis B Vaccines (1 of 3 - 19+ 3-dose series) 2016 Pneumococcal Vaccine: Pediatrics (0 to 5 Years) and At-Risk Patients (6 to 64 Years) (1 of 2 - PCV) 2016 Cervical Cancer Screening: P ap Smear 2018 Depression Screening 12/14/2023 HIV Screening 12/14/2023 Hepatitis C Screening 12/14/2023 Social Influencers of Health Screening 12/14/2023 COVID-19 Vaccine (1 - 2023-2 5 season) 2024 Influenza Vaccine (#1) 2024 Cholesterol Screening (Lipid Panel) 11/04/2028 11/05/2023, 11/05/2023 HIB Vaccines Aged Out No longer eligi ble based on patient's age to complete this topic IPV Vaccines Aged Out No longer eligi ble based on patient's age to complete this topic MMR Vaccines Aged Out No longer eligi ble based on patient's age to complete this topic Meningococcal ACWY Vaccine Aged Out N o longer eligible based on patient's age to complete this topic Meningococcal B Vacine Aged Out No lo nger eligible based on patient's age to complete this topic RSV Immunization Patients Under 20 months Aged Out No longer eligible b ased on patient's age to complete this topic Varicella Vaccines Aged Out No longer eligible based on patient's age to complete this topic Procedures Procedure Name Priority Date/Time Associated Diagnosis Comments LIPID PANEL Routine 11/05/2023 from Last 3 Months or Most Recently Relevant to Health Maintenance Results * (ABNORMAL) Lipid panel (11/05/2023) LDL/HDL Ratio 4 0 - 4 Triglycerides 172(A) 0 - 150 mg/dL Cholesterol 159 0 - 200 mg/dL HDL 40 >=40 mg/dL LDL Cholesterol 85 0 - 100 mg/dL Blood Venous blood specimen / Unknown Historical Provider LAB BLOOD ORDERABLES Jessica l Result from Last 3 Months or Most Recently Relevant to Health Maintenance Care Teams Machine Maintenance Mechanic Relationship Specialty Start Date End Date Priscilla Gaffney MD [address] [place] [phone] PCP - General Internal Medicine 07/11/24
--- OUTSIDE RECORDS SUMMARY | 2024-07-27 18:57 | XMS_ITS | Clinical Summary ---
Author Organization [employer] Address [address] [place] [address] Care Team Providers Care Cloud Administrator Name Role Phone Unavailable Primary Care Provider [...] patient's age to complete this topic [place] [address] [place] [address] STANDARD
== END 2024-07-27 16:25 | disposition home or self-care (01) ==
PROVIDERS: PCP Nurse Practitioner Family; Visit Provider Advanced Practice Midwife
DX: Z71.2 Person consulting for explanation of examination or test findings (principal); N92.6 Irregular menstruation, unspecified; Z32.02 Encounter for pregnancy test, result negative
CPT/HCPCS: 99213

== ENCOUNTER → 2024-07-27 15:18 | Outpatient (BNVA) | payer OTHER, SELFPAY | PROVIDERS: PCP Nurse Practitioner Family; Visit Provider Advanced Practice Midwife | DX: N92.6 Irregular menstruation, unspecified (principal); Z71.2 Person consulting for explanation of examination or test findings | CPT/HCPCS: 81025; 99212 ==

== ENCOUNTER 2024-08-07 10:35 | Outpatient (REF) | payer OTHER, SELFPAY ==
[2024-08-07 11:56] LABS: HCG Quantitative 648 mIU/mL
[2024-08-08 09:04] LABS: Prolactin 12.9 ng/mL
== END 2024-08-07 10:36 | disposition home or self-care (01) ==
LOC: HO.LAB 10:35
PROVIDERS: PCP Nurse Practitioner Family; Visit Provider Advanced Practice Midwife
DX: N91.2 Amenorrhea, unspecified (principal); L68.0 Hirsutism
CPT/HCPCS: 36415; 84146; 84702

== ENCOUNTER 2024-08-09 14:20 | Outpatient (REF) | payer OTHER, SELFPAY ==
[2024-08-09 15:58] LABS: HCG Quantitative 1450 mIU/mL
== END 2024-08-09 14:21 | disposition home or self-care (01) ==
LOC: HO.LAB 14:20
PROVIDERS: PCP Nurse Practitioner Family; Visit Provider Advanced Practice Midwife
DX: Z34.01 Encounter for supervision of normal first pregnancy, first trimester (principal); Z3A.01 Less than 8 weeks gestation of pregnancy
CPT/HCPCS: 36415; 84702

== ENCOUNTER 2024-12-29 09:39 | Outpatient (REF) | payer OTHER, SELFPAY ==
--- OUTSIDE RECORDS SUMMARY | 2024-12-29 09:56 | XMS_ITS | Clinical Summary ---
Author Organization [facility] Address [address] [facility] [address] [place] [phone] Phone Care Team Providers Care Triple Valve Mechanic Name Role Phone Priscilla Gaffney MD Primary Care Provider [phone] Medications ketoconazole (NIZORAL) 2 % shampooIndicatio ns:Seborrheic dermatitis Apply topically 2 (two) times a week. Apply to scalp, lather, leave on 5 minutes, and rinse. 120 mL 5 5 Active clobetasol (TEMOVATE) 0.05 % external solutionIndicati ons:Seborrheic dermatitis Apply to scalp as needed for itching up to 2 weeks per month. 50 mL 3 5 Active clindamycin (CLEOCIN T) 1 % lotionIndication s:Hidradenitis suppurativa Apply topically 2 (two) times a day. Apply to areas of HS once or twice daily for HS flares. 60 mL 5 5 Active benzoyl peroxide 5 % topical cleanserIndicati ons:Hidradenitis suppurativa Apply topically 2 (two) times a day. Apply topically in shower to affected areas of HS, lather and let sit for 30 seconds to 1 minute then rinse off. alternating with Hibiclens. May bleach towels and fabrics 148 mL 5 5 Active chlorhexidine (HIBICLENS) 4 % external liquidIndication s:Hidradenitis suppurativa Apply topically daily in shower, lather and let sit for 30 seconds to 1 minute alternating with benzoyl peroxide. 236 mL 5 Active betamethasone dipropionate 0.05 % creamIndications :Hidradenitis suppurativa For HS flares: apply a pea-sized amount to affected areas twice daily for a few days up to 1 week per month. 45 g 2 Active Encounters Date Type Department Care Team Description 11/20/2024 Telephone [facility] at [address] [address] Yesica Cobb LPN Lab requistions 7 total faxed to PCP's office 11/13/2024 Telephone [facility] at [place] [id number] [address] Imelda Arciniega MA New Med Request 10/31/2024 9:00 AM EDT Office Visit [facility] [place] [phone] [facility] [address] [place] [address] Anika Miranda MD Hidradenitis suppurativa (Primary Dx); Seborrheic dermatitis; Encounter for long-term (current) use of medications from Last 3 Months Social History Tobacco Use Types Packs/Day Years Used Date Smoking Tobacco: Never Assessed Education Answer Date Recorded Are you interested in more education? Not on gertrude e 08/11/2024 Are you concerned about learning? Not on file 08/11/2024 No 08/11/2024 No 08/11/2024 Digital Access Answer Date Recorded No 08/11/2024 No 08/11/2024 Reliable internet access at home? Not on file 08/11/2024 Device with a working camera? Not on file Comments Unknown Sex and Gender Information Value Date Recorded Sex Assigned at Female 08/11/2024 2:21 PM EDT Legal Sex Female 8:49 PM EDT Gender Identity Female 08/11/2024 2:21 PM EDT Sexual Orientation Bisexual 08/11/2024 2: 21 PM EDT Plan of Treatment Upcoming Encounters Date Type Department Care Team ([facility] st Contact Info) Description 01/30/2025 11:15 AM EDT Office Visit [facility] [address] [place] [address] Anika Miranda MD [address] [place] [address] [email or web address] Health Maintenance Due Date Last Done Comments Adult Td,Tdap Booster 1997 DEPRESSION SCREENING 2009 SMOKING Hx and SMOKELESS TOB ACCO SCREENING 2010 HEPATITIS C SCREENING 08/28/2015 HIV ONE-TIME SCREENING (18-6 5 YEARS) 08/28/2015 PAP SMEAR 2018 COVID-19 VACCINE (2023-2 5 season) 2024 HEPATITIS A VACCINES Aged Out No long er eligible based on patient's age to complete this topic HIB VACCINES Aged Out No longer eligi ble based on patient's age to complete this topic MENINGOCOCCAL VACCINES (ACWY) Aged Out No longer eligible based on patient's age to complete this topic MENINGOCOCCAL VACCINES (B) Aged Out N o longer eligible based on patient's age to complete this topic PNEUMOCOCCAL VACCINES (0-49 years) Aged Out No longer eligible based on patient's age to complete this topic Medical Devices Not [place] [address] [place] [address] ACO ACO ACO A[employer] ACO Care Teams Triple Valve Mechanic Relationship Specialty Start Date End Date Priscilla Gaffney MD [address] [address] PCP - General 10/31/24 Additional Source Comments The information contained in this document represents components of the legal health record. It is not the complete legal health record.[facility]
--- OUTSIDE RECORDS SUMMARY | 2024-12-29 09:56 | XMS_ITS | Clinical Summary ---
Author Organization [facility] [employer] Address [address] [facility] [address] [place] [address] Care Team Providers Care Supervising Producer Name Role Phone Unavailable Primary Care Provider Unavailabl e Encounters Date Type Department Care Team Description 11/06/2024 3:45 PM EDT Office Visit [facility] [address] [place] [address] Grabiel, Hetal, OD Regular astigmatism of both eyes (Primary Dx) from Last 3 Months Social History Tobacco [...] 1997 Lipid Panel 1997 SDOH Screening 1997 Disability Screening 1997 Alcohol/Substance Use Screening 2009 Tobacco Screening 2009 Family Planning (PISQ) 2012 HPV Vaccines (1 - 3-dose series) 2012 Hepatitis C Screening 08/28/2015 DTaP/Tdap/Td Vaccines (1 - Tdap) 2016 Hepatitis B Vaccines (1 of 3 - 19+ 3-dose series) 2016 Pap Smear 2018 COVID-19 Vaccine (1 - 2023-2 5 season) 2024 Influenza Vaccine (#1) 2025 Zoster Vaccines (1 of 2) 08/28/2047 RSV [...] age to complete this topic Meningococcal B Vaccine Aged Out No l onger eligible based on patient's age to complete this topic Meningococcal Vaccine Aged Out No kandi tyler eligible based on patient's age to complete this topic Pneumococcal Vaccine: Pediat rics (0 to 5 Years) and At-Risk Patients (6 to 49) Years Aged Out No longer eligible b ased on patient's age to complete this topic RSV under 20 months Aged Out No longe r eligible based on patient's age to complete this topic Rotavirus Vaccines Aged Out No longer eligible based on patient's age to complete this topic [place] [address] [place] [address] STANDARD
[2024-12-29 11:16] LABS: MANUAL DIFF FLAG NO
[2024-12-29 11:22] LABS: Hematocrit 32.3 % (37.0-47.0); Hemoglobin 10.2 g/dl (12.0-16.0); Imm Gran Abs Auto 0.04 X10*3/uL (0.00-0.03); Imm Gran Pct Auto 0.4 % (0.0-0.4); Lymphocytes Absolute Auto 2.5 X10*3/uL (1.2-4.9); Mean Corpuscular HGB Conc 31.6 g/dl (31.0-35.0); Mean Corpuscular Hemoglobin 24.2 pg (27.0-33.0); Mean Corpuscular Volume 76.5 fL (80.0-98.0); NRBC Abs Auto 0.000 X10*3/uL (0.0-0.012); NRBC Pct Auto 0.0 /100WBC (0.0-0.2); Platelet Count 372 X10*3/uL (160-400); Red Blood Count 4.22 X10*6/uL (4.20-5.50); White Blood Count 10.5 X10*3/uL (4.8-10.8)
[2024-12-29 11:37] LABS: Alanine Aminotransferase 25 U/L (0-31); Albumin Level 3.6 g/dL (3.5-5.0); Alkaline Phosphatase 61 U/L (39-117); Anion Gap 12 (12-20); Aspartate Amino Transferase 34 U/L (5-31); Blood Urea Nitrogen 9 mg/dL (9-16); Calcium 8.9 mg/dL (8.4-10.2); Carbon Dioxide 19 mmol/L (22-29); Chloride 109 mmol/L (96-108); Estimated Glomerular Filt Rate > 60; Potassium 3.8 mmol/L (3.3-5.1); Sodium 136 mmol/L (135-145); Total Protein 7.2 g/dL (6.5-8.0)
[2024-12-30 08:12] LABS: HBS Num1 0.71 mIU/mL (0-7.99); HBc Num1 0.08 S/CO (0.00-0.79); ~HepC Num1 0.09 S/CO (0.00-0.79); ~Hepatitis B Surface Antibody NONREACTIVE (Nonreactive); ~Hepatitis C Antibody Nonreactive (Nonreactive)
[2025-01-01 13:38] LABS: TS Negative Control Passed; TS Panel A 0; TS Panel B 0; TS Positive Control Passed; TSpotTB Negative (Negative)
== END 2024-12-29 09:40 | disposition home or self-care (01) ==
LOC: HO.WFDLDS 09:39
PROVIDERS: Visit Provider Dermatology
DX: L73.2 Hidradenitis suppurativa (principal); Z11.59 Encounter for screening for other viral diseases; Z11.1 Encounter for screening for respiratory tuberculosis; Z79.899 Other long term (current) drug therapy
CPT/HCPCS: 36415; 80053; 85025; 86481; 86704; 86706; 86803

== ENCOUNTER 2025-03-02 14:42 | Outpatient (AMB) | payer OTHER, SELFPAY ==
--- NOTE | 2025-03-02 14:44 | A.OFFPC_ITS ---
Vital Signs 03/02/25 14:48 Height 5 ft 1 in Weight 333 lb 6 oz BMI 63.0 BP 128/76 Blood Pressure Location Lt brachial Position Sitting Respiration 13 Pulse 103 H Pulse Source Pulse Oximeter Temp 97.2 F Temp Source Oral Pulse Oximetry (%) 100 Oxygen Delivery Method Room Air Intake Visit Reasons: CPE Intake Note: CPE. System Configuration Specialist Required: No Patient : Yes Allergies grass pollen Allergy (Mild, Verified 03/02/25 14:52) Nasal congestion house dust mite Allergy (Mild, Verified 03/02/25 14:52) allergy insect venom Allergy (Mild, Verified 03/02/25 14:52) allergy cat dander (CAT) Allergy (Unknown, Verified 03/02/25 14:52) UNKNOWN tree and shrub pollen (TREE) Allergy (Unknown, Verified 03/02/25 14:52) UNKNOWN Blue Cheese Allergy (Unknown, Uncoded 03/02/25 14:52) nausea and vomiting Maple Trees Allergy (Unknown, Uncoded 03/02/25 14:52) Excessive Sneezing Medication List - Last Reconciled 03/02/25 by Patricia Agee, TELEGRAPH MECHANIC- albuterol sulfate 2.5 mg (3 mL) inhalation Q4-6H PRN albuterol sulfate 90 mcg/actuation (ProAir HFA) 2 puffs PO Q4-6H PRN aspirin 162 mg PO DAILY zquhlat-sqxlkzxxykkdh-mmtawpgw 250-250-65 mg (Excedrin Migraine) 2 tabs PO Q6H cetirizine (Zyrtec) 10 mg PO DAILY 14 days cyclobenzaprine 10 mg PO TID PRN 30 days desonide 0.05% 1 appl topical BID PRN diphenhydramine HCl 2% (Benadryl) 1 appl topical TID PRN ferrous sulfate 325 mg PO DAILY hydrocortisone 2.5% 1 appl topical TID hydroxyzine HCl 25 mg PO QID PRN ibuprofen 400 mg PO Q6H PRN mecobalamin (vitamin B12) 1,000 mcg PO DAILY nebulizers (AeroEclipse II Nebulizer) As directed omeprazole mg PO PNV,calcium 99-xxkl-wisof acid 27 mg iron- 1 mg ( Vitamins Plus Low Iron) 1 tab PO DAILY pyridoxine (vitamin B6) (Vitamin B-6) mg PO secukinumab (Cosentyx Pen 300 mg/2 pens () mg subcut Q4W sertraline 50 mg PO DAILY 14 days sumatriptan succinate take 1 tab at onset of headache; if no relief may repeat 1 tab after at least 2 hrs; max = 4 tabs/24 hr PO Tobacco use date assessed: 03/02/25 Dental Screening Dental Screen Date: 03/02/25 Did you have a dental visit in the last 12 months?: Yes Did you have a dental problem in the last 6 months where you did not have access to dental care?: No Was dental information given to patient?: Patient has dentist HPI HPI Comments History of Present Illness Details 29-year-old female with hidradenitis sup purativa, migraines, anemia, ADHD, pseudotumor cerebri, depression with suicide attempt in 2020, anxiety, prediabetes, vitamin-D deficiency, obesity, obstructive sleep apnea on APAP 5-20 cm H2O, former cigarette smoker, mild intermittent asthma, chronic joint pain Status post myringotomy, tonsillectomy, cholecystectomy Specialists Sleep medicine Bariatric surgery gynecological assistant Neurology Psychiatry Dermatology HEALTH MAINTENANCE PAP SMEAR DECEMBER 2022 DME 10/2023 [facility] neg for retinopathy bilat, ocular htn bilat * reports done in 2024, need report Flu 02/2025 Tdap 02/2025 History of Present Illness The patient is a 29-year-old female presenting for a complete physical exam and chronic dz management. Morbid Obesity: - BMI 63; seeking weight management post -. Chronic Myalgias with Positive BAMBI: - Rheumatology referral noted for possib le lupus diagnosis - Initial consult in jun @ wed . Obstructive Sleep Apnea: - No recent exacerbation noted. using CPAP Pseudotumor Cerebri: - Stable, no recent symptoms. Migraines: - Managed without meds at this time, st opped sumatriptan due to . Asthma: - PRN albuterol; experiencing cold-induc ed symptoms. UTD on vaccines Generalized Anxiety Disorder: - Ceased sertraline; crying episodes obs erved. Not in counseling. Denies si/hi Gastroesophageal Reflux Disease: - Managed with omeprazole. Prediabetes: - A1c at 6.0 today; no gestational diabe dara. : - Due April 15; vaccinations up to date. not taking ASA. Strongly encouraged to do so. Hidradenitis Suppurativa: - Deferred treatment due to . - she is managed by Derm Iron def anemia; takes iron, constipates her if taken QD. Taking QOD Social History - Smokes; ceased during - Experienced depression related to weig ht concerns. - Previously attempted weight loss progr ams and surgery; abstained due to smoking. Review of Systems - General: Denies significant weight los s or gain. - Respiratory: Reports episodic wheezing in colder weather. - Neurological: Reports recurring migrai edin. - Psychiatric: Reports significant emoti onal lability. - Dermatological: Reports itching and dr yness in ears. Physical Exam General: Well developed, well nourished, in no acute distress. Appears stated age. Head: Normocephalic, atraumatic. Eyes: Pupils are equal, round and reactive to light and accommodation. Conjunctivae are clear. Scleras nonicteric bilat. Ears: TMs clear AU, EACS WNL. Nose: Patent, without discharge. Neck: No carotid bruit bilat. Supple, no adenopathy or thyromegaly. Breast: Edu on SBE Lungs: Clear to auscultation bilaterally, dim throughout, No rales, rhonchi or wheeze noted. Heart: Regular rate and rhythm. No murmurs, click, rubs or gallops are noted. Abdomen: Bowel sounds present in all quadrants. The abdomen is gravid, nontender, difficult to appreciate masses or organomegaly given body habitus. No hernias are noted. : Deferred. Reviewed recommendations for routine VP PACKAGING. Pulses: Peripheral pulses are equal and palpable bilaterally. Extremities: No clubbing, cyanosis nor edema is noted. Neurologic: Gait and station normal. Cranial Nerves 2-12 intact. Motor strength grossly symmetrical and intact. No sensory loss. Balance normal. Skin: No rashes, ulcers, or lesions noted. Turgor is good. Skin color is good. Hirsutism; Dry skin ear canals, acanthosis of neck Psych: Normal eye contact, affect and mood appropriate, and normal interactions. Patient is alert and appropriate to context. Results - Labs: A1c 6.0%, indicating prediabetes ; past BAMBI positive, higher titer levels. Discussion Notes I reviewed the patient's condition, emphasizing the importance of continuing care due to her due date on April 15 (son Lance) We discussed her concerns about managing her morbid obesity , and she anticipates reentering a weight management program after delivery. We talked about the need for asthma management, particularly with the increased respiratory demands during the cold season and her current . I confirmed her understanding of the stopped medications for anxiety and HS treatment until , and she was advised regarding the importance of maintaining iron levels during . We agreed on scheduling follow-up rheumatology to address potential lupus due to her elevated BAMBI levels. Patient was given time to ask questions. All questions were answered to their satisfaction. Assessment and Plan 1. Morbid Obesity - Plan post-delivery weight management @ [place]. 2. Chronic Myalgias with Positive BAMBI - Manage rheumatology follow-up. 3. Obstructive Sleep Apnea - Stable, monitor symptoms. Cont CPAP 4. Pseudotumor Cerebri - Currently stable. 5. Migraines - Excedrin & sumatriptin previusly; on h old during 6. Asthma - Provide inhaler refills. 7. Generalized Anxiety Disorder - Stopped sertraline, consider restartin g PRN 8. Gastroesophageal Reflux Disease - Continue omeprazole. 9. Prediabetes - A1c level monitoring. 10. - Continue follow-ups. 11. Hidradenitis Suppurativa - Postpone treatment until after deliver y. FU Derm 12. Iron def anemia, cont Iron supplemen t 13. Start desonide to ears prn, sparingl y Patient Instructions - Continue visits and take iron as prescribed. - Resume asthma medication as needed, es pecially in cold weather. - Avoid starting any new medications wit hout consultation. - Attend scheduled appointments with [facility]. - Maintain recent vaccinations and consi heidy regular check-ups. - Plan weight management steps after [place] zambrano. - RTO 1 year CPe, sooner PRN Consent Patient was informed and verbally consented to the use of an ambient scribe for clinic note documentation during this visit. Insert extra time spent: 20 minutes [facility] Medical History BMI 60.0-69.9, adult Dysmenorrhea Pelvic pain Cigarette smoker Vaginal itching History of ingrown hair Fungal infection of foot Hidradenitis suppurativa Migraines Anemia ADHD Pseudotumor cerebri Depression Anxiety Prediabetes Vitamin D deficiency No known health problems Surgical History History of myringotomy History of tonsillectomy Hx of cholecystectomy Family History Mother Fibromyalgia Depression Arthritis Father Diabetes Hypertension Brother No problems noted. Sister No problems noted. Maternal Grandmother Hypertension Maternal Grandfather Colon cancer Family/Other Breast cancer Social History Housing: Other Alcohol intake: current Alcohol intake frequency: does not drink Patient Tobacco Use Status: Current everyday Tobacco user Tobacco use type: Cigarette Cigarette Packs Per Day: 1 Years Smoked: 3 e-Cigarette/Vaping Use: Never Used Second Hand Smoke Exposure: No Substance Use Type: Marijuana service: No Current occupational status: unemployed and student Current occupation: seeking employment Gender identity: Female Cognitive needs: No Hearing needs: No Vision needs: Yes Female Reproductive History Menstrual Age of Menarche: 14 Questionnaire PHQ-9 Over the last 2 weeks, how often have you been bothered by any of the following problems? 1. Little interest or pleasure in doing things: nearly every day 2. Feeling down, depressed, or hopeless: nearly every day 3. Trouble falling or staying asleep, or sleeping too much: more than half the days 4. Feeling tired or having little energy: more than half the days 5. Poor appetite or overeating: more than half the days 6. Feeling bad about yourself - or that you are a failure or have let yourself or your family down: more than half the days 7. Trouble concentrating on things, such as reading the newspaper or watching television: more than half the days 8. Moving or speaking so slowly that other people could have noticed. Or the opposite - being so fidgety or restless that you have been moving around a lot more than usual: not at all 9. Thoughts that you would be better off or of hurting yourself in some way: several days Total score: 17 Depression Screening Interpretation: Positive Depression Screening Follow-up: Existing condition and In treatment Depression Screening Done: Yes 66576 - PHQ-9 Billing: Yes Source: Developed by Drs. Mateo Pittman, Natalia B.W. Hero Gonsalez and colleagues, with an educational ester from [employer]. Thrive Questionnaire Date Thrive assessed: 03/02/25 I am a: Patient What is your living situation today?: I have a steady place to live Within the past 12 months, did the food you bought not last and you didn't have the money to get more?: Sometimes True Within the past 12 months, did you worry whether your food would run out before you got money to buy more?: Sometimes True Do you have trouble paying for medicines?: I choose not to answer this question Do you have trouble getting transportation to medical appointments?: Yes Do you have trouble paying your heating and electricity bill?: Yes Do you have trouble taking care of your child, family member or friend?: No Do you have trouble with day-to-day activities such as bathing, preparing meals, shopping, managing finances, etc.?: Yes Are you currently unemployed and looking for a job?: Yes Are you interested in more education?: No Please select the resources that you would like help with: Food, [employer] and Job search/training Currently or been in a relationship where the following occur: No concerns reported THRIVE Score: 4 AUDIT C Alcohol Use Questionnaire (AUDIT-C) 1. How often do you have a drink containing alcohol?: Monthly or less 2. How many drinks containing alcohol do you have on a typical day when you are drinking?: 1 or 2 3. How often do you have six or more drinks on one occasion?: Never Total Score: 1 Score Reviewed/Action Taken: Yes ARIANA-7 AMB Questionnaire ARIANA-7 Date ARIANA - 7 assessed: 03/02/25 Feeling nervous, anxious, or on edge: 1 = Several days Not being able to stop or control worryin = More than half the days Worrying too much about different things: 3 = Nearly every day Trouble relaxin = Several days Being so restless that it is hard to sit still: 1 = Several days Becoming easily annoyed or irritable: 2 = More than half the days Feeling afraid as if something awful might happen: 1 = Several days Total ARIANA-7 score (0-4 normal; 5-9 mild; 10-14 moderate; 15-21 severe): 11 Source: Developed by Drs. Mateo Pittman, Hero Pulido and colleagues, with an educational ester from [employer]. ARIANA-7 Assessment Billing ARIANA-7 Assessment Tool: ARIANA-7 Assessment 80794 Physical exam (Primary Care) Vital Signs: Last Vital Signs Temp 97.2 F 03/02/25 14:48 Pulse 103 H 03/02/25 14:48 Resp 13 03/02/25 14:48 BP 128/76 03/02/25 14:48 Pulse Ox 100 03/02/25 14:48 Oxygen Delivery Method Room Air 03/02/25 14:48 BMI result Body Mass Index 63.0 BMI Assessment/Plan discussion: High BMI High, discussed plan: lifestyle Tobacco/Smoking Status: Tobacco use Status Tobacco use date assessed 03/02/25 03/02/25 14:47 Patient Tobacco Use Status Current everyday Tobacco 03/02/25 14:47 Tobacco use type Cigarette 03/02/25 14:47 e-Cigarette/Vaping Use Never Used 03/02/25 14:47 PHQ-9: PHQ-9 Score PHQ-9: Total score 17 03/02/25 14:52 Depression Screening Interpretation: Positive Depression Screening Follow-up: Existing condition and In treatment Thrive Assessment: Date of Thrive Assessment Date Thrive assessed 03/02/25 03/02/25 14:47 Currently or been in a relationship where the following occur: No concerns reported Results AMB Hemoglobin A1c AMB Hemoglobin A1c 6.0 % Last Edit by Lidia Duggan MA on 03/02/25 15:10 Results Reviewed Results Reviewed: Laboratory Last Values Hgb A1c (Clinic) 6.0 % (4.0-6.0) 03/02/25 15:09 Coding Level of Care Code Est Pt Level 3 (63195) Est Pt Prev Care 18-39y(97460) Diagnoses Encounter for general adult medical examination without abnormal findings Z00.00 ARIANA (generalized anxiety disorder) F41.1 Severe episode of recurrent major depressive disorder, without psychotic features F33.2 Major depression episode severity: severe Psychotic features: without psychotic features Migraine with aura and without status migrainosus, not intractable G43.109 Intractability: not intractable Status migrainosus presence: without status migrainosus Mild intermittent asthma without complication J45.20 Asthma complication type: uncomplicated Obstructive sleep apnea G47.33 Prediabetes R73.03 BMI 60.0-69.9, adult Z68.44 Hidradenitis suppurativa L73.2 Currently Z34.90 Other iron deficiency anemia D50.8 Iron deficiency anemia type: other iron deficiency Polymyalgia M35.3 Positive BAMBI (antinuclear antibody) R76.8 Additional Codes ARIANA-7 Assessment Billing - ARIANA-7 Assessment Tool: ARIANA-7 Assessment 55233 ([id number]) PHQ-9 - 33043 - PHQ-9 Billing: Yes ([id number]) Assessment & Plan Assessment & Plan (1) Encounter for general adult medical examination without abnormal findings: Onset Date: ~03/02/25 Code(s): Z00.00 - Encounter for general adult medical examination without abnormal findings Category: Medical (2) ARIANA (generalized anxiety disorder): Comment: Managed by outside prescriber in the past, currently no meds denies si/hi Code(s): F41.1 - Generalized anxiety disorder Category: Medical (3) MDD (major depressive disorder), recurrent episode: Comment: Was managed by psychiatrist & sertraline and Wellbutrin. off all meds Denies sx. Code(s): F33.9 - Major depressive disorder, recurrent, unspecified Category: Medical Qualifiers: Major depression episode severity: severe Psychotic features: without psychotic features Qualified Code(s): F33.2 - Major depressive disorder, recurrent severe without psychotic features (4) Migraine with aura: Comment: Was managed by Neurology but reports that she no longer follows with them. Has abortive medications of sumatriptan and Excedrin migraine which she uses with success when not preg. She can continue Code(s): G43.109 - Migraine with aura, not intractable, without status migrainosus Category: Medical Qualifiers: Intractability: not intractable Status migrainosus presence: without status migrainosus Qualified Code(s): G43.109 - Migraine with aura, not intractable, without status migrainosus (5) Mild intermittent asthma: Comment: Well controlled on p.r.n. Paulina only. Continue. Code(s): J45.20 - Mild intermittent asthma, uncomplicated Category: Medical Qualifiers: Asthma complication type: uncomplicated Qualified Code(s): J45.20 - Mild intermittent asthma, uncomplicated (6) Obstructive sleep apnea: Comment: In-lab PSG (12/11/20 at [facility] [place] ) revealed: AHI: 12/hr; REM AHI: 47/hr; O2 rolanda; Periodic limb movement of sleep (PLMS) index: 9.7/hr; PLMS arousal index: 2.8/hr. Followed by sleep medicine on CPAP. Continue Code(s): G47.33 - Obstructive sleep apnea (adult) (pediatric) Category: Medical (7) Prediabetes: Comment: a1c 6% Code(s): R73.03 - Prediabetes Category: Medical (8) BMI 60.0-69.9, adult: Comment: Lifestyle modifications encouraged. refer to [facility] Code(s): Z68.44 - Body mass index [BMI] 60.0-69.9, adult Category: Medical (9) Hidradenitis suppurativa: Comment: Active with Dermatology. was On Cosentyx. Code(s): L73.2 - Hidradenitis suppurativa Category: Medical (10) Currently : Comment: due apr 15, son Lance Code(s): Z34.90 - Encounter for supervision of normal , unspecified, unspecified trimester Category: Medical (11) Iron deficiency anemia: Comment: on ferrous sulfate 134 mg, titrate to daily, contingent on GI side effects. Code(s): D50.9 - Iron deficiency anemia, unspecified Category: Medical Qualifiers: Iron deficiency anemia type: other iron deficiency Qualified Code(s): D50.8 - Other iron deficiency anemias (12) Polymyalgia: Comment: + BAMBI, REFER TO RHEUM FOR EVAL AND TX . . Code(s): M35.3 - Polymyalgia rheumatica Category: Medical (13) Positive BAMBI (antinuclear antibody): Code(s): R76.8 - Other specified abnormal immunological findings in serum Category: Medical Plan . Orders: Orders AMB Hemoglobin A1c Today Z13.9 - Encounter for screening, unspecified Referrals Medical Weight Management Referral Z68.44 - Body mass index [BMI] 60.0-69.9, adult Rheumatology Referral R76.8 - Other specified abnormal immunological findings in serum Medications: Refilled albuterol sulfate 2.5 mg (3 mL) inhalation Q4-6H PRN 75 mL 0RF shortness of breath or wheezing desonide 0.05% 1 appl topical BID PRN 15 grams 2RF for itch albuterol sulfate 90 mcg/actuation (ProAir HFA) 2 puffs PO Q4-6H PRN 8.5 ea 0RF shortness of breath or wheezing B34.9 - Viral infection, unspecified Discontinued ibuprofen Discontinued Reason: Patient Completed Course 400 mg PO Q6H PRN 20 tabs 0RF pain diphenhydramine HCl 2% (Benadryl) Discontinued Reason: Patient Completed Course 1 appl topical TID PRN 103 mL 0RF itching fthnzfn-ueiyqoxziyoap-nadpjnyl 250-250-65 mg (Excedrin Migraine) Discontinued Reason: Patient Completed Course 2 tabs PO Q6H 20 tabs 0RF R51.9 - Headache, unspecified mecobalamin (vitamin B12) Discontinued Reason: Patient Completed Course 1,000 mcg PO DAILY 90 tabs 0RF cyclobenzaprine Discontinued Reason: Patient Completed Course 10 mg PO TID 30 days PRN 90 tabs 0RF muscle spasm sumatriptan succinate Discontinued Reason: Order take 1 tab at onset of headache; if no relief may repeat 1 tab after at least 2 hrs; max = 4 tabs/24 hr PO 20 tabs 0RF R51.9 - Headache, unspecified sertraline Discontinued Reason: Patient Completed Course 50 mg PO DAILY 14 days 14 tabs 0RF hydroxyzine HCl Discontinued Reason: Patient Completed Course 25 mg PO QID PRN 20 tabs 0RF anxiety cetirizine (Zyrtec) Discontinued Reason: Patient Completed Course 10 mg PO DAILY 14 days 14 tabs 0RF PNV,calcium 92-efwn-xclsz acid 27 mg iron- 1 mg ( Vitamins Plus Low Iron) Discontinued Reason: Patient Refused 1 tab PO DAILY 90 tabs 4RF Patient Instructions: Put cold or warm wet cloths on your eye a few times a day if the eye hurts. Do not wear contact lenses or eye makeup until the pink eye is gone. Throw away any eye makeup you were using when you got pink eye. Clean your contacts and storage case. Wash bed linen after 24 hours of antibiotic eye drop use. Do not share eye drops. Use a clean towel to wash your face each day until symptoms are gone. This will help prevent recurrence. What is pink eye? [place] eye is a term people use to describe an infection or irritation of the eye. The medical term for pink eye is conjunctivitis. If you have pink eye, your eye (or eyes) might: ?Turn pink or red ?Weep or ooze a gooey liquid ?Become itchy or burn ?Get stuck shut, especially when you first wake up [place] eye can be caused by an infection, allergies, or an unknown irritation. Can you catch pink eye from someone else? Yes. When pink eye is caused by an infection, it can spread easily. Usually, people catch it from touching something that has been in contact with an infected person's eye. It can also be spread when an infected person touches someone else, and then that person touches their eye. If someone you know has pink eye, avoid touching their pillowcases, towels, or other personal items. When should I see a doctor or nurse? See your doctor or nurse if your eye hurts, or if you still have trouble seeing clearly after blinking. If you do not have these problems, but think you might have pink eye, your doctor or nurse might be able to give you advice over the phone. Can pink eye be treated? Most cases of pink eye go away on their own without treatment. But some types of pink eye can be treated. When pink eye is caused by infection, it is usually caused by a virus, so antibiotics will not help. Still, pink eye caused by a virus can last several days. ?[place] eye caused by an infection with bacteria can be treated with antibiotic eye drops, gel, or ointment. ?[place] eye caused by other problems can be treated with eye drops normally used to treat allergies. These drops will not cure the pink eye, but they can help with itchiness and irritation. When using eye drops for infection, do not touch your healthy eye after touching your infected eye. Also, do not touch the bottle or dropper directly onto 1 eye and then use it in the other. These things can cause the infection to spread from 1 eye to the other. If your eyelids feel swollen, it might also help to hold a cool wet cloth on the area. What if I wear contact lenses? If you wear contact lenses and you have symptoms of pink eye, it is really important to have a doctor look at your eyes. In people who wear contacts, the symptoms of pink eye can be caused by corneal abrasion. Corneal abrasion is a scratch on the eye and can be a serious problem. During treatment for eye infections, you might need to stop wearing your contacts for a short time. If your contacts are disposable, throw them away and use new ones. If your contacts are not disposable, you need to carefully clean them. You should also throw away your contact lens case and get a new one. When can I go back to work or school? If you have pink eye caused by an infection, remember that it can spread very easily. The best way to avoid spreading it is to stay away from other people until you no longer have symptoms. If this is not possible, wash your hands oft en (figure 1). It's also important to avoid touching your eyes and sharing items that could spread the infection. Schools and day cares usually have rules about when a child with pink eye can return. If a child has a bacterial infection, they will probably need to stay home until they have gotten antibiotic eye drops or ointment for 24 hours. Can pink eye be prevented? To keep from getting or spreading pink eye caused by an infection: ?Wash your hands often with soap and water. ?Try not to touch your eyes. ?Avoid sharing towels, bedding, or other personal items with a person who has pink eye. If your pink eye is caused by allergies, it might help to stay inside with the windows shut as much as possible during peak allergy seasons. What problems should I watch for? Call your doctor or nurse if: ?You have trouble seeing clearly after blinking. ?Your eye is still red or has drainage after 3 days. ?You have eye pain that is getting worse.
[2025-03-02 14:48] VITALS: BP 128/76; PULSE 103; RESP 13; TEMP 36.2; O2SAT 100; BMI 63.0
--- OUTSIDE RECORDS SUMMARY | 2025-03-02 17:13 | XMS_ITS | Clinical Summary ---
Author Organization [facility] [employer] Address [address] [place] [address] Care Team Providers Care Supervisor Sewing Room Name Role Phone Unavailable Primary Care Provider [...] COVID-19 Vaccine (1 - 2023-2 5 season) 2025 Influenza Vaccine (#1) 2025 Zoster Vaccines (1 [...] patient's age to complete this topic [place] [address] [address] STANDARD
--- OUTSIDE RECORDS SUMMARY | 2025-03-02 17:13 | XMS_ITS | Encounter Summary ---
Author Organization [facility] Address [address] [place] [address] Phone Care Team Providers Care Pavilion Cutter Name Role Phone Priscilla Gaffney MD Primary Care Provider Reason for Referral * E-Consult - New Request Specialty Diagnoses / Procedures Referred By Emily jeong Referred To Contact Rheumatology Diagnoses Positive BAMBI (antinuclear antibody) Procedures Ambulatory [facility] Rheumatology E-Consult Anika Miranda MD [address] [place] [address] Phone: tel: fax: [email or web address] Referral ID Status Reason Start Date Expiration Date V isits Requested Visits Authorized [id number] New Request 02/05/2025 1 1 Encounter Details Date Type Department Care Team (Late st Contact Info) Description 02/05/2025 Orders Only [address] [address] Anika Miranda MD [address] [place] [address] [email or web address] Positive BAMBI (antinuclear antibody) (Primary Dx) Social History Tobacco Use Types Packs/Day Years [...] Orientation Bisexual 08/11/2024 2: 21 PM EDT documented as of this encounter Plan of Treatment Upcoming Encounters Date Type Department Care Team (Late st Contact Info) Description 03/08/2025 10:00 AM EDT Office Visit [facility] Main [place] [address] [place] [address] Vianey Whitfield MD [address] [place] [address] [email or web address] 05/29/2025 11:45 AM EST Office Visit [facility] [address] [address] Anika Miranda MD [address] [place] [address] [email or web address] documented as of this encounter Visit Diagnoses Diagnosis Positive BAMBI (antinuclear antibody)- Primary Other and unspecified nonspecific immunological findings documented in this encounter Care Teams Pavilion Cutter Relationship Specialty Start Date End Date Priscilla Gaffney MD [address] [place] [address] PCP - General 10/31/24 documented as of this encounter Additional Source Comments The information contained in this document represents components of the legal health record. It is not the complete legal health record.[facility]
--- OUTSIDE RECORDS SUMMARY | 2025-03-02 17:13 | XMS_ITS | Clinical Summary ---
Author Organization [facility] Address [address] [place] [address] Phone Care Team Providers Care Manager Plumbing Name Role Phone Priscilla Gaffney MD Primary Care Provider [phone] Medications ketoconazole (NIZORAL) 2 % shampooIndicatio ns:Seborrheic [...] week per month. 45 g 2 Active Active Problems Problem Noted Date Diagnosed Date Hidradenitis suppurativa 01/30/2025 Encounter for long-term (current) use of medicat ions 01/30/2025 Encounters Date Type Department Care Team Description 02/05/2025 E-Consult [facility] Main [place] [address] [place] [address] Jm Croft MD 02/05/2025 Orders Only [facility] Dermatology [address] [address] Anika Miranda MD Positive BAMBI (antinuclear antibody) (Primary Dx) 02/01/2025 Orders Only [facility] Dermatology [address] [address] Anika Miranda MD 01/30/2025 12:05 PM EDT - 01/30/2025 11:59 PM EDT Hospital Encounter [facility] Pathology Outpatient Lab [facility] [place] [address] Anika Miranda MD Discharge Disposition: Home or Self Care 01/30/2025 11:15 AM EDT Office Visit [facility] [address] [address] Anika Miranda MD Hidradenitis suppurativa (Primary Dx); Need for hepatitis B screening test; Seborrheic dermatitis; Encounter for long-term (current) use of medications; Screening for human immunodeficiency virus; Positive BAMBI (antinuclear antibody) from Last 3 Months Social History Tobacco [...] Description 03/08/2025 10:00 AM EDT Office Visit [facility] Main [place] [address] [place] [address] Vianey Whitfield MD [address] [place] [address] [email or web address] 05/29/2025 11:45 AM EST Office Visit [facility] [address] [address] Anika Miranda MD [address] [place] [address] [email or web address] Health Maintenance Due Date Last Done Comments Adult Td,Tdap Booster 1997 DEPRESSION SCREENING 2009 SMOKING Hx and SMOKELESS TOB ACCO SCREENING 2010 PAP SMEAR 2018 INFLUENZA VACCINE (#1) 2024 COVID-19 VACCINE (2024-2 6 season) 2025 HEPATITIS C SCREENING Completed 01/30/2025 HIV ONE-TIME SCREENING (18-6 5 YEARS) Completed 01/30/2025 HEPATITIS A VACCINES Aged Out No long [...] this topic Medical Devices Not on file Procedures Procedure Name Priority Date/Time Associated Diagnosis Comments SS-A/RO ANTIBODY, IGG Routine 01/30/2025 12:05 PM EDT DOUBLE STRANDED DNA ANTIBODIES Routine 01/30/2025 12:05 PM EDT SM (GARCIA) ANTIBODY Routine 01/30/2025 1 2:05 PM EDT ENTRY LEVEL WEB DEVELOPER ANTIBODY Routine 01/30/2025 12:05 PM EDT SS-B/LA ANTIBODY, IGG Routine 01/30/2025 12:05 PM EDT COMPREHENSIVE METABOLIC PANEL Routine 01/30/2025 12:05 PM EDT Hidradenitis suppurativa Encounter for long-term (current) use of medications HC BLOOD COUNT COMPLETE AUTO&AUTO DIFRNTL WBC Routine 01/30/2025 12:05 PM EDT Hidradenitis suppurativa Encounter for long-term (current) use of medications HEPATITIS B SURFACE ANTIBODY Routine 01/30/2025 12:05 PM EDT Hidradenitis suppurativa Encounter for long-term (current) use of medications ANTINUCLEAR ANTIBODY (BAMBI) Routine 01/30/2025 12:05 PM EDT Hidradenitis suppurativa Encounter for long-term (current) use of medications T SPOT TB TEST Routine 01/30/2025 12:05 PM EDT Hidradenitis suppurativa Encounter for long-term (current) use of medications HEPATITIS B CORE ANTIBODY, IGM Routine 01/30/2025 12:05 PM EDT Hidradenitis suppurativa Encounter for long-term (current) use of medications HIV-1/2 ANTIGEN/ANTIBODY Routine 01/30/2025 12:05 PM EDT Hidradenitis suppurativa Encounter for long-term (current) use of medications HEPATITIS C ANTIBODY, QUALITATIVE Routine 01/30/2025 12:05 PM EDT Hidradenitis suppurativa Encounter for long-term (current) use of medications HEPATITIS B CORE ANTIBODY, TOTAL Routine 01/30/2025 12:05 PM EDT Hidradenitis suppurativa Encounter for long-term (current) use of medications HEPATITIS B SURFACE ANTIGEN Routine 01/30/2025 12:05 PM EDT Hidradenitis suppurativa Encounter for long-term (current) use of medications OUTSIDE LAB 01/30/2025 from Last 3 Months Results * SS-B/LA ANTIBODY, IGG (01/30/2025 12:05 PM EDT) ANTI-LA <3 0 - 20 CU [facility] AL IMMUNOLOGY LAB Comment:SEMIQUANTITATIVE MET HOD PERFORMED 01/30/2025 12:0 5 PM EDT 01/30/2025 1:05 PM EDT us Anika Miranda MD LAB BLOOD ORDERABLES Jessica l Result [facility] IMMUNOLOGY LAB [address] [place] [address] * SS-A/RO ANTIBODY, IGG (01/30/2025 12:05 PM EDT) ANTI RO 52 <2 0 - 20 CU [facility] DEISI IMMUNOLOGY LAB Comment:SEMIQUANTITATIVE MET HOD PERFORMED ANTI RO 60 <5 0 - 20 [facility] Comment:SEMIQUANTITATIVE MET HOD PERFORMED 01/30/2025 12:0 5 PM EDT 01/30/2025 1:05 PM EDT us Anika Miranda MD LAB BLOOD ORDERABLES Jessica l Result [facility] IMMUNOLOGY LAB [address] [place] [address] * SM (GARCIA) ANTIBODY (01/30/2025 12:05 PM EDT) ANTI-SM <3 0 - 20 CU [facility] IMMUNOLOGY LAB Comment:SEMIQUANTITATIVE MET HOD PERFORMED 01/30/2025 12:0 5 PM EDT 01/30/2025 1:05 PM EDT us Anika Miranda MD LAB BLOOD ORDERABLES Jessica l Result Performing Organization Address [facility] Co de Phone Number [facility] CLINICAL IMMUNOLOGY LAB [address] [place] [address] * ENTRY LEVEL WEB DEVELOPER ANTIBODY (01/30/2025 12:05 PM EDT) ANTI-ENTRY LEVEL WEB DEVELOPER <4 0 - 20 [facility] IMMUNOLOGY LAB Comment:SEMIQUANTITATIVE MET HOD PERFORMED 01/30/2025 12:0 5 PM EDT 01/30/2025 1:05 PM EDT us Anika Miranda MD LAB BLOOD ORDERABLES Jessica l Result Performing Organization Address [facility] Co de Phone Number [facility] IMMUNOLOGY LAB [address] [place] [address] * (ABNORMAL) Comprehensive metabolic panel (01/30/2025 12:05 PM EDT) SODIUM 136 136 - 145 mmol/L [facility] POTASSIUM 4.0 3.4 - 5.0 mmol/L [facility] CHLORIDE 104 98 - 107 mmol/L [facility] CO2 18(L) 22 - 31 mmol/L [facility] BUN 10 6 - 23 mg/dL [facility] CREATININE 0.53 0.50 - 1.20 mg/dL [facility] GLUCOSE 107 70 - 115 mg/dL [facility] Comment:Note: ADA guidelines consider any fasting glucose above 100 mg/dL as pre-diabetic. ALBUMIN 3.5 3.5 - 5.2 g/dL [facility] TOTAL PROTEIN 7.3 6.0 - 8.0 g/dL [facility] CALCIUM 9.0 8.6 - 10.7 mg/dL [facility] ALKALINE PHOSPHATASE 75 40 - 130 U/L [facility] TOTAL BILIRUBIN 0.2 0.0 - 1.0 mg/dL [facility] AST 30 10 - 50 U/L [facility] ALT 22 10 - 50 U/L [facility] GLOBULIN 3.8 2.2 - 4.2 g/dL [facility] EGFR >120 >60 mL/min/1.7 3m2 [facility] Comment:Estimated glomerular filtration rate calculated using the CKD-EPI refit equation. ANION GAP 13 3 - 15 mmol/L [facility] 01/30/2025 12:0 5 PM EDT 01/30/2025 1:04 PM EDT Anika Miranda MD LAB BLOOD ORDERABLES Jessica wood Result [facility] [address] [place] [address] * T spot TB test (01/30/2025 12:05 PM EDT) [facility] T-SPOT.TB Negative Negative [employer] [facility] Comment: (NOTE) A negative test result does not exclude the possibility of exposure to or infection with Mycobacterium tuberculosis (M. tuberculosis). Patients with recent exposure to TB infected individuals exhibiting a negative T-SPOT.TB result should be considered for retesting within 6 weeks or if other relevant clinical symptoms indicate. Results from T-SPOT.TB testing must be used in conjunction with each individual's epidemiological history, current medical status, and results of other diagnostic evaluations. The T-SPOT.TB test is qualitative and results are reported as positive, borderline, or negative, given that the test controls perform as expected. In line with the Centers for Disease Control and Prevention's 2010 recommendation to report quantitative measurements alongside the qualitative result, the laboratory provides spot counts for informational purposes only. The T-SPOT.TB test should not be interpreted as a quantitative test. Panel A Spot Count Corrected For Neg Control 0 [facility] [employer] Panel B Spot Count Corrected For Neg Control 0 [facility] [employer] Negative Control Passed [facility] [employer] Positive Control Passed [facility] Comment: (NOTE) For additional information, please refer to http://education.[employer]faq/JVE090 (This link is being provided for informational/ educational purposes only.) 01/30/2025 12:0 5 PM EDT 01/30/2025 1:04 PM EDT us Anika Miranda MD LAB BLOOD ORDERABLES Jessica l Result [employer] [address] [place] [address] * HIV-1/2 antigen/antibody (01/30/2025 12:05 PM EDT) HIV 1/2 AB/AG Nonreactive Nonreactive [facility] 01/30/2025 12:0 5 PM EDT 01/30/2025 1:04 PM EDT us Anika Miranda MD LAB BLOOD ORDERABLES Jessica l Result [facility] [address] [place] [address] * Hepatitis C antibody, qualitative (01/30/2025 12:05 PM EDT) HCV ANTIBODY Nonreactive Nonreactive [facility] 01/30/2025 12:0 5 PM EDT 01/30/2025 1:04 PM EDT us Anika Miranda MD LAB BLOOD ORDERABLES Jessica l Result Performing Organization Address [facility]/ZIP Co de Phone Number [address] [address] * Double stranded DNA antibodies (01/30/2025 12:05 PM EDT) ANTI DSDNA 10 0 - 30 IU/mL [facility] IMMUNOLOGY LAB Comment:SEMIQUANTITATIVE MET HOD PERFORMED 01/30/2025 12:0 5 PM EDT 01/30/2025 1:05 PM EDT us Anika Miranda MD LAB BLOOD ORDERABLES Jessica l Result Performing Organization Address [facility]/ZIP Co de Phone Number [facility] IMMUNOLOGY LAB [address] [place] [address] * Hepatitis B core antibody, IgM (01/30/2025 12:05 PM EDT) HEP B CORE IGM AB Nonreactive Nonreactive [facility] 01/30/2025 12:0 5 PM EDT 01/30/2025 1:04 PM EDT us Anika Miranda MD LAB BLOOD ORDERABLES Jessica l Result Performing Organization Address [facility]/ZIP Co de Phone Number [address] [address] * Hepatitis B core antibody, total (01/30/2025 12:05 PM EDT) HEP B CORE AB, TOT Nonreactive Nonreactive [facility] 01/30/2025 12:0 5 PM EDT 01/30/2025 1:04 PM EDT us Anika Miranda MD LAB BLOOD [place] [address] * Hepatitis B surface antibody (01/30/2025 12:05 PM EDT) HBV SURFACE AB,QUAL Nonreactive Nonreactive [facility] 01/30/2025 12:0 5 PM EDT 01/30/2025 1:04 PM EDT us Anika Miranda MD LAB BLOOD ORDERABLES Jessica l Result Performing Organization Address [facility]/[place] [address] * Hepatitis B surface antigen (01/30/2025 12:05 PM EDT) HBV SURFACE ANTIGEN Nonreactive Nonreactive [facility] 01/30/2025 12:0 5 PM EDT 01/30/2025 1:04 PM EDT us Anika Miranda MD LAB BLOOD ORDERABLES Jessica l Result Performing Organization Address [facility]/[place] [address] * (ABNORMAL) CBC and differential (01/30/2025 12:05 PM EDT) WBC 11.03(H) 4.00 - 11.00 K/uL [facility] RBC 4.29 4.00 - 5.20 M/uL [facility] HGB 10.3(L) 12.0 - 16.0 g/dL [facility] HCT 32.9(L) 36.0 - 46.0 % [facility] PLT 343 150 - 450 K/uL [facility] MCV 76.7(L) 80.0 - 100.0 fL [facility] MCH 24.0(L) 27.0 - 31.0 pg [facility] MCHC 31.3(L) 32.0 - 36.0 g/dL [facility] RDW 16.8(H) 11.5 - 14.5 % [facility] MPV 8.8 8.4 - 12.0 fL [facility] NRBC 0.00 0.00 /100 WBCs [facility] ABSOLUTE NRBC 0.00 0.00 K/uL [facility] DIFF METHOD Auto [facility] NEUTS 73.8 48.0 - 76.0 % [facility] LYMPHS 19.8 18.0 - 41.0 % [facility] MONOS 4.3 4.0 - 11.0 % [facility] EOS 1.4 0.0 - 5.0 % [facility] BASOS 0.3 0.0 - 1.5 % [facility] Granulocytes, immature (%) 0.4 0.0 - 0.9 % [facility] ABSOLUTE NEUTS 8.16(H) 1.92 - 7.60 K/uL [facility] ABSOLUTE LYMPHS 2.18 0.72 - 4.10 K/uL [facility] ABSOLUTE MONOS 0.47 0.16 - 1.10 K/uL [facility] ABSOLUTE EOS 0.15 0.00 - 0.50 K/uL [facility] ABSOLUTE BASOS 0.03 0.00 - 0.15 K/uL [facility] Granulocytes, immature 0.04 0.00 - 0.09 K/uL [facility] Blood 01/30/2025 12:0 5 PM EDT 01/30/2025 1:04 PM EDT us Anika Miranda MD LAB BLOOD ORDERABLES Jessica l Result [facility] [address] [place] [address] * (ABNORMAL) Antinuclear antibody (BAMBI) (01/30/2025 12:05 PM EDT) BAMBI Result Positive(A ) Negative [facility] IMMUNOLOG[facility] BAMBI Titer 1 1:320(A) Negative [facility] ICAL IMMUNOLOGY LAB BAMBI Pattern 1 DIFFUSE(A) Negative [facility] C LINICAL IMMUNOLOGY LAB 01/30/2025 12:0 5 PM EDT 01/30/2025 1:05 PM EDT us Anika Miranda MD LAB BLOOD ORDERABLES Jessica l Result [facility] IMMUNOLOGY LAB [address] [place] [address] * Outside Lab (01/30/2025) us Scanning Interface Provider LAB BLOOD ORDERABLES Final Result from Last 3 Months Insurance ACO ACO ACO ACO ACO ACO Care Teams Manager Plumbing Relationship Specialty Start Date End Date Priscilla Gaffney MD [address] [place] [address] PCP - General 10/31/24 Additional Source Comments The information contained in this document represents components of the legal health record. It is not the complete legal health record.[facility]
== END 2025-03-02 15:18 | disposition home or self-care (01) ==
LOC: HO.HMCFM 14:43
PROVIDERS: PCP Nurse Practitioner Family; Visit Provider Nurse Practitioner Family
DX: Z00.00 Encounter for general adult medical examination without abnormal findings (principal); F41.1 Generalized anxiety disorder; F33.2 Major depressive disorder, recurrent severe without psychotic features; Z68.44 Body mass index [BMI] 60.0-69.9, adult; G43.109 Migraine with aura, not intractable, without status migrainosus; J45.20 Mild intermittent asthma, uncomplicated; G47.33 Obstructive sleep apnea (adult) (pediatric); R73.03 Prediabetes; L73.2 Hidradenitis suppurativa; D50.8 Other iron deficiency anemias; M35.3 Polymyalgia rheumatica; R76.8 Other specified abnormal immunological findings in serum

== ENCOUNTER → 2025-03-02 14:42 | Outpatient (BNVA) | payer OTHER, SELFPAY | PROVIDERS: PCP Nurse Practitioner Family; Visit Provider Nurse Practitioner Family | DX: Z00.00 Encounter for general adult medical examination without abnormal findings (principal); O26.899 Other specified pregnancy related conditions, unspecified trimester; O99.210 Obesity complicating pregnancy, unspecified trimester; O99.519 Diseases of the respiratory system complicating pregnancy, unspecified trimester; O16.9 Unspecified maternal hypertension, unspecified trimester; O10.919 Unspecified pre-existing hypertension complicating pregnancy, unspecified trimester; O99.340 Other mental disorders complicating pregnancy, unspecified trimester; E66.01 Morbid (severe) obesity due to excess calories; G47.33 Obstructive sleep apnea (adult) (pediatric); G43.909 Migraine, unspecified, not intractable, without status migrainosus; J45.909 Unspecified asthma, uncomplicated; F41.1 Generalized anxiety disorder; K21.9 Gastro-esophageal reflux disease without esophagitis; G93.2 Benign intracranial hypertension; R73.03 Prediabetes; L73.2 Hidradenitis suppurativa; D50.9 Iron deficiency anemia, unspecified; F33.2 Major depressive disorder, recurrent severe without psychotic features; G43.109 Migraine with aura, not intractable, without status migrainosus; J45.20 Mild intermittent asthma, uncomplicated; D50.8 Other iron deficiency anemias; M35.3 Polymyalgia rheumatica; R76.89 Other specified abnormal immunological findings in serum; Z99.89 Dependence on other enabling machines and devices; Z87.891 Personal history of nicotine dependence; Z68.44 Body mass index [BMI] 60.0-69.9, adult | CPT/HCPCS: 83036; 96127; 99395 ==